=== PATIENT | female | born 1955 | race Caucasian/White ===

== ENCOUNTER 2016-11-09 15:42 | Inpatient (IN) ==
[~2016-11-09 15:42] MED LIST: *HR* Etomidate 40 MG/20 ML VIAL IVP ONE; *HR* LORazepam 2 MG/ML VIAL IVP ONE; *HR* Rocuronium Bromide 50 MG/5 ML VIAL IVC ONE
[2016-11-09] MEDS ORDERED: Ipratropium/Albuterol Neb 3 ML IH ONE (15:46)
[2016-11-09] MEDS ORDERED: methylPREDNISolone 125 MG/2 ML VIAL IVP ONE (15:46)
--- NOTE | 2016-11-09 15:49 | Emergency Department Note ---
Disposition Clinical Impression: Hypoxia, Pleural effusion Respiratory failure Qualifiers: Chronicity: acute Respiratory failure complication: unspecified whether with hypoxia or hypercapnia Qualified Code(s): J96.00 - Acute respiratory failure, unspecified whether with hypoxia or hypercapnia Disposition: Admitted As Inpatient Condition: Critical Time of Disposition: 18:26 SOB HPI - General Chief Complaint: ED Shortness of Breath/Dyspnea Stated Complaint: AL Time Seen by Provider: 11/09/16 15:46 Source: patient, EMS Mode of arrival: EMS Limitations: no limitations Nursing Notes Reviewed: Yes Vital Signs Reviewed: Yes - History of Present Illness 61-year-old with a history of ovarian cancer was receiving a treatment today and developed acute onset of shortness of breath. Spoke to Dr. Baca is concerned about bronchospasm versus congestive changes. Pt Subjective Complaint: shortness of breath Onset (ago): Just SCHEDULE MANAGER Context: recent illness Severity: moderate, severe Consistency/Duration: constant Improves with: nothing Worsens with: nothing Known history of: other (During chemotherapy) Treatment prior to arrival: oxygen - Related Data Home Medications Medication Instructions Recorded Confirmed Baclofen 10 mg PO TID 09/29/16 11/09/16 Duloxetine HCl [Cymbalta] 60 mg PO DAILY 09/29/16 11/09/16 Gabapentin [Neurontin] 600 mg PO TID 09/29/16 11/09/16 Melatonin/Pyridoxine HCl (B6) 1 each PO HS 09/29/16 11/09/16 [Melatonin 3 mg Tablet] Ropinirole HCl [Requip] 2 mg PO BID 09/29/16 11/09/16 Aspirin 81 mg PO DAILY 11/09/16 11/09/16 Previous Rx's Medication Instructions Recorded Magic Mouthwash [Magic Mouthwash 10 ml PO QID PRN #240 ml 10/15/16 BLM] Amlodipine [Norvasc] 5 mg PO DAILY #30 tablet 10/18/16 Docusate Sodium [Colace] 100 mg PO BID #60 capsule 10/18/16 Ondansetron HCl [Zofran] 4 mg PO Q6H PRN #30 tablet 11/01/16 Prochlorperazine Maleate 10 mg PO Q6HR PRN #30 tablet 11/01/16 [Compazine] Megestrol Acetate [Megace] 10 ml PO DAILY #300 mls 11/04/16 OxyCODONE Immed Rel [Roxicodone 5 10 mg PO Q4H PRN #60 tab 11/08/16 MG] Dexamethasone [Decadron] 2 tab PO BID #30 tablet 11/09/16 Allergies Allergy/AdvReac Type Severity Reaction Status Date / Time No Known Allergies Allergy Verified 11/09/16 15:44 Constitutional: Denies: fever, chills, weakness, weight change Eyes: Denies: eye pain, eye discharge, vision change ENT ED: Denies: ear pain, throat pain, dental pain, hearing loss, epistaxis, congestion, dysphagia Cardiovascular: Denies: chest pain, palpitations, dyspnea on exertion, edema, syncope Respiratory: Reports: dyspnea. Denies: cough, wheezes, hemoptysis, stridor Gastrointestinal: Denies: abdominal pain, nausea, vomiting, diarrhea, constipation, hematemesis, melena, hematochezia Genitourinary: Denies: dysuria, frequency, hematuria, discharge Musculoskeletal: Denies: back pain, neck pain, arthralgia, myalgia Integumentary: Denies: rash, abrasion, lesions Neurological: Denies: headache, weakness, numbness, paresthesias, confusion, abnormal gait, vertigo Psychiatric: Denies: anxiety, depression, suicidal thoughts, homicidal thoughts , auditory hallucinations, visual hallucinations Endocrine: Denies: fatigue Hematological/Lymphatic: Denies: easy bleeding, easy bruising Allergic/Immunologic: Denies: facial swelling, urticaria Past Medical History - Past Medical History Medical history: Reports: arthritis, cancer (ovarian cancer diagnosed 09/2016- Dr. Zelalem Lui), hypertension, other (complex regional pain syndrome, cervical spinal stenosis) Surgical history: Reports: cholecystectomy, knee replacement (right total knee) , orthopedic, other (right elbow replacement, rotator cuff repair, right total knee replacement) Psychiatric history: Reports: no psych history - Social History Smoking Status: Never smoker Smokeless Tobacco Status: No Alcohol use: Reports: none Drug use: Reports: none Physical Exam - General Limitations: no limitations General appearance: alert, in no apparent distress - Head Head exam: atraumatic, normocephalic, normal inspection - Eye Eye exam: Present: normal appearance, PERRL, EOMI - ENT ENT exam: normal exam, normal oropharynx, mucous membranes moist - Neck Neck exam: Present: normal inspection, full ROM, trachea midline - Chest Chest inspection: Present: normal inspection, symmetric chest wall rise - Respiratory Respiratory exam: Present: respiratory distress, accessory muscle use, prolonged expiratory phase - Cardiovascular Cardiovascular exam: Present: regular rate, normal rhythm, normal heart sounds - Abdominal Exam Abdominal exam: Present: soft, Non-Tender. Absent: tenderness, distention, guarding, rebound, rigidity - Extremities Exam Extremities exam: Present: normal inspection, full ROM. Absent: tenderness, pedal edema - Expanded Lower Extremity Exam Neurovascular/Tendon exam: Absent: motor deficit, sensory deficit, tendon deficit - Back Exam Back exam: Present: normal inspection, full ROM. Absent: tenderness - Neurological Exam Neurological exam: Present: alert, oriented X3 - Psychiatric Psychiatric exam: Present: normal affect, normal mood - Skin Skin exam: Present: warm, dry, intact, normal color Course - Reevaluation(s) Reevaluation #1: Patient had a progressive shortness of breath to the point that the patient pulse ox was in the mid 80s on 100% nonrebreather a BiPAP was applied without improvement so the vision was made to intubate the patient. Patient with acute onset of severe shortness of breath and tachycardia concern for PE. Patient was treated with 1mg /kg of Lovenox. We will obtain a CTA of the chest. Local care place a chest tube with return of about 2-1/2 L of fluid. Vitals remained stable. Time: 16:19 - Consultations Consultation #1: Discussed with critical care who came down and evaluated the patient is going to place chest tube to drain a pleural effusion. Will admit patient to the ICU. Time: 16:41 Consultation #2: The patient had a trending down of her pulse ox into the high 80s to 90 range. Patient had been on water seal for her chest tube and one reconnected had some improvement in the pulse ox. We did do a blood gas her pH was 7.03 she was given bicarbonate [address] of her chest results showed a multiple pulmonary emboli patient had received Lovenox she also on CT showed no evidence of right heart strain. I called the ICU doctors Dr. Mittal she is aware of the CT findings as the radiologist had called her. This point in time she does not have evidence of right heart strain, there is separation of TPA at this point in time does not appear to be indicated his vitals are stable. Also noted on CT scan carcinomatosis of the abdomen. Patient is in grave condition. Time: 19:50 Vital Signs O2 Sat by Pulse Oximetry 83 L 11/09/16 15:42 Temperature 97.7 F 11/09/16 15:46 Pulse Rate 94 11/09/16 19:20 Respiratory Rate 18 11/09/16 19:20 Blood Pressure 122/64 11/09/16 19:20 O2 Sat by Pulse Oximetry 96 11/09/16 19:20 Oxygen Delivery Oxygen Delivery Ventilator Procedures - Central Line Placement Right IJ Central Line Inserted*: Yes Central Line Catheter Replacement*: No Central Line Insertion: emergent Procedural Pause: verify patient name and date of , timeout performed per policy, luís and assess the site, assemble equipment and verify supplies, perform hand hygiene Patient Placed on Monitor/Pulse Ox: Yes During the Procedure: clinician is wearing sterile gloves, cap, mask,& gown during insertion, sterile field and sterile technique are maintained, patient's face is covered with drape or mask and wearing a cap, everyone in room is wearing a mask Central Line Prep: Chlorhexidine scrub Prep the Procedure Site: apply chloraprep to the skin using a back and forth scrubbing motion, apply chloraprep for 30 seconds (upper body), 1-2 min ( femoral sites), allow prep to dry, drape the patient with a full body drape Local Anesthetic: lidocaine 1% Amount of anesthesia used (mL): 4 Ultrasound Used for Placement: Yes Central Line Lumen Inserted: triple Post Procedure: sutured in place, good blood return, all ports aspirated, flushed, capped Post Procedure X-Ray: tip of catheter in good position Patient Tolerated Procedure: well, no complications Complications: none Name of Clinician Inserting Central Line: Asha Clinician Assisting/Completing Checklist: Kai Harris - Intubation Time out performed: Yes sedative: Etomidate Mg Given: 20 paralytic: Rocuronium Mg Given: 50 Laryngoscope: Morgan ET Tube Size: 7.5 ET Tube Uncuffed: No Tube Secured Depth (cm): 22 Tube Secured Location: lips Tube Placement Confirmation: visualized tube passing through cords, equal breath sounds bilaterally, no breath sounds over epigastrium, confirmation by capnometry Patient Tolerated Procedure: well, no complications Intubation Complications: none Shortness of Breath/Dyspnea - Lab Data Result diagrams: 11/09/16 17:10 11/09/16 17:10 Lab Results 11/09/16 11/09/16 11/09/16 Range/Units 16:00 17:10 17:10 WBC 15.2 H D (4.3-11.1) K/mcL RBC 3.90 (3.82-4.97) M/mcL Hgb 9.8 L (11.5-15.4) g/dL Hct 33.4 L (35.3-44.9) % MCV 85.6 (83.0-100.0) fL MCH 25.1 L (28.0-33.3) pg MCHC 29.3 L (31.6-35.5) g/dL RDW 28.3 H (11.5-14.5) % Plt Count 667 H (140-400) K/mcL MPV 9.1 L (9.4-12.4) fL Immature Gran % 2.9 (0-4) % Seg Neutrophils % 79.9 % Lymphocytes % 15.8 % Monocytes % 1.0 % Eosinophils % 0.0 % Basophils % 0.4 % Neutrophils # 12.1 H (1.6-8.9) K/mcL Lymphocytes # 2.4 (0.6-4.6) K/mcL Monocytes # 0.2 (0.0-1.3) K/mcL Eosinophils # 0.0 (0.0-0.6) K/mcL Basophils # 0.1 (0.0-0.2) K/mcL Platelet Estimate Increased H (Normal) Immature Plt Fraction 2.4 (1.1-6.1) % Hypochromasia Present A (Not Present) Anisocytosis 1+ A (Not Present) PT 13.4 H (9.4-12.1) Seconds INR 1.2 APTT 32.3 (26.0-36.0) Seconds ABG pH (7.32-7.45) pH Units ABG pCO2 (35-45) mmHg ABG pO2 (85-104) mmHg ABG HCO3 (21-27) mEQ/L ABG Total CO2 (20-26) mEq/L ABG O2 Saturation (95-98) % ABG Base Excess (-2.0 to 3.0) mEq/L Blood Gas Modality Inspired O2 % Sodium (136-145) mEq/L Potassium (3.5-4.5) mEq/L Chloride (98-109) mEq/L Carbon Dioxide (19-29) mEq/L BUN (7-20) mg/dL Creatinine (0.57-1.11) mg/dL Est GFR ( Amer) (> 60) Est GFR (Non-Af Amer) (> 60) BUN/Creatinine Ratio (6-26) Glucose (70-99) mg/dL POC Glucose 281 H (58-89) Calculated Osmolality (280-300) Lactic Acid (0.5-2.2) mmol/L Calcium (8.6-10.8) mg/dL Total Bilirubin (0.2-1.2) mg/dL Direct Bilirubin (0.0-0.5) mg/dL Indirect Bilirubin (0.0-1.2) mg/dL AST (5-34) Units/L ALT (0-55) Units/L Alkaline Phosphatase (38-126) Units/L Troponin I (0-0.03) ng/mL B-Natriuretic Peptide (0-100) pg/mL Serum Total Protein (6.0-8.3) g/dL Albumin (3.5-5.0) g/dL Globulin (2.4-3.5) g/dL Albumin/Globulin Ratio (1.1-2.2) 11/09/16 11/09/16 11/09/16 Range/Units 17:10 17:10 17:10 WBC (4.3-11.1) K/mcL RBC (3.82-4.97) M/mcL Hgb (11.5-15.4) g/dL Hct (35.3-44.9) % MCV (83.0-100.0) fL MCH (28.0-33.3) pg MCHC (31.6-35.5) g/dL RDW (11.5-14.5) % Plt Count (140-400) K/mcL MPV (9.4-12.4) fL Immature Gran % (0-4) % Seg Neutrophils % % Lymphocytes % % Monocytes % % Eosinophils % % Basophils % % Neutrophils # (1.6-8.9) K/mcL Lymphocytes # (0.6-4.6) K/mcL Monocytes # (0.0-1.3) K/mcL Eosinophils # (0.0-0.6) K/mcL Basophils # (0.0-0.2) K/mcL Platelet Estimate (Normal) Immature Plt Fraction (1.1-6.1) % Hypochromasia (Not Present) Anisocytosis (Not Present) PT (9.4-12.1) Seconds INR APTT (26.0-36.0) Seconds ABG pH (7.32-7.45) pH Units ABG pCO2 (35-45) mmHg ABG pO2 (85-104) mmHg ABG HCO3 (21-27) mEQ/L ABG Total CO2 (20-26) mEq/L ABG O2 Saturation (95-98) % ABG Base Excess (-2.0 to 3.0) mEq/L Blood Gas Modality Inspired O2 % Sodium 134 L (136-145) mEq/L Potassium 4.2 (3.5-4.5) mEq/L Chloride 101 (98-109) mEq/L Carbon Dioxide 18 L (19-29) mEq/L BUN 10 (7-20) mg/dL Creatinine 0.80 (0.57-1.11) mg/dL Est GFR ( Amer) > 60 (> 60) Est GFR (Non-Af Amer) > 60 (> 60) BUN/Creatinine Ratio 13 (6-26) Glucose 415 H (70-99) mg/dL POC Glucose (58-89) Calculated Osmolality 295 (280-300) Lactic Acid 6.2 H* (0.5-2.2) mmol/L Calcium 8.4 L (8.6-10.8) mg/dL Total Bilirubin 0.3 (0.2-1.2) mg/dL Direct Bilirubin 0.2 (0.0-0.5) mg/dL Indirect Bilirubin 0.1 (0.0-1.2) mg/dL AST 19 (5-34) Units/L ALT 8 (0-55) Units/L Alkaline Phosphatase 148 H (38-126) Units/L Troponin I 0.43 H* (0-0.03) ng/mL B-Natriuretic Peptide (0-100) pg/mL Serum Total Protein 6.7 (6.0-8.3) g/dL Albumin 2.1 L (3.5-5.0) g/dL Globulin 4.6 H (2.4-3.5) g/dL Albumin/Globulin Ratio 0.5 L (1.1-2.2) 11/09/16 11/09/16 Range/Units 17:10 17:10 WBC (4.3-11.1) K/mcL RBC (3.82-4.97) M/mcL Hgb (11.5-15.4) g/dL Hct (35.3-44.9) % MCV (83.0-100.0) fL MCH (28.0-33.3) pg MCHC (31.6-35.5) g/dL RDW (11.5-14.5) % Plt Count (140-400) K/mcL MPV (9.4-12.4) fL Immature Gran % (0-4) % Seg Neutrophils % % Lymphocytes % % Monocytes % % Eosinophils % % Basophils % % Neutrophils # (1.6-8.9) K/mcL Lymphocytes # (0.6-4.6) K/mcL Monocytes # (0.0-1.3) K/mcL Eosinophils # (0.0-0.6) K/mcL Basophils # (0.0-0.2) K/mcL Platelet Estimate (Normal) Immature Plt Fraction (1.1-6.1) % Hypochromasia (Not Present) Anisocytosis (Not Present) PT (9.4-12.1) Seconds INR APTT (26.0-36.0) Seconds ABG pH 7.24 L (7.32-7.45) pH Units ABG pCO2 47 H (35-45) mmHg ABG pO2 132 H (85-104) mmHg ABG HCO3 20.1 L (21-27) mEQ/L ABG Total CO2 21.5 (20-26) mEq/L ABG O2 Saturation 98 (95-98) % ABG Base Excess -7.2 L (-2.0 to 3.0) mEq/L Blood Gas Modality ASSIST CONTROL Inspired O2 50 % Sodium (136-145) mEq/L Potassium (3.5-4.5) mEq/L Chloride (98-109) mEq/L Carbon Dioxide (19-29) mEq/L BUN (7-20) mg/dL Creatinine (0.57-1.11) mg/dL Est GFR ( Amer) (> 60) Est GFR (Non-Af Amer) (> 60) BUN/Creatinine Ratio (6-26) Glucose (70-99) mg/dL POC Glucose (58-89) Calculated Osmolality (280-300) Lactic Acid (0.5-2.2) mmol/L Calcium (8.6-10.8) mg/dL Total Bilirubin (0.2-1.2) mg/dL Direct Bilirubin (0.0-0.5) mg/dL Indirect Bilirubin (0.0-1.2) mg/dL AST (5-34) Units/L ALT (0-55) Units/L Alkaline Phosphatase (38-126) Units/L Troponin I (0-0.03) ng/mL B-Natriuretic Peptide 53 (0-100) pg/mL Serum Total Protein (6.0-8.3) g/dL Albumin (3.5-5.0) g/dL Globulin (2.4-3.5) g/dL Albumin/Globulin Ratio (1.1-2.2) Critical Care Time Critical Care Time: Yes Total Critical Care Time: 60 Attestation: The high probability of a clinically significant, sudden or life threatening deterioration of the [respiratory, cardiovascular] system(s) required my full and direct attention, intervention and personal management. The aggregate critical care time was [60] minutes. This time is in addition to time spent performing reported procedures but includes the following: [x] Data Review and interpretation [x] Patient assessment and monitoring of vital signs [x] Documentation [x] Medication orders and management
[2016-11-09] MEDS ORDERED: *HR* Rocuronium Bromide 50 MG/5 ML VIAL IVP ONE (16:10)
[2016-11-09] MEDS ORDERED: *HR* Midazolam HCl 2 MG/2 ML VIAL IVP ONE (16:11)
[2016-11-09] MEDS ORDERED: *HR* Etomidate 20 MG/10 ML AMPUL IVP ONE (16:11)
[2016-11-09] MEDS ORDERED: *HR* Enoxaparin 100 MG/ML SYRINGE SQ ONE (16:13)
[2016-11-09] MEDS ORDERED: Propofol 500 MG/50 ML INFUS..BTL ONE (16:16)
[2016-11-09 17:22] LABS: Basophils # 0.1 K/mcL (0.0-0.2); Basophils % 0.4 %; Hematocrit 33.4 % (35.3-44.9); Hemoglobin 9.8 g/dL (11.5-15.4); Immature Granulocytes % 2.9 % (0-4); Immature Platelets 2.4 % (1.1-6.1); Lymphocytes # 2.4 K/mcL (0.6-4.6); Lymphocytes % 15.8 %; Mean Corpuscular HGB Conc 29.3 g/dL (31.6-35.5); Mean Corpuscular Hemoglobin 25.1 pg (28.0-33.3); Mean Corpuscular Volume 85.6 fL (83.0-100.0); Mean Platelet Volume 9.1 fL (9.4-12.4); Monocytes # 0.2 K/mcL (0.0-1.3); Platelet Count 667 K/mcL (140-400); Red Cell Distribution Width 28.3 % (11.5-14.5); Segmented Neutrophils % 79.9 %
[2016-11-09 17:23] LABS: Neutrophils # 12.1 K/mcL (1.6-8.9)
[2016-11-09 17:25] LABS: INR 1.2; Prothrombin Time 13.4 Seconds (9.4-12.1)
[2016-11-09 17:27] LABS: Activated Partial Thrombo Time 32.3 Seconds (26.0-36.0)
[2016-11-09 17:32] LABS: Alanine Aminotransferase 8 Units/L (0-55); Albumin 2.1 g/dL (3.5-5.0); Albumin/Globulin Ratio 0.5 (1.1-2.2); Alkaline Phosphatase 148 Units/L (38-126); Aspartate Amino Transferase 19 Units/L (5-34); BUN/Creatinine Ratio 13 (6-26); Bilirubin,Direct 0.2 mg/dL (0.0-0.5); Bilirubin,Indirect 0.1 mg/dL (0.0-1.2); Bilirubin,Total 0.3 mg/dL (0.2-1.2); Blood Urea Nitrogen 10 mg/dL (7-20); Calcium 8.4 mg/dL (8.6-10.8); Carbon Dioxide 18 mEq/L (19-29); Chloride 101 mEq/L (98-109); Globulin 4.6 g/dL (2.4-3.5); Glucose 415 mg/dL (70-99); Osmolality,Calculated 295 (280-300); Potassium 4.2 mEq/L (3.5-4.5); Sodium 134 mEq/L (136-145); Total Protein 6.7 g/dL (6.0-8.3); eGFR For African Americans > 60 (> 60); eGFR For Non-African Americans > 60 (> 60)
[2016-11-09] MEDS ORDERED: Piperacillin/Tazobactam 3.375 GM in D5% in Water (Mini-Bag+) 100 ML IVPB ONE (17:38)
[2016-11-09] MEDS: Dexmedetomidine HCl 400 MCG/100 ML MLS IVC SCH (17:45)
[2016-11-09] MEDS ORDERED: *HR* LORazepam 2 MG/ML VIAL IVP PRN (17:47)
[2016-11-09] MEDS ORDERED: Acetaminophen 325 MG TABLET PO PRN (17:47)
[2016-11-09] MEDS ORDERED: Acetaminophen 650 MG RECTAL SUPP RC PRN (17:47)
[2016-11-09] MEDS ORDERED: Naloxone 0.4 MG/ML INJ IVP PRN (17:47)
[2016-11-09 17:52] LABS: Anisocytosis 1+ (Not Present); Hypochromasia Present (Not Present)
[2016-11-09 17:53] LABS: Platelet Estimate Increased (Normal)
[2016-11-09 17:59] LABS: ABG Base Excess -7.2 mEq/L (-2.0 to 3.0); ABG HCO3 20.1 mEQ/L (21-27); ABG Oxygen Saturation 98 % (95-98); ABG PCO2 47 mmHg (35-45); ABG PH 7.24 pH Units (7.32-7.45); ABG PO2 132 mmHg (85-104); ABG TCO2 21.5 mEq/L (20-26); Blood Gas FiO2 50 %
--- NOTE | 2016-11-09 18:09 | Pulmonology History & Physical ---
Date of Encounter: 11/09/16 Time of Encounter: 18:01 Assessment and Plan (1) Acute respiratory failure with hypoxia Current visit: Yes Status: Acute Acute respiratory failure with hypoxia in this particular individual is likely due severe pulmonary insufficiency (shunt physiology) secondary to massive left pleural effusion. Of note, ultrasound of the heart revealed a severely displaced heart into the right chest which following left chest tube placement and evacuation of the massive pleural effusion, assumed its normal configuration. Of note, however ultrasound of the heart suggested hypokinesis dilation of the right and the left ventricles and a questionable echogenic mass within the right ventricle (? Thrombus). Given these findings, further evaluation will be performed to include a CT scan of the chest with pulmonary embolism protocol, formal echocardiography to assess RV LV function and the presence of a possible RV thrombus, venous duplex studies of the llower extremities. In the meantime, the patient will be provided with full anticoagulation. 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 The left chest tube will be will remain in place and perhaps patient will be a candidate for pleurodesis in the not too distant future. Given the presumptive A. fib flutter, at least for now, the patient will be maintained on Cardizem infusion. Patient may be a suitable candidate for additional medications for treatment of atrial fib flutter (rate control versus maintenance of sinus rhythm). I reviewed the situation with the patient's spouse. He wishes the patient to receive full aggressive medical measures. He did verbally consent to intubation , central line placement, chest tube placement and any other additional interventions as seemingly medically necessary. Code(s): J96.01 - Acute respiratory failure with hypoxia SNOMED Code(s): 09647638, 950596798 History of Present Illness Chief complaint: Acute respiratory failure with hypoxia HPI: Ms. Bains is a 61 year old female with background histories of hypertension, restless leg syndrome, breast cancer for which she has had lumpectomy and most recently ovarian malignancy with advanced stage given carcinomatosis within the peritoneal space necessitating at least 2 paracentesis as well as malignant spread to the left pleural space necessitating at least one perhaps 2 thoracenteses (per her ). Apparently the patient was just completing chemotherapy today (reportedly per spouse this was to be the last treatment session) when the patient developed severe breathlessness and documented hypoxemia. Apparently she presented to the emergency room in respiratory extremis and was also noted to have atrial fibrillation/flutter with rapid ventricular response. Magnitude of respiratory distress and hypoxemia she was subsequently intubated by the emergency room physicians. The critical care team was asked to assist with management in the emergency room. Of note, focused ultrasound of the heart revealed severe hypokinesis and enlargement of the right and the left ventricle question of density within the right ventricle and a massive left pleural effusion. Given the size of the effusion and in light of the patient's clinical circumstances, both myself and Dr. Mittal emergently placed 28-Frisian standard chest tube into the left hemithorax without difficulty. Approximately 3 L if not more serosanguineous fluid erupted from the chest under pressure and a follow-up chest film revealed complete evacuation of the left hemithorax effusion and appropriate placement of a left chest tube as well as a right central line in the endotracheal tube. The patient was subsequently admitted to the intensive care unit. She currently is on full ventilatory support, has a Cardizem infusion, Precedex infusion for sedation and he has received full anticoagulating doses of heparin (his low molecular weight heparin). Past Med Surg Social Fam HX - Past Medical History Medical history: arthritis, cancer (ovarian cancer diagnosed 09/2016-Dr. Zelalem Lui), hypertension, other (complex regional pain syndrome, cervical spinal stenosis) Psychiatric history: no psych history - Past Surgical History Surgical History: cholecystectomy, knee replacement (right total knee), orthopedic, other (right elbow replacement, rotator cuff repair, right total knee replacement) - Social History Smoking Status: Never smoker Smokeless Tobacco Status: No Alcohol use: none Drug use: none - Family History Maternal Living Status: Hx Family Respiratory Disorders: Yes (COPD) Medications and Allergies Amlodipine [Norvasc] 5 mg PO DAILY 09/29/16 [History] Baclofen 10 mg PO TID 09/29/16 [History] Duloxetine HCl [Cymbalta] 60 mg PO DAILY 09/29/16 [History] Gabapentin [Neurontin] 600 mg PO TID 09/29/16 [History] Melatonin/Pyridoxine HCl (B6) [Melatonin 3 mg Tablet] 1 each PO HS 09/29/16 [ History] Ropinirole HCl [Requip] 2 mg PO BID 09/29/16 [History] Magic Mouthwash [Magic Mouthwash BLM] 10 ml PO QID PRN #240 ml 10/15/16 [Rx] Ondansetron HCl [Zofran] 4 mg PO Q6H #15 tablet 10/15/16 [Rx] Amlodipine [Norvasc] 5 mg PO DAILY #30 tablet 10/18/16 [Rx] Docusate Sodium [Colace] 100 mg PO BID #60 capsule 10/18/16 [Rx] Ondansetron HCl [Zofran] 4 mg PO Q6H PRN #30 tablet 11/01/16 [Rx] Prochlorperazine Maleate [Compazine] 10 mg PO Q6HR PRN #30 tablet 11/01/16 [Rx] Megestrol Acetate [Megace] 10 ml PO DAILY #300 mls 11/04/16 [Rx] OxyCODONE Immed Rel [Roxicodone 5 MG] 10 mg PO Q4H PRN #60 tab 11/08/16 [Rx] Dexamethasone [Decadron] 2 tab PO BID #30 tablet 11/09/16 [Rx] Allergies No Known Allergies Allergy (Verified 11/09/16 15:44) ROS unobtainable: due to endotracheal tube All Systems: A 10-system review of systems was performed and is negative for pertinent findings except as documented above in the HPI. Physical Examination Vital Signs: Vital Signs, Last 4 Hours Temp Pulse Resp BP Pulse Ox 11/09/16 16:49 146 14 131/96 98 11/09/16 16:39 149 14 122/91 96 11/09/16 16:25 158 14 123/85 98 11/09/16 16:15 15 113/91 100 11/09/16 16:10 160 22 142/109 90 L 11/09/16 15:59 144 30 124/83 84 L 11/09/16 15:46 97.7 F 96 28 124/83 83 L 11/09/16 15:42 83 L General appearance: other (Chronically ill obese female orally intubated sedated) Eyes: nonicteric ENT: other (Oral endotracheal tube) Neck: supple, no lymphadenopathy Auscultation: left: diminished breath sounds Percussion: left: dull Cardiovascular: irregular rhythm Gastrointestinal: normoactive bowel sounds, non-distended Integumentary: normal Extremities: no cyanosis, pink and warm, edema unable to assess due to mental status Results - Laboratory Findings CBC and BMP: 11/09/16 17:10 11/09/16 17:10 ABG ABG pH 7.24 pH Units (7.32-7.45) L 11/09/16 17:10 ABG pCO2 47 mmHg (35-45) H 11/09/16 17:10 ABG pO2 132 mmHg (85-104) H 11/09/16 17:10 ABG O2 Saturation 98 % (95-98) 11/09/16 17:10 PT/INR, D-dimer PT 13.4 Seconds (9.4-12.1) H 11/09/16 17:10 Abnormal lab findings: Abnormal lab results WBC 15.2 K/mcL (4.3-11.1) H D 11/09/16 17:10 Hgb 9.8 g/dL (11.5-15.4) L 11/09/16 17:10 Hct 33.4 % (35.3-44.9) L 11/09/16 17:10 MCH 25.1 pg (28.0-33.3) L 11/09/16 17:10 MCHC 29.3 g/dL (31.6-35.5) L 11/09/16 17:10 RDW 28.3 % (11.5-14.5) H 11/09/16 17:10 Plt Count 667 K/mcL (140-400) H 11/09/16 17:10 MPV 9.1 fL (9.4-12.4) L 11/09/16 17:10 Neutrophils # 12.1 K/mcL (1.6-8.9) H 11/09/16 17:10 Platelet Estimate Increased (Normal) H 11/09/16 17:10 Hypochromasia Present (Not Present) A 11/09/16 17:10 Anisocytosis 1+ (Not Present) A 11/09/16 17:10 PT 13.4 Seconds (9.4-12.1) H 11/09/16 17:10 ABG pH 7.24 pH Units (7.32-7.45) L 11/09/16 17:10 ABG pCO2 47 mmHg (35-45) H 11/09/16 17:10 ABG pO2 132 mmHg (85-104) H 11/09/16 17:10 ABG HCO3 20.1 mEQ/L (21-27) L 11/09/16 17:10 ABG Base Excess -7.2 mEq/L (-2.0 to 3.0) L 11/09/16 17:10 Sodium 134 mEq/L (136-145) L 11/09/16 17:10 Carbon Dioxide 18 mEq/L (19-29) L 11/09/16 17:10 Glucose 415 mg/dL (70-99) H 11/09/16 17:10 POC Glucose 281 (58-89) H 11/09/16 16:00 Lactic Acid 6.2 mmol/L (0.5-2.2) H* 11/09/16 17:10 Calcium 8.4 mg/dL (8.6-10.8) L 11/09/16 17:10 Alkaline Phosphatase 148 Units/L (38-126) H 11/09/16 17:10 Troponin I 0.43 ng/mL (0-0.03) H* 11/09/16 17:10 Albumin 2.1 g/dL (3.5-5.0) L 11/09/16 17:10 Globulin 4.6 g/dL (2.4-3.5) H 11/09/16 17:10 Albumin/Globulin Ratio 0.5 (1.1-2.2) L 11/09/16 17:10
--- NOTE | 2016-11-09 18:21 | Event Note ---
Date of Encounter: 11/09/16 Time of Encounter: 18:19 An emergent 28-Uzbek left chest tube was placed in the emergency room by myself as well as Dr. Mittal using ultrasound guidance, maximal sterile barrier technique. Following placement, a large volume under pressure of serosanguineous fluid erupted from the left chest base the majority of which emptied to the floor. Approximately 3 liters of fluid in total was removed from the left hemithorax. The 28-Uzbek chest tube was sutured into position with Prolene. A follow-up chest radiograph revealed near complete evacuation of fluid from the left hemithorax no obvious pneumothorax. No untoward events were noted.
[2016-11-09] MEDS: Sodium Bicarbonate 50 MEQ/50 ML VIAL ONE ×2 (19:28→19:29)
[2016-11-09 20:01] LABS: Blood Gas FiO2 100 %
[2016-11-09 20:02] LABS: ABG HCO3 21.1 mEQ/L (21-27); ABG PO2 58 mmHg (85-104); ABG TCO2 23.6 mEq/L (20-26)
[2016-11-09 20:03] LABS: ABG Base Excess -10.8 mEq/L (-2.0 to 3.0); ABG Oxygen Saturation 73 % (95-98)
[2016-11-09 20:05] LABS: ABG PH 7.03 pH Units (7.32-7.45)
[2016-11-09 20:06] LABS: ABG PCO2 80 mmHg (35-45)
[2016-11-09 20:07] LABS: Bilirubin,Urine Negative (Negative); Blood,Urine Trace-intact (Negative); Clarity,Urine Clear (Clear); Color,Urine Yellow (Yellow); Glucose,Urine (UA) Normal (Normal); Ketones,Urine Trace mg/dL (Negative); Leukocyte Esterase,Urine Negative (Negative); Nitrite,Urine Negative (Negative); Protein,Urine Negative (Neg-Trace); Urobilinogen,Urine Normal (Normal)
[2016-11-09 20:09] LABS: Bacteria,Urine None Seen per hpf (None-Few); Hyaline Casts,Urine None Seen per lpf (None-Few); RBC,Urine 0-3 per hpf (0-3); Squamous Epithelial Cell,Urine Many per lpf (None-Few); WBC,Urine 0-3 per hpf (0-3)
[2016-11-09] MEDS ORDERED: Alteplase (Activase) 100 MG in EMPTY BAG 1 EACH IVPB ONE (21:14)
[2016-11-09] MEDS: Sennosides 8.6 MG TABLET PO SCH (21:24)
[2016-11-09] MEDS: Pantoprazole 40 MG VIAL IVPB SCH (21:58)
[2016-11-09] MEDS: 0.9 % Sodium Chloride 1,000 ML IVC SCH ×3 (21:58→22:01)
[2016-11-09] MEDS: FentaNYL (PF) 1,000 MCG in 0.9 % Sodium Chloride 80 ML IVC SCH (21:59)
[2016-11-10 03:39] LABS: Basophils % 0.2 %; Hematocrit 31.5 % (35.3-44.9); Hemoglobin 9.6 g/dL (11.5-15.4); Immature Granulocytes % 1.7 % (0-4); Lymphocytes % 7.8 %; Mean Corpuscular HGB Conc 30.5 g/dL (31.6-35.5); Mean Corpuscular Hemoglobin 25.1 pg (28.0-33.3); Mean Corpuscular Volume 82.5 fL (83.0-100.0); Mean Platelet Volume 8.9 fL (9.4-12.4); Monocytes # 0.5 K/mcL (0.0-1.3); Monocytes % 3.9 %; Platelet Count 362 K/mcL (140-400); Red Blood Count 3.82 M/mcL (3.82-4.97); Red Cell Distribution Width 27.5 % (11.5-14.5); Segmented Neutrophils % 86.4 %
[2016-11-10 03:50] LABS: INR 1.5
[2016-11-10 03:52] LABS: Neutrophils # 11.2 K/mcL (1.6-8.9)
[2016-11-10 03:54] LABS: BUN/Creatinine Ratio 19 (6-26); Blood Urea Nitrogen 12 mg/dL (7-20); Calcium 7.4 mg/dL (8.6-10.8); Carbon Dioxide 20 mEq/L (19-29); Chloride 107 mEq/L (98-109); Glucose 101 mg/dL (70-99); Magnesium 1.2 mg/dL (1.6-2.6); Osmolality,Calculated 292 (280-300); Potassium 4.2 mEq/L (3.5-4.5); Sodium 141 mEq/L (136-145); eGFR For African Americans > 60 (> 60); eGFR For Non-African Americans > 60 (> 60)
[2016-11-10] MEDS ORDERED: Potassium Phosphate 44 MEQ in 0.9 % Sodium Chloride 250 ML IVPB PRN (04:13)
[2016-11-10] MEDS ORDERED: Potassium Chloride 40 MEQ/200 ML BAG IVPB PRN (04:13)
[2016-11-10] MEDS ORDERED: Sodium Phosphate 30 MMOL in D5% in Water 100 ML IVPB PRN (04:13)
[2016-11-10 04:42] LABS: Anisocytosis 3+ (Not Present); Hypochromasia Present (Not Present); Platelet Estimate Normal (Normal)
[2016-11-10 04:43] LABS: Polychromasia 2+ (Not Present)
[2016-11-10 05:02] LABS: ABG Base Excess -0.6 mEq/L (-2.0 to 3.0); ABG HCO3 22.3 mEQ/L (21-27); ABG Oxygen Saturation 98 % (95-98); ABG PCO2 30 mmHg (35-45); ABG PH 7.48 pH Units (7.32-7.45); ABG PO2 99 mmHg (85-104); ABG TCO2 23.2 mEq/L (20-26)
[2016-11-10 05:03] LABS: Blood Gas FiO2 100 %
[2016-11-10] MEDS: Magnesium Sulfate 2 GM in D5% in Water 100 ML IVPB PRN (05:43)
[2016-11-10] MEDS: Calcium Gluconate 1,000 MG in D5% in Water 100 ML IVPB PRN (05:49)
[2016-11-10] MEDS: Pantoprazole 40 MG VIAL IVPB SCH (08:28)
[2016-11-10] MEDS: *HR* Enoxaparin 100 MG/ML SYRINGE SQ SCH ×2 (08:28→22:24)
--- NOTE | 2016-11-10 08:57 | Pulmonology Progress Note ---
Date of Encounter: 11/10/16 Time of Encounter: 08:46 Assessment and Plan (1) Acute respiratory failure with hypoxia Current Visit: Yes Status: Acute Acute respiratory failure with hypoxia in this particular individual is likely due severe pulmonary insufficiency (shunt physiology) secondary to massive left pleural effusion. Of note, ultrasound of the heart revealed a severely displaced heart into the right chest which following left chest tube placement and evacuation of the massive pleural effusion, assumed its normal configuration. Of note, however ultrasound of the heart suggested hypokinesis dilation of the right and the left ventricles and a questionable echogenic mass within the right ventricle (? Thrombus). Patient has a known history of ovarian cancer with metastatic disease and peritoneal carcinomatosis, who subsequently developed a left-sided pleural effusion likely secondary due to ovarian malignancy. Emergent intubation, chest tube placement, central line required. Initially patient had sinus tachycardia due to atrial fibrillation and Cardizem infusion was initiated. Stop Cardizem. Patient is intubated, ventilated, sedated. We will continue ventilation with FiO2 to be weaned per patient tolerance with a goal oxygen saturation of 88-90%. Persistent Hypotension likely related to cardiac stress shock from pulmonary emboli. Begin Levophed drip titrate to effect. Map >65 (2) Pleural effusion Current Visit: Yes Status: Acute On bedside echo a large pleural effusion was appreciated. More than 2 L of fluid drained at bedside. Chest tube in place. No crepitus appreciated. Continue tube management and dressing changes. Pleural effusion likely secondary to known metastatic ovarian malignancy. Patient may be a candidate for pleurodesis to obliterate pleural space to further prevent recurrent pleural effusions or pneumothorax. Consider after patient stabilizes. (3) Pulmonary embolism Current Visit: Yes Status: Acute Patient with known metastatic ovarian malignancy with sudden onset respiratory distress/ tachypnea who required emergent chest tube placement and subsequent CTA demonstrated extensive pulmonary embolic disease. Bedside echo demonstrated impaired left and right heart function. Additionally patient has been intermittently hypotensive with persistent tachycardia and new onset arrhythmia. Signs of right heart strain evident as well as compression due to large pleural effusion. IV lytic last night at 2220 successfully without bleeding events. CTA performed after chest tube placement: 11/09/16 demonstrated pulmonary emboli in both lungs predominantly the right main pulmonary artery and lobar and segmental branches of the right upper middle and lower lobes. Furthermore there was a pulmonary emboli within the left upper lobe. No evidence of pulmonary infarct or acute right-sided heart failure. Due to extensive pulmonary embolism and malignancy patient will require long- term anticoagulation with Lovenox. Start Lovenox Echo cardiogram is pending. Qualifiers: Pulmonary embolism type: other Chronicity: acute Acute cor pulmonale presence: without acute cor pulmonale Qualified Code(s): I26.99 - Other pulmonary embolism without acute cor pulmonale Subjective Principal diagnosis: Bilateral Pulmonary emboli and malignant pulmonary effusion Interval history: Patient was becoming tired at increased work of breathing and communicated by writing on paper that she needed to sleep and the vent was bothering her. Changed to Versed and fentanyl. No events overnight patient resting comfortably. Objective PUL Vital signs: Last Vital Signs Temp 99.3 F 11/10/16 07:51 Pulse 116 11/10/16 08:00 Resp 20 11/10/16 08:00 BP 97/68 11/10/16 08:00 Pulse Ox 98 11/10/16 08:00 General appearance: no acute distress Eyes: nonicteric ENT: oropharynx moist Neck: supple Effort: normal Auscultation: left: diminished breath sounds (Chest tube placed left midaxillary without crepitus.), bilateral: wheezes Cardiovascular: irregular rhythm (Rate of 112 at bedside) Gastrointestinal: normoactive bowel sounds, soft, non-tender, non-distended Integumentary: normal Extremities: no cyanosis Ventilator Settings Ventilator Settings: Ventilator Settings, Last 8 Hours Ventilator Mode VC+ Ventilator Mode VC+ Ventilator Mode VC+ Ventilator Mode VC+ Ventilator Mode VC+ Ventilator Mode VC+ Ventilator Mode VC+ Ventilator Mode VC+ Ventilator Mode VC+ Ventilator Mode VC+ Ventilator Mode VC+ Ventilator Mode VC+ Ventilator Mode VC+ Ventilator Tidal Volume 550 Setting Ventilator Tidal Volume 550 Setting Ventilator Tidal Volume 550 Setting Ventilator Tidal Volume 550 Setting Ventilator Tidal Volume 550 Setting Ventilator Tidal Volume 550 Setting Ventilator Tidal Volume 550 Setting Ventilator Tidal Volume 550 Setting Ventilator Tidal Volume 550 Setting Ventilator Tidal Volume 550 Setting Ventilator Tidal Volume 550 Setting Ventilator Tidal Volume 550 Setting Ventilator Tidal Volume 550 Setting Ventilator Respiratory Rate 16 Setting Ventilator Respiratory Rate 16 Setting Ventilator Respiratory Rate 16 Setting Ventilator Respiratory Rate 16 Setting Ventilator Respiratory Rate 16 Setting Ventilator Respiratory Rate 16 Setting Ventilator Respiratory Rate 16 Setting Ventilator Respiratory Rate 16 Setting Ventilator Respiratory Rate 16 Setting Ventilator Respiratory Rate 16 Setting Ventilator Respiratory Rate 16 Setting Ventilator Respiratory Rate 16 Setting Ventilator Respiratory Rate 16 Setting Actual Respiratory Rate 20 Actual Respiratory Rate 23 Actual Respiratory Rate 22 Actual Respiratory Rate 21 Actual Respiratory Rate 22 Actual Respiratory Rate 27 Actual Respiratory Rate 25 Actual Respiratory Rate 21 Actual Respiratory Rate 24 Actual Respiratory Rate 21 Actual Respiratory Rate 21 Actual Respiratory Rate 22 Positive End Expiratory 8 Pressure Positive End Expiratory 8 Pressure Positive End Expiratory 8 Pressure Positive End Expiratory 8 Pressure Positive End Expiratory 8 Pressure Positive End Expiratory 8 Pressure Positive End Expiratory 8 Pressure Positive End Expiratory 8 Pressure Positive End Expiratory 8 Pressure Positive End Expiratory 8 Pressure Positive End Expiratory 8 Pressure Positive End Expiratory 8 Pressure Positive End Expiratory 8 Pressure Peak Inspiratory Airway 24 Pressure Peak Inspiratory Airway 25 Pressure Peak Inspiratory Airway 25 Pressure Peak Inspiratory Airway 24 Pressure Peak Inspiratory Airway 26 Pressure Peak Inspiratory Airway 35 Pressure Peak Inspiratory Airway 28 Pressure Peak Inspiratory Airway 27 Pressure Peak Inspiratory Airway 30 Pressure Peak Inspiratory Airway 18 Pressure Peak Inspiratory Airway 26 Pressure Peak Inspiratory Airway 16 Pressure Results - Laboratory Findings CBC and BMP: 11/10/16 03:32 11/10/16 03:32 ABG ABG pH 7.48 pH Units (7.32-7.45) H 11/10/16 04:51 ABG pCO2 30 mmHg (35-45) L 11/10/16 04:51 ABG pO2 99 mmHg (85-104) 11/10/16 04:51 ABG O2 Saturation 98 % (95-98) 11/10/16 04:51 PT/INR, D-dimer PT 16.0 Seconds (9.4-12.1) H 11/10/16 03:32 Abnormal lab findings: Abnormal lab results WBC 13.0 K/mcL (4.3-11.1) H 11/10/16 03:32 Hgb 9.6 g/dL (11.5-15.4) L 11/10/16 03:32 Hct 31.5 % (35.3-44.9) L 11/10/16 03:32 MCV 82.5 fL (83.0-100.0) L 11/10/16 03:32 MCH 25.1 pg (28.0-33.3) L 11/10/16 03:32 MCHC 30.5 g/dL (31.6-35.5) L 11/10/16 03:32 RDW 27.5 % (11.5-14.5) H 11/10/16 03:32 MPV 8.9 fL (9.4-12.4) L 11/10/16 03:32 Neutrophils # 11.2 K/mcL (1.6-8.9) H 11/10/16 03:32 Polychromasia 2+ (Not Present) A 11/10/16 03:32 Hypochromasia Present (Not Present) A 11/10/16 03:32 Anisocytosis 3+ (Not Present) A 11/10/16 03:32 PT 16.0 Seconds (9.4-12.1) H 11/10/16 03:32 ABG pH 7.48 pH Units (7.32-7.45) H 11/10/16 04:51 ABG pCO2 30 mmHg (35-45) L 11/10/16 04:51 Glucose 101 mg/dL (70-99) H 11/10/16 03:32 POC Glucose 120 (58-89) H 11/10/16 00:02 Lactic Acid 6.9 mmol/L (0.5-2.2) H* 11/09/16 19:03 Calcium 7.4 mg/dL (8.6-10.8) L 11/10/16 03:32 Ionized Calcium 0.97 mmol/L (1.15-1.35) L 11/10/16 04:57 Magnesium 1.2 mg/dL (1.6-2.6) L 11/10/16 03:32 Alkaline Phosphatase 148 Units/L (38-126) H 11/09/16 17:10 Troponin I 0.43 ng/mL (0-0.03) H* 11/09/16 17:10 Albumin 2.1 g/dL (3.5-5.0) L 11/09/16 17:10 Globulin 4.6 g/dL (2.4-3.5) H 11/09/16 17:10 Albumin/Globulin Ratio 0.5 (1.1-2.2) L 11/09/16 17:10 Urine Ketones Trace mg/dL (Negative) H 11/09/16 19:48 Urine Blood Trace-intact (Negative) H 11/09/16 19:48 Ur Squamous Epith Cells Many per lpf (None-Few) H 11/09/16 19:48 - Clinical Findings Intake & Output: Intake & Output 11/09/16 11/10/16 11/10/16 23:59 07:59 15:59 Intake Total 191 / 191 115 / 115 Output Total 150 / 2950 880 / 880 Balance 41 / -2759 -765 / -765 Weight 103.827 kg Consult Discharge Plan - Plan Referrals: Hilda Chappell, PSYCHOLOGICAL OPERATIONS OFFICER [Primary Care Provider] -
--- NOTE | 2016-11-10 10:27 | Electrocardiograph Report ---
[facility] Test Date: 2016-11-09 Pat Name: Kendra Bains Department: 103 Room: 02 Gender: F Audit Officer: : 1955 Requested By: Shirley Mittal Order Number: [id number] Reading MD: Chris To MD Measurements Intervals [place] Rate: 121 P: -23 OR: 236 QRS: -52 QRSD: 101 T: 94 QT: 261 QTc: 333 Interpretive Statements SINUS TACHYCARDIA WITH FIRST DEGREE AV BLOCK MARKED LEFT AXIS DEVIATION ANTEROSEPTAL MYOCARDIAL INFARCTION, OF INDETERMINATE AGE SIGNIFICANT BASELINE ARTIFACT COMPLICATES INTERPRETATION Electronically Signed On 11-10-16 10:26:14 EST by Chris To MD
--- NOTE | 2016-11-10 11:42 | Electrocardiograph Report ---
[facility] Test Date: 2016-11-09 Pat Name: Kendra Bains Department: 103 Room: 02 Gender: F Skilled Nursing Facilities Professional: : 1955 Requested By: Renzo Quinn Order Number: [id number] Reading MD: Chris To MD Measurements Intervals [place] Rate: 159 P: CT: 0 QRS: -28 QRSD: 109 T: 99 QT: 278 QTc: 367 Interpretive Statements SVT SEPTAL MYOCARDIAL INFARCTION, OF INDETERMINATE AGE LATERAL ISCHEMIA Electronically Signed On 11-10-16 11:41:09 EST by Chris To MD
--- NOTE | 2016-11-10 11:48 | Event Note ---
Date of Encounter: 11/10/16 Time of Encounter: 11:43 Patient examined, chart and all data reviewed as well as recent chest imaging studies. The patient required intubation and initiation of ventilatory support placement of chest tube for a large left pleural effusion presumably secondary to known metastatic ovarian malignancy and furthermore received intravenous lytics last night given her tenuous respiratory status impaired right and left heart function noted from focused bedside ultrasound evaluation. Note that the patient has also experienced intermittent hypotension persistent tachycardia and (sinus per monitor). FiO2 will be weaned per tolerance goal saturation value of 88 and 90%. If hypotension persists, Levophed will be utilized and at this point given sinus tachycardia Cardizem infusion will be discontinued (provided at time of admission given atrial fibrillation noted in the emergency room). For extensive pulmonary embolism and given malignancy, the patient will be maintained on lifelong anticoagulation with Lovenox. Echocardiography is pending. The patient is critically ill, suffering from life-threatening respiratory failure due to massive left pleural effusion (malignant) at necessitating emergent chest tube placement yesterday and also suffers from life-threatening extensive pulmonary embolic disease. Evaluation and management today required 35 minutes of uninterrupted bedside evaluation and critical care time. [facility] [place] [phone]
[2016-11-10] MEDS: Chlorhexidine Rinse 15 ML MOUTHWASH MM SCH ×2 (15:12→22:24)
[2016-11-10] MEDS ORDERED: Perflutren Lipid Microsphere 1.3 ML in 0.9 % Sodium Chloride 8.7 ML IVP ONE (15:44)
[2016-11-10] MEDS ORDERED: Perflutren Lipid Microsphere 2 ML VIAL ONE (15:49)
--- NOTE | 2016-11-10 17:51 | Event Note ---
Date of Encounter: 11/10/16 Time of Encounter: 17:49 I spoke to ICU resident and Dr Moseley earlier today. Patient does not need neulasta 6mg injection that was planned. She has good WBC and nuetrophil counts after recent chemo. If we see her counts fall, we will use neupogen daily to boost WBCs. Dr Brewster plans to see patient tonight or tomorrow. Thank you for anticoagulation. We will follow along.
[2016-11-10] MEDS: FentaNYL (PF) 1,000 MCG in 0.9 % Sodium Chloride 80 ML IVC SCH (18:07)
[2016-11-10] MEDS: Dexmedetomidine HCl 400 MCG/100 ML MLS IVC SCH (19:32)
[2016-11-10] MEDS: Sennosides 8.6 MG TABLET PO SCH (22:24)
[2016-11-10] MEDS: Norepinephrine 4 MG in D5% in Water 250 ML IVC SCH (22:25)
[2016-11-11] MEDS: Norepinephrine 4 MG in D5% in Water 250 ML IVC SCH ×2 (00:14→14:03)
[2016-11-11 05:48] LABS: BUN/Creatinine Ratio 27 (6-26); Blood Urea Nitrogen 16 mg/dL (7-20); Calcium 7.6 mg/dL (8.6-10.8); Carbon Dioxide 23 mEq/L (19-29); Chloride 107 mEq/L (98-109); Glucose 134 mg/dL (70-99); Osmolality,Calculated 293 (280-300); Potassium 3.7 mEq/L (3.5-4.5); Sodium 140 mEq/L (136-145); eGFR For African Americans > 60 (> 60); eGFR For Non-African Americans > 60 (> 60)
--- NOTE | 2016-11-11 06:34 | Pulmonology Progress Note ---
<Shirley Mittal - Last Filed: 11/11/16 12:24> Date of Encounter: 11/11/16 Time of Encounter: 06:34 Assessment and Plan (1) Acute respiratory failure with hypoxia Current Visit: Yes Status: Acute Acute respiratory failure with hypoxia in this particular individual is likely due severe pulmonary insufficiency (shunt physiology) secondary to massive left pleural effusion. Of note, ultrasound of the heart revealed a severely displaced heart into the right chest which following left chest tube placement and evacuation of the massive pleural effusion, assumed its normal configuration. Of note, however ultrasound of the heart suggested hypokinesis dilation of the right and the left ventricles and a questionable echogenic mass within the right ventricle (? Thrombus). Patient has a known history of ovarian cancer with metastatic disease and peritoneal carcinomatosis, who subsequently developed a left-sided pleural effusion likely secondary due to ovarian malignancy. Emergent intubation, chest tube placement, central line required. Initially patient had sinus tachycardia due to atrial fibrillation and Cardizem infusion was initiated. Stop Cardizem. Patient was intubated, ventilated, sedated. We will continue ventilation with FiO2 to be weaned per patient tolerance with a goal oxygen saturation of 88-90% . Patient is demonstrating low FiO2 requirement at 40% and oxygen saturation by pulse ox at 100%. Breathing trial and possible extubation today. Persistent Hypotension likely related to cardiac stress shock from pulmonary emboli. Levophed drip titrate to effect. Map >65 (2) Pleural effusion Current Visit: Yes Status: Acute On bedside echo a large pleural effusion was appreciated. More than 2 L of fluid drained at bedside. Chest tube in place. No crepitus appreciated. Continue tube management and dressing changes. Pleural effusion likely secondary to known metastatic ovarian malignancy. Patient may be a candidate for pleurodesis to obliterate pleural space to further prevent recurrent pleural effusions or pneumothorax. Consider after patient stabilizes. (3) Pulmonary embolism Current Visit: Yes Status: Acute Patient with known metastatic ovarian malignancy with sudden onset respiratory distress/ tachypnea who required emergent chest tube placement and subsequent CTA demonstrated extensive pulmonary embolic disease. Bedside echo demonstrated impaired left and right heart function. Additionally patient has been intermittently hypotensive with persistent tachycardia and new onset arrhythmia. Signs of right heart strain evident as well as compression due to large pleural effusion. IV lytic last night at 2220 successfully without bleeding events. CTA performed after chest tube placement: 11/09/16 demonstrated pulmonary emboli in both lungs predominantly the right main pulmonary artery and lobar and segmental branches of the right upper middle and lower lobes. Furthermore there was a pulmonary emboli within the left upper lobe. No evidence of pulmonary infarct or acute right-sided heart failure. Due to extensive pulmonary embolism and malignancy patient will require long- term anticoagulation with Lovenox. Start Lovenox Echo cardiogram is pending. Qualifiers: Pulmonary embolism type: other Chronicity: acute Acute cor pulmonale presence: without acute cor pulmonale Qualified Code(s): I26.99 - Other pulmonary embolism without acute cor pulmonale Subjective Principal diagnosis: Bilateral Pulmonary emboli and malignant pulmonary effusion Interval history: Patient resting comfortably. Objective PUL Vital signs: Last Vital Signs Temp 97.9 F 11/11/16 04:00 Pulse 117 11/11/16 06:02 Resp 19 11/11/16 06:04 BP 102/67 11/11/16 06:04 Pulse Ox 100 11/11/16 06:04 Ventilator Settings Ventilator Settings: Ventilator Settings, Last 8 Hours Ventilator Mode CPAP Ventilator Mode CPAP Ventilator Mode VC+ Ventilator Mode VC+ Ventilator Mode VC+ Ventilator Mode VC+ Ventilator Mode VC+ Ventilator Mode VC+ Ventilator Mode VC+ Ventilator Mode VC+ Ventilator Mode VC+ Ventilator Mode VC+ Ventilator Tidal Volume 550 Setting Ventilator Tidal Volume 550 Setting Ventilator Tidal Volume 550 Setting Ventilator Tidal Volume 550 Setting Ventilator Tidal Volume 550 Setting Ventilator Tidal Volume 550 Setting Ventilator Tidal Volume 550 Setting Ventilator Tidal Volume 550 Setting Ventilator Tidal Volume 550 Setting Ventilator Tidal Volume 550 Setting Ventilator Tidal Volume 550 Setting Ventilator Respiratory Rate 16 Setting Ventilator Respiratory Rate 16 Setting Ventilator Respiratory Rate 16 Setting Ventilator Respiratory Rate 16 Setting Ventilator Respiratory Rate 16 Setting Ventilator Respiratory Rate 16 Setting Ventilator Respiratory Rate 16 Setting Ventilator Respiratory Rate 16 Setting Ventilator Respiratory Rate 16 Setting Ventilator Respiratory Rate 16 Setting Actual Respiratory Rate 18 Actual Respiratory Rate 20 Actual Respiratory Rate 18 Actual Respiratory Rate 17 Actual Respiratory Rate 20 Actual Respiratory Rate 16 Actual Respiratory Rate 17 Actual Respiratory Rate 17 Actual Respiratory Rate 18 Actual Respiratory Rate 17 Actual Respiratory Rate 17 Actual Respiratory Rate 18 Positive End Expiratory 8 Pressure Positive End Expiratory 8 Pressure Positive End Expiratory 8 Pressure Positive End Expiratory 8 Pressure Positive End Expiratory 8 Pressure Positive End Expiratory 8 Pressure Positive End Expiratory 8 Pressure Positive End Expiratory 8 Pressure Positive End Expiratory 8 Pressure Positive End Expiratory 8 Pressure Positive End Expiratory 8 Pressure Positive End Expiratory 8 Pressure Peak Inspiratory Airway 14 Pressure Peak Inspiratory Airway 14 Pressure Peak Inspiratory Airway 14 Pressure Peak Inspiratory Airway 15 Pressure Peak Inspiratory Airway 20 Pressure Peak Inspiratory Airway 18 Pressure Peak Inspiratory Airway 15 Pressure Peak Inspiratory Airway 19 Pressure Peak Inspiratory Airway 24 Pressure Peak Inspiratory Airway 22 Pressure Peak Inspiratory Airway 22 Pressure Peak Inspiratory Airway 18 Pressure Results - Laboratory Findings CBC and BMP: 11/11/16 07:45 11/11/16 05:20 ABG ABG pH 7.48 pH Units (7.32-7.45) H 11/10/16 04:51 ABG pCO2 30 mmHg (35-45) L 11/10/16 04:51 ABG pO2 99 mmHg (85-104) 11/10/16 04:51 ABG O2 Saturation 98 % (95-98) 11/10/16 04:51 PT/INR, D-dimer PT 16.0 Seconds (9.4-12.1) H 11/10/16 03:32 Abnormal lab findings: Abnormal lab results WBC 13.0 K/mcL (4.3-11.1) H 11/10/16 03:32 Hgb 9.6 g/dL (11.5-15.4) L 11/10/16 03:32 Hct 31.5 % (35.3-44.9) L 11/10/16 03:32 MCV 82.5 fL (83.0-100.0) L 11/10/16 03:32 MCH 25.1 pg (28.0-33.3) L 11/10/16 03:32 MCHC 30.5 g/dL (31.6-35.5) L 11/10/16 03:32 RDW 27.5 % (11.5-14.5) H 11/10/16 03:32 MPV 8.9 fL (9.4-12.4) L 11/10/16 03:32 Neutrophils # 11.2 K/mcL (1.6-8.9) H 11/10/16 03:32 Polychromasia 2+ (Not Present) A 11/10/16 03:32 Hypochromasia Present (Not Present) A 11/10/16 03:32 Anisocytosis 3+ (Not Present) A 11/10/16 03:32 PT 16.0 Seconds (9.4-12.1) H 11/10/16 03:32 ABG pH 7.48 pH Units (7.32-7.45) H 11/10/16 04:51 ABG pCO2 30 mmHg (35-45) L 11/10/16 04:51 BUN/Creatinine Ratio 27 (6-26) H 11/11/16 05:20 Glucose 134 mg/dL (70-99) H 11/11/16 05:20 POC Glucose 128 (58-89) H 11/10/16 23:42 Lactic Acid 6.9 mmol/L (0.5-2.2) H* 11/09/16 19:03 Calcium 7.6 mg/dL (8.6-10.8) L 11/11/16 05:20 Ionized Calcium 0.97 mmol/L (1.15-1.35) L 11/10/16 04:57 Magnesium 1.2 mg/dL (1.6-2.6) L 11/10/16 03:32 Alkaline Phosphatase 148 Units/L (38-126) H 11/09/16 17:10 Troponin I 0.43 ng/mL (0-0.03) H* 11/09/16 17:10 Albumin 2.1 g/dL (3.5-5.0) L 11/09/16 17:10 Globulin 4.6 g/dL (2.4-3.5) H 11/09/16 17:10 Albumin/Globulin Ratio 0.5 (1.1-2.2) L 11/09/16 17:10 Urine Ketones Trace mg/dL (Negative) H 11/09/16 19:48 Urine Blood Trace-intact (Negative) H 11/09/16 19:48 Ur Squamous Epith Cells Many per lpf (None-Few) H 11/09/16 19:48 - Clinical Findings Intake & Output: Intake & Output 11/10/16 11/10/16 11/11/16 15:59 23:59 07:59 Intake Total 104 / 104 225 / 225 39 / 39 Output Total 245 / 245 290 / 290 75 / 75 Balance -141 / -141 -65 / -65 -36 / -36 Weight 103.4 kg Consult Discharge Plan - Plan Referrals: Hilda Chappell, HEALTH EDUCATION COORDINATOR [Primary Care Provider] - <Reji Moseley - Last Filed: 11/11/16 13:25> Date of Encounter: 11/11/16 Assessment and Plan (1) Acute respiratory failure with hypoxia Current Visit: Yes Status: Acute Code(s): J96.01 - Acute respiratory failure with hypoxia SNOMED Code(s): 13950636, [id number] Objective PUL Vital signs: Last Vital Signs Temp 97.8 F 11/11/16 11:25 Pulse 124 11/11/16 12:55 Resp 14 11/11/16 12:55 BP 102/76 11/11/16 12:55 Pulse Ox 100 11/11/16 12:55 Ventilator Settings Ventilator Settings: Ventilator Settings, Last 8 Hours Ventilator Mode CPAP Ventilator Mode CPAP Ventilator Mode CPAP Ventilator Mode CPAP Ventilator Mode CPAP Ventilator Tidal Volume 550 Setting Actual Respiratory Rate 18 Actual Respiratory Rate 18 Actual Respiratory Rate 18 Actual Respiratory Rate 18 Actual Respiratory Rate 20 Positive End Expiratory 8 Pressure Positive End Expiratory 8 Pressure Positive End Expiratory 8 Pressure Positive End Expiratory 8 Pressure Positive End Expiratory 8 Pressure Peak Inspiratory Airway 14 Pressure Peak Inspiratory Airway 14 Pressure Peak Inspiratory Airway 14 Pressure Peak Inspiratory Airway 14 Pressure Peak Inspiratory Airway 14 Pressure Results - Laboratory Findings CBC and BMP: 11/11/16 07:45 11/11/16 05:20 ABG ABG pH 7.48 pH Units (7.32-7.45) H 11/10/16 04:51 ABG pCO2 30 mmHg (35-45) L 11/10/16 04:51 ABG pO2 99 mmHg (85-104) 11/10/16 04:51 ABG O2 Saturation 98 % (95-98) 11/10/16 04:51 PT/INR, D-dimer PT 16.0 Seconds (9.4-12.1) H 11/10/16 03:32 Abnormal lab findings: Abnormal lab results RBC 2.99 M/mcL (3.82-4.97) L 11/11/16 07:45 Hgb 7.7 g/dL (11.5-15.4) L D 11/11/16 07:45 Hct 24.3 % (35.3-44.9) L 11/11/16 07:45 MCV 81.3 fL (83.0-100.0) L 11/11/16 07:45 MCH 25.8 pg (28.0-33.3) L 11/11/16 07:45 RDW 28.6 % (11.5-14.5) H 11/11/16 07:45 Polychromasia 2+ (Not Present) A 11/10/16 03:32 Hypochromasia Present (Not Present) A 11/11/16 07:45 Poikilocytosis 2+ (Not Present) A 11/11/16 07:45 Anisocytosis 3+ (Not Present) A 11/11/16 07:45 PT 16.0 Seconds (9.4-12.1) H 11/10/16 03:32 ABG pH 7.48 pH Units (7.32-7.45) H 11/10/16 04:51 ABG pCO2 30 mmHg (35-45) L 11/10/16 04:51 BUN/Creatinine Ratio 27 (6-26) H 11/11/16 05:20 Glucose 134 mg/dL (70-99) H 11/11/16 05:20 POC Glucose 122 (58-89) H 11/11/16 11:07 Lactic Acid 6.9 mmol/L (0.5-2.2) H* 11/09/16 19:03 Calcium 7.6 mg/dL (8.6-10.8) L 11/11/16 05:20 Ionized Calcium 0.97 mmol/L (1.15-1.35) L 11/10/16 04:57 Magnesium 1.2 mg/dL (1.6-2.6) L 11/10/16 03:32 Alkaline Phosphatase 148 Units/L (38-126) H 11/09/16 17:10 Troponin I 0.43 ng/mL (0-0.03) H* 11/09/16 17:10 Albumin 2.1 g/dL (3.5-5.0) L 11/09/16 17:10 Globulin 4.6 g/dL (2.4-3.5) H 11/09/16 17:10 Albumin/Globulin Ratio 0.5 (1.1-2.2) L 11/09/16 17:10 Urine Ketones Trace mg/dL (Negative) H 11/09/16 19:48 Urine Blood Trace-intact (Negative) H 11/09/16 19:48 Ur Squamous Epith Cells Many per lpf (None-Few) H 11/09/16 19:48 - Clinical Findings Intake & Output: Intake & Output 11/10/16 11/11/16 11/11/16 23:59 07:59 15:59 Intake Total 225 / 225 39 / 39 Output Total 290 / 290 175 / 175 100 / 100 Balance -65 / -65 -136 / -136 -100 / -100 Weight 103.4 kg
[2016-11-11 08:12] LABS: Basophils % 0.1 %; Hematocrit 24.3 % (35.3-44.9); Immature Granulocytes % 0.3 % (0-4); Lymphocytes # 1.2 K/mcL (0.6-4.6); Mean Corpuscular HGB Conc 31.7 g/dL (31.6-35.5); Mean Corpuscular Hemoglobin 25.8 pg (28.0-33.3); Mean Corpuscular Volume 81.3 fL (83.0-100.0); Mean Platelet Volume 9.6 fL (9.4-12.4); Monocytes # 0.2 K/mcL (0.0-1.3); Monocytes % 1.9 %; Neutrophils # 8.4 K/mcL (1.6-8.9); Platelet Count 323 K/mcL (140-400); Red Blood Count 2.99 M/mcL (3.82-4.97); Red Cell Distribution Width 28.6 % (11.5-14.5); Segmented Neutrophils % 85.7 %
[2016-11-11 08:13] LABS: Hemoglobin 7.7 g/dL (11.5-15.4)
[2016-11-11 08:41] LABS: Anisocytosis 3+ (Not Present); Platelet Estimate Normal (Normal)
[2016-11-11 08:43] LABS: Hypochromasia Present (Not Present); Poikilocytosis 2+ (Not Present)
--- NOTE | 2016-11-11 09:06 | Event Note ---
Date of Encounter: 11/11/16 Time of Encounter: 09:02 The patient was examined, the chart and all data reviewed as well as the most recent imaging studies. Overnight, no new acute issues were reported per discussion with nursing staff. Given marginal mean blood pressures be a noninvasive cuff measurements, the patient was placed on low-dose levothyroxine and fusion. Hemodynamics urine output all are acceptable at this time. This morning, the patient is awake alert and appropriately interactive and tolerating spontaneous breathing trial. FiO2 and PEEP requirements are acceptable low levels. I anticipate the patient will be extubated later this morning. The left chest tube output has significantly fallen over the past 24 hours. Follow-up imaging will be obtained in order to discern resolution of reexpansion pulmonary edema as well as the extent of position of the pleural surfaces. It is possible the patient will be a suitable candidate to receive talc pleurodesis. The patient remains tachycardic likely a manifestation of impaired cardiac function and pressor need. Formal echocardiogram has been ordered but is still pending. His bedside ultrasound of the heart yesterday redemonstrated concern for RV and LV dilation dysfunction and question of low-density lesionwithin the right heart. The patient will require lifelong anticoagulation therapy with Lovenox in light of malignancy and near fatal thromboembolic event. I think it would be appropriate to discuss goals of care with patient and family in light of her advanced malignancy if again comorbidities and her telemetry rate within the next 6-12 months. Pradip
--- NOTE | 2016-11-11 10:07 | ECHO - Doppler Report ---
Echo with Imaging Enhancement Agent Name: Kendra Bains Date of Study: 11/10/2016 Date: 1955 Ht: 66.0 in Medical Record#: [id number] Age: 61 Wt: 228.0 lb Gender: Female BSA: 2.11 Order #: [id number] Location: [facility] Room #: IC2 Reading Physician: Emmanuel Thompson DO, VERONICA, GIANCARLO PEREZ Collector Of Aquarium Specimens: Demetria Barrera RDCS Ordering Physician: Shirley Mittal DO Primary Physician: Hilda Chappell CNP Indications: Pericarditis/Pericardial Effusion/Tamponade, Hx Cancer, Pulmonary embolus Impressions: LVEF 25-30%. Normal LV chamber size and wall thickness. Global left ventricular systolic dysfunction with some sparing of the basal segments. Indeterminate diastolic function. Mildly dilated right ventricle with mildly reduced systolic function. Unable to estimate RVSP due to lack of TR jet. No significant valvular dysfunction. No pericardial effusion. Left Ventricular Wall Motion: Rest Echo Findings The apex, apical inferior, mid inferior, basal inferior, apical anterior, mid anterior, basal anterior, apical septal, mid inferior septal, basal inferior septal, apical lateral, mid anterior lateral, basal anterior lateral, mid anterior septal, mid inferior lateral, basal anterior septal and basal inferior lateral lay were hypokinetic. Findings: Study Quality * Technically sub-optimal due to poor echocardiographic windows. ECG Findings * Sinus tachycardia. Left Ventricle * LVEF 25-30%. * Normal LV chamber size and wall thickness. * Global left ventricular systolic dysfunction with some sparing of the basal segments. * Indeterminate diastolic function. Right Ventricle * Mildly dilated right ventricle with mildly reduced systolic function. Left Atrium * Mildly dilated left atrium. Right Atrium * Normal right atrial size. Interatrial Septum * Interatrial septum not well evaluated. Aortic Valve * Aortic valve not well visualized. * Trileaflet aortic valve. * No aortic regurgitation. * No aortic stenosis. Mitral Valve * Normal mitral valve structure and function. * No mitral regurgitation. * No mitral stenosis. Tricuspid Valve * Normal tricuspid valve structure and function. * No tricuspid regurgitation. * Unable to estimate RVSP due to lack of TR jet. Pulmonic Valve * Pulmonic valve is not well visualized. * No pulmonic regurgitation. Aorta * Normally sized aortic root. Pericardium * The pericardium appears normal. IVC * Normal IVC dimensions and inspiratory collapse. Pulmonary Artery * Normal visualized portions of the main pulmonary artery. History Hypertension 01/12/2016 a Previous Echo was performed. Contrast: Definity 1.3 ml in 8.7 ml of saline 6 ml. Measurements: BP: 80/ 60 2D Normal Values RVIDd: 2.96 cm <2.7 cm IVSd: .55 cm 0.6 - 1.0 cm LVIDd: 4.89 cm 3.7 - 5.6 cm LVPWd: .75 cm 0.6 - 1.1 cm LVIDs: 4.05 cm 1.5 - 3.6 cm AO: 2.40 cm < 4.0 cm LA: 2.60 cm 2.0 - 4.0cm %FS: 17.20 cm >25 % LVOT Diam: 2.00 cm LA volume: 53 Mitral Valve Peak E:.96 m/sec Peak A:.87 m/sec E/A Ratio:1.1 Peak E' Lat Олег:6.06 cm/s Peak E' Med Олег:5.44 cm/s E/E' Lat Ratio:15.9 E/E' Med Ratio:17.7 Updated by Emmanuel Thompson DO, FACLisa, CHRIS, GIANCARLO on 11/11/2016 10:00:01 AM electronically signed on 11/11/2016 10:01:02 AM with status of Final Wall Motion Lopez: 1=Normal, 2=Hypokinesis, 3=Akinesis, 4=Dyskinesis, 5=Aneurysmal, 6=Hyperkinetic, X=Not Visualized (Blank)=Missing
[2016-11-11] MEDS: *HR* Enoxaparin 100 MG/ML SYRINGE SQ SCH ×2 (10:23→20:26)
[2016-11-11] MEDS: Chlorhexidine Rinse 15 ML MOUTHWASH MM SCH ×2 (10:23→20:26)
[2016-11-11] MEDS: Pantoprazole 40 MG VIAL IVPB SCH (10:23)
--- NOTE | 2016-11-11 13:10 | Oncology Inp Consult Note ---
Date of Encounter: 11/11/16 Time of Encounter: 13:16 Assessment and Plan (1) Pulmonary embolism Status: Acute Assessment and plan: This cost her to decompensate quickly in the office. She also has chronic left- sided effusion malignant. 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 She received cycle 3 which is her first dose of Taxotere 11/10/2016. She decompensated quickly from PE rather than drug reaction Continue neutrophils are normal to slightly increased. We will not give Neulasta. Once her neutrophil counts go down and would give her Neupogen 480 g subcutaneous daily (3) Pleural effusion Status: Acute Assessment and plan: Current left pleural effusion malignant. She did have malignant ascites but with chemotherapy that has improved .Eventually her effusion should improve if she is responding to chemotherapy She may need a Pleurx catheter on the left side. If necessary would consider pleurodesis in the future - Data of Consult Patient: known to practice within the last 3 years Requesting Physician: Reji Moseley DO Primary Care Provider: Hilda Chappell CNP - Consult Narrative Reason for consult: Gastric adenocarcinoma acute PE History of present illness: History of present illness Ms. Bains is a 61 year old female sent to emergency room from the office because of acute shortness of breath following cycle 3 chemotherapy. This happened on completion of chemotherapy. Unusual presentation for Dilaudid chemotherapy reaction. She did not improve with IV Decadron Lasix 20 mg. Workup in the emergency room CT angiogram showed extensive clot burden in the right main pulmonary artery. She received TPA followed by Lovenox 1 mg per KG twice a day. She was placed on mechanical ventilator because of alejandra acute hypoxemia with oxygen saturation 59. She subsequently recovered and extubated on 11/12/2016 She also had left chest tube placed and overall 2500 mL hemorrhagic fluid drained. Continue to have right ventricle dysfunction. Echocardiogram pending. We will also order bilateral lower axilla T venous Doppler Oncological history presented to the emergency room on September 22 complaining of progressive shortness of breath over the past several weeks. A CT abdomen and pelvis with contrast and a CTA of the chest were obtained revealing: Large left pleural effusion with extensive left lower lobe volume loss. Small to moderate size hiatal hernia. Peritoneal carcinomatosis and omental caking consistent with diffuse metastatic disease. Large amounts of ascites. Likely etiology for primary tumor is ovarian cancer with a complex cystic mass noted in the left adnexa. Infiltration of the subcutaneous fat in the anterior abdominal wall possibly related to mild cellulitis. Patient was then transferred to [facility] for further workup. She had a diagnostic/therapeutic paracentesis and thoracentesis on September 22 at [facility]. Cytology diagnosis from the peritoneal and pleural fluid revealed positive for malignancy, consistent with adenocarcinoma. metastatic adenocarcinoma with large ascites and bilateral pleural effusion. Most likely will ovarian cancer. CEA 125 elevated at 3300 on 09/30/2016 Paracentesis 09/28/2016 at [facility] with Cytootology showed CK-7, PAX-8, WT-1, P53 diffusely positive. Also P 16 positive Negative for CK 20, CD X-2 CAT scan showed extensive omental caking. Diffuse fluid around the liver with solid component which could be biopsy able. She is willing to get the biopsy done here and will arrange for that as an outpatient line discussed at the GI tumor Board 10/01/2016. She also had lumpectomy for right breast cancer around 2004 We will proceed with genetic testing for BRCA1 She received first cycle of carboplatin and Taxol day 1 every 3 weeks on 2015 at She was readmitted with increasing ascites which was drained again She is very low albumin of 1.8. 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 She tolerated treatment well just before she was ready to be discharged she complained of acute shortness of breath. Did not improve with Lasix and Decadron. Subsequently hospitalized as mentioned Past Med Surg Social Fam HX - Past Medical History Medical history: arthritis, cancer, hypertension, other Psychiatric history: no psych history - Past Surgical History Surgical History: cholecystectomy, knee replacement, orthopedic, other - Social History Smoking Status: Never smoker Smokeless Tobacco Status: No Alcohol use: none Drug use: none - Family History Maternal Living Status: Hx Family Respiratory Disorders: Yes (COPD) Medications and Allergies Baclofen 10 mg PO TID 09/29/16 [History] Duloxetine HCl [Cymbalta] 60 mg PO DAILY 09/29/16 [History] Gabapentin [Neurontin] 600 mg PO TID 09/29/16 [History] Melatonin/Pyridoxine HCl (B6) [Melatonin 3 mg Tablet] 1 each PO HS 09/29/16 [ History] Ropinirole HCl [Requip] 2 mg PO BID 09/29/16 [History] Magic Mouthwash [Magic Mouthwash BLM] 10 ml PO QID PRN #240 ml 10/15/16 [Rx] Amlodipine [Norvasc] 5 mg PO DAILY #30 tablet 10/18/16 [Rx] Docusate Sodium [Colace] 100 mg PO BID #60 capsule 10/18/16 [Rx] Ondansetron HCl [Zofran] 4 mg PO Q6H PRN #30 tablet 11/01/16 [Rx] Prochlorperazine Maleate [Compazine] 10 mg PO Q6HR PRN #30 tablet 11/01/16 [Rx] Megestrol Acetate [Megace] 10 ml PO DAILY #300 mls 11/04/16 [Rx] OxyCODONE Immed Rel [Roxicodone 5 MG] 10 mg PO Q4H PRN #60 tab 11/08/16 [Rx] Aspirin 81 mg PO DAILY 11/09/16 [History] Dexamethasone [Decadron] 2 tab PO BID #30 tablet 11/09/16 [Rx] Allergies No Known Allergies Allergy (Verified 11/09/16 15:44) ROS unobtainable: due to endotracheal tube All systems: reviewed and no additional remarkable complaints except as stated Review of systems: History obtained from the son and . Able to maintain saturation. Need pressor support. Mild tachycardia Oncology - Exam - Constitutional Vitals: Temp Pulse Resp BP Pulse Ox 97.8 F 124 14 102/76 100 11/11/16 11:25 11/11/16 12:55 11/11/16 12:55 11/11/16 12:55 11/11/16 12:55 Exam: GENERAL: Intubated and sedated. Mental Status: HEENT: Sclerae anicteric. No mucositis or thrush. No other oral or pharyngeal lesions or erythema. Skin: No rashes or petechiae. No evidence of skin malignancy Lymph nodes: No cervical, supraclavicular, axillary, or inguinal adenopathy. Lungs: Air entry decreased left base more than right Cardiovascular: Regular rate and rhythm. The cardia. Abdomen: Soft, nontender; no organomegaly or masses palpable. Extremities: No edema. No calf swelling or tenderness. No joint deformity. Neurologic: Cannot be performed Oncology - Results - Labs Labs: Short CBC 11/11/16 Range/Units 07:45 WBC 9.8 (4.3-11.1) K/mcL Hgb 7.7 L D (11.5-15.4) g/dL Hct 24.3 L (35.3-44.9) % Plt Count 323 (140-400) K/mcL Neutrophils # 8.4 (1.6-8.9) K/mcL BMP 11/11/16 05:20 Sodium 140 Potassium 3.7 Chloride 107 Carbon Dioxide 23 BUN 16 Creatinine 0.59 Glucose 134 H Calcium 7.6 L Consult Discharge Plan - Plan Referrals: Hilda Chappell, PLATE GRAINER [Primary Care Provider] -
[2016-11-11] MEDS ORDERED: Heparin 1,000 UNITS/500 mL NS 500 ML ONE (14:31)
--- NOTE | 2016-11-11 15:07 | Palliative - Consult Note ---
Date of Encounter: 11/11/16 Time of Encounter: 14:00 - Assessment and Plan (1) Cancer associated pain Current Visit: No Status: Acute Assessment and plan: Patient currently has Dilaudid IV for pain. Has requested none to date. Extubated today and tolerating NC O2 well. Patient currently NPO for no gag reflex if this returns can restart home meds for pain. (2) Dyspnea Current Visit: No Status: Acute Assessment and plan: Patient extubated this morning and has left chest tube in place as this was repositioned this AM per pulmonology. Bloody drainage noted in collection device. Dressing CDI. Supplemental oxygen, patient to have IVC filter placed per IR, and CT for pleural effusion management. Qualifiers: Dyspnea type: shortness of breath Qualified Code(s): R06.02 - Shortness of breath (3) Goals of care, counseling/discussion Current Visit: Yes Status: Acute Assessment and plan: Patient, and son present for consult. Reviewed admission events to date. Patient is alert and oriented. Patient desires to have full aggressive therapy. Desires chemo and other treatments options as needed. Desires to be FULL CODE and be reintubated as needed. Family agrees to decision and both son and have a lot of questions related to disease process. I spent time educating them on disease process and answering questions. Patient to stay full code. Patient is NPO without a gag reflex. Discussed nutritional needs as patient has lost an excessive amount (50 lbs) over a short time as per my discussion with dietary services. Patient is open to NG feedings, TPN or having a PEG placed for nutrition. I educated on those options and explained how they work to provide nutrition. Case discussed withh Dr. Shirley Mittal and dietary. Will follow progress. (4) Acute respiratory failure with hypoxia Current Visit: No Status: Acute (5) Pleural effusion Current Visit: Yes Status: Acute (6) Pulmonary embolism Current Visit: Yes Status: Acute Qualifiers: Pulmonary embolism type: other Chronicity: acute Acute cor pulmonale presence: without acute cor pulmonale Qualified Code(s): I26.99 - Other pulmonary embolism without acute cor pulmonale Palliative-CN HPI - Data of Consult Patient: new to practice Consult date: 11/11/16 Requesting Physician: Reji Moseley DO Primary Care Provider: Hilda Chappell CNP - Consult Narrative Palliative Care/Comfort Measures: Palliative care Reason for consult: Goals of Care History of present illness: Ms. 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 The patient was at the [facility] receiving cycle #3 chemotherapy when she began experiencing SOB with hypoxia. She was transferred to the ER for evaluation. Once arriving to the ER was intubated and mechanically intubated. Upon this consult, she is extubated and her Edy and Son Oumar are at bedside. She is tolerating extubation well and is on 4L NC. The patient was diagnosed with malignant pleural effusion and a Left CT tube was inserted. Further work-up with a CT scan of the chest revealed pulmonary embolism. Her echo revealed an EF 25-30% with global LV systolic dysfunction. A medical record review reveals that on both Sep 22 and Sep 29 the patient had both paracentesis and thoracentesis. She has chemotherapy cycle #1 at [facility] and # 2-[address] [facility]. The oncology consult was reviewed with recommedations noted. CC: Reji Moseley, DO Past Med Surg Social Fam HX - Past Medical History Source: patient, old records reviewed Medical history: arthritis, cancer, hypertension, other Psychiatric history: no psych history - Past Surgical History Surgical History: cholecystectomy, knee replacement, orthopedic, other - Social History Smoking Status: Never smoker Smokeless Tobacco Status: No Alcohol use: none Drug use: none - Family History Maternal Living Status: Hx Family Respiratory Disorders: Yes (COPD) Medications and Allergies Baclofen 10 mg PO TID 09/29/16 [History] Duloxetine HCl [Cymbalta] 60 mg PO DAILY 09/29/16 [History] Gabapentin [Neurontin] 600 mg PO TID 09/29/16 [History] Melatonin/Pyridoxine HCl (B6) [Melatonin 3 mg Tablet] 1 each PO HS 09/29/16 [ History] Ropinirole HCl [Requip] 2 mg PO BID 09/29/16 [History] Magic Mouthwash [Magic Mouthwash BLM] 10 ml PO QID PRN #240 ml 10/15/16 [Rx] Amlodipine [Norvasc] 5 mg PO DAILY #30 tablet 10/18/16 [Rx] Docusate Sodium [Colace] 100 mg PO BID #60 capsule 10/18/16 [Rx] Ondansetron HCl [Zofran] 4 mg PO Q6H PRN #30 tablet 11/01/16 [Rx] Prochlorperazine Maleate [Compazine] 10 mg PO Q6HR PRN #30 tablet 11/01/16 [Rx] Megestrol Acetate [Megace] 10 ml PO DAILY #300 mls 11/04/16 [Rx] OxyCODONE Immed Rel [Roxicodone 5 MG] 10 mg PO Q4H PRN #60 tab 11/08/16 [Rx] Aspirin 81 mg PO DAILY 11/09/16 [History] Dexamethasone [Decadron] 2 tab PO BID #30 tablet 11/09/16 [Rx] Allergies No Known Allergies Allergy (Verified 11/09/16 15:44) All systems: reviewed and no additional remarkable complaints except as stated ( SOB and dyspnea) - Constitutional Constitutional ROS PAL: decreased appetite, fatigue - Cardiovascular Cardiovascular ROS: irregular heart rhythm - Respiratory Respiratory: dyspnea - Genitourinary Palliative ROS female: pelvic pain (pressure) - Musculoskeletal Musculoskeletal ROS IM: muscle weakness Palliative Care-Exam - Constitutional Vitals: Temp Pulse Resp BP Pulse Ox 97.8 F 118 14 97/68 97 11/11/16 11:25 11/11/16 13:59 11/11/16 13:59 11/11/16 13:59 11/11/16 13:59 General appearance: Present: cooperative, no acute distress - Head Head Exam: Present: atraumatic - Eye Eye exam: Present: PERRL Pupils: Present: PERRL - ENT ENT exam: Present: mucous membranes moist - Expanded ENT Exam Teeth exam: Present: edentulous - Neck Neck exam: Present: full ROM - Respiratory Respiratory exam: Present: decreased breath sounds - Expanded Respiratory Exam Location: decreased breath sounds: Left, Right, Upper, Lower - Cardiovascular Cardiovascular exam: Present: RRR, +S1, +S2, tachycardia - Expanded Cardiovascular Exam Peripheral pulses: 1+: Femoral (L) PM, Femoral (R) PM, Posterior Tibialis (L), Posterior Tibialis (R), 2+: Carotid (L) PM, Carotid (R) PM, Radial (L), Radial ( R), Dorsalis Pedis (L) PM, Dorsalis Pedis (R) PM - GI/Abdominal Exam GI/Abdominal exam: Present: normal bowel sounds - Expanded GI/Abdominal Exam GI/Abdominal exam: Present: ascites - Rectal Rectal exam: Present: deferred - Extremities Exam Extremities exam: Present: full ROM - Neurological Exam Neurological exam: Present: alert, CN II-XII intact, oriented X3 - Expanded Neurological Exam Cranial nerves: gag reflex: Abnormal Left, Abnormal Right - Psychiatric Psychiatric exam: Present: normal affect, normal mood - Skin Skin exam: Present: pallor, warm Internal Medicine - CN: Reslt - Labs CBC & Chem 7: 11/11/16 07:45 11/11/16 05:20 Labs: Short CBC 11/11/16 Range/Units 07:45 WBC 9.8 (4.3-11.1) K/mcL Hgb 7.7 L D (11.5-15.4) g/dL Hct 24.3 L (35.3-44.9) % Plt Count 323 (140-400) K/mcL Neutrophils # 8.4 (1.6-8.9) K/mcL BMP 11/11/16 05:20 Sodium 140 Potassium 3.7 Chloride 107 Carbon Dioxide 23 BUN 16 Creatinine 0.59 Glucose 134 H Calcium 7.6 L - ABG Interpretation ABG results: ABG ABG pH 7.48 pH Units (7.32-7.45) H 11/10/16 04:51 ABG pCO2 30 mmHg (35-45) L 11/10/16 04:51 ABG pO2 99 mmHg (85-104) 11/10/16 04:51 ABG O2 Saturation 98 % (95-98) 11/10/16 04:51 PT/INR, D-dimer PT 16.0 Seconds (9.4-12.1) H 11/10/16 03:32 - Impressions Impressions KUB X-Ray 11/10/16 14:47 IMPRESSION: Orogastric tube is beneath the diaphragm with the tip and side hole projecting over the proximal stomach. D/ / 11/10/2016 15:31:03 Candace Ellis MD / earnold Interpreting Provider: Candace Ellis MD Chest X-Ray 11/11/16 09:49 IMPRESSION: 1. Decrease in left lung opacities compatible with improving aeration as well as decrease in pleural effusion. No appreciable pneumothorax. 2. Interval extubation. 3. Mild right basilar atelectasis. D/ / Luz Maldonado MD / Luz Maldonado MD Interpreting Provider: Luz Maldonado MD Consult Discharge Plan - Plan Referrals: Hilda Chappell FILE DRAWER FINISHER [Primary Care Provider] - Palliative Quality Palliative Quality: Screen for Code Status: Yes, Screen for Goals of Care: Yes, Screen for Pain: Yes, If Pain Regimen Started, Initiate Bowel Regimen: Yes, Screen for Nausea/Vomitting: Yes Code Status: Full Code
[2016-11-11] MEDS: *HR* HYDROmorphone (PF) 1 MG/ML SYRINGE IVP PRN (18:18)
[2016-11-11] MEDS: Dexmedetomidine HCl 400 MCG/100 ML MLS IVC SCH (20:20)
[2016-11-11] MEDS: Sennosides 8.6 MG TABLET PO SCH (20:21)
[2016-11-12] MEDS: *HR* HYDROmorphone (PF) 1 MG/ML SYRINGE IVP PRN ×2 (04:31→07:39)
[2016-11-12 04:49] LABS: BUN/Creatinine Ratio 22 (6-26); Blood Urea Nitrogen 11 mg/dL (7-20); Calcium 7.6 mg/dL (8.6-10.8); Carbon Dioxide 23 mEq/L (19-29); Chloride 106 mEq/L (98-109); Glucose 90 mg/dL (70-99); Osmolality,Calculated 287 (280-300); Potassium 3.4 mEq/L (3.5-4.5); Sodium 139 mEq/L (136-145); eGFR For African Americans > 60 (> 60); eGFR For Non-African Americans > 60 (> 60)
[2016-11-12 05:10] LABS: Magnesium 1.6 mg/dL (1.6-2.6); Phosphorous 2.3 mg/dL (2.3-4.7)
[2016-11-12] MEDS: Dexmedetomidine HCl 400 MCG/100 ML MLS IVC SCH (05:18)
[2016-11-12] MEDS: Calcium Gluconate 1,000 MG in D5% in Water 100 ML IVPB PRN (05:44)
[2016-11-12] MEDS: Magnesium Sulfate 2 GM in D5% in Water 100 ML IVPB PRN (05:44)
--- NOTE | 2016-11-12 06:14 | Pulmonology Progress Note ---
Date of Encounter: 11/12/16 Time of Encounter: 06:13 Assessment and Plan (1) Acute respiratory failure with hypoxia Current Visit: No Status: Acute Acute respiratory failure with hypoxia in this particular individual is likely due severe pulmonary insufficiency (shunt physiology) secondary to massive left pleural effusion. Of note, ultrasound of the heart revealed a severely displaced heart into the right chest which following left chest tube placement and evacuation of the massive pleural effusion, assumed its normal configuration. Of note, however ultrasound of the heart suggested hypokinesis dilation of the right and the left ventricles and a questionable echogenic mass within the right ventricle (? Thrombus). Patient has a known history of ovarian cancer with metastatic disease and peritoneal carcinomatosis, who subsequently developed a left-sided pleural effusion likely secondary due to ovarian malignancy. Emergent intubation, chest tube placement, central line required. Initially patient had sinus tachycardia due to atrial fibrillation and Cardizem infusion was initiated. Stop Cardizem. Patient was intubated, ventilated, sedated. We will continue ventilation with FiO2 to be weaned per patient tolerance with a goal oxygen saturation of 88-90% . Patient is demonstrating low FiO2 requirement at 40% and oxygen saturation by pulse ox at 100%. Breathing trial and extubation 11/11/16. Persistent Hypotension likely related to cardiac stress shock from pulmonary emboli. Resolved Levophed was discontinued at 2200 on . Vitals stable. Patient is currently on 2 L of oxygen by nasal cannula with an oxygen saturation of 100% . (2) Pleural effusion Current Visit: Yes Status: Acute On bedside echo a large pleural effusion was appreciated. More than 2 L of fluid drained at bedside. Chest tube in place. No crepitus appreciated. Continue tube management and dressing changes. Pleural effusion likely secondary to known metastatic ovarian malignancy. Chest X-Ray 11/11/16 15:20 IMPRESSION: No substantial change in left-sided pleural effusion. Consult to interventional radiology was placed for insertion of Pleurx catheter for management of recurrent pleural effusions. Patient may be a candidate for pleurodesis to obliterate pleural space to further prevent recurrent pleural effusions or pneumothorax. Consider after patient demonstrates further lung inflation and resolution of effusion and demonstrates response to chemotherapy. (3) Pulmonary embolism Current Visit: Yes Status: Acute Patient with known metastatic ovarian malignancy with sudden onset respiratory distress/ tachypnea who required emergent chest tube placement and subsequent CTA demonstrated extensive pulmonary embolic disease. Bedside echo demonstrated impaired left and right heart function. Additionally patient has been intermittently hypotensive with persistent tachycardia and new onset arrhythmia. Signs of right heart strain evident as well as compression due to large pleural effusion. Repeat bedside echo demonstrated resolution compression and displacement of the heart. However dyskinetic activity still present. IV lytic 11/09/16 at 2220 successfully without bleeding events. Chest CTA 11/09/16 16:42 IMPRESSION: Pulmonary emboli in both lungs predominantly involving the right main pulmonary artery as well as a lobar and segmental branches of the right upper, middle and lower lobes. There is also pulmonary emboli within the left upper lobe/lingula. No evidence of pulmonary infarct. No evidence of acute right-sided heart failure. Moderate size left-sided hydropneumothorax status post left chest tube placement and drainage of large left pleural effusion. Left lower lobe airspace consolidation with ground-glass in the left upper lobe. This may represent a combination re-expansion pulmonary edema and possible pneumonia. Moderate amount of abdominal ascites with signs of peritoneal carcinomatosis including omental caking and peritoneal metastatic deposits. Critical results were called by Dr. Kd Iyer MD to Dr. Mittal On 11/09/2016 at 19:27. D/ / 11/09/2016 19:26:32 Kd Iyer MD / li Interpreting Provider: Kd Iyer MD Consult was placed to oncology. Oncology is following. As per their recommendation, We will continue to monitor hematology labs and evaluate neutrophil counts daily. Hold Neulasta. Once neutrophil counts down Neupogen 480 g subcutaneous daily. IVC filter placement as below. Guidance Needle Placement Ultrasound 11/11/16 00:00 IMPRESSION: No caval thrombus Successful placement of an infrarenal inferior vena cava filter IVC Filter Placement 11/11/16 00:00 IMPRESSION: No caval thrombus Successful placement of an infrarenal inferior vena cava filter Due to extensive pulmonary embolism and malignancy patient will require long- term anticoagulation with Lovenox. Continue Lovenox Echo cardiogram demonstrated LVEF 25-30%. Normal LV chamber size and wall thickness. Global left ventricular systolic dysfunction with some sparing of the basal segments. Intermediate diastolic function. Mildly dilated right ventricle with mildly reduced systolic function. Unable to estimate RVSP due to lack of TR jet. No significant valvular dysfunction. No pericardial effusion. Qualifiers: Pulmonary embolism type: other Chronicity: acute Acute cor pulmonale presence: without acute cor pulmonale Qualified Code(s): I26.99 - Other pulmonary embolism without acute cor pulmonale Subjective Principal diagnosis: Bilateral Pulmonary emboli and malignant pulmonary effusion Interval history: Patient is alert and oriented 4. She was extubated yesterday morning. Overnight she demonstrated a gag reflex around 3:45 AM and has been sipping water since that time. Patient is coughing up some clear phlegm. IVC filter was placed yesterday without complication. Patient states she slept well overnight. Palliative care was consultative yesterday. We have fed drip was turned off around 2300 on 11/11/16 and vital signs have remained stable systolic blood pressure range 106- 98/79-68. Patient is on 2 L nasal cannula and her oxygen saturation is 100%. Patient states she has little appetite and was hoping we could give her something to stimulate it. Objective PUL Vital signs: Last Vital Signs Temp 98.9 F 11/12/16 05:00 Pulse 109 11/12/16 06:00 Resp 17 11/12/16 06:00 BP 106/68 11/12/16 06:00 Pulse Ox 100 11/12/16 06:00 General appearance: no acute distress, alert Eyes: nonicteric ENT: oropharynx moist Mallampati (class): 2 Neck: supple, no lymphadenopathy Auscultation: left: diminished breath sounds Percussion: left: dull Cardiovascular: other (Tachycardia) Gastrointestinal: normoactive bowel sounds, soft, non-tender, non-distended Integumentary: normal Extremities: no cyanosis, no edema, no clubbing, pink and warm, pulses normal Musculoskeletal: no deformities normal mental status, non-focal exam, pupils equal and round, CN II-XII normal mood appropriate, affect normal (Patient is pleasant and kind has an excellent attitude. states that she has so much to live for and is grateful for our intervention.) Results - Laboratory Findings CBC and BMP: 11/12/16 06:48 11/12/16 04:30 ABG ABG pH 7.48 pH Units (7.32-7.45) H 11/10/16 04:51 ABG pCO2 30 mmHg (35-45) L 11/10/16 04:51 ABG pO2 99 mmHg (85-104) 11/10/16 04:51 ABG O2 Saturation 98 % (95-98) 11/10/16 04:51 PT/INR, D-dimer PT 16.0 Seconds (9.4-12.1) H 11/10/16 03:32 Abnormal lab findings: Abnormal lab results RBC 2.99 M/mcL (3.82-4.97) L 11/11/16 07:45 Hgb 7.7 g/dL (11.5-15.4) L D 11/11/16 07:45 Hct 24.3 % (35.3-44.9) L 11/11/16 07:45 MCV 81.3 fL (83.0-100.0) L 11/11/16 07:45 MCH 25.8 pg (28.0-33.3) L 11/11/16 07:45 RDW 28.6 % (11.5-14.5) H 11/11/16 07:45 Polychromasia 2+ (Not Present) A 11/10/16 03:32 Hypochromasia Present (Not Present) A 11/11/16 07:45 Poikilocytosis 2+ (Not Present) A 11/11/16 07:45 Anisocytosis 3+ (Not Present) A 11/11/16 07:45 PT 16.0 Seconds (9.4-12.1) H 11/10/16 03:32 ABG pH 7.48 pH Units (7.32-7.45) H 11/10/16 04:51 ABG pCO2 30 mmHg (35-45) L 11/10/16 04:51 Potassium 3.4 mEq/L (3.5-4.5) L 11/12/16 04:30 Creatinine 0.51 mg/dL (0.57-1.11) L 11/12/16 04:30 POC Glucose 91 (58-89) H 11/11/16 23:23 Lactic Acid 6.9 mmol/L (0.5-2.2) H* 11/09/16 19:03 Calcium 7.6 mg/dL (8.6-10.8) L 11/12/16 04:30 Ionized Calcium 1.03 mmol/L (1.15-1.35) L 11/12/16 04:30 Alkaline Phosphatase 148 Units/L (38-126) H 11/09/16 17:10 Troponin I 0.43 ng/mL (0-0.03) H* 11/09/16 17:10 Albumin 2.1 g/dL (3.5-5.0) L 11/09/16 17:10 Globulin 4.6 g/dL (2.4-3.5) H 11/09/16 17:10 Albumin/Globulin Ratio 0.5 (1.1-2.2) L 11/09/16 17:10 Urine Ketones Trace mg/dL (Negative) H 11/09/16 19:48 Urine Blood Trace-intact (Negative) H 11/09/16 19:48 Ur Squamous Epith Cells Many per lpf (None-Few) H 11/09/16 19:48 - Clinical Findings Intake & Output: Intake & Output 11/11/16 11/11/16 11/12/16 15:59 23:59 07:59 Intake Total 250 / 250 320 / 320 100 / 100 Output Total 300 / 300 570 / 570 350 / 350 Balance -50 / -50 -250 / -250 -250 / -250 Consult Discharge Plan - Plan Referrals: Hilda Chappell, COMPUTER SCIENCE TEACHER [Primary Care Provider] -
[2016-11-12 07:13] LABS: Hematocrit 19.8 % (35.3-44.9); Hemoglobin 6.3 g/dL (11.5-15.4); Immature Granulocytes % 0.6 % (0-4); Lymphocytes % 18.4 %; Mean Corpuscular HGB Conc 31.8 g/dL (31.6-35.5); Mean Corpuscular Hemoglobin 26.5 pg (28.0-33.3); Mean Corpuscular Volume 83.2 fL (83.0-100.0); Mean Platelet Volume 9.4 fL (9.4-12.4); Monocytes # 0.1 K/mcL (0.0-1.3); Monocytes % 1.4 %; Neutrophils # 4.1 K/mcL (1.6-8.9); Platelet Count 187 K/mcL (140-400); Red Blood Count 2.38 M/mcL (3.82-4.97); Segmented Neutrophils % 79.6 %
[2016-11-12] MEDS: Chlorhexidine Rinse 15 ML MOUTHWASH MM SCH ×2 (07:39→21:49)
[2016-11-12] MEDS: *HR* Enoxaparin 100 MG/ML SYRINGE SQ SCH ×2 (07:39→21:49)
[2016-11-12] MEDS: Pantoprazole 40 MG VIAL IVPB SCH (07:39)
[2016-11-12 07:45] LABS: Anisocytosis 2+ (Not Present); Platelet Estimate Normal (Normal)
--- NOTE | 2016-11-12 09:06 | Event Note ---
Date of Encounter: 11/12/16 Time of Encounter: 08:54 Patient examined, chart and all data reviewed as well as most recent imaging studies of the chest. I reviewed the management in detail with Dr. Mittal and agree with the provisions of care and physical examination findings as well as long-term management as outlined in her comprehensive progress note. No new acute problems were reported overnight. The left chest tube was repositioned yesterday and I note a modest improvement output from the chest tube however the last chest imaging study suggested that there remains a small hydropneumothorax small-moderate sized left pleural effusion (verified yesterday via ultrasound) and thus the likelihood of successful pleurodesis with talc is low. Therefore, to the end of controlling respiratory symptoms in a palliative manner for this patient with metastatic ovarian cancer, IR has been requested to evaluate the patient for Pleurx catheter placement. Patient underwent successful placement of IVC filter yesterday. The decision to place an IVC filter was predicated upon the severity of pulmonary embolic clot burden as well as the patient's impaired right and left heart function. Furthermore, the patient has advanced malignancy and is at an increased risk of additional thromboembolic events in the future. The treatment for her disease will include chronic long-term therapy. Given her LV systolic function, this may be due to either occult ischemia or perhaps more likely chemotherapy. Irrespectively, the patient will wire medical therapy to assist with afterload reduction if her hemodynamics tolerate such therapy. To this same and, low-dose Coreg can be introduced at this time. The patient is an appropriate candidate for palliative care and I appreciate their evaluation and consultation. Patient may be moved out of the intensive care unit later today transitioning her management to one of the hospital physicians. Pradip
[2016-11-12] MEDS ORDERED: *HR* LORazepam 2 MG/ML VIAL IVP PRN (09:55)
[2016-11-12] MEDS ORDERED: *HR* HYDROmorphone (PF) 1 MG/ML SYRINGE IVP PRN (09:55)
[2016-11-12] MEDS ORDERED: Naloxone 0.4 MG/ML INJ IVP PRN (09:55)
[2016-11-12] MEDS ORDERED: Acetaminophen 650 MG RECTAL SUPP RC PRN (09:55)
[2016-11-12] MEDS ORDERED: Acetaminophen 325 MG TABLET PO PRN (09:55)
--- NOTE | 2016-11-12 10:57 | Palliative Progress Note ---
Date of Encounter: 11/12/16 Time of Encounter: 10:50 - Assessment and plan (1) Cancer associated pain Current Visit: No Status: Acute Assessment and plan: Will d/c IV hydromorphone and restart home dose of Oxycodone now that she can take po and monitor (2) Decreased appetite Current Visit: Yes Status: Acute Assessment and plan: Has been started on Dronabinol 2.5. Her home Megastrol will need d/c's r/t thrombus. Monitor. May need to increase Dronabinol if current dose not effective. Continued to encourage her with po oral intake and with ascites, PEG not good option (3) Dyspnea Current Visit: No Status: Acute Assessment and plan: Patient states improved. Chest tube remains intact. monitor Qualifiers: Dyspnea type: shortness of breath Qualified Code(s): R06.02 - Shortness of breath (4) Anxiety Current Visit: Yes Status: Acute Assessment and plan: Will d/c IV Lorazepam and change to low dose po PRN. (5) Goals of care, counseling/discussion Current Visit: Yes Status: Acute Assessment and plan: No family currently present - patient drowsy and having a difficult time staying awake for conversation. Will continue to follow. (6) Pleural effusion Current Visit: Yes Status: Acute (7) Pulmonary embolism Current Visit: Yes Status: Acute Qualifiers: Pulmonary embolism type: other Chronicity: acute Acute cor pulmonale presence: without acute cor pulmonale Qualified Code(s): I26.99 - Other pulmonary embolism without acute cor pulmonale (8) Metastatic adenocarcinoma Current Visit: No Status: Acute - Time Spent With Patient Total time spent is greater than 50% in coordination of care (as documented) at patient's floor/unit and/or counseling patient: 25 - 35 minutes - Subjective Interval history: Patient transferred out of ICU this am. Currently sleeping - awakens easily. C/ o some moderate back/shoulder discomfort. States breathing has improved. No family currently present. - Constitutional Vitals: Abnormal lab results RBC 2.38 M/mcL (3.82-4.97) L 11/12/16 06:48 Hgb 6.3 g/dL (11.5-15.4) L 11/12/16 06:48 Hct 19.8 % (35.3-44.9) L 11/12/16 06:48 MCH 26.5 pg (28.0-33.3) L 11/12/16 06:48 RDW 28.0 % (11.5-14.5) H 11/12/16 06:48 Polychromasia 2+ (Not Present) A 11/10/16 03:32 Hypochromasia Present (Not Present) A 11/11/16 07:45 Poikilocytosis 2+ (Not Present) A 11/11/16 07:45 Anisocytosis 2+ (Not Present) A 11/12/16 06:48 PT 16.0 Seconds (9.4-12.1) H 11/10/16 03:32 ABG pH 7.48 pH Units (7.32-7.45) H 11/10/16 04:51 ABG pCO2 30 mmHg (35-45) L 11/10/16 04:51 Potassium 3.4 mEq/L (3.5-4.5) L 11/12/16 04:30 Creatinine 0.51 mg/dL (0.57-1.11) L 11/12/16 04:30 Lactic Acid 6.9 mmol/L (0.5-2.2) H* 11/09/16 19:03 Calcium 7.6 mg/dL (8.6-10.8) L 11/12/16 04:30 Ionized Calcium 1.03 mmol/L (1.15-1.35) L 11/12/16 04:30 Alkaline Phosphatase 148 Units/L (38-126) H 11/09/16 17:10 Troponin I 0.43 ng/mL (0-0.03) H* 11/09/16 17:10 Albumin 2.1 g/dL (3.5-5.0) L 11/09/16 17:10 Globulin 4.6 g/dL (2.4-3.5) H 11/09/16 17:10 Albumin/Globulin Ratio 0.5 (1.1-2.2) L 11/09/16 17:10 Urine Ketones Trace mg/dL (Negative) H 11/09/16 19:48 Urine Blood Trace-intact (Negative) H 11/09/16 19:48 Ur Squamous Epith Cells Many per lpf (None-Few) H 11/09/16 19:48 General appearance: Present: no acute distress - Respiratory Additional comments: Left chest tube with some bloody drainage in tubing. Breath sounds diminished LLL - Cardiovascular Cardiovascular exam: Present: +S1, +S2 - GI/Abdominal GI/Abdominal exam: Present: diminished bowel sounds, distended, soft - Additional comments: Danielson with clear yellow urine - Extremities Exam Additional comments: 2+ bilateral lower extremity edema - Neurological Exam Neurological exam: Present: alert, oriented X3, strengths equal and symetr throughout - Psychiatric Psychiatric exam: Present: anxious, flat affect - Skin Skin exam: Present: dry, pallor, warm Palliative Quality Palliative Quality: Screen for Code Status: Yes, Screen for Goals of Care: Yes, Screen for Pain: Yes, If Pain Regimen Started, Initiate Bowel Regimen: Yes, Screen for Nausea/Vomitting: Yes - Labs CBC & Chem 7: 11/12/16 06:48 11/12/16 04:30 Labs: Laboratory Results - last 24 hr 11/11/16 11/11/16 11/12/16 11:07 23:23 04:30 WBC RBC Hgb Hct MCV MCH MCHC RDW Plt Count MPV Immature Gran % Seg Neutrophils % Lymphocytes % Monocytes % Eosinophils % Basophils % Neutrophils # Lymphocytes # Monocytes # Eosinophils # Basophils # Platelet Estimate Anisocytosis Sodium 139 Potassium 3.4 L Chloride 106 Carbon Dioxide 23 BUN 11 Creatinine 0.51 L Est GFR ( Amer) > 60 Est GFR (Non-Af Amer) > 60 BUN/Creatinine Ratio 22 Glucose 90 POC Glucose 122 H 91 H Calculated Osmolality 287 Calcium 7.6 L Ionized Calcium Phosphorus 2.3 Magnesium 1.6 11/12/16 11/12/16 11/12/16 04:30 06:48 10:30 WBC 5.2 RBC 2.38 L Hgb 6.3 L Hct 19.8 L MCV 83.2 MCH 26.5 L MCHC 31.8 RDW 28.0 H Plt Count 187 MPV 9.4 Immature Gran % 0.6 Seg Neutrophils % 79.6 Lymphocytes % 18.4 Monocytes % 1.4 Eosinophils % 0.0 Basophils % 0.0 Neutrophils # 4.1 Lymphocytes # 1.0 Monocytes # 0.1 Eosinophils # 0.0 Basophils # 0.0 Platelet Estimate Normal Anisocytosis 2+ A Sodium Potassium Chloride Carbon Dioxide BUN Creatinine Est GFR ( Amer) Est GFR (Non-Af Amer) BUN/Creatinine Ratio Glucose POC Glucose 86 Calculated Osmolality Calcium Ionized Calcium 1.03 L Phosphorus Magnesium - Impressions Impressions KUB X-Ray 11/10/16 14:47 IMPRESSION: Orogastric tube is beneath the diaphragm with the tip and side hole projecting over the proximal stomach. D/ / 11/10/2016 15:31:03 Candace Ellis MD / earnold Interpreting Provider: Canadce Ellis MD Guidance Needle Placement Ultrasound 11/11/16 00:00 IMPRESSION: No caval thrombus Successful placement of an infrarenal inferior vena cava filter D/ / Mat Bains MD / Mat Bains MD Interpreting Provider: Mat Bains MD Filter Placement 11/11/16 00:00 IMPRESSION: No caval thrombus Successful placement of an infrarenal inferior vena cava filter D/ / Mat Bains MD / Mat Bains MD Interpreting Provider: Mat Bains MD Chest X-Ray 11/11/16 15:20 IMPRESSION: No substantial change in left-sided pleural effusion. D/ / Laurita Gibbs MD / Laurita Gibbs MD Interpreting Provider: Laurita Gibbs MD - ABG Interpretation ABG results: ABG ABG pH 7.48 pH Units (7.32-7.45) H 11/10/16 04:51 ABG pCO2 30 mmHg (35-45) L 11/10/16 04:51 ABG pO2 99 mmHg (85-104) 11/10/16 04:51 ABG O2 Saturation 98 % (95-98) 11/10/16 04:51 PT/INR, D-dimer PT 16.0 Seconds (9.4-12.1) H 11/10/16 03:32 Consult Discharge Plan - Plan Referrals: Hilda Chappell, GROUP DIRECTOR [Primary Care Provider] -
[2016-11-12] MEDS ORDERED: *HR* LORazepam 0.5 MG TABLET PO PRN (10:58)
[2016-11-12] MEDS ORDERED: 0.9 % Sodium Chloride 250 ML ONE (12:10)
--- NOTE | 2016-11-12 14:32 | IR Consult Note ---
Date of Encounter: 11/12/16 Time of Encounter: 14:25 Assessment and Plan (1) Pleural effusion Current Visit: Yes Status: Acute Recurrent malignant left pleural effusion. She just had CT chest which shows small left pleural effusion with airspace disease. I would suggest clamping her chest tube to allow the pleural effusion to reaccumulate over the weekend, and then plan to place pleurx on Tuesday if there is recurrence. Discussed with Dr Olsen. Consult date: 11/12/16 Physicians: Phillip Kim History of present illness: Ovarain cancer with new Pe and recurrent malignant left pleural effusion S/P large bore left chest tube placement. VIR consulted for placement of pleurx catheter. Consult Comment: Thank you for the consult. Call VIR with questions or concerns. Past Med Surg Social Fam HX - Past Medical History Medical history: arthritis, cancer, hypertension, other Psychiatric history: no psych history - Past Surgical History Surgical History: cholecystectomy, knee replacement, orthopedic, other - Social History Smoking Status: Never smoker Smokeless Tobacco Status: No Alcohol use: none Drug use: none - Family History Maternal Living Status: Hx Family Respiratory Disorders: Yes (COPD) Medications and Allergies Baclofen 10 mg PO TID 09/29/16 [History] Duloxetine HCl [Cymbalta] 60 mg PO DAILY 09/29/16 [History] Gabapentin [Neurontin] 600 mg PO TID 09/29/16 [History] Melatonin/Pyridoxine HCl (B6) [Melatonin 3 mg Tablet] 1 each PO HS 09/29/16 [ History] Ropinirole HCl [Requip] 2 mg PO BID 09/29/16 [History] Magic Mouthwash [Magic Mouthwash BLM] 10 ml PO QID PRN #240 ml 10/15/16 [Rx] Amlodipine [Norvasc] 5 mg PO DAILY #30 tablet 10/18/16 [Rx] Docusate Sodium [Colace] 100 mg PO BID #60 capsule 10/18/16 [Rx] Ondansetron HCl [Zofran] 4 mg PO Q6H PRN #30 tablet 11/01/16 [Rx] Prochlorperazine Maleate [Compazine] 10 mg PO Q6HR PRN #30 tablet 11/01/16 [Rx] Megestrol Acetate [Megace] 10 ml PO DAILY #300 mls 11/04/16 [Rx] OxyCODONE Immed Rel [Roxicodone 5 MG] 10 mg PO Q4H PRN #60 tab 11/08/16 [Rx] Aspirin 81 mg PO DAILY 11/09/16 [History] Dexamethasone [Decadron] 2 tab PO BID #30 tablet 11/09/16 [Rx] Allergies No Known Allergies Allergy (Verified 11/09/16 15:44) Exam Vital Signs, Last 4 Hours Temp Pulse Resp BP Pulse Ox 11/12/16 13:25 92 L 11/12/16 12:28 98.5 F 113 22 109/75 92 L 11/12/16 12:13 98.5 F 115 18 116/72 94 L Results Reviewed 11/12/16 06:48 11/12/16 04:30 Lab Results 11/12/16 11/12/16 11/11/16 06:48 04:30 07:45 WBC 5.2 9.8 RBC 2.38 L 2.99 L Hgb 6.3 L 7.7 L D Hct 19.8 L 24.3 L MCV 83.2 81.3 L MCH 26.5 L 25.8 L MCHC 31.8 31.7 RDW 28.0 H 28.6 H Plt Count 187 323 MPV 9.4 9.6 Neutrophils # 4.1 8.4 Lymphocytes # 1.0 1.2 Monocytes # 0.1 0.2 Eosinophils # 0.0 0.0 Basophils # 0.0 0.0 PT INR Sodium 139 Potassium 3.4 L Chloride 106 Carbon Dioxide 23 BUN 11 Creatinine 0.51 L Est GFR ( Amer) > 60 Est GFR (Non-Af Amer) > 60 BUN/Creatinine Ratio 22 Glucose 90 Lactic Acid Calcium 7.6 L Phosphorus 2.3 Magnesium 1.6 11/11/16 11/10/16 11/10/16 05:20 03:32 03:32 WBC RBC Hgb Hct MCV MCH MCHC RDW Plt Count MPV Neutrophils # Lymphocytes # Monocytes # Eosinophils # Basophils # PT 16.0 H INR 1.5 Sodium 140 141 D Potassium 3.7 4.2 Chloride 107 107 Carbon Dioxide 23 20 BUN 16 12 Creatinine 0.59 0.62 Est GFR ( Amer) > 60 > 60 Est GFR (Non-Af Amer) > 60 > 60 BUN/Creatinine Ratio 27 H 19 Glucose 134 H 101 H Lactic Acid Calcium 7.6 L 7.4 L Phosphorus Magnesium 1.2 L 11/10/16 11/09/16 03:32 19:03 WBC 13.0 H RBC 3.82 Hgb 9.6 L Hct 31.5 L MCV 82.5 L MCH 25.1 L MCHC 30.5 L RDW 27.5 H Plt Count 362 MPV 8.9 L Neutrophils # 11.2 H Lymphocytes # 1.0 Monocytes # 0.5 Eosinophils # 0.0 Basophils # 0.0 PT INR Sodium Potassium Chloride Carbon Dioxide BUN Creatinine Est GFR ( Amer) Est GFR (Non-Af Amer) BUN/Creatinine Ratio Glucose Lactic Acid 6.9 H* Calcium Phosphorus Magnesium Consult Discharge Plan - Plan Referrals: Hilda Chappell CLINICAL LAB TECHNOLOGIST [Primary Care Provider] -
[2016-11-12] MEDS: Gabapentin 300 MG CAPSULE PO SCH ×2 (15:45→21:50)
[2016-11-12] MEDS: *HR* OxyCODONE Immed Rel 5 MG TABLET PO PRN (15:45)
[2016-11-12] MEDS: Baclofen 10 MG TABLET PO SCH ×2 (15:45→21:50)
--- NOTE | 2016-11-12 18:26 | Event Note ---
Date of Encounter: 11/12/16 Time of Encounter: 18:23 I have examined the patient at the bedside. She was transferred from the ICU after being treated for acute respiratory failure and left-sided pleural effusion. I have discussed the case with the interventional radiologist. They evaluated her for a Pleurx catheter placement. Patient denies shortness of breath. She reports cough productive of dark colored thick sputum. On exam she is in no acute distress heart regular rate and rhythm S1-S2. Lungs with bibasilar crackles and diminished breath sounds at the left base. Plan: Clamp chest tube as discussed with radiologist. Monitor clinically. Check chest x-ray in the morning. Reevaluate by IR on Tuesday morning after 48 hours of clamping the chest tube for Pleurx catheter placement. PT OT. Discontinue Danielson catheter in the morning. Discontinue right internal jugular CVC. DVT prophylaxis.
[2016-11-12] MEDS ORDERED: Sennosides 8.6 MG TABLET PO SCH (21:00)
[2016-11-12] MEDS: Sennosides/Docusate Sodium TABLET PO SCH (21:49)
[2016-11-13 06:13] LABS: Basophils % 0.6 %; Eosinophils % 0.6 %; Hematocrit 23.1 % (35.3-44.9); Hemoglobin 7.1 g/dL (11.5-15.4); Immature Granulocytes % 1.1 % (0-4); Mean Corpuscular HGB Conc 30.7 g/dL (31.6-35.5); Mean Corpuscular Hemoglobin 26.3 pg (28.0-33.3); Mean Corpuscular Volume 85.6 fL (83.0-100.0); Mean Platelet Volume 9.6 fL (9.4-12.4); Monocytes # 0.1 K/mcL (0.0-1.3); Monocytes % 1.4 %; Neutrophils # 2.4 K/mcL (1.6-8.9); Platelet Count 129 K/mcL (140-400); Red Cell Distribution Width 25.7 % (11.5-14.5); Segmented Neutrophils % 68.3 %
[2016-11-13 06:22] LABS: BUN/Creatinine Ratio 16 (6-26); Blood Urea Nitrogen 8 mg/dL (7-20); Calcium 7.8 mg/dL (8.6-10.8); Carbon Dioxide 23 mEq/L (19-29); Chloride 104 mEq/L (98-109); Glucose 86 mg/dL (70-99); Osmolality,Calculated 282 (280-300); Phosphorous 2.6 mg/dL (2.3-4.7); Potassium 3.3 mEq/L (3.5-4.5); Sodium 137 mEq/L (136-145); eGFR For African Americans > 60 (> 60); eGFR For Non-African Americans > 60 (> 60)
[2016-11-13 06:44] LABS: Ionized Calcium 1.06 mmol/L (1.15-1.35)
[2016-11-13 07:10] LABS: Platelet Estimate Slight Decrease (Normal); Reactive Lymphocytes Present (Not Present)
--- NOTE | 2016-11-13 08:13 | Pulmonology Progress Note ---
Date of Encounter: 11/13/16 Time of Encounter: 08:11 Assessment and Plan (1) Acute respiratory failure with hypoxia Current Visit: No Status: Acute Acute respiratory failure with hypoxia in this particular individual is likely due severe pulmonary insufficiency (shunt physiology) secondary to massive left pleural effusion. Of note, ultrasound of the heart revealed a severely displaced heart into the right chest which following left chest tube placement and evacuation of the massive pleural effusion, assumed its normal configuration. Of note, however ultrasound of the heart suggested hypokinesis dilation of the right and the left ventricles and a questionable echogenic mass within the right ventricle (? Thrombus). Formal echocardiography did not fact reveal severe impairment of both the right and left ventricle. Reportedly this patient had normal LV function at the time of prior evaluation dating back to the fall. Global hypokinesis may be due to stress cardiomyopathy or perhaps is a chemotherapy effect. Nonetheless, she was started while in the ICU on low-dose Coreg and this can be up titrated as appropriate. Additional therapies for cardiomyopathy should also be instituted as tolerated (diurectics, ACEI). She will require long-term Lovenox anticoagulation given malignancy driven extensive pulmonary embolic disease. She underwent IVC filter placement as additive treatment given the severity of clot burden and impaired heart function. The chest tube will remain clamped through the weekend. Radiology will reevaluate the situation on Tuesday and possibly place a Pleurx catheter for management of the patient's malignant effusion. Given lack of complete pleural space evacuation and lack of total apposition of the pleural surfaces, at this time, she is deemed as not suitable for pleurodesis. Code(s): J96.01 - Acute respiratory failure with hypoxia SNOMED Code(s): 16824488, 831630017 Subjective Principal diagnosis: Bilateral Pulmonary emboli and malignant pulmonary effusion Interval history: A chest pain and notes improving appetite. side from a left-sided chest pain at the chest tube insertion site, the patient notes an improvement in her sense of well-being. She admits to cough mucoid sputum production but feels that she is no longer breathless. Patient denies chest pain and admits to improvement of appetite. No acute events were noted overnight. Objective PUL Vital signs: Last Vital Signs Temp 98.8 F 11/13/16 06:21 Pulse 101 11/13/16 06:21 Resp 18 11/13/16 06:21 BP 105/73 11/13/16 06:21 Pulse Ox 100 11/13/16 06:21 General appearance: no acute distress Eyes: nonicteric ENT: oropharynx moist Auscultation: left: diminished breath sounds, other (Left chest tube in place, clamped) Cardiovascular: regular rate and rhythm Gastrointestinal: normoactive bowel sounds, non-distended Integumentary: normal Extremities: edema normal mental status, non-focal exam mood appropriate Results - Laboratory Findings CBC and BMP: 11/13/16 05:45 11/13/16 05:45 ABG ABG pH 7.48 pH Units (7.32-7.45) H 11/10/16 04:51 ABG pCO2 30 mmHg (35-45) L 11/10/16 04:51 ABG pO2 99 mmHg (85-104) 11/10/16 04:51 ABG O2 Saturation 98 % (95-98) 11/10/16 04:51 PT/INR, D-dimer PT 16.0 Seconds (9.4-12.1) H 11/10/16 03:32 Abnormal lab findings: Abnormal lab results WBC 3.5 K/mcL (4.3-11.1) L 11/13/16 05:45 RBC 2.70 M/mcL (3.82-4.97) L 11/13/16 05:45 Hgb 7.1 g/dL (11.5-15.4) L 11/13/16 05:45 Hct 23.1 % (35.3-44.9) L 11/13/16 05:45 MCH 26.3 pg (28.0-33.3) L 11/13/16 05:45 MCHC 30.7 g/dL (31.6-35.5) L 11/13/16 05:45 RDW 25.7 % (11.5-14.5) H 11/13/16 05:45 Plt Count 129 K/mcL (140-400) L 11/13/16 05:45 Reactive Lymphocytes Present (Not Present) A 11/13/16 05:45 Platelet Estimate Slight Decrease (Normal) L 11/13/16 05:45 Polychromasia 2+ (Not Present) A 11/10/16 03:32 Hypochromasia Present (Not Present) A 11/11/16 07:45 Poikilocytosis 2+ (Not Present) A 11/11/16 07:45 Anisocytosis 2+ (Not Present) A 11/12/16 06:48 PT 16.0 Seconds (9.4-12.1) H 11/10/16 03:32 ABG pH 7.48 pH Units (7.32-7.45) H 11/10/16 04:51 ABG pCO2 30 mmHg (35-45) L 11/10/16 04:51 Potassium 3.3 mEq/L (3.5-4.5) L 11/13/16 05:45 Creatinine 0.51 mg/dL (0.57-1.11) L 11/13/16 05:45 Lactic Acid 6.9 mmol/L (0.5-2.2) H* 11/09/16 19:03 Calcium 7.8 mg/dL (8.6-10.8) L 11/13/16 05:45 Ionized Calcium 1.06 mmol/L (1.15-1.35) L 11/13/16 05:45 Magnesium 1.5 mg/dL (1.6-2.6) L 11/13/16 05:45 Alkaline Phosphatase 148 Units/L (38-126) H 11/09/16 17:10 Troponin I 0.43 ng/mL (0-0.03) H* 11/09/16 17:10 Albumin 2.1 g/dL (3.5-5.0) L 11/09/16 17:10 Globulin 4.6 g/dL (2.4-3.5) H 11/09/16 17:10 Albumin/Globulin Ratio 0.5 (1.1-2.2) L 11/09/16 17:10 Urine Ketones Trace mg/dL (Negative) H 11/09/16 19:48 Urine Blood Trace-intact (Negative) H 11/09/16 19:48 Ur Squamous Epith Cells Many per lpf (None-Few) H 11/09/16 19:48 - Clinical Findings Intake & Output: Intake & Output 11/12/16 11/13/16 11/13/16 23:59 07:59 15:59 Intake Total 240 / 240 280 / 280 Output Total 450 / 450 975 / 975 Balance -210 / -210 -695 / -695 Weight 110.2 kg Consult Discharge Plan - Plan Referrals: Hilda Chappell, TAMMIE [Primary Care Provider] -
[2016-11-13] MEDS: Gabapentin 300 MG CAPSULE PO SCH ×3 (08:22→20:53)
[2016-11-13] MEDS: Baclofen 10 MG TABLET PO SCH ×3 (08:22→20:53)
[2016-11-13] MEDS: Chlorhexidine Rinse 15 ML MOUTHWASH MM SCH ×2 (08:23→21:29)
[2016-11-13] MEDS: Pantoprazole 40 MG VIAL IVPB SCH ×2 (08:23→08:28)
[2016-11-13] MEDS: Sennosides/Docusate Sodium TABLET PO SCH ×2 (08:23→20:56)
[2016-11-13] MEDS ORDERED: Potassium Chloride 40 MEQ, Lidocaine 1% 2 ML in D5% in Water 500 ML IVPB ONE (08:23)
[2016-11-13] MEDS: *HR* Enoxaparin 100 MG/ML SYRINGE SQ SCH ×2 (08:24→20:54)
[2016-11-13] MEDS: *HR* OxyCODONE Immed Rel 5 MG TABLET PO PRN ×3 (08:35→20:53)
[2016-11-13] MEDS: Magnesium Sulfate 2 GM in D5% in Water 100 ML IVPB SCH ×2 (09:53→15:00)
--- NOTE | 2016-11-13 10:04 | Palliative Progress Note ---
Date of Encounter: 11/13/16 Time of Encounter: 10:00 - Assessment and plan (1) Cancer associated pain Current Visit: No Status: Acute Assessment and plan: Continue Oxycodone. Will add low dose IV Dilaudid to help with chest tube related pain. Monitor (2) Decreased appetite Current Visit: Yes Status: Acute Assessment and plan: Coninue Marinol and monitor intake (3) Dyspnea Current Visit: No Status: Acute Qualifiers: Dyspnea type: shortness of breath Qualified Code(s): R06.02 - Shortness of breath (4) Anxiety Current Visit: Yes Status: Acute Assessment and plan: Continue low dose Lorazepam PRN. Has not utilized (5) Goals of care, counseling/discussion Current Visit: Yes Status: Acute Assessment and plan: Will have SW visit Tuesday for potential discharge needs. Already has home oxygen through [facility]. May need home health temporarily if pleurx placed. Continue to follow (6) Pleural effusion Current Visit: Yes Status: Acute (7) Pulmonary embolism Current Visit: Yes Status: Acute Qualifiers: Pulmonary embolism type: other Chronicity: acute Acute cor pulmonale presence: without acute cor pulmonale Qualified Code(s): I26.99 - Other pulmonary embolism without acute cor pulmonale (8) Metastatic adenocarcinoma Current Visit: No Status: Acute - Time Spent With Patient Total time spent is greater than 50% in coordination of care (as documented) at patient's floor/unit and/or counseling patient: 25 - 35 minutes - Subjective Interval history: Patient awake and alert, talkative. Breathing improved. C/o pain at chest tube site,, states Oxycodone not really helping much. Ate better this am. No family present - Constitutional Vitals: Abnormal lab results WBC 3.5 K/mcL (4.3-11.1) L 11/13/16 05:45 RBC 2.70 M/mcL (3.82-4.97) L 11/13/16 05:45 Hgb 7.1 g/dL (11.5-15.4) L 11/13/16 05:45 Hct 23.1 % (35.3-44.9) L 11/13/16 05:45 MCH 26.3 pg (28.0-33.3) L 11/13/16 05:45 MCHC 30.7 g/dL (31.6-35.5) L 11/13/16 05:45 RDW 25.7 % (11.5-14.5) H 11/13/16 05:45 Plt Count 129 K/mcL (140-400) L 11/13/16 05:45 Reactive Lymphocytes Present (Not Present) A 11/13/16 05:45 Platelet Estimate Slight Decrease (Normal) L 11/13/16 05:45 Polychromasia 2+ (Not Present) A 11/10/16 03:32 Hypochromasia Present (Not Present) A 11/11/16 07:45 Poikilocytosis 2+ (Not Present) A 11/11/16 07:45 Anisocytosis 2+ (Not Present) A 11/12/16 06:48 PT 16.0 Seconds (9.4-12.1) H 11/10/16 03:32 ABG pH 7.48 pH Units (7.32-7.45) H 11/10/16 04:51 ABG pCO2 30 mmHg (35-45) L 11/10/16 04:51 Potassium 3.3 mEq/L (3.5-4.5) L 11/13/16 05:45 Creatinine 0.51 mg/dL (0.57-1.11) L 11/13/16 05:45 Lactic Acid 6.9 mmol/L (0.5-2.2) H* 11/09/16 19:03 Calcium 7.8 mg/dL (8.6-10.8) L 11/13/16 05:45 Ionized Calcium 1.06 mmol/L (1.15-1.35) L 11/13/16 05:45 Magnesium 1.5 mg/dL (1.6-2.6) L 11/13/16 05:45 Alkaline Phosphatase 148 Units/L (38-126) H 11/09/16 17:10 Troponin I 0.43 ng/mL (0-0.03) H* 11/09/16 17:10 Albumin 2.1 g/dL (3.5-5.0) L 11/09/16 17:10 Globulin 4.6 g/dL (2.4-3.5) H 11/09/16 17:10 Albumin/Globulin Ratio 0.5 (1.1-2.2) L 11/09/16 17:10 Urine Ketones Trace mg/dL (Negative) H 11/09/16 19:48 Urine Blood Trace-intact (Negative) H 11/09/16 19:48 Ur Squamous Epith Cells Many per lpf (None-Few) H 11/09/16 19:48 General appearance: Present: no acute distress - Respiratory Additional comments: Left chest tube remains clamped. Breath sounds diminished LLL - Cardiovascular Cardiovascular exam: Present: +S1, +S2 - GI/Abdominal GI/Abdominal exam: Present: distended, normal bowel sounds, soft - Extremities Exam Extremities exam: Present: normal capillary refill, normal inspection Additional comments: 1+ generalized edema - Neurological Exam Neurological exam: Present: alert, oriented X3, strengths equal and symetr throughout Additional comments: Generalized weakness. LImited mobility Rt Arm - Skin Skin exam: Present: dry, pallor, warm Palliative Quality Palliative Quality: Screen for Code Status: Yes, Screen for Goals of Care: Yes, Screen for Pain: Yes, If Pain Regimen Started, Initiate Bowel Regimen: Yes, Screen for Nausea/Vomitting: Yes - Labs CBC & Chem 7: 11/13/16 05:45 11/13/16 05:45 Labs: Laboratory Results - last 24 hr 11/12/16 11/12/16 11/13/16 10:30 11:00 05:45 WBC 3.5 L RBC 2.70 L Hgb 7.1 L Hct 23.1 L MCV 85.6 MCH 26.3 L MCHC 30.7 L RDW 25.7 H Plt Count 129 L MPV 9.6 Immature Gran % 1.1 Seg Neutrophils % 68.3 Lymphocytes % 28.0 Monocytes % 1.4 Eosinophils % 0.6 Basophils % 0.6 Neutrophils # 2.4 Lymphocytes # 1.0 Monocytes # 0.1 Eosinophils # 0.0 Basophils # 0.0 Reactive Lymphocytes Present A Platelet Estimate Slight Decrease L Sodium Potassium Chloride Carbon Dioxide BUN Creatinine Est GFR ( Amer) Est GFR (Non-Af Amer) BUN/Creatinine Ratio Glucose POC Glucose 86 Calculated Osmolality Calcium Ionized Calcium Phosphorus Magnesium Blood Type A POSITIVE Antibody Screen NEGATIVE Crossmatch See Detail 11/13/16 11/13/16 05:45 05:45 WBC RBC Hgb Hct MCV MCH MCHC RDW Plt Count MPV Immature Gran % Seg Neutrophils % Lymphocytes % Monocytes % Eosinophils % Basophils % Neutrophils # Lymphocytes # Monocytes # Eosinophils # Basophils # Reactive Lymphocytes Platelet Estimate Sodium 137 Potassium 3.3 L Chloride 104 Carbon Dioxide 23 BUN 8 Creatinine 0.51 L Est GFR ( Amer) > 60 Est GFR (Non-Af Amer) > 60 BUN/Creatinine Ratio 16 Glucose 86 POC Glucose Calculated Osmolality 282 Calcium 7.8 L Ionized Calcium 1.06 L Phosphorus 2.6 Magnesium 1.5 L Blood Type Antibody Screen Crossmatch - Impressions Impressions Chest CT 11/12/16 12:30 IMPRESSION: A very tiny pneumothorax remains on the left. There is increased fluid seen within the fissure on the left. Small pleural effusion remains on the left, likely loculated given the non dependent portions. Small right-sided pleural effusion with right lower lobe atelectasis. Nodularity in left upper quadrant mesentery. Please see abdomen CT reports D/ / Mat Kendrick MD / Mat Kendrick MD Interpreting Provider: Mat Kendrick MD - ABG Interpretation ABG results: ABG ABG pH 7.48 pH Units (7.32-7.45) H 11/10/16 04:51 ABG pCO2 30 mmHg (35-45) L 11/10/16 04:51 ABG pO2 99 mmHg (85-104) 11/10/16 04:51 ABG O2 Saturation 98 % (95-98) 11/10/16 04:51 PT/INR, D-dimer PT 16.0 Seconds (9.4-12.1) H 11/10/16 03:32 Consult Discharge Plan - Plan Referrals: Hilda Chappell, GIN CLERK [Primary Care Provider] -
--- NOTE | 2016-11-13 10:54 | Procedure Note ---
Date of procedure: 11/09/16 Pre-op diagnosis: Acute respiratory failure with hypoxia Post-op diagnosis: same Procedure: An emergent left chest tube, 28-Uzbek size was placed following ultrasound evaluation of the chest given presence of really large effusion in this patient acute respiratory failure. The left hemithorax was prepped and draped in routine fashion and using sterile maximal area technique, 28-Uzbek device was placed by Dr. Mittal under my direct supervision. Following placement, large volume of fluid draining through the tube and the incision. The device was sutured in the position. A follow-up chest radiograph revealed placement within the left hemithorax.
[2016-11-13] MEDS: *HR* HYDROmorphone (PF) 1 MG/ML SYRINGE IVP PRN (11:00)
--- NOTE | 2016-11-13 16:32 | Internal Med Progress Note ---
Date of Encounter: 11/13/16 Time of Encounter: 16:30 - Assessment and plan (1) Pleural effusion Current Visit: Yes Status: Acute Assessment and plan: Malignant pleural effusion status post left sided chest tube. Chest tube clamped. We will obtain a new x-ray on Tuesday to see if fluid re-accumulates. If that's the, case will consider pleurix cath are according to plan by pulmonology/interventional radiology. (2) Pulmonary embolism Current Visit: Yes Status: Acute Assessment and plan: Continue with Lovenox. Patient will need long-term anticoagulation upon discharge. Qualifiers: Pulmonary embolism type: other Chronicity: acute Acute cor pulmonale presence: without acute cor pulmonale Qualified Code(s): I26.99 - Other pulmonary embolism without acute cor pulmonale (3) Acute respiratory failure with hypoxia Current Visit: No Status: Acute Assessment and plan: Multifactorial. Continue current management. Patient with severe systolic dysfunction, we will continue with current management, reevaluate ejection fraction was outpatient. (4) Metastatic adenocarcinoma Current Visit: No Status: Acute - Time Spent With Patient 25 - 35 minutes - Subjective Interval history: The patient was seen and examined during rounds. She is in good spirits. Denies shortness of breath, complaining of chest pain in the left hemithorax in the area where the chest tube is placed. Otherwise denies fever. - Constitutional Vitals: Temp Pulse Resp BP Pulse Ox 98.3 F 106 18 113/79 97 11/13/16 14:15 11/13/16 14:15 11/13/16 14:15 11/13/16 14:15 11/13/16 14:15 General appearance: Present: cooperative, A&O X 3, pleasant, obese Exam: Left sided chest tube placed. - Head Head exam: Present: atraumatic, normocephalic - Eye Eye exam: Present: PERRL, conjuntiva pink, sclera anicteric Pupils: Present: PERRL - Neck Neck exam general surgery: Present: supple, trachea midline. Absent: lymphadenopathy - Respiratory Respiratory exam: Present: CTAB. Absent: accessory muscle use, rales, rhonchi, wheezes - Cardiovascular Cardiovascular exam: Present: RRR, +S1, +S2. Absent: diastolic murmur, gallop, rubs, systolic murmur - GI/Abdominal GI/Abdominal exam: Present: normal bowel sounds, soft, no peritoneal signs. Absent: distended, tenderness - Extremities Exam Extremities exam: Present: warm, radial pulses palpable and symetrical. Absent : calf tenderness, cyanotic, pedal edema - Neurological Exam Neurological exam: Present: CN II-XII intact, oriented X3, no focal deficits. Absent: pronater drift, facial droop, speech deficit - Skin Skin exam: Present: dry, intact Internal Medicine: Result - Labs CBC & Chem 7: 11/13/16 05:45 11/13/16 05:45 Labs: Short CBC 11/13/16 Range/Units 05:45 WBC 3.5 L (4.3-11.1) K/mcL Hgb 7.1 L (11.5-15.4) g/dL Hct 23.1 L (35.3-44.9) % Plt Count 129 L (140-400) K/mcL Neutrophils # 2.4 (1.6-8.9) K/mcL BMP 11/13/16 05:45 Sodium 137 Potassium 3.3 L Chloride 104 Carbon Dioxide 23 BUN 8 Creatinine 0.51 L Glucose 86 Calcium 7.8 L - ABG Interpretation ABG results: ABG ABG pH 7.48 pH Units (7.32-7.45) H 11/10/16 04:51 ABG pCO2 30 mmHg (35-45) L 11/10/16 04:51 ABG pO2 99 mmHg (85-104) 11/10/16 04:51 ABG O2 Saturation 98 % (95-98) 11/10/16 04:51 PT/INR, D-dimer PT 16.0 Seconds (9.4-12.1) H 11/10/16 03:32 Consult Discharge Plan - Plan Referrals: Hilda Chappell, INTERNAL REVIEW AND AUDIT COMPLIANCE [Primary Care Provider] -
[2016-11-14 04:53] LABS: BUN/Creatinine Ratio 13 (6-26); Blood Urea Nitrogen 6 mg/dL (7-20); Calcium 7.6 mg/dL (8.6-10.8); Carbon Dioxide 23 mEq/L (19-29); Chloride 104 mEq/L (98-109); Glucose 85 mg/dL (70-99); Osmolality,Calculated 279 (280-300); Potassium 3.4 mEq/L (3.5-4.5); Sodium 136 mEq/L (136-145); eGFR For African Americans > 60 (> 60); eGFR For Non-African Americans > 60 (> 60)
[2016-11-14 05:06] LABS: Eosinophils # 0.1 K/mcL (0.0-0.6); Hematocrit 20.9 % (35.3-44.9); Hemoglobin 6.6 g/dL (11.5-15.4); Mean Corpuscular HGB Conc 31.6 g/dL (31.6-35.5); Mean Corpuscular Hemoglobin 26.9 pg (28.0-33.3); Mean Corpuscular Volume 85.3 fL (83.0-100.0); Mean Platelet Volume 10.1 fL (9.4-12.4); Platelet Count 108 K/mcL (140-400); Red Blood Count 2.45 M/mcL (3.82-4.97)
[2016-11-14 06:26] LABS: Lymphocytes # 0.6 K/mcL (0.6-4.6); Monocytes # 0.1 K/mcL (0.0-1.3); Neutrophils # 1.6 K/mcL (1.6-8.9)
[2016-11-14 06:27] LABS: Anisocytosis 1+ (Not Present); Platelet Estimate Slight Decrease (Normal)
[2016-11-14 06:28] LABS: Hypochromasia Present (Not Present); Microcytosis Present (Not Present); Reactive Lymphocytes Present (Not Present)
[2016-11-14] MEDS: *HR* Enoxaparin 100 MG/ML SYRINGE SQ SCH ×2 (08:42→21:27)
[2016-11-14] MEDS: Gabapentin 300 MG CAPSULE PO SCH ×3 (08:43→21:29)
[2016-11-14] MEDS: Chlorhexidine Rinse 15 ML MOUTHWASH MM SCH ×2 (08:43→21:27)
[2016-11-14] MEDS: Pantoprazole 40 MG VIAL IVPB SCH (08:43)
[2016-11-14] MEDS: *HR* OxyCODONE Immed Rel 5 MG TABLET PO PRN (08:43)
[2016-11-14] MEDS: Baclofen 10 MG TABLET PO SCH ×3 (08:43→21:27)
[2016-11-14] MEDS: Sennosides/Docusate Sodium TABLET PO SCH ×2 (08:43→21:28)
--- NOTE | 2016-11-14 08:57 | Pulmonology Progress Note ---
Date of Encounter: 11/14/16 Time of Encounter: 08:54 Assessment and Plan (1) Acute respiratory failure with hypoxia Current Visit: No Status: Acute Acute respiratory failure with hypoxia in this particular individual is likely due severe pulmonary insufficiency (shunt physiology) secondary to massive left pleural effusion and extensive pulmonary embolism. Formal echocardiography did in fact reveal severe impairment of both the right and left ventricle. Reportedly this patient had normal LV function at the time of prior evaluation dating back to the fall. Global hypokinesis may be due to stress cardiomyopathy or perhaps is a chemotherapy effect. Nonetheless, she was started while in the ICU on low-dose Coreg and this can be up titrated as appropriate. Additional therapies for cardiomyopathy should also be instituted as tolerated (diurectics, ACEI). She will require long-term Lovenox anticoagulation given malignancy driven extensive pulmonary embolic disease. She underwent IVC filter placement as additive treatment given the severity of clot burden and impaired heart function. The chest tube will remain clamped through the weekend. Radiology will re- evaluate the situation on Tuesday and possibly place a Pleurx catheter for management of the patient's malignant effusion. Given lack of complete pleural space evacuation and lack of total apposition of the pleural surfaces, at this time, she is deemed as not suitable for pleurodesis. [facility] [phone] Code(s): J96.01 - Acute respiratory failure with hypoxia SNOMED Code(s): 04699168, [id number] Subjective Principal diagnosis: Bilateral Pulmonary emboli and malignant pulmonary effusion Interval history: A chest pain and notes improving appetite. side from a left-sided chest pain at the chest tube insertion site, the patient notes an improvement in her sense of well-being. She admits to cough mucoid sputum production but feels that she is no longer breathless. Patient denies chest pain and admits to improvement of appetite. No acute events were noted overnight. The left chest tube remains clamped at this time. Objective PUL Vital signs: Last Vital Signs Temp 98.1 F 11/14/16 06:24 Pulse 99 11/14/16 06:24 Resp 18 11/14/16 06:24 BP 111/76 11/14/16 06:24 Pulse Ox 100 11/14/16 06:24 General appearance: no acute distress Eyes: nonicteric ENT: oropharynx moist Auscultation: left: diminished breath sounds Cardiovascular: regular rate and rhythm Gastrointestinal: normoactive bowel sounds, non-distended Integumentary: normal Extremities: no cyanosis, edema Musculoskeletal: no deformities normal mental status, non-focal exam mood appropriate Results - Laboratory Findings CBC and BMP: 11/14/16 03:46 11/14/16 03:46 ABG ABG pH 7.48 pH Units (7.32-7.45) H 11/10/16 04:51 ABG pCO2 30 mmHg (35-45) L 11/10/16 04:51 ABG pO2 99 mmHg (85-104) 11/10/16 04:51 ABG O2 Saturation 98 % (95-98) 11/10/16 04:51 PT/INR, D-dimer PT 16.0 Seconds (9.4-12.1) H 11/10/16 03:32 Abnormal lab findings: Abnormal lab results WBC 2.3 K/mcL (4.3-11.1) L 11/14/16 03:46 RBC 2.45 M/mcL (3.82-4.97) L 11/14/16 03:46 Hgb 6.6 g/dL (11.5-15.4) L 11/14/16 03:46 Hct 20.9 % (35.3-44.9) L 11/14/16 03:46 MCH 26.9 pg (28.0-33.3) L 11/14/16 03:46 RDW 25.0 % (11.5-14.5) H 11/14/16 03:46 Plt Count 108 K/mcL (140-400) L 11/14/16 03:46 Reactive Lymphocytes Present (Not Present) A 11/14/16 03:46 Platelet Estimate Slight Decrease (Normal) L 11/14/16 03:46 Polychromasia 2+ (Not Present) A 11/10/16 03:32 Hypochromasia Present (Not Present) A 11/14/16 03:46 Poikilocytosis 2+ (Not Present) A 11/11/16 07:45 Anisocytosis 1+ (Not Present) A 11/14/16 03:46 Microcytosis Present (Not Present) A 11/14/16 03:46 PT 16.0 Seconds (9.4-12.1) H 11/10/16 03:32 ABG pH 7.48 pH Units (7.32-7.45) H 11/10/16 04:51 ABG pCO2 30 mmHg (35-45) L 11/10/16 04:51 Potassium 3.4 mEq/L (3.5-4.5) L 11/14/16 03:46 BUN 6 mg/dL (7-20) L 11/14/16 03:46 Creatinine 0.48 mg/dL (0.57-1.11) L 11/14/16 03:46 Calculated Osmolality 279 (280-300) L 11/14/16 03:46 Lactic Acid 6.9 mmol/L (0.5-2.2) H* 11/09/16 19:03 Calcium 7.6 mg/dL (8.6-10.8) L 11/14/16 03:46 Ionized Calcium 1.06 mmol/L (1.15-1.35) L 11/13/16 05:45 Magnesium 1.5 mg/dL (1.6-2.6) L 11/13/16 05:45 Alkaline Phosphatase 148 Units/L (38-126) H 11/09/16 17:10 Troponin I 0.43 ng/mL (0-0.03) H* 11/09/16 17:10 Albumin 2.1 g/dL (3.5-5.0) L 11/09/16 17:10 Globulin 4.6 g/dL (2.4-3.5) H 11/09/16 17:10 Albumin/Globulin Ratio 0.5 (1.1-2.2) L 11/09/16 17:10 Urine Ketones Trace mg/dL (Negative) H 11/09/16 19:48 Urine Blood Trace-intact (Negative) H 11/09/16 19:48 Ur Squamous Epith Cells Many per lpf (None-Few) H 11/09/16 19:48 - Clinical Findings Intake & Output: Intake & Output 11/13/16 11/14/16 11/14/16 23:59 07:59 15:59 Intake Total 120 / 120 Output Total 250 / 250 200 / 200 Balance -130 / -130 -200 / -200 Weight 110.7 kg Consult Discharge Plan - Plan Referrals: Hilda Chappell, RELIGIOUS EDUCATION COORDINATOR [Primary Care Provider] -
--- NOTE | 2016-11-14 09:58 | Palliative Progress Note ---
Date of Encounter: 11/14/16 Time of Encounter: 10:00 - Assessment and plan (1) Cancer associated pain Current Visit: No Status: Acute Assessment and plan: Continues with Oxycodone 10 mg - utilized x4 last 24 hours. Did require Dilaudid for breakthrough pain (from chest tube site) x1. Monitor (2) Decreased appetite Current Visit: Yes Status: Acute Assessment and plan: Continues with Marinol. Patient did not eat well this am, but states overall she feels the Marinol is helping her appetite and she is eating more. Monitor (3) Dyspnea Current Visit: No Status: Acute Assessment and plan: Chest tube remains clamped which she has tolerated well. To be evaluated tomorrow for pleurx cath Qualifiers: Dyspnea type: shortness of breath Qualified Code(s): R06.02 - Shortness of breath (4) Anxiety Current Visit: Yes Status: Acute Assessment and plan: Continue low dose Ativan PRN. Has not utilized. (5) Goals of care, counseling/discussion Current Visit: Yes Status: Acute Assessment and plan: Will have SW see pt tomorrow - she will need some DME set up, most likely home health as well. She desires aggressive care and states "I will fight this disease with everything I've got". Will continue to follow and address symptom management needs. (6) Pleural effusion Current Visit: Yes Status: Acute (7) Pulmonary embolism Current Visit: Yes Status: Acute Qualifiers: Pulmonary embolism type: other Chronicity: acute Acute cor pulmonale presence: without acute cor pulmonale Qualified Code(s): I26.99 - Other pulmonary embolism without acute cor pulmonale (8) Metastatic adenocarcinoma Current Visit: No Status: Acute - Time Spent With Patient Total time spent is greater than 50% in coordination of care (as documented) at patient's floor/unit and/or counseling patient: - Subjective Interval history: Patient awake and alert, talkative. Breathing improved. Still c/o some discomfort at chest tube site. Staff with difficulty finding IV access at present. Son Oumar present. WBC down to 2.3, Hgb 6.6. PRBC's have been ordered. - Constitutional Vitals: Abnormal lab results WBC 2.3 K/mcL (4.3-11.1) L 11/14/16 03:46 RBC 2.45 M/mcL (3.82-4.97) L 11/14/16 03:46 Hgb 6.6 g/dL (11.5-15.4) L 11/14/16 03:46 Hct 20.9 % (35.3-44.9) L 11/14/16 03:46 MCH 26.9 pg (28.0-33.3) L 11/14/16 03:46 RDW 25.0 % (11.5-14.5) H 11/14/16 03:46 Plt Count 108 K/mcL (140-400) L 11/14/16 03:46 Reactive Lymphocytes Present (Not Present) A 11/14/16 03:46 Platelet Estimate Slight Decrease (Normal) L 11/14/16 03:46 Polychromasia 2+ (Not Present) A 11/10/16 03:32 Hypochromasia Present (Not Present) A 11/14/16 03:46 Poikilocytosis 2+ (Not Present) A 11/11/16 07:45 Anisocytosis 1+ (Not Present) A 11/14/16 03:46 Microcytosis Present (Not Present) A 11/14/16 03:46 PT 16.0 Seconds (9.4-12.1) H 11/10/16 03:32 ABG pH 7.48 pH Units (7.32-7.45) H 11/10/16 04:51 ABG pCO2 30 mmHg (35-45) L 11/10/16 04:51 Potassium 3.4 mEq/L (3.5-4.5) L 11/14/16 03:46 BUN 6 mg/dL (7-20) L 11/14/16 03:46 Creatinine 0.48 mg/dL (0.57-1.11) L 11/14/16 03:46 Calculated Osmolality 279 (280-300) L 11/14/16 03:46 Lactic Acid 6.9 mmol/L (0.5-2.2) H* 11/09/16 19:03 Calcium 7.6 mg/dL (8.6-10.8) L 11/14/16 03:46 Ionized Calcium 1.06 mmol/L (1.15-1.35) L 11/13/16 05:45 Magnesium 1.5 mg/dL (1.6-2.6) L 11/13/16 05:45 Alkaline Phosphatase 148 Units/L (38-126) H 11/09/16 17:10 Troponin I 0.43 ng/mL (0-0.03) H* 11/09/16 17:10 Albumin 2.1 g/dL (3.5-5.0) L 11/09/16 17:10 Globulin 4.6 g/dL (2.4-3.5) H 11/09/16 17:10 Albumin/Globulin Ratio 0.5 (1.1-2.2) L 11/09/16 17:10 Urine Ketones Trace mg/dL (Negative) H 11/09/16 19:48 Urine Blood Trace-intact (Negative) H 11/09/16 19:48 Ur Squamous Epith Cells Many per lpf (None-Few) H 11/09/16 19:48 General appearance: Present: no acute distress - GI/Abdominal GI/Abdominal exam: Present: soft - Extremities Exam Additional comments: 1+ generalized edema - Neurological Exam Neurological exam: Present: alert, oriented X3 - Psychiatric Psychiatric exam: Present: normal affect, normal mood - Skin Skin exam: Present: dry, pallor, warm Palliative Quality Palliative Quality: Screen for Code Status: Yes, Screen for Goals of Care: Yes, Screen for Pain: Yes, If Pain Regimen Started, Initiate Bowel Regimen: Yes, Screen for Nausea/Vomitting: Yes - Labs CBC & Chem 7: 11/14/16 03:46 11/14/16 03:46 Labs: Laboratory Results - last 24 hr 11/12/16 11/14/16 11/14/16 11:00 03:46 03:46 WBC 2.3 L RBC 2.45 L Hgb 6.6 L Hct 20.9 L MCV 85.3 MCH 26.9 L MCHC 31.6 RDW 25.0 H Plt Count 108 L MPV 10.1 Seg Neutrophils % 68.0 Lymphocytes % 26.0 Monocytes % 4.0 Eosinophils % 2.0 Neutrophils # 1.6 Lymphocytes # 0.6 Monocytes # 0.1 Eosinophils # 0.1 Reactive Lymphocytes Present A Platelet Estimate Slight Decrease L Hypochromasia Present A Anisocytosis 1+ A Microcytosis Present A Sodium 136 Potassium 3.4 L Chloride 104 Carbon Dioxide 23 BUN 6 L Creatinine 0.48 L Est GFR ( Amer) > 60 Est GFR (Non-Af Amer) > 60 BUN/Creatinine Ratio 13 Glucose 85 Calculated Osmolality 279 L Calcium 7.6 L Blood Type A POSITIVE Antibody Screen NEGATIVE Crossmatch See Detail - ABG Interpretation ABG results: ABG ABG pH 7.48 pH Units (7.32-7.45) H 11/10/16 04:51 ABG pCO2 30 mmHg (35-45) L 11/10/16 04:51 ABG pO2 99 mmHg (85-104) 11/10/16 04:51 ABG O2 Saturation 98 % (95-98) 11/10/16 04:51 PT/INR, D-dimer PT 16.0 Seconds (9.4-12.1) H 11/10/16 03:32 Consult Discharge Plan - Plan Referrals: Hilda Chappell CNP [Primary Care Provider] -
[2016-11-14] MEDS ORDERED: 0.9 % Sodium Chloride 250 ML ONE ×2 (10:49→13:53)
--- NOTE | 2016-11-14 16:29 | Internal Med Progress Note ---
Date of Encounter: 11/14/16 Time of Encounter: 10:00 - Assessment and plan (1) Pleural effusion Current Visit: Yes Status: Acute Assessment and plan: Malignant pleural effusion status post left sided chest tube. Chest tube clamped. We will obtain a new x-ray on Tuesday to see if fluid re-accumulates. If that's the, case will consider pleurix cath are according to plan by pulmonology/interventional radiology. (2) Pulmonary embolism Current Visit: Yes Status: Acute Assessment and plan: Continue with Lovenox. Patient will need long-term anticoagulation upon discharge. Qualifiers: Pulmonary embolism type: other Chronicity: acute Acute cor pulmonale presence: without acute cor pulmonale Qualified Code(s): I26.99 - Other pulmonary embolism without acute cor pulmonale (3) Acute respiratory failure with hypoxia Current Visit: No Status: Acute Assessment and plan: Multifactorial. Continue current management. Patient with severe systolic dysfunction, we will continue with current management, reevaluate ejection fraction was outpatient. (4) Metastatic adenocarcinoma Current Visit: No Status: Acute (5) Anemia Current Visit: Yes Status: Acute Assessment and plan: hb trending down, today os 6.6, likely multifactorial, S/P chemo. Patient received 1 unit 2 days ago. She has severe systolic dysucntion, will transfuse 2 units of prbc today. Hypokalemia noted, potassium supplemented. Monitor magnesium tomorrow in am. Qualifiers: Anemia type: unspecified type Qualified Code(s): D64.9 - Anemia, unspecified - Subjective Interval history: The patient was seen and examined during rounds. Feels tired, complaining of chest pain in the left hemithorax in the area where the chest tube is placed. Otherwise denies fever. - Constitutional Vitals: Temp Pulse Resp BP Pulse Ox 98.7 F 99 16 96/59 100 11/14/16 14:23 11/14/16 14:23 11/14/16 14:23 11/14/16 14:23 11/14/16 14:23 General appearance: Present: cooperative, A&O X 3, pleasant, obese Exam: left sided chest tube. - Head Head exam: Present: atraumatic, normocephalic - Eye Eye exam: Present: PERRL, conjuntiva pink, sclera anicteric Pupils: Present: PERRL - Neck Neck exam general surgery: Present: supple, trachea midline. Absent: lymphadenopathy - Respiratory Respiratory exam: Present: CTAB. Absent: accessory muscle use, rales, rhonchi, wheezes - Cardiovascular Cardiovascular exam: Present: RRR, +S1, +S2. Absent: diastolic murmur, gallop, rubs, systolic murmur - GI/Abdominal GI/Abdominal exam: Present: normal bowel sounds, soft, no peritoneal signs. Absent: distended, tenderness - Extremities Exam Extremities exam: Present: warm, radial pulses palpable and symetrical. Absent : calf tenderness, cyanotic, pedal edema - Neurological Exam Neurological exam: Present: CN II-XII intact, oriented X3, no focal deficits. Absent: pronater drift, facial droop, speech deficit - Skin Skin exam: Present: dry, intact Internal Medicine: Result - Labs CBC & Chem 7: 11/14/16 03:46 11/14/16 03:46 Labs: Short CBC 11/14/16 Range/Units 03:46 WBC 2.3 L (4.3-11.1) K/mcL Hgb 6.6 L (11.5-15.4) g/dL Hct 20.9 L (35.3-44.9) % Plt Count 108 L (140-400) K/mcL Neutrophils # 1.6 (1.6-8.9) K/mcL BMP 11/14/16 03:46 Sodium 136 Potassium 3.4 L Chloride 104 Carbon Dioxide 23 BUN 6 L Creatinine 0.48 L Glucose 85 Calcium 7.6 L - ABG Interpretation ABG results: ABG ABG pH 7.48 pH Units (7.32-7.45) H 11/10/16 04:51 ABG pCO2 30 mmHg (35-45) L 11/10/16 04:51 ABG pO2 99 mmHg (85-104) 11/10/16 04:51 ABG O2 Saturation 98 % (95-98) 11/10/16 04:51 PT/INR, D-dimer PT 16.0 Seconds (9.4-12.1) H 11/10/16 03:32 Consult Discharge Plan - Plan Referrals: Hilda Chappell, [employer]ISH[employer] [Primary Care Provider] -
[2016-11-14] MEDS: Ondansetron 4 MG/2 ML VIAL IVP PRN (21:27)
[2016-11-14] MEDS: *HR* HYDROmorphone (PF) 1 MG/ML SYRINGE IVP PRN (21:28)
[2016-11-15] MEDS: *HR* HYDROmorphone (PF) 1 MG/ML SYRINGE IVP PRN ×2 (00:57→11:32)
[2016-11-15 04:49] LABS: Basophils % 1.3 %; Eosinophils % 0.7 %; Hematocrit 30.5 % (35.3-44.9); Hemoglobin 9.9 g/dL (11.5-15.4); Immature Granulocytes % 1.3 % (0-4); Immature Platelets 4.6 % (1.1-6.1); Lymphocytes # 0.7 K/mcL (0.6-4.6); Lymphocytes % 46.1 %; Mean Corpuscular HGB Conc 32.5 g/dL (31.6-35.5); Mean Corpuscular Hemoglobin 27.2 pg (28.0-33.3); Mean Corpuscular Volume 83.8 fL (83.0-100.0); Mean Platelet Volume 9.9 fL (9.4-12.4); Monocytes # 0.1 K/mcL (0.0-1.3); Monocytes % 4.6 %; Neutrophils # 0.7 K/mcL (1.6-8.9); Red Blood Count 3.64 M/mcL (3.82-4.97); Red Cell Distribution Width 21.4 % (11.5-14.5)
[2016-11-15 05:27] LABS: Platelet Count 94 K/mcL (140-400)
[2016-11-15 05:30] LABS: Platelet Estimate Decreased (Normal)
[2016-11-15 05:31] LABS: Anisocytosis 1+ (Not Present); Hypochromasia Present (Not Present); Reactive Lymphocytes Present (Not Present)
[2016-11-15 05:35] LABS: BUN/Creatinine Ratio 17 (6-26); Blood Urea Nitrogen 7 mg/dL (7-20); Carbon Dioxide 19 mEq/L (19-29); Chloride 104 mEq/L (98-109); Glucose 96 mg/dL (70-99); Osmolality,Calculated 278 (280-300); Potassium 3.4 mEq/L (3.5-4.5); Sodium 135 mEq/L (136-145); eGFR For African Americans > 60 (> 60); eGFR For Non-African Americans > 60 (> 60)
[2016-11-15 05:42] LABS: Magnesium 1.3 mg/dL (1.6-2.6)
[2016-11-15] MEDS: Sennosides/Docusate Sodium TABLET PO SCH (08:51)
[2016-11-15] MEDS: Chlorhexidine Rinse 15 ML MOUTHWASH MM SCH ×2 (08:57→21:20)
[2016-11-15] MEDS: *HR* Enoxaparin 100 MG/ML SYRINGE SQ SCH (08:57)
[2016-11-15] MEDS: Gabapentin 300 MG CAPSULE PO SCH ×3 (08:57→21:21)
[2016-11-15] MEDS: *HR* OxyCODONE Immed Rel 5 MG TABLET PO PRN ×2 (08:57→17:37)
[2016-11-15] MEDS: Pantoprazole 40 MG VIAL IVPB SCH (08:57)
--- NOTE | 2016-11-15 09:16 | Cardiothoracic Consult Note ---
Date of Encounter: 11/15/16 Time of Encounter: 09:14 Assessment and Plan (1) Pleural effusion Current Visit: Yes Status: Acute The assessment and plan as outlined above was discussed with the patient and/or family members who expressed understanding and agreement. All questions were answered. We will leave the chest tube to suction and check a chest x-ray. If it is okay, we can insert talc into the chest tube for pleurodesis. - History of Present Illness History of present illness: Ms. Bains is a 61 year old female History of present illness. Patient is a 61-year-old female who has metastatic ovarian cancer. She has been status post 3 rounds of chemotherapy. She has had no radiation. She has had problems with abdominal fluid and has undergone paracentesis several times. She is also had 2 thoracenteses on the left. She presented with a massive left pleural effusion and a chest tube was placed. She is referred for possible talc sclerosis. Past medical history. The patient was healthy until she got the ovarian cancer. She does have chronic pain in her right arm. Medications at home include Neurontin and [place] for chronic pain. She has no known allergies. Social history. She lives in [place] with her and son. Does not smoke and does not drink. Family history is negative. Review of systems is otherwise negative. Past Med Surg Social Fam HX - Past Medical History Medical history: arthritis, cancer, hypertension, other Psychiatric history: no psych history - Past Surgical History Surgical History: cholecystectomy, knee replacement, orthopedic, other - Social History Smoking Status: Never smoker Smokeless Tobacco Status: No Alcohol use: none Drug use: none - Family History Maternal Living Status: Hx Family Respiratory Disorders: Yes (COPD) Medications and Allergies Baclofen 10 mg PO TID 09/29/16 [History] Duloxetine HCl [Cymbalta] 60 mg PO DAILY 09/29/16 [History] Gabapentin [Neurontin] 600 mg PO TID 09/29/16 [History] Melatonin/Pyridoxine HCl (B6) [Melatonin 3 mg Tablet] 1 each PO HS 09/29/16 [ History] Ropinirole HCl [Requip] 2 mg PO BID 09/29/16 [History] Magic Mouthwash [Magic Mouthwash BLM] 10 ml PO QID PRN #240 ml 10/15/16 [Rx] Amlodipine [Norvasc] 5 mg PO DAILY #30 tablet 10/18/16 [Rx] Docusate Sodium [Colace] 100 mg PO BID #60 capsule 10/18/16 [Rx] Ondansetron HCl [Zofran] 4 mg PO Q6H PRN #30 tablet 11/01/16 [Rx] Prochlorperazine Maleate [Compazine] 10 mg PO Q6HR PRN #30 tablet 11/01/16 [Rx] Megestrol Acetate [Megace] 10 ml PO DAILY #300 mls 11/04/16 [Rx] OxyCODONE Immed Rel [Roxicodone 5 MG] 10 mg PO Q4H PRN #60 tab 11/08/16 [Rx] Aspirin 81 mg PO DAILY 11/09/16 [History] Dexamethasone [Decadron] 2 tab PO BID #30 tablet 11/09/16 [Rx] Allergies No Known Allergies Allergy (Verified 11/09/16 15:44) All Systems Review: A 10-system review of systems was performed and is negative for pertinent findings except as documented above in the HPI. Physical Examination Vital Signs, Last 4 Hours Temp Pulse Resp BP Pulse Ox 11/15/16 08:35 97 11/15/16 05:15 98.0 F 109 15 141/99 97 Pupils are equal, round and reactive to light and accommodation. No oral lesions. Neck is supple. Trachea in the midline. No thyromegaly or carotid bruits. Lungs have decreased breath sounds in the left base. The chest tube is draining bloody fluid. I did take the clamp off and place it to suction. Heart is in a regular rate and rhythm. Abdomen is slightly distended. No tenderness, rebound or guarding. She does have 3+ peripheral edema with 1+ pulses. Cranial nerves, motor and sensory intact. She is awake, alert and oriented 3. Results 11/15/16 04:07 11/15/16 04:07 Lab Results, Last 24 hours 11/15/16 11/15/16 04:07 04:07 WBC 1.5 L Hgb 9.9 L D Hct 30.5 L Plt Count 94 L Sodium 135 L Potassium 3.4 L Chloride 104 Carbon Dioxide 19 BUN 7 Creatinine 0.42 L Glucose 96 Calcium 8.0 L Magnesium 1.3 L Consult Discharge Plan - Plan Referrals: Hilda Chappell, INSTRUCTIONAL SUPPORT TECHNICIAN [Primary Care Provider] -
--- NOTE | 2016-11-15 09:35 | Palliative Progress Note ---
Date of Encounter: 11/15/16 Time of Encounter: 09:32 - Assessment and plan (1) Cancer associated pain Current Visit: Yes Status: Chronic Assessment and plan: Continue with oxycodone dosing of 10mg every 6 hours as needed. She did use 2 doses in the past 24 hours. Ms. Bains is able to use IV dilaudid for chest tube pain that is unrelieved by oxycodone. She did receive one dose of this last night. Continue to monitor. Ms. Bains also has complex regional pain syndrome to the right upper extremity. She follows with pain management for this condition. (2) Anxiety Current Visit: Yes Status: Acute Assessment and plan: Ms. Bains may use lorazepam 0.5mg TID as needed for anxiety. She has not required any doses to date. (3) Decreased appetite Current Visit: Yes Status: Acute Assessment and plan: Marinol scheduled. According to documentation, she did not eat her morning meal due to nausea. Dietitian following. Supplements ordered. Will follow. (4) Goals of care, counseling/discussion Current Visit: Yes Status: Acute Assessment and plan: Ms. Gasca remains full code. Goals of care established prior. 911 emergency services dispatcher following for discharge needs. (5) Constipation Current Visit: No Status: Acute Assessment and plan: Senna ordered BID, but regularly scheduled doses have not been given. Documentation states she had a large BM this morning. Patient reports multiple liquid stools throughout the night. Will change scheduled laxatives to PRN and d/c colace. Qualifiers: Constipation type: drug induced constipation Qualified Code(s): K59.03 - Drug induced constipation (6) Nausea & vomiting Current Visit: Yes Status: Acute Assessment and plan: Ms. Tapia reports nausea associated with some vomiting this morning. She did use one dose of zofran yesterday. May need to premedicate before meals to encourage intake. Qualifiers: Vomiting type: unspecified Vomiting Intractability: non-intractable Qualified Code(s): R11.2 - Nausea with vomiting, unspecified (7) Stomatitis Current Visit: Yes Status: Acute Assessment and plan: Biotene PRN per patient request. Start magic mouthwash prior to meal time. Ice chips as needed. May need to adjust diet if food increases mouth pain. (8) Pleural effusion Current Visit: Yes Status: Acute (9) Pulmonary embolism Current Visit: Yes Status: Acute Assessment and plan: pulmonology following Qualifiers: Pulmonary embolism type: other Chronicity: acute Acute cor pulmonale presence: without acute cor pulmonale Qualified Code(s): I26.99 - Other pulmonary embolism without acute cor pulmonale (10) Dyspnea Current Visit: Yes Status: Acute Assessment and plan: Supplemental O2. Chest tube in place to drain pleural effusion. Possible talc pleurodesis later today. Qualifiers: Dyspnea type: shortness of breath Qualified Code(s): R06.02 - Shortness of breath (11) Metastatic adenocarcinoma Current Visit: Yes Status: Chronic Assessment and plan: Oncology following. - Time Spent With Patient Total time spent is greater than 50% in coordination of care (as documented) at patient's floor/unit and/or counseling patient: - Subjective Interval history: Ms. Bains was resting quietly upon initial evaluation. Did not wake her. Will return. Chest tube unclamped. Update: Ms. Bains reports having a "rough night". She reports frequent episodes of diarrhea and nausea/vomiting. She denies shortness of breath unless she is exerting herself. She is able to carry on conversation without signs of difficulty breathing. She does report some pain to the chest tube site and is requesting pain medication. - Constitutional Vitals: Abnormal lab results WBC 1.5 K/mcL (4.3-11.1) L 11/15/16 04:07 RBC 3.64 M/mcL (3.82-4.97) L 11/15/16 04:07 Hgb 9.9 g/dL (11.5-15.4) L D 11/15/16 04:07 Hct 30.5 % (35.3-44.9) L 11/15/16 04:07 MCH 27.2 pg (28.0-33.3) L 11/15/16 04:07 RDW 21.4 % (11.5-14.5) H 11/15/16 04:07 Plt Count 94 K/mcL (140-400) L 11/15/16 04:07 Neutrophils # 0.7 K/mcL (1.6-8.9) L 11/15/16 04:07 Reactive Lymphocytes Present (Not Present) A 11/15/16 04:07 Platelet Estimate Decreased (Normal) L 11/15/16 04:07 Polychromasia 2+ (Not Present) A 11/10/16 03:32 Hypochromasia Present (Not Present) A 11/15/16 04:07 Poikilocytosis 2+ (Not Present) A 11/11/16 07:45 Anisocytosis 1+ (Not Present) A 11/15/16 04:07 Microcytosis Present (Not Present) A 11/14/16 03:46 PT 16.0 Seconds (9.4-12.1) H 11/10/16 03:32 ABG pH 7.48 pH Units (7.32-7.45) H 11/10/16 04:51 ABG pCO2 30 mmHg (35-45) L 11/10/16 04:51 Sodium 135 mEq/L (136-145) L 11/15/16 04:07 Potassium 3.4 mEq/L (3.5-4.5) L 11/15/16 04:07 Creatinine 0.42 mg/dL (0.57-1.11) L 11/15/16 04:07 Calculated Osmolality 278 (280-300) L 11/15/16 04:07 Lactic Acid 6.9 mmol/L (0.5-2.2) H* 11/09/16 19:03 Calcium 8.0 mg/dL (8.6-10.8) L 11/15/16 04:07 Ionized Calcium 1.06 mmol/L (1.15-1.35) L 11/13/16 05:45 Magnesium 1.3 mg/dL (1.6-2.6) L 11/15/16 04:07 Alkaline Phosphatase 148 Units/L (38-126) H 11/09/16 17:10 Troponin I 0.43 ng/mL (0-0.03) H* 11/09/16 17:10 Albumin 2.1 g/dL (3.5-5.0) L 11/09/16 17:10 Globulin 4.6 g/dL (2.4-3.5) H 11/09/16 17:10 Albumin/Globulin Ratio 0.5 (1.1-2.2) L 11/09/16 17:10 Urine Ketones Trace mg/dL (Negative) H 11/09/16 19:48 Urine Blood Trace-intact (Negative) H 11/09/16 19:48 Ur Squamous Epith Cells Many per lpf (None-Few) H 11/09/16 19:48 General appearance: Present: cooperative, no acute distress Exam: 61 year old female, alert/oriented, cooperative and talkative. - Eye Eye exam: Present: EOMI - ENT ENT exam: Present: mucous membranes dry - Expanded ENT Exam Mouth exam: Present: dry mucosa - Respiratory Respiratory exam: Present: decreased breath sounds Additional comments: chest tube intact. Able to carry on conversation without shortness of breath. - Cardiovascular Cardiovascular exam: Present: RRR - GI/Abdominal GI/Abdominal exam: Present: normal bowel sounds, soft. Absent: tenderness - Extremities Exam Extremities exam: Present: normal inspection - Neurological Exam Neurological exam: Present: alert, oriented X3, no focal deficits, strengths equal and symetr throughout - Psychiatric Psychiatric exam: Present: normal affect, normal mood. Absent: agitated, anxious - Skin Skin exam: Present: dry, warm Additional comments: ecchymosis noted to upper extremities from IV attempts. Palliative Quality Palliative Quality: Screen for Code Status: Yes, Screen for Goals of Care: Yes, Screen for Pain: Yes, If Pain Regimen Started, Initiate Bowel Regimen: Yes, Screen for Nausea/Vomitting: Yes - Labs CBC & Chem 7: 11/15/16 04:07 11/15/16 04:07 Labs: Laboratory Results - last 24 hr 11/12/16 11/15/16 11/15/16 11:00 04:07 04:07 WBC 1.5 L RBC 3.64 L Hgb 9.9 L D Hct 30.5 L MCV 83.8 MCH 27.2 L MCHC 32.5 RDW 21.4 H Plt Count 94 L MPV 9.9 Immature Gran % 1.3 Seg Neutrophils % 46.0 Lymphocytes % 46.1 Monocytes % 4.6 Eosinophils % 0.7 Basophils % 1.3 Neutrophils # 0.7 L Lymphocytes # 0.7 Monocytes # 0.1 Eosinophils # 0.0 Basophils # 0.0 Reactive Lymphocytes Present A Platelet Estimate Decreased L Immature Plt Fraction 4.6 Hypochromasia Present A Anisocytosis 1+ A Sodium 135 L Potassium 3.4 L Chloride 104 Carbon Dioxide 19 BUN 7 Creatinine 0.42 L Est GFR ( Amer) > 60 Est GFR (Non-Af Amer) > 60 BUN/Creatinine Ratio 17 Glucose 96 Calculated Osmolality 278 L Calcium 8.0 L Magnesium 1.3 L Blood Type A POSITIVE Antibody Screen NEGATIVE Crossmatch See Detail - ABG Interpretation ABG results: ABG ABG pH 7.48 pH Units (7.32-7.45) H 11/10/16 04:51 ABG pCO2 30 mmHg (35-45) L 11/10/16 04:51 ABG pO2 99 mmHg (85-104) 11/10/16 04:51 ABG O2 Saturation 98 % (95-98) 11/10/16 04:51 PT/INR, D-dimer PT 16.0 Seconds (9.4-12.1) H 11/10/16 03:32 Consult Discharge Plan - Plan Referrals: Hilda Chappell, GLASS ENGRAVER [Primary Care Provider] -
--- NOTE | 2016-11-15 09:52 | Pulmonology Progress Note ---
Date of Encounter: 11/15/16 Time of Encounter: 08:05 Assessment and Plan (1) Pleural effusion Current Visit: Yes Status: Acute Discussed with Dr. Morgan and chest tube would be better to have it under suction and I don't feel PleurX pleural catheter would be a good option at this time because of the fluid size and there is some loculation. Called hospitalist to see if IR can place a different tube and then can place talc in it. (2) Pneumothorax on left Current Visit: Yes Status: Acute Keep chest tube under suction. Subjective Principal diagnosis: Bilateral Pulmonary emboli and malignant pulmonary effusion Interval history: Continue to drain the fluid and patient not feeling good Objective PUL Vital signs: Last Vital Signs Temp 98.0 F 11/15/16 05:15 Pulse 109 11/15/16 05:15 Resp 15 11/15/16 05:15 BP 141/99 11/15/16 05:15 Pulse Ox 97 11/15/16 08:35 General appearance: appears uncomfortable Eyes: nonicteric ENT: oropharynx moist Neck: supple Auscultation: left: diminished breath sounds (There leak around the chest tube in the left side), right: clear Cardiovascular: regular rate and rhythm Gastrointestinal: normoactive bowel sounds Extremities: no cyanosis normal mental status, non-focal exam mood appropriate Results - Laboratory Findings CBC and BMP: 11/15/16 04:07 11/15/16 04:07 ABG ABG pH 7.48 pH Units (7.32-7.45) H 11/10/16 04:51 ABG pCO2 30 mmHg (35-45) L 11/10/16 04:51 ABG pO2 99 mmHg (85-104) 11/10/16 04:51 ABG O2 Saturation 98 % (95-98) 11/10/16 04:51 PT/INR, D-dimer PT 16.0 Seconds (9.4-12.1) H 11/10/16 03:32 Abnormal lab findings: Abnormal lab results WBC 1.5 K/mcL (4.3-11.1) L 11/15/16 04:07 RBC 3.64 M/mcL (3.82-4.97) L 11/15/16 04:07 Hgb 9.9 g/dL (11.5-15.4) L D 11/15/16 04:07 Hct 30.5 % (35.3-44.9) L 11/15/16 04:07 MCH 27.2 pg (28.0-33.3) L 11/15/16 04:07 RDW 21.4 % (11.5-14.5) H 11/15/16 04:07 Plt Count 94 K/mcL (140-400) L 11/15/16 04:07 Neutrophils # 0.7 K/mcL (1.6-8.9) L 11/15/16 04:07 Reactive Lymphocytes Present (Not Present) A 11/15/16 04:07 Platelet Estimate Decreased (Normal) L 11/15/16 04:07 Polychromasia 2+ (Not Present) A 11/10/16 03:32 Hypochromasia Present (Not Present) A 11/15/16 04:07 Poikilocytosis 2+ (Not Present) A 11/11/16 07:45 Anisocytosis 1+ (Not Present) A 11/15/16 04:07 Microcytosis Present (Not Present) A 11/14/16 03:46 PT 16.0 Seconds (9.4-12.1) H 11/10/16 03:32 ABG pH 7.48 pH Units (7.32-7.45) H 11/10/16 04:51 ABG pCO2 30 mmHg (35-45) L 11/10/16 04:51 Sodium 135 mEq/L (136-145) L 11/15/16 04:07 Potassium 3.4 mEq/L (3.5-4.5) L 11/15/16 04:07 Creatinine 0.42 mg/dL (0.57-1.11) L 11/15/16 04:07 Calculated Osmolality 278 (280-300) L 11/15/16 04:07 Lactic Acid 6.9 mmol/L (0.5-2.2) H* 11/09/16 19:03 Calcium 8.0 mg/dL (8.6-10.8) L 11/15/16 04:07 Ionized Calcium 1.06 mmol/L (1.15-1.35) L 11/13/16 05:45 Magnesium 1.3 mg/dL (1.6-2.6) L 11/15/16 04:07 Alkaline Phosphatase 148 Units/L (38-126) H 11/09/16 17:10 Troponin I 0.43 ng/mL (0-0.03) H* 11/09/16 17:10 Albumin 2.1 g/dL (3.5-5.0) L 11/09/16 17:10 Globulin 4.6 g/dL (2.4-3.5) H 11/09/16 17:10 Albumin/Globulin Ratio 0.5 (1.1-2.2) L 11/09/16 17:10 Urine Ketones Trace mg/dL (Negative) H 11/09/16 19:48 Urine Blood Trace-intact (Negative) H 11/09/16 19:48 Ur Squamous Epith Cells Many per lpf (None-Few) H 11/09/16 19:48 - Diagnostic Findings Chest x-ray: report reviewed, image reviewed - Clinical Findings Intake & Output: Intake & Output 11/14/16 11/15/16 11/15/16 23:59 07:59 15:59 Intake Total 365 / 365 60 60 0 / 0 Output Total 200 / 200 Balance 165 / 165 -25 / -25 Consult Discharge Plan - Plan Referrals: Hilda Chappell, [employer]UCER [Primary Care Provider] -
[2016-11-15] MEDS ORDERED: Saliva Stimulant 100ml BOTTLE PO PRN (11:22)
[2016-11-15] MEDS ORDERED: Sennosides/Docusate Sodium TABLET PO PRN (11:24)
[2016-11-15] MEDS: Baclofen 10 MG TABLET PO SCH ×3 (11:32→21:20)
[2016-11-15] MEDS: Magic Mouthwash 10 ML UD Cup PO SCH ×2 (11:46→17:38)
--- NOTE | 2016-11-15 14:42 | Internal Med Progress Note ---
<VinodyisselPrice lorenzana - Last Filed: 11/15/16 14:39> Date of Encounter: 11/15/16 Time of Encounter: 14:40 - Assessment and plan (1) Acute respiratory failure with hypoxia Current Visit: No Status: Acute Assessment and plan: Patient's acute respiratory failure is likely multifactorial with admitting pneumothorax, pleural effusions secondary to malignancy to the lungs. Baseline home oxygen is 3 L. Patient also has systolic heart failure with an LVEF of 25- 30%, global left ventricular systolic dysfunction with some sparing of the basal segments, mild dilated right ventricle with mild reduced systolic function. Plan: - Patient currently stable. Treating underlying causes including chest tube to reduce pneumothorax and drain pleural effusion. Patient maintaining oxygen saturations greater than 90% on 3 L. (2) Pleural effusion Current Visit: Yes Status: Acute Assessment and plan: Malignant pleural effusion secondary to metastatic ovarian cancer. Patient currently has a left-sided chest tube in place which is falling out. CT of the chest performed on 11/12/2016 demonstrates loculated pleural effusion on the left. Pulmonology was consult and evaluated the patient. Chest x-ray was reviewed from today and determined that the chest tube needs to be replaced. IR was consult and the patient was discussed and was recommended to change out the chest tube for more compatible size to placed talc in it. Plan: - Miss Bains to remain nothing by mouth overnight for possible chest tube replacement tomorrow. - Hold Lovenox for procedure tomorrow. Obtain INR, LDH, CBC and CMP - Clamp chest tube and repeat chest x-ray. (3) Pulmonary embolism Current Visit: Yes Status: Acute Assessment and plan: Miss Bains 61-year-old female with known ovarian cancer metastatic disease to lungs was admitted with shortness of breath, acute respiratory failure. CTA of the chest demonstrated pulmonary emboli in both lungs predominantly involving the right main pulmonary artery as well as lobar and segmental branches of the right upper middle and lower lobes. There is also pulmonary embolus within the left upper lobe lingula. No evidence of pulmonary infarct. No evidence of acute right-sided heart failure. CTA of the lung also demonstrated moderate size left sided hydropneumothorax status post left chest tube placement and drainage of a large left pleural effusion. 11/11/2016 Mrs. Bains had a IVC filter placed. She was started on Lovenox therapeutic dosing for pulmonary embolism on 2016. She currently has sanguinous drainage with clots coming out of her left- sided chest tube. It was recommended to hold Lovenox this evening and overnight as she needs replacement of her chest tube per interventional radiology. Plan: - Hold Lovenox subcutaneous overnight. - Continue to monitor respiratory status Qualifiers: Pulmonary embolism type: other Chronicity: acute Acute cor pulmonale presence: without acute cor pulmonale Qualified Code(s): I26.99 - Other pulmonary embolism without acute cor pulmonale (4) Thrombocytopenia Current Visit: Yes Status: Acute Assessment and plan: Patient has a platelet count of 94 which is fallen from 323 from 11/11/2016. The patient did receive chemotherapy recently, last Tuesday. She was also started on Lovenox subcutaneously for pulmonary embolism on 11/12/2016. Patient has had nausea and vomiting and diarrhea overnight. Denies any bleeding or blood in her secretions. No signs of bleeding in her oral cavity on her gums or petechiae on her extremities. On-call oncologist has been notified of this. Plan: - Continue monitoring with daily CBC. - Lovenox as been held at this time. - If platelet count decreases any further, we will consider HIT syndrome. (5) Leukopenia Current Visit: Yes Status: Acute Assessment and plan: Lakeisha Bains currently has a WBC count of 1.5 just fallen from 9.8 on 2016, she recently received chemotherapy on Tuesday of last week. This drop is likely secondary to chemotherapy but also may represents infection in an immunocompromised patient. Heme/oncology has been consult that is following the patient during her inpatient stay. On-call oncologist was notified of this drop this morning. Plan: - Patient is currently started on IV metronidazole as she has had diarrhea and vomiting with concerns for C. difficile. C. difficile culture has been ordered. Qualifiers: Qualified Code(s): D72.819 - Decreased white blood cell count, unspecified (6) Anemia Current Visit: Yes Status: Acute Assessment and plan: . Patient's hemoglobin trended down with a low of 6.3 during his current admission, patient is receiving chemotherapy and likely secondary to suppressed production. MCV is 83.8. Mrs. Bains received 2 units PRBCs last evening the current hemoglobin of 9.9. Maintaining hemoglobin greater than 8 support as the patient has systolic heart failure with an EF 25-30%. Plan to continue monitoring hemoglobin and hematocrit daily. Qualifiers: Anemia type: unspecified type Qualified Code(s): D64.9 - Anemia, unspecified (7) Metastatic adenocarcinoma Current Visit: Yes Status: Chronic Assessment and plan: Patient has known metastatic adenocarcinoma, oncology is following the patient. (8) Neutropenia, drug-induced Current Visit: Yes Status: Acute Assessment and plan: Mrs. Bains has a neutrophil count of 0.7 down from 8.4 on 11/11/2016. Likely secondary to chemotherapy. She currently has nausea and vomiting and diarrhea. She is afebrile but tachycardic. Plan: - Initiate neutropenic precautions. - Subjective Interval history: Mrs. Bains 7-year-old female has been seen and evaluated patient bedside this morning. She said that she is not feeling the best today she had been having nausea and vomiting and diarrhea all evening and did not sleep very well. She last had chemotherapy on Tuesday said that she usually feels tired but never really had these symptoms. These are new and she describes her vomitus is bilious yellow, and frequent brown stools. Her stools are loose which is new for her. She does have some abdominal tenderness but more related to having to use the bathroom she says. Describes her abdominal tenderness is crampy. She denies any shortness of breath tachycardia palpitations, chest pain or chest pressure. She denies any other concerning symptoms at this time. - Constitutional Vitals: Temp Pulse Resp BP Pulse Ox 97.3 F L 109 18 107/72 100 11/15/16 10:28 11/15/16 10:28 11/15/16 10:28 11/15/16 10:28 11/15/16 10:28 General appearance: Present: cooperative, A&O X 3, pleasant, obese - Head Head exam: Present: atraumatic, normocephalic - Eye Eye exam: Present: PERRL, conjuntiva pink, sclera anicteric Pupils: Present: PERRL - Neck Neck exam general surgery: Present: supple, trachea midline. Absent: lymphadenopathy - Respiratory Additional comments: Patient has diminished breath sounds in bilateral lung bases with rhonchi in the lower left lung base. She has a chest tube in her left sided chest with sanguinous discharge with clots. Her chest is symmetrical with respiratory effort. Her breasts are nonlabored. She is currently using nasal cannula oxygen at 3 L. - Cardiovascular Cardiovascular exam: Present: RRR, +S1, +S2. Absent: diastolic murmur, gallop, rubs, systolic murmur - GI/Abdominal GI/Abdominal exam: Present: normal bowel sounds, soft, tenderness, no peritoneal signs. Absent: distended - Extremities Exam Extremities exam: Present: pedal edema, warm, radial pulses palpable and symetrical. Absent: calf tenderness, cyanotic Additional comments: Bilateral trace edema. - Neurological Exam Neurological exam: Present: alert, oriented X3, no focal deficits. Absent: pronater drift, facial droop, speech deficit - Psychiatric Psychiatric exam: Present: normal affect, normal mood Internal Medicine: Result - Labs CBC & Chem 7: 11/15/16 04:07 11/15/16 04:07 Labs: Short CBC 11/15/16 Range/Units 04:07 WBC 1.5 L (4.3-11.1) K/mcL Hgb 9.9 L D (11.5-15.4) g/dL Hct 30.5 L (35.3-44.9) % Plt Count 94 L (140-400) K/mcL Neutrophils # 0.7 L (1.6-8.9) K/mcL BMP 11/15/16 04:07 Sodium 135 L Potassium 3.4 L Chloride 104 Carbon Dioxide 19 BUN 7 Creatinine 0.42 L Glucose 96 Calcium 8.0 L - ABG Interpretation ABG results: ABG ABG pH 7.48 pH Units (7.32-7.45) H 11/10/16 04:51 ABG pCO2 30 mmHg (35-45) L 11/10/16 04:51 ABG pO2 99 mmHg (85-104) 11/10/16 04:51 ABG O2 Saturation 98 % (95-98) 11/10/16 04:51 PT/INR, D-dimer PT 16.0 Seconds (9.4-12.1) H 11/10/16 03:32 - Impressions Impressions Chest X-Ray 11/15/16 09:21 IMPRESSION: There is a small left-sided pneumothorax at the lung apex, with a similar appearance to the previous examination. The large bore chest tube has been retracted somewhat, with only a small amount in the pleural space, though the side hole is in the axillary soft tissues. The findings were sent to the Radiology Results Communication [facility] at 10:16 am on 11/15/2016to be communicated to a licensed caregiver. D/ / Edy Coley MD / Edy Coley MD Interpreting Provider: Edy Coley MD Consult Discharge Plan - Plan Referrals: Hilda Chappell [employer] [Primary Care Provider] - <Phillip Kim Yani - Last Filed: 11/15/16 17:33> - Assessment and plan (1) Pleural effusion Current Visit: Yes Status: Acute (2) Pulmonary embolism Current Visit: Yes Status: Acute Qualifiers: Qualified Code(s): I26.99 - Other pulmonary embolism without acute cor pulmonale (3) Acute respiratory failure with hypoxia Current Visit: No Status: Acute (4) Metastatic adenocarcinoma Current Visit: Yes Status: Chronic (5) Anemia Current Visit: Yes Status: Acute Qualifiers: Qualified Code(s): D64.9 - Anemia, unspecified - Constitutional Vitals: Temp Pulse Resp BP Pulse Ox 97.9 F 108 18 115/80 97 11/15/16 14:50 11/15/16 14:50 11/15/16 14:50 11/15/16 14:50 11/15/16 14:50 Internal Medicine: Result - Labs CBC & Chem 7: 11/15/16 04:07 11/15/16 04:07 Labs: Short CBC 11/15/16 Range/Units 04:07 WBC 1.5 L (4.3-11.1) K/mcL Hgb 9.9 L D (11.5-15.4) g/dL Hct 30.5 L (35.3-44.9) % Plt Count 94 L (140-400) K/mcL Neutrophils # 0.7 L (1.6-8.9) K/mcL BMP 11/15/16 04:07 Sodium 135 L Potassium 3.4 L Chloride 104 Carbon Dioxide 19 BUN 7 Creatinine 0.42 L Glucose 96 Calcium 8.0 L - ABG Interpretation ABG results: ABG ABG pH 7.48 pH Units (7.32-7.45) H 11/10/16 04:51 ABG pCO2 30 mmHg (35-45) L 11/10/16 04:51 ABG pO2 99 mmHg (85-104) 11/10/16 04:51 ABG O2 Saturation 98 % (95-98) 11/10/16 04:51 PT/INR, D-dimer PT 16.0 Seconds (9.4-12.1) H 11/10/16 03:32 - Impressions Impressions Chest X-Ray 11/15/16 09:21 IMPRESSION: There is a small left-sided pneumothorax at the lung apex, with a similar appearance to the previous examination. The large bore chest tube has been retracted somewhat, with only a small amount in the pleural space, though the side hole is in the axillary soft tissues. The findings were sent to the Radiology Results Communication Center at 10:16 am on 11/15/2016to be communicated to a licensed caregiver. D/ / Edy Coley MD / Edy Coley MD Interpreting Provider: Edy Coley MD Chest X-Ray 11/15/16 14:30 IMPRESSION: 1. Left-sided chest tube is partially retracted with the side hole projecting over the lateral soft tissues. 2. Increasing left pleural effusion. D/ / Wayne March MD / Wayne March MD Interpreting Provider: Wayne March MD - Attending Attestation I agree with the physical examination findings, assessment and plan documented by the resident Dr. Reilly. . I examined the patient independently. She did receive 2 units of PRBC yesterday, hemoglobin has improved. We will continue monitoring. Patient with both hypokalemia and hypomagnesemia. We will supplement both accordingly. IR consult called. NPO after midnight for chest tube evalaution and placment of new one. . Follow recommendations by hematology. Hold lovenox for now.
[2016-11-15] MEDS ORDERED: Magnesium Sulfate 2 GM in D5% in Water 100 ML IVPB ONE (15:49)
[2016-11-15] MEDS: MetroNIDAZOLE 500 MG/100 ML 500 MG/100 ML BAG IVPB SCH (16:33)
--- NOTE | 2016-11-15 16:46 | Oncology Inp Progress Note ---
Date of Encounter: 11/15/16 Time of Encounter: 16:00 (1) Pulmonary embolism Current Visit: Yes Status: Acute Assessment and plan: Massive clot burden, resulting in hypoxic respiratory failure. IVC filter placed. On lovenox 1 mg/kg, continue for an extended period of time due to the risk factor of malignancy. Qualifiers: Qualified Code(s): I26.99 - Other pulmonary embolism without acute cor pulmonale Oncology: Subj Interval history: The patient reports that her breathing is the same. Reports diarrhea since last night after she was given medications for constipation, denies any fevers or chills. - Constitutional Vitals: Vital Signs Temp Pulse Resp BP Pulse Ox 11/15/16 14:50 97.9 F 108 18 115/80 97 11/15/16 10:28 97.3 F L 109 18 107/72 100 11/15/16 08:35 97 11/15/16 05:15 98.0 F 109 15 141/99 97 11/14/16 21:58 98.1 F 100 14 117/84 99 11/14/16 16:57 98.5 F 102 18 114/74 11/14/16 16:55 96 Intake and Output 11/15/16 11/15/16 11/15/16 00:59 08:59 16:59 Intake Total 60 / 60 60 / 60 0 / 0 Output Total 200 / 200 25 / 25 0 / 0 Balance -140 / -140 35 / 35 0 / 0 Intake: Oral 60 / 60 60 / 60 0 / 0 Output: Urine 200 / 200 0 / 0 Emesis 25 / 25 Chest Tube Drainage 0 / 0 Left Lateral Chest 0 / 0 Other: Meal Dinner Breakfast Lunch Percent of Meal Consumed 25% 0% 0% Stool Size Copious Small Stool Consistency liquid liquid Stool Color Brown Brown Yellow # Voids 1 1 # Urine Diapers 0 # Bowel Movements 1 1 General appearance: average body habitus, cooperative, mild distress, no acute distress - Head Head exam: Present: atraumatic, normocephalic - Eye Eye exam: Present: EOMI, PERRL - ENT ENT exam: Present: mucous membranes dry, normal oropharynx - Neck Neck exam: Present: full ROM, normal inspection - Respiratory Respiratory exam: Present: decreased breath sounds, wheezes - Cardiovascular Cardiovascular exam: Present: RRR, +S1, +S2 - GI/Abdominal GI/Abdominal exam: Present: normal bowel sounds, soft - Extremities Exam Extremities exam: Present: calf tenderness, pedal edema Oncology: Obj Data - Labs CBC & Chem 7: 11/16/16 04:45 11/16/16 04:45 Labs: Laboratory Results - last 24 hr 11/12/16 11/15/16 11/15/16 11:00 04:07 04:07 WBC 1.5 L RBC 3.64 L Hgb 9.9 L D Hct 30.5 L MCV 83.8 MCH 27.2 L MCHC 32.5 RDW 21.4 H Plt Count 94 L MPV 9.9 Immature Gran % 1.3 Seg Neutrophils % 46.0 Lymphocytes % 46.1 Monocytes % 4.6 Eosinophils % 0.7 Basophils % 1.3 Neutrophils # 0.7 L Lymphocytes # 0.7 Monocytes # 0.1 Eosinophils # 0.0 Basophils # 0.0 Reactive Lymphocytes Present A Platelet Estimate Decreased L Immature Plt Fraction 4.6 Hypochromasia Present A Anisocytosis 1+ A Sodium 135 L Potassium 3.4 L Chloride 104 Carbon Dioxide 19 BUN 7 Creatinine 0.42 L Est GFR ( Amer) > 60 Est GFR (Non-Af Amer) > 60 BUN/Creatinine Ratio 17 Glucose 96 Calculated Osmolality 278 L Calcium 8.0 L Magnesium 1.3 L Blood Type A POSITIVE Antibody Screen NEGATIVE Crossmatch See Detail - Impressions Impressions Chest X-Ray 11/15/16 09:21 IMPRESSION: There is a small left-sided pneumothorax at the lung apex, with a similar appearance to the previous examination. The large bore chest tube has been retracted somewhat, with only a small amount in the pleural space, though the side hole is in the axillary soft tissues. The findings were sent to the Radiology Results Communication Center at 10:16 am on 11/15/2016to be communicated to a licensed caregiver. D/ / Edy Coley MD / Edy Coley MD Interpreting Provider: Edy Coley MD Chest X-Ray 11/15/16 14:30 IMPRESSION: 1. Left-sided chest tube is partially retracted with the side hole projecting over the lateral soft tissues. 2. Increasing left pleural effusion. D/ / Wayne March MD / Wayne March MD Interpreting Provider: Wayne March MD - ABG Interpretation ABG results: ABG ABG pH 7.48 pH Units (7.32-7.45) H 11/10/16 04:51 ABG pCO2 30 mmHg (35-45) L 11/10/16 04:51 ABG pO2 99 mmHg (85-104) 11/10/16 04:51 ABG O2 Saturation 98 % (95-98) 11/10/16 04:51 PT/INR, D-dimer PT 16.0 Seconds (9.4-12.1) H 11/10/16 03:32 Consult Discharge Plan - Plan Referrals: Hilda Chappell, [employer]ICIAN [Primary Care Provider] -
--- NOTE | 2016-11-15 17:45 | Oncology Inp Progress Note ---
Date of Encounter: 11/15/16 Time of Encounter: 17:43 (1) Pulmonary embolism Current Visit: Yes Status: Acute Assessment and plan: Acute right-sided PE and she has significant clot burden. Post TPA. She decompensated quickly in the office. Also a large left malignant effusion. Post IVC filter. She needs lifelong anticoagulation. 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 She received cycle 3 which is her first dose of Taxotere 11/10/2016. Neutropenia neutrophil count 700 from chemotherapy Neupogen 480 g subcutaneous daily to start 11/16/2016 Progressive thrombocytopenia platelet count 94,000. This is also related to chemotherapy. HIT unlikely (3) Pleural effusion Current Visit: No Status: Acute Assessment and plan: Chest x-ray today showed increase in left pleural effusion. She would benefit from Pleurx catheter before discharge Her echocardiogram 11/10/2016 showed ejection fraction 25%. Not clear if the low ejection fraction secondary to acute PE or other reasons. Chemotherapy may be causing part of this Oncology: Subj Interval history: Alert and oriented. Extubated. Still has shortness of breath - Constitutional Vitals: Vital Signs Temp Pulse Resp BP Pulse Ox 11/15/16 14:50 97.9 F 108 18 115/80 97 11/15/16 10:28 97.3 F L 109 18 107/72 100 11/15/16 08:35 97 11/15/16 05:15 98.0 F 109 15 141/99 97 11/14/16 21:58 98.1 F 100 14 117/84 99 Intake and Output 11/15/16 11/15/16 11/15/16 07:59 15:59 23:59 Intake Total 60 / 60 0 / 0 Output Total 25 / 25 Balance 60 / 60 -25 / -25 Intake: Oral 60 / 60 0 / 0 Output: Urine 0 / 0 Emesis 25 / 25 Chest Tube Drainage 0 / 0 Left Lateral Chest 0 / 0 Other: Meal Lunch Percent of Meal Consumed 0% Stool Size Smear Small Stool Consistency liquid liquid Stool Color Brown Brown Yellow # Voids 1 1 # Urine Diapers 0 # Bowel Movements 0 0 1 - Head Additional comments: GENERAL: Alert and oriented, well appearing. Mental Status: Affect appropriate for circumstances HEENT: Sclerae anicteric. No mucositis or thrush. No other oral or pharyngeal lesions or erythema. Skin: No rashes or petechiae. No evidence of skin malignancy Lymph nodes: No cervical, supraclavicular, axillary, or inguinal adenopathy. Lungs: Air entry decreased more on the left base athan right base Cardiovascular: Regular rate and rhythm. No gallops, murmurs, or rubs. Abdomen: Soft, nontender; no organomegaly or masses palpable. Extremities: No edema. No calf swelling or tenderness. No joint deformity. Neurologic: Alert, cranial nerves II-XII intact; normal gait; no focal weakness or sensory abnormalities. Oncology: Obj Data - Labs CBC & Chem 7: 11/15/16 04:07 11/15/16 04:07 Labs: Laboratory Results - last 24 hr 11/15/16 11/15/16 11/15/16 04:07 04:07 16:31 WBC 1.5 L RBC 3.64 L Hgb 9.9 L D Hct 30.5 L MCV 83.8 MCH 27.2 L MCHC 32.5 RDW 21.4 H Plt Count 94 L MPV 9.9 Immature Gran % 1.3 Seg Neutrophils % 46.0 Lymphocytes % 46.1 Monocytes % 4.6 Eosinophils % 0.7 Basophils % 1.3 Neutrophils # 0.7 L Lymphocytes # 0.7 Monocytes # 0.1 Eosinophils # 0.0 Basophils # 0.0 Reactive Lymphocytes Present A Platelet Estimate Decreased L Immature Plt Fraction 4.6 Hypochromasia Present A Anisocytosis 1+ A Sodium 135 L Potassium 3.4 L Chloride 104 Carbon Dioxide 19 BUN 7 Creatinine 0.42 L Est GFR ( Amer) > 60 Est GFR (Non-Af Amer) > 60 BUN/Creatinine Ratio 17 Glucose 96 Calculated Osmolality 278 L Calcium 8.0 L Magnesium 1.3 L Lactate Dehydrogenase 381 H - Impressions Impressions Chest X-Ray 11/15/16 09:21 IMPRESSION: There is a small left-sided pneumothorax at the lung apex, with a similar appearance to the previous examination. The large bore chest tube has been retracted somewhat, with only a small amount in the pleural space, though the side hole is in the axillary soft tissues. The findings were sent to the Radiology Results Communication Center at 10:16 am on 11/15/2016to be communicated to a licensed caregiver. D/ / Edy Coley MD / Edy Coley MD Interpreting Provider: Edy Coley MD Chest X-Ray 11/15/16 14:30 IMPRESSION: 1. Left-sided chest tube is partially retracted with the side hole projecting over the lateral soft tissues. 2. Increasing left pleural effusion. D/ / Wayne March MD / Wayne March MD Interpreting Provider: Wayne March MD - ABG Interpretation ABG results: ABG ABG pH 7.48 pH Units (7.32-7.45) H 11/10/16 04:51 ABG pCO2 30 mmHg (35-45) L 11/10/16 04:51 ABG pO2 99 mmHg (85-104) 11/10/16 04:51 ABG O2 Saturation 98 % (95-98) 11/10/16 04:51 PT/INR, D-dimer PT 16.0 Seconds (9.4-12.1) H 11/10/16 03:32 Consult Discharge Plan - Plan Referrals: Hilda Chappell, SERVICE [employer] COORDINATOR [Primary Care Provider] -
[2016-11-15 17:54] LABS: INR 1.2; Prothrombin Time 12.7 Seconds (9.4-12.1)
[2016-11-16] MEDS: *HR* OxyCODONE Immed Rel 5 MG TABLET PO PRN ×3 (00:05→15:21)
[2016-11-16] MEDS: MetroNIDAZOLE 500 MG/100 ML 500 MG/100 ML BAG IVPB SCH ×2 (00:06→08:34)
[2016-11-16 05:19] LABS: Mean Corpuscular Hemoglobin 27.6 pg (28.0-33.3)
[2016-11-16 05:20] LABS: Eosinophils % 0.7 %; Hemoglobin 8.8 g/dL (11.5-15.4); INR 1.1; Immature Granulocytes % 0.7 % (0-4); Lymphocytes # 0.8 K/mcL (0.6-4.6); Lymphocytes % 59.7 %; Mean Corpuscular HGB Conc 32.6 g/dL (31.6-35.5); Mean Corpuscular Volume 84.6 fL (83.0-100.0); Mean Platelet Volume 10.4 fL (9.4-12.4); Monocytes # 0.2 K/mcL (0.0-1.3); Monocytes % 11.2 %; Neutrophils # 0.4 K/mcL (1.6-8.9); Prothrombin Time 12.3 Seconds (9.4-12.1); Red Blood Count 3.19 M/mcL (3.82-4.97); Red Cell Distribution Width 20.9 % (11.5-14.5); Segmented Neutrophils % 27.7 %
[2016-11-16 05:28] LABS: Platelet Count 79 K/mcL (140-400)
[2016-11-16 05:42] LABS: Alanine Aminotransferase 7 Units/L (0-55); Albumin/Globulin Ratio 0.5 (1.1-2.2); Alkaline Phosphatase 95 Units/L (38-126); Aspartate Amino Transferase 13 Units/L (5-34); BUN/Creatinine Ratio 13 (6-26); Bilirubin,Total 0.4 mg/dL (0.2-1.2); Blood Urea Nitrogen 6 mg/dL (7-20); Calcium 8.2 mg/dL (8.6-10.8); Carbon Dioxide 21 mEq/L (19-29); Chloride 101 mEq/L (98-109); Globulin 3.6 g/dL (2.4-3.5); Glucose 90 mg/dL (70-99); Magnesium 1.6 mg/dL (1.6-2.6); Osmolality,Calculated 273 (280-300); Sodium 133 mEq/L (136-145); Total Protein 5.3 g/dL (6.0-8.3); eGFR For African Americans > 60 (> 60); eGFR For Non-African Americans > 60 (> 60)
[2016-11-16 05:47] LABS: Albumin 1.7 g/dL (3.5-5.0)
[2016-11-16 06:23] LABS: Platelet Estimate Marked Decrease (Normal); Reactive Lymphocytes Present (Not Present); Toxic Vacuolation Present (Not Present)
[2016-11-16] MEDS: Pantoprazole 40 MG VIAL IVPB SCH (08:34)
[2016-11-16] MEDS: Chlorhexidine Rinse 15 ML MOUTHWASH MM SCH ×2 (08:35→21:28)
[2016-11-16] MEDS: Gabapentin 300 MG CAPSULE PO SCH ×4 (08:35→21:28)
[2016-11-16] MEDS: Baclofen 10 MG TABLET PO SCH ×4 (08:35→21:28)
[2016-11-16] MEDS: Magic Mouthwash 10 ML UD Cup PO SCH ×3 (08:35→15:21)
--- NOTE | 2016-11-16 09:49 | Cardiothoracic Progress Note ---
Date of Encounter: 11/16/16 Time of Encounter: 09:47 - Assessment and plan (1) Pleural effusion Current Visit: Yes Status: Acute The chest tube has been withdrawn so that the distal port is within the subcutaneous tissue. This chest tube cannot be for top pleurodesis and I will have interventional radiology place another chest tube. The first chest tube will be removed after the new chest tube is placed. When the chest tube drainage has decreased sufficiently, a talc pleurodesis will be performed. The assessment and plan as outlined above was discussed with the patient and/or family members who expressed understanding and agreement. All questions were answered. - Subjective Interval history: The patient is resting comfortably in her hospital bed. She has no complaints of shortness of breath. Vital Signs, Last 4 Hours Temp Pulse Resp BP Pulse Ox 11/16/16 07:29 98.0 F 90 16 115/77 98 Oxgyen Flow Rate Oxygen Flow Rate (LPM) 3 Clinical Data, last 8 Hours Output, Urine Amount 100 Output, Urine Amount 0 Weight 11/14/16 11/15/16 11/16/16 23:59 23:59 23:59 Weight 110.7 kg 111.8 kg - Physical Examination General: Conversant, No Apparent Distress Neck: No JVD, Normal carotid pulses Cardiac: Reg Rate and Rhythm, Normal S1 and S2, No Murmur Chest tubes: Minimal drainage Lungs: Normal Breath Sounds, No Wheeze, Rales, Rhonchi Neuro: Alert and responsive, No focal deficits noted Vascular: Normal capillary refill Extremities: No Clubbing, No Cyanosis, No Edema - Labs 11/17/16 04:56 11/17/16 04:56 Lab Results, Last 24 hours 11/15/16 11/16/16 11/16/16 17:34 04:45 04:45 WBC 1.3 L Hgb 8.8 L Hct 27.0 L Plt Count 79 L INR 1.2 1.1 Sodium Potassium Chloride Carbon Dioxide BUN Creatinine Glucose Calcium Magnesium Total Bilirubin AST ALT Alkaline Phosphatase 11/16/16 04:45 WBC Hgb Hct Plt Count INR Sodium 133 L Potassium 3.0 L Chloride 101 Carbon Dioxide 21 BUN 6 L Creatinine 0.47 L Glucose 90 Calcium 8.2 L Magnesium 1.6 Total Bilirubin 0.4 AST 13 ALT 7 Alkaline Phosphatase 95 - Imaging Chest Xray: image reviewed (No pneumothorax. Small left pleural effusion. The left chest tube distal port remains in the subcutaneous tissue.) Consult Discharge Plan - Plan Referrals: Hilda Chappell, TAMMIE [Primary Care Provider] -
[2016-11-16] MEDS ORDERED: Magnesium Sulfate 2 GM in D5% in Water 100 ML IVPB ONE (11:09)
[2016-11-16] MEDS ORDERED: Potassium Chloride 40 MEQ/200 ML BAG IVPB ONE ×2 (11:12→13:15)
[2016-11-16] MEDS ORDERED: D5% in 0.45% NACL w KCl 20 MEQ/1,000 ML MLS IVC SCH (11:15)
--- NOTE | 2016-11-16 11:54 | Internal Med Progress Note ---
<VinodyisselPrice lorenzana - Last Filed: 11/17/16 16:22> Date of Encounter: 11/17/16 Time of Encounter: 09:00 - Assessment and plan (1) Acute respiratory failure with hypoxia Current Visit: No Status: Acute Assessment and plan: Patient's acute respiratory failure is likely multifactorial with admitting pneumothorax, pleural effusions secondary to malignancy to the lungs. Baseline home oxygen is 3 L. Patient also has systolic heart failure with an LVEF of 25- 30%, global left ventricular systolic dysfunction with some sparing of the basal segments, mild dilated right ventricle with mild reduced systolic function. Plan: - Patient currently stable. Treating underlying causes including chest tube to reduce pneumothorax and drain pleural effusion. Patient maintaining oxygen saturations greater than 90% on 3 L. (2) Pleural effusion Current Visit: Yes Status: Acute Assessment and plan: Malignant pleural effusion secondary to metastatic ovarian cancer. Patient currently has a left-sided chest tube in place which is falling out. CT of the chest performed on 11/12/2016 demonstrates loculated pleural effusion on the left. Pulmonology was consult and evaluated the patient. Chest x-ray was reviewed from today and determined that the chest tube needs to be replaced. IR was consult and the patient was discussed and was recommended to change out the chest tube for more compatible size to placed talc in it. IR to perform procedure this afternoon. Plan: - Continue holding Lovenox until post procedure. - IR and pulmonology following patient. (3) Pulmonary embolism Current Visit: No Status: Acute Assessment and plan: Miss Bains 61-year-old female with known ovarian cancer metastatic disease to lungs was admitted with shortness of breath, acute respiratory failure. CTA of the chest demonstrated pulmonary emboli in both lungs predominantly involving the right main pulmonary artery as well as lobar and segmental branches of the right upper middle and lower lobes. There is also pulmonary embolus within the left upper lobe lingula. No evidence of pulmonary infarct. No evidence of acute right-sided heart failure. CTA of the lung also demonstrated moderate size left sided hydropneumothorax status post left chest tube placement and drainage of a large left pleural effusion. 11/11/2016 Mrs. Bains had a IVC filter placed. She was started on Lovenox therapeutic dosing for pulmonary embolism on 2016. She currently has sanguinous drainage with clots coming out of her left- sided chest tube. Lovenox held for chest tube procedure. Restart after procedure. Plan: - Continue to monitor respiratory status Qualifiers: Pulmonary embolism type: other Chronicity: acute Acute cor pulmonale presence: without acute cor pulmonale Qualified Code(s): I26.99 - Other pulmonary embolism without acute cor pulmonale (4) Thrombocytopenia Current Visit: Yes Status: Acute Assessment and plan: Patient has a platelet count of 79 which is fallen from 323 from 11/11/2016. The patient did receive chemotherapy recently, last Tuesday. She was also started on Lovenox subcutaneously for pulmonary embolism on 11/12/2016. Patient has had nausea and vomiting and diarrhea overnight. Denies any bleeding or blood in her secretions. No signs of bleeding in her oral cavity on her gums or petechiae on her extremities. Oncology following Plan: - Continue monitoring with daily CBC. - Hematology oncology following. (5) Leukopenia Current Visit: Yes Status: Acute Assessment and plan: Lakeisha Bains currently has a WBC count of 1.5 just fallen from 9.8 on 2016, she recently received chemotherapy on Tuesday of last week. This drop is likely secondary to chemotherapy but also may represents infection in an immunocompromised patient. Heme/oncology has been consult and are involved with the patient's care Plan: -Likely secondary to chemotherapy. Continue neutropenic precautions Qualifiers: Qualified Code(s): D72.819 - Decreased white blood cell count, unspecified (6) Anemia Current Visit: Yes Status: Acute Assessment and plan: . Patient's hemoglobin trended down with a low of 6.3 during his current admission, patient is receiving chemotherapy and likely secondary to suppressed production. MCV is 83.8. Mrs. Bains received 2 units PRBCs thus far during her inpatient stay. Maintaining hemoglobin greater than 8 support as the patient has systolic heart failure with an EF 25-30%. Plan to continue monitoring hemoglobin and hematocrit daily. Qualifiers: Anemia type: unspecified type Qualified Code(s): D64.9 - Anemia, unspecified (7) Metastatic adenocarcinoma Current Visit: Yes Status: Chronic Assessment and plan: Patient has known metastatic adenocarcinoma, oncology is following the patient. (8) Neutropenia, drug-induced Current Visit: Yes Status: Acute Assessment and plan: Mrs. Bains has a neutrophil count of 0.4 down from 8.4 on 11/11/2016. Likely secondary to chemotherapy. She currently has nausea and vomiting and diarrhea. She is afebrile and tachycardia is resolved. Plan: - Initiate neutropenic precautions. - Patient has received Neupogen - Subjective Interval history: Mrs. Bains 61-year-old female has been seen and evaluated patient bedside this morning. She said she is feeling better today and has not had any nausea/ vomiting/diarrhea. She is NPO for chest tube replacement by IR today. She is in no pain or discomfort. She would like the procedure completed so she can drink fluids and eat. - Constitutional Vitals: Temp Pulse Resp BP Pulse Ox 97.4 F L 86 16 120/78 100 11/16/16 11:12 11/16/16 11:12 11/16/16 11:12 11/16/16 11:12 11/16/16 11:12 General appearance: Present: cooperative, A&O X 3, pleasant, obese - Head Head exam: Present: atraumatic, normocephalic - Eye Eye exam: Present: PERRL, conjuntiva pink, sclera anicteric Pupils: Present: PERRL - Neck Neck exam general surgery: Present: supple, trachea midline. Absent: lymphadenopathy - Respiratory Additional comments: Diminished breath sounds in bilateral lung bases - Cardiovascular Cardiovascular exam: Present: RRR, +S1, +S2. Absent: diastolic murmur, gallop, rubs, systolic murmur - GI/Abdominal GI/Abdominal exam: Present: normal bowel sounds, soft, no peritoneal signs. Absent: distended, tenderness - Extremities Exam Additional comments: Swelling/edema in bilateral lower extremities - Neurological Exam Neurological exam: Present: alert, oriented X3, no focal deficits. Absent: pronater drift, facial droop, speech deficit - Psychiatric Psychiatric exam: Present: normal affect, normal mood Internal Medicine: Result - Labs CBC & Chem 7: 11/17/16 04:56 11/17/16 04:56 Labs: Short CBC 11/16/16 Range/Units 04:45 WBC 1.3 L (4.3-11.1) K/mcL Hgb 8.8 L (11.5-15.4) g/dL Hct 27.0 L (35.3-44.9) % Plt Count 79 L (140-400) K/mcL Neutrophils # 0.4 L (1.6-8.9) K/mcL BMP 01/31/17 04:45 Sodium 133 L Potassium 3.0 L Chloride 101 Carbon Dioxide 21 BUN 6 L Creatinine 0.47 L Glucose 90 Calcium 8.2 L Liver Function 11/16/16 Range/Units 04:45 Total Bilirubin 0.4 (0.2-1.2) mg/dL AST 13 (5-34) Units/L ALT 7 (0-55) Units/L Alkaline Phosphatase 95 (38-126) Units/L Albumin 1.7 L (3.5-5.0) g/dL - ABG Interpretation ABG results: ABG ABG pH 7.48 pH Units (7.32-7.45) H 11/10/16 04:51 ABG pCO2 30 mmHg (35-45) L 11/10/16 04:51 ABG pO2 99 mmHg (85-104) 11/10/16 04:51 ABG O2 Saturation 98 % (95-98) 11/10/16 04:51 PT/INR, D-dimer PT 12.3 Seconds (9.4-12.1) H 11/16/16 04:45 - Impressions Impressions Chest X-Ray 11/15/16 14:30 IMPRESSION: 1. Left-sided chest tube is partially retracted with the side hole projecting over the lateral soft tissues. 2. Increasing left pleural effusion. D/ / Wayne March MD / Wayne March MD Interpreting Provider: Wayne March MD Chest X-Ray 11/16/16 07:55 IMPRESSION: No evidence of residual left pneumothorax. Small left pleural effusion is unchanged. Left-sided chest tube in unchanged position with tip projecting over the lateral mid left lung and side port in the lateral chest wall soft tissues. The findings were sent to the Radiology Results Communication Center at 8:19 am on 11/16/2016to be communicated to a licensed caregiver. D/ / 11/16/2016 08:22:39 Maria Del Rosario Manley MD / ivonne Interpreting Provider: Maria Del Rosario Manley MD Consult Discharge Plan - Plan Referrals: Hilda Chappell, DRAY DRIVER [Primary Care Provider] - <KimPhillip ruiz Yani - Last Filed: 11/17/16 17:41> - Assessment and plan (1) Pleural effusion Current Visit: Yes Status: Acute (2) Pulmonary embolism Current Visit: No Status: Acute Qualifiers: Pulmonary embolism type: other Chronicity: acute Acute cor pulmonale presence: without acute cor pulmonale Qualified Code(s): I26.99 - Other pulmonary embolism without acute cor pulmonale (3) Acute respiratory failure with hypoxia Current Visit: No Status: Acute (4) Metastatic adenocarcinoma Current Visit: Yes Status: Chronic (5) Anemia Current Visit: Yes Status: Acute Qualifiers: Anemia type: unspecified type Qualified Code(s): D64.9 - Anemia, unspecified - Constitutional Vitals: Temp Pulse Resp BP Pulse Ox 98.2 F 90 16 111/72 98 11/17/16 16:20 11/17/16 16:20 11/17/16 16:20 11/17/16 16:20 11/17/16 16:20 Internal Medicine: Result - Labs CBC & Chem 7: 11/17/16 04:56 11/17/16 04:56 Labs: Short CBC 11/17/16 Range/Units 04:56 WBC 1.6 L (4.3-11.1) K/mcL Hgb 9.9 L (11.5-15.4) g/dL Hct 31.0 L (35.3-44.9) % Plt Count 75 L (140-400) K/mcL Neutrophils # 0.4 L (1.6-8.9) K/mcL BMP 11/17/16 04:56 Sodium 135 L Potassium 3.3 L Chloride 103 Carbon Dioxide 23 BUN 4 L Creatinine 0.49 L Glucose 89 Calcium 8.3 L Liver Function 11/17/16 Range/Units 04:56 Total Bilirubin 0.3 (0.2-1.2) mg/dL AST 11 (5-34) Units/L ALT 6 (0-55) Units/L Alkaline Phosphatase 95 (38-126) Units/L Albumin 1.8 L (3.5-5.0) g/dL - ABG Interpretation ABG results: ABG ABG pH 7.48 pH Units (7.32-7.45) H 11/10/16 04:51 ABG pCO2 30 mmHg (35-45) L 11/10/16 04:51 ABG pO2 99 mmHg (85-104) 11/10/16 04:51 ABG O2 Saturation 98 % (95-98) 11/10/16 04:51 PT/INR, D-dimer PT 12.3 Seconds (9.4-12.1) H 11/16/16 04:45 - Attending Attestation I agree with the physical examination findings, assessment and plan documented by the resident Dr. Reilly. . I examined the patient independently. Monitor labs, lovenox full dose. Follow input from CTS. Monitor elctrolytes.
--- NOTE | 2016-11-16 12:37 | Palliative Progress Note ---
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 She did use 4 doses in the past 24 hours. Ms. Bains is able to use IV dilaudid for chest tube pain that is unrelieved by oxycodone. She did receive 2 doses of this in the past 24 hours. Continue to monitor. Ms. Bains also has complex regional pain syndrome to the right upper extremity. She follows with pain management for this condition. Home meds of cymbalta and neurontin continued. (2) Anxiety Current Visit: Yes Status: Acute Assessment and plan: Ms. Bains may use lorazepam 0.5mg TID as needed for anxiety. She has not required any doses to date. (3) Decreased appetite Current Visit: Yes Status: Acute Assessment and plan: Marinol scheduled. She has been NPO today for a procedure. Dietitian following. Supplements ordered. Will follow. Will continue to address stomatitis as this may contribute to poor oral intake. (4) Goals of care, counseling/discussion Current Visit: Yes Status: Acute Assessment and plan: Ms. Gasca remains full code. Goals of care established. visitor services representative following for discharge needs. (5) Constipation Current Visit: No Status: Acute Assessment and plan: Senna ordered BID, but regularly scheduled doses have not been given. Documentation states she had a large BM this morning. Patient reports multiple liquid stools throughout the night. Will change scheduled laxatives to PRN and d/c colace. Qualifiers: Qualified Code(s): K59.03 - Drug induced constipation (6) Nausea & vomiting Current Visit: Yes Status: Acute Assessment and plan: Ms. Tapia reports nausea has resolved with medications. She did use one dose of zofran yesterday. May need to premedicate before meals to encourage intake. Qualifiers: Qualified Code(s): R11.2 - Nausea with vomiting, unspecified (7) Stomatitis Current Visit: Yes Status: Acute Assessment and plan: Biotene PRN per patient request. Start magic mouthwash prior to meal time and continue with chlorhexadine rinses. Ice chips as needed. May need to adjust diet if food increases mouth pain. (8) Pleural effusion Current Visit: Yes Status: Acute (9) Pulmonary embolism Current Visit: Yes Status: Acute Assessment and plan: pulmonology following Qualifiers: Qualified Code(s): I26.99 - Other pulmonary embolism without acute cor pulmonale (10) Dyspnea Current Visit: Yes Status: Acute Assessment and plan: Supplemental O2. Chest tube in place to drain pleural effusion. Cardiothoracic following. Qualifiers: Qualified Code(s): R06.02 - Shortness of breath (11) Metastatic adenocarcinoma Current Visit: Yes Status: Chronic Assessment and plan: Oncology following. - Time Spent With Patient Total time spent is greater than 50% in coordination of care (as documented) at patient's floor/unit and/or counseling patient: - Subjective Interval history: Ms. Bains is resting in bed. She has been declining physical therapy. She reports continued pain to the chest tube site. Ms. Bains has used 4 doses of oxycodone in the past 24 hours and 2 doses of hydromorphone. Her biggest complaint is the mouth ulcers. She has not used the biotene spray, but is using the magic mouthwash and chlorhexadine rinse. She has been NPO for a procedure, and has not had any intake today. - Constitutional Vitals: Abnormal lab results WBC 1.3 K/mcL (4.3-11.1) L 11/16/16 04:45 RBC 3.19 M/mcL (3.82-4.97) L 11/16/16 04:45 Hgb 8.8 g/dL (11.5-15.4) L 11/16/16 04:45 Hct 27.0 % (35.3-44.9) L 11/16/16 04:45 MCH 27.6 pg (28.0-33.3) L 11/16/16 04:45 RDW 20.9 % (11.5-14.5) H 11/16/16 04:45 Plt Count 79 K/mcL (140-400) L 11/16/16 04:45 Neutrophils # 0.4 K/mcL (1.6-8.9) L 11/16/16 04:45 Reactive Lymphocytes Present (Not Present) A 11/16/16 04:45 Toxic Vacuolation Present (Not Present) A 11/16/16 04:45 Platelet Estimate Marked Decrease (Normal) L 11/16/16 04:45 Polychromasia 2+ (Not Present) A 11/10/16 03:32 Hypochromasia Present (Not Present) A 11/15/16 04:07 Poikilocytosis 2+ (Not Present) A 11/11/16 07:45 Anisocytosis 1+ (Not Present) A 11/15/16 04:07 Microcytosis Present (Not Present) A 11/14/16 03:46 PT 12.3 Seconds (9.4-12.1) H 11/16/16 04:45 ABG pH 7.48 pH Units (7.32-7.45) H 11/10/16 04:51 ABG pCO2 30 mmHg (35-45) L 11/10/16 04:51 Sodium 133 mEq/L (136-145) L 11/16/16 04:45 Potassium 3.0 mEq/L (3.5-4.5) L 11/16/16 04:45 BUN 6 mg/dL (7-20) L 11/16/16 04:45 Creatinine 0.47 mg/dL (0.57-1.11) L 11/16/16 04:45 Calculated Osmolality 273 (280-300) L 11/16/16 04:45 Lactic Acid 6.9 mmol/L (0.5-2.2) H* 11/09/16 19:03 Calcium 8.2 mg/dL (8.6-10.8) L 11/16/16 04:45 Ionized Calcium 1.06 mmol/L (1.15-1.35) L 11/13/16 05:45 Lactate Dehydrogenase 381 Units/L (159-327) H 11/15/16 16:31 Troponin I 0.43 ng/mL (0-0.03) H* 11/09/16 17:10 Serum Total Protein 5.3 g/dL (6.0-8.3) L 11/16/16 04:45 Albumin 1.7 g/dL (3.5-5.0) L 11/16/16 04:45 Globulin 3.6 g/dL (2.4-3.5) H 11/16/16 04:45 Albumin/Globulin Ratio 0.5 (1.1-2.2) L 11/16/16 04:45 Urine Ketones Trace mg/dL (Negative) H 11/09/16 19:48 Urine Blood Trace-intact (Negative) H 11/09/16 19:48 Ur Squamous Epith Cells Many per lpf (None-Few) H 11/09/16 19:48 General appearance: Present: cooperative, no acute distress - ENT ENT exam: Present: mucous membranes dry - Respiratory Respiratory exam: Present: decreased breath sounds Additional comments: chest tube clamped to right chest. - Cardiovascular Cardiovascular exam: Present: RRR - GI/Abdominal GI/Abdominal exam: Present: normal bowel sounds, soft. Absent: tenderness - Extremities Exam Extremities exam: Present: normal inspection - Neurological Exam Neurological exam: Present: alert, oriented X3, no focal deficits - Skin Skin exam: Present: dry, warm Palliative Quality Palliative Quality: Screen for Code Status: Yes, Screen for Goals of Care: Yes, Screen for Pain: Yes, If Pain Regimen Started, Initiate Bowel Regimen: Yes, Screen for Nausea/Vomitting: Yes - Labs CBC & Chem 7: 11/16/16 04:45 11/16/16 04:45 Labs: Laboratory Results - last 24 hr 11/15/16 11/15/16 11/15/16 16:31 16:48 17:34 WBC RBC Hgb Hct MCV MCH MCHC RDW Plt Count MPV Immature Gran % Seg Neutrophils % Lymphocytes % Monocytes % Eosinophils % Basophils % Neutrophils # Lymphocytes # Monocytes # Eosinophils # Basophils # Reactive Lymphocytes Toxic Vacuolation Platelet Estimate PT 12.7 H INR 1.2 Sodium Potassium Chloride Carbon Dioxide BUN Creatinine Est GFR ( Amer) Est GFR (Non-Af Amer) BUN/Creatinine Ratio Glucose POC Glucose Calculated Osmolality Calcium Magnesium Total Bilirubin AST ALT Alkaline Phosphatase Lactate Dehydrogenase 381 H Serum Total Protein Albumin Globulin Albumin/Globulin Ratio C. difficile Tox (PCR) Negative 11/16/16 11/16/16 11/16/16 04:45 04:45 04:45 WBC 1.3 L RBC 3.19 L Hgb 8.8 L Hct 27.0 L MCV 84.6 MCH 27.6 L MCHC 32.6 RDW 20.9 H Plt Count 79 L MPV 10.4 Immature Gran % 0.7 Seg Neutrophils % 27.7 Lymphocytes % 59.7 Monocytes % 11.2 Eosinophils % 0.7 Basophils % 0.0 Neutrophils # 0.4 L Lymphocytes # 0.8 Monocytes # 0.2 Eosinophils # 0.0 Basophils # 0.0 Reactive Lymphocytes Present A Toxic Vacuolation Present A Platelet Estimate Marked Decrease L PT 12.3 H INR 1.1 Sodium 133 L Potassium 3.0 L Chloride 101 Carbon Dioxide 21 BUN 6 L Creatinine 0.47 L Est GFR ( Amer) > 60 Est GFR (Non-Af Amer) > 60 BUN/Creatinine Ratio 13 Glucose 90 POC Glucose Calculated Osmolality 273 L Calcium 8.2 L Magnesium 1.6 Total Bilirubin 0.4 AST 13 ALT 7 Alkaline Phosphatase 95 Lactate Dehydrogenase Serum Total Protein 5.3 L Albumin 1.7 L Globulin 3.6 H Albumin/Globulin Ratio 0.5 L C. difficile Tox (PCR) 11/16/16 11:11 WBC RBC Hgb Hct MCV MCH MCHC RDW Plt Count MPV Immature Gran % Seg Neutrophils % Lymphocytes % Monocytes % Eosinophils % Basophils % Neutrophils # Lymphocytes # Monocytes # Eosinophils # Basophils # Reactive Lymphocytes Toxic Vacuolation Platelet Estimate PT INR Sodium Potassium Chloride Carbon Dioxide BUN Creatinine Est GFR ( Amer) Est GFR (Non-Af Amer) BUN/Creatinine Ratio Glucose POC Glucose 69 Calculated Osmolality Calcium Magnesium Total Bilirubin AST ALT Alkaline Phosphatase Lactate Dehydrogenase Serum Total Protein Albumin Globulin Albumin/Globulin Ratio C. difficile Tox (PCR) - Impressions Impressions Chest X-Ray 11/15/16 14:30 IMPRESSION: 1. Left-sided chest tube is partially retracted with the side hole projecting over the lateral soft tissues. 2. Increasing left pleural effusion. D/ / Wayne March MD / Wayne March MD Interpreting Provider: Wayne March MD Chest X-Ray 11/16/16 07:55 IMPRESSION: No evidence of residual left pneumothorax. Small left pleural effusion is unchanged. Left-sided chest tube in unchanged position with tip projecting over the lateral mid left lung and side port in the lateral chest wall soft tissues. The findings were sent to the Radiology Results [facility] at 8:19 am on 11/16/2016to be communicated to a licensed caregiver. D/ / 11/16/2016 08:22:39 Maria Del Rosario Manley MD / ivonne Interpreting Provider: Maria Del Rosario Manley MD - ABG Interpretation ABG results: ABG ABG pH 7.48 pH Units (7.32-7.45) H 11/10/16 04:51 ABG pCO2 30 mmHg (35-45) L 11/10/16 04:51 ABG pO2 99 mmHg (85-104) 11/10/16 04:51 ABG O2 Saturation 98 % (95-98) 11/10/16 04:51 PT/INR, D-dimer PT 12.3 Seconds (9.4-12.1) H 11/16/16 04:45 Consult Discharge Plan - Plan Referrals: Hilda Chappell, [employer] SUPER[employer]OR [Primary Care Provider] -
--- NOTE | 2016-11-16 14:14 | IR Procedure Note ---
Date of procedure: 11/16/16 Consent Obtained: Verbal consent Timeout: Correct patient and procedure verified, Correct site verified, Time out performed, Skin prep completed Local anesthetic: Lidocaine 1% Indications: Large left effusion, indwelling large bore chest tube Procedure Performed: Small bore 14fr chest tube placement Site/Technique: Left lower lateral chest, below large bore catheter. Results/Findings: 14 fr drain placed without difficulty. Estimated blood loss (cc): 1 Complications: None; Tolerated procedure well Post Procedure Treatment Plan: Monitoring in pts room.
--- NOTE | 2016-11-16 14:21 | Pulmonology Progress Note ---
<Roberto Carlos Nxi - Last Filed: 11/16/16 17:36> Date of Encounter: 11/16/16 Time of Encounter: 14:16 Assessment and Plan (1) Pleural effusion Current Visit: No Status: Acute IR placed small bore 14fr chest tube this afternoon. Patient tolerated procedure without complication. Large bore chest tube on left in place draining serosanguinous fluid to suction. Small bore chest tube on left in place draining serosanguinous fluid to suction. CXR revealed left pleural effusion reduced from prior following introduction of basilar pigtail catheter and also probably left basilar atelectasis. Large calibert left chest tube in apical position. Large bore chest tube clamped, continue to monitor vitals, labs, and output from small bore chest tube with continuous suction. To continue to monitor until talc placement in chest cavity for chemical pleuridesis. (2) Pneumothorax on left Current Visit: Yes Status: Acute Continue per plan in assessment above. 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 Patient denies shortness of breath or chest pain following procedure. Overnight the patient had nausea, yellow vomitus without blood, crampy abdominal pain, and frequent loose brown stools resulting in disrupted sleep. Patient denies fevers, chills, sweats, headaches, changes in vision or hearing, chest pain, shortness of breath, changes in bladder, dysuria, weakness, or loss of sensation. Objective PUL Vital signs: Last Vital Signs Temp 97.4 F L 11/16/16 11:12 Pulse 86 11/16/16 11:12 Resp 16 11/16/16 11:12 BP 120/78 11/16/16 11:12 Pulse Ox 100 11/16/16 11:12 General appearance: alert, appears uncomfortable Eyes: nonicteric ENT: oropharynx moist Neck: supple, no lymphadenopathy, no JVD Effort: normal Auscultation: right: clear, bilateral: diminished breath sounds Cardiovascular: regular rate and rhythm Gastrointestinal: normoactive bowel sounds, soft, non-tender, non-distended Integumentary: normal, other (large bore chest tube on L draining serosanguinous fluid, small bore chest tube on L draininag serosnaguinous fluid. ) Extremities: no cyanosis, no edema, pink and warm, pulses normal Musculoskeletal: no deformities normal mental status, non-focal exam, pupils equal and round, CN II-XII normal, motor strength normal and symmetric mood appropriate, affect normal Results - Laboratory Findings CBC and BMP: 11/16/16 04:45 11/16/16 04:45 ABG ABG pH 7.48 pH Units (7.32-7.45) H 11/10/16 04:51 ABG pCO2 30 mmHg (35-45) L 11/10/16 04:51 ABG pO2 99 mmHg (85-104) 11/10/16 04:51 ABG O2 Saturation 98 % (95-98) 11/10/16 04:51 PT/INR, D-dimer PT 12.3 Seconds (9.4-12.1) H 11/16/16 04:45 Abnormal lab findings: Abnormal lab results WBC 1.3 K/mcL (4.3-11.1) L 11/16/16 04:45 RBC 3.19 M/mcL (3.82-4.97) L 11/16/16 04:45 Hgb 8.8 g/dL (11.5-15.4) L 11/16/16 04:45 Hct 27.0 % (35.3-44.9) L 11/16/16 04:45 MCH 27.6 pg (28.0-33.3) L 11/16/16 04:45 RDW 20.9 % (11.5-14.5) H 11/16/16 04:45 Plt Count 79 K/mcL (140-400) L 11/16/16 04:45 Neutrophils # 0.4 K/mcL (1.6-8.9) L 11/16/16 04:45 Reactive Lymphocytes Present (Not Present) A 11/16/16 04:45 Toxic Vacuolation Present (Not Present) A 11/16/16 04:45 Platelet Estimate Marked Decrease (Normal) L 11/16/16 04:45 Polychromasia 2+ (Not Present) A 11/10/16 03:32 Hypochromasia Present (Not Present) A 11/15/16 04:07 Poikilocytosis 2+ (Not Present) A 11/11/16 07:45 Anisocytosis 1+ (Not Present) A 11/15/16 04:07 Microcytosis Present (Not Present) A 11/14/16 03:46 PT 12.3 Seconds (9.4-12.1) H 11/16/16 04:45 ABG pH 7.48 pH Units (7.32-7.45) H 11/10/16 04:51 ABG pCO2 30 mmHg (35-45) L 11/10/16 04:51 Sodium 133 mEq/L (136-145) L 11/16/16 04:45 Potassium 3.0 mEq/L (3.5-4.5) L 11/16/16 04:45 BUN 6 mg/dL (7-20) L 11/16/16 04:45 Creatinine 0.47 mg/dL (0.57-1.11) L 11/16/16 04:45 Calculated Osmolality 273 (280-300) L 11/16/16 04:45 Lactic Acid 6.9 mmol/L (0.5-2.2) H* 11/09/16 19:03 Calcium 8.2 mg/dL (8.6-10.8) L 11/16/16 04:45 Ionized Calcium 1.06 mmol/L (1.15-1.35) L 11/13/16 05:45 Lactate Dehydrogenase 381 Units/L (159-327) H 11/15/16 16:31 Troponin I 0.43 ng/mL (0-0.03) H* 11/09/16 17:10 Serum Total Protein 5.3 g/dL (6.0-8.3) L 11/16/16 04:45 Albumin 1.7 g/dL (3.5-5.0) L 11/16/16 04:45 Globulin 3.6 g/dL (2.4-3.5) H 11/16/16 04:45 Albumin/Globulin Ratio 0.5 (1.1-2.2) L 11/16/16 04:45 Urine Ketones Trace mg/dL (Negative) H 11/09/16 19:48 Urine Blood Trace-intact (Negative) H 11/09/16 19:48 Ur Squamous Epith Cells Many per lpf (None-Few) H 11/09/16 19:48 - Clinical Findings Intake & Output: Intake & Output 11/15/16 11/16/16 11/16/16 23:59 07:59 15:59 Intake Total 300 / 300 500 / 500 100 / 100 Output Total 0 / 0 200 / 200 0 / 0 Balance 300 / 300 300 / 300 100 / 100 Weight 111.8 kg Consult Discharge Plan - Plan Referrals: Hilda Chappell, [employer] MANAGER [Primary Care Provider] - <Pam Pelletier - Last Filed: 11/16/16 21:03> Assessment and Plan (1) Pleural effusion Current Visit: Yes Status: Acute (2) Pneumothorax on left Current Visit: Yes Status: Acute Objective PUL Vital signs: Last Vital Signs Temp 98.3 F 11/16/16 16:04 Pulse 86 11/16/16 16:04 Resp 18 11/16/16 16:04 BP 106/71 11/16/16 16:04 Pulse Ox 95 11/16/16 16:04 Results - Laboratory Findings CBC and BMP: 11/16/16 04:45 11/16/16 04:45 ABG ABG pH 7.48 pH Units (7.32-7.45) H 11/10/16 04:51 ABG pCO2 30 mmHg (35-45) L 11/10/16 04:51 ABG pO2 99 mmHg (85-104) 11/10/16 04:51 ABG O2 Saturation 98 % (95-98) 11/10/16 04:51 PT/INR, D-dimer PT 12.3 Seconds (9.4-12.1) H 11/16/16 04:45 Abnormal lab findings: Abnormal lab results WBC 1.3 K/mcL (4.3-11.1) L 11/16/16 04:45 RBC 3.19 M/mcL (3.82-4.97) L 11/16/16 04:45 Hgb 8.8 g/dL (11.5-15.4) L 11/16/16 04:45 Hct 27.0 % (35.3-44.9) L 11/16/16 04:45 MCH 27.6 pg (28.0-33.3) L 11/16/16 04:45 RDW 20.9 % (11.5-14.5) H 11/16/16 04:45 Plt Count 79 K/mcL (140-400) L 11/16/16 04:45 Neutrophils # 0.4 K/mcL (1.6-8.9) L 11/16/16 04:45 Reactive Lymphocytes Present (Not Present) A 11/16/16 04:45 Toxic Vacuolation Present (Not Present) A 11/16/16 04:45 Platelet Estimate Marked Decrease (Normal) L 11/16/16 04:45 Polychromasia 2+ (Not Present) A 11/10/16 03:32 Hypochromasia Present (Not Present) A 11/15/16 04:07 Poikilocytosis 2+ (Not Present) A 11/11/16 07:45 Anisocytosis 1+ (Not Present) A 11/15/16 04:07 Microcytosis Present (Not Present) A 11/14/16 03:46 PT 12.3 Seconds (9.4-12.1) H 11/16/16 04:45 ABG pH 7.48 pH Units (7.32-7.45) H 11/10/16 04:51 ABG pCO2 30 mmHg (35-45) L 11/10/16 04:51 Sodium 133 mEq/L (136-145) L 11/16/16 04:45 Potassium 3.0 mEq/L (3.5-4.5) L 11/16/16 04:45 BUN 6 mg/dL (7-20) L 11/16/16 04:45 Creatinine 0.47 mg/dL (0.57-1.11) L 11/16/16 04:45 Calculated Osmolality 273 (280-300) L 11/16/16 04:45 Lactic Acid 6.9 mmol/L (0.5-2.2) H* 11/09/16 19:03 Calcium 8.2 mg/dL (8.6-10.8) L 11/16/16 04:45 Ionized Calcium 1.06 mmol/L (1.15-1.35) L 11/13/16 05:45 Lactate Dehydrogenase 381 Units/L (159-327) H 11/15/16 16:31 Troponin I 0.43 ng/mL (0-0.03) H* 11/09/16 17:10 Serum Total Protein 5.3 g/dL (6.0-8.3) L 11/16/16 04:45 Albumin 1.7 g/dL (3.5-5.0) L 11/16/16 04:45 Globulin 3.6 g/dL (2.4-3.5) H 11/16/16 04:45 Albumin/Globulin Ratio 0.5 (1.1-2.2) L 11/16/16 04:45 Urine Ketones Trace mg/dL (Negative) H 11/09/16 19:48 Urine Blood Trace-intact (Negative) H 11/09/16 19:48 Ur Squamous Epith Cells Many per lpf (None-Few) H 11/09/16 19:48 - Clinical Findings Intake & Output: Intake & Output 11/16/16 11/16/16 11/16/16 07:59 15:59 23:59 Intake Total 500 / 500 378 / 378 0 / 0 Output Total 200 / 200 0 / 0 Balance 300 / 300 378 / 378 0 / 0 Weight 111.8 kg - Attending Attestation I examined this patient and my medical decision-making was reviewed with the [employer]ADDLE [employer]GG[employer] OPERATOR/PA/Advanced Practice Nurse/Resident Physician. I agree with the documented findings, disposition and treatment plan as described except to the extent set forth below. Patient seen and examined. Labs, radiology, chart personally reviewed. Agree with resident's history and physical, assessment, plan with following comments: [employer] MECH[employer]IC: Patient follows commands, Pulmonary: Acceptable oxygenation and ventilation. Patient had small bore chest tube was placed by interventional radiologist and discussed with cardiothoracic Dr. Rodriguez for possible placement of possible pleurodesis. We will resume anticoagulation patient had 2 chest tube and hopefully larger one can be removed tomorrow but will defer to Dr. Rodriguez Will follow up PRN. Please call for any questions
[2016-11-16] MEDS ORDERED: *HR* Enoxaparin 30 MG/0.3 ML SYRINGE SQ SCH (18:15)
[2016-11-16] MEDS: *HR* HYDROmorphone (PF) 1 MG/ML SYRINGE IVP PRN (21:28)
[2016-11-17] MEDS: *HR* HYDROmorphone (PF) 1 MG/ML SYRINGE IVP PRN ×5 (01:05→21:08)
[2016-11-17 05:30] LABS: Basophils % 0.6 %; Eosinophils % 0.6 %; Mean Platelet Volume 10.3 fL (9.4-12.4); Monocytes % 22.8 %
[2016-11-17 05:32] LABS: Hemoglobin 9.9 g/dL (11.5-15.4); Lymphocytes # 0.8 K/mcL (0.6-4.6); Lymphocytes % 51.9 %; Mean Corpuscular HGB Conc 31.9 g/dL (31.6-35.5); Mean Corpuscular Volume 87.6 fL (83.0-100.0); Monocytes # 0.4 K/mcL (0.0-1.3); Neutrophils # 0.4 K/mcL (1.6-8.9); Red Blood Count 3.54 M/mcL (3.82-4.97); Segmented Neutrophils % 24.1 %
[2016-11-17 05:45] LABS: Alanine Aminotransferase 6 Units/L (0-55); Albumin/Globulin Ratio 0.5 (1.1-2.2); Alkaline Phosphatase 95 Units/L (38-126); Aspartate Amino Transferase 11 Units/L (5-34); BUN/Creatinine Ratio 8 (6-26); Bilirubin,Total 0.3 mg/dL (0.2-1.2); Calcium 8.3 mg/dL (8.6-10.8); Carbon Dioxide 23 mEq/L (19-29); Chloride 103 mEq/L (98-109); Globulin 3.7 g/dL (2.4-3.5); Glucose 89 mg/dL (70-99); Magnesium 1.6 mg/dL (1.6-2.6); Osmolality,Calculated 276 (280-300); Potassium 3.3 mEq/L (3.5-4.5); Sodium 135 mEq/L (136-145); Total Protein 5.5 g/dL (6.0-8.3); eGFR For African Americans > 60 (> 60); eGFR For Non-African Americans > 60 (> 60)
[2016-11-17 05:47] LABS: Albumin 1.8 g/dL (3.5-5.0); Blood Urea Nitrogen 4 mg/dL (7-20)
[2016-11-17 05:51] LABS: Platelet Count 75 K/mcL (140-400)
[2016-11-17 05:53] LABS: Anisocytosis 2+ (Not Present); Large Platelets Present (Not Present); Macrocytosis Present (Not Present); Microcytosis Present (Not Present); Platelet Estimate Decreased (Normal); Reactive Lymphocytes Present (Not Present)
[2016-11-17] MEDS: *HR* Enoxaparin 100 MG/ML SYRINGE SQ SCH ×2 (06:04→16:43)
[2016-11-17] MEDS: *HR* OxyCODONE Immed Rel 5 MG TABLET PO PRN (06:04)
--- NOTE | 2016-11-17 07:52 | Pulmonology Progress Note ---
<Roberto Carlos Nix - Last Filed: 11/17/16 08:10> Date of Encounter: 11/17/16 Time of Encounter: 07:50 Assessment and Plan (1) Pleural effusion Current Visit: Yes Status: Acute Small bore 14 fr chest tube placed yesterday with large bore chest tube on left in place. Both to suction draining serosanguinous fluid. CXR reveiewed. Basilar pigtail catheter in place and left chest tube advanced compared to prior imaging. No pneumothorax appreciated. Continue to monitor vitals, labs, and output from small bore chest tube with continuous suction. Awaiting Talc placement in chest cavity for chemical pleuridesis and removal of large bore left chest tube. (2) Pneumothorax on left Current Visit: Yes Status: Acute Continue per plan in assessment above. 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 Patient also reports continued diarrhea overnight. Denies fevers, chills, sweats, headaches, changes in vision or hearing, nausea, vomiting, shortness of breath, changes in bladder, dysuria, weakness, or loss of sensation. Objective PUL Vital signs: Last Vital Signs Temp 98.3 F 11/17/16 07:46 Pulse 90 11/17/16 07:46 Resp 18 11/17/16 07:46 BP 110/69 11/17/16 07:46 Pulse Ox 100 11/17/16 07:46 General appearance: alert, appears uncomfortable Eyes: nonicteric ENT: oropharynx moist Neck: supple, no lymphadenopathy, no JVD Effort: normal Auscultation: bilateral: clear, diminished breath sounds Cardiovascular: regular rate and rhythm Gastrointestinal: normoactive bowel sounds, soft, non-tender, non-distended Integumentary: normal, other (large bore chest tube on L and small bore chest tube on L, draining serosanguinous fluid, no leaks appreciated, no drainage noted on dressings) Extremities: no cyanosis, no edema, pink and warm, pulses normal Musculoskeletal: no deformities, ROM normal Gait: normal posture normal mental status, non-focal exam, pupils equal and round, CN II-XII normal, motor strength normal and symmetric mood appropriate, affect normal Results - Laboratory Findings CBC and BMP: 11/17/16 04:56 11/17/16 04:56 ABG ABG pH 7.48 pH Units (7.32-7.45) H 11/10/16 04:51 ABG pCO2 30 mmHg (35-45) L 11/10/16 04:51 ABG pO2 99 mmHg (85-104) 11/10/16 04:51 ABG O2 Saturation 98 % (95-98) 11/10/16 04:51 PT/INR, D-dimer PT 12.3 Seconds (9.4-12.1) H 11/16/16 04:45 Abnormal lab findings: Abnormal lab results WBC 1.6 K/mcL (4.3-11.1) L 11/17/16 04:56 RBC 3.54 M/mcL (3.82-4.97) L 11/17/16 04:56 Hgb 9.9 g/dL (11.5-15.4) L 11/17/16 04:56 Hct 31.0 % (35.3-44.9) L 11/17/16 04:56 RDW 21.0 % (11.5-14.5) H 11/17/16 04:56 Plt Count 75 K/mcL (140-400) L 11/17/16 04:56 Neutrophils # 0.4 K/mcL (1.6-8.9) L 11/17/16 04:56 Reactive Lymphocytes Present (Not Present) A 11/17/16 04:56 Toxic Vacuolation Present (Not Present) A 11/16/16 04:45 Platelet Estimate Decreased (Normal) L 11/17/16 04:56 Large Platelets Present (Not Present) A 11/17/16 04:56 Polychromasia 2+ (Not Present) A 11/10/16 03:32 Hypochromasia Present (Not Present) A 11/15/16 04:07 Poikilocytosis 2+ (Not Present) A 11/11/16 07:45 Anisocytosis 2+ (Not Present) A 11/17/16 04:56 Microcytosis Present (Not Present) A 11/17/16 04:56 Macrocytosis Present (Not Present) A 11/17/16 04:56 PT 12.3 Seconds (9.4-12.1) H 11/16/16 04:45 ABG pH 7.48 pH Units (7.32-7.45) H 11/10/16 04:51 ABG pCO2 30 mmHg (35-45) L 11/10/16 04:51 Sodium 135 mEq/L (136-145) L 11/17/16 04:56 Potassium 3.3 mEq/L (3.5-4.5) L 11/17/16 04:56 BUN 4 mg/dL (7-20) L 11/17/16 04:56 Creatinine 0.49 mg/dL (0.57-1.11) L 11/17/16 04:56 Calculated Osmolality 276 (280-300) L 11/17/16 04:56 Lactic Acid 6.9 mmol/L (0.5-2.2) H* 11/09/16 19:03 Calcium 8.3 mg/dL (8.6-10.8) L 11/17/16 04:56 Ionized Calcium 1.06 mmol/L (1.15-1.35) L 11/13/16 05:45 Lactate Dehydrogenase 381 Units/L (159-327) H 11/15/16 16:31 Troponin I 0.43 ng/mL (0-0.03) H* 11/09/16 17:10 Serum Total Protein 5.5 g/dL (6.0-8.3) L 11/17/16 04:56 Albumin 1.8 g/dL (3.5-5.0) L 11/17/16 04:56 Globulin 3.7 g/dL (2.4-3.5) H 11/17/16 04:56 Albumin/Globulin Ratio 0.5 (1.1-2.2) L 11/17/16 04:56 Urine Ketones Trace mg/dL (Negative) H 11/09/16 19:48 Urine Blood Trace-intact (Negative) H 11/09/16 19:48 Ur Squamous Epith Cells Many per lpf (None-Few) H 11/09/16 19:48 - Clinical Findings Intake & Output: Intake & Output 11/16/16 11/16/16 11/17/16 15:59 23:59 07:59 Intake Total 378 / 378 0 / 0 Output Total 0 / 0 850 / 850 90 / Balance 378 / 378 -850 / -850 - Weight 110.9 kg Consult Discharge Plan - Plan Referrals: Hilda Chappell, OPERATIONS SUPPORT ANALYST [Primary Care Provider] - <Pam Pelletier - Last Filed: 11/17/16 09:56> Assessment and Plan (1) Pleural effusion Current Visit: Yes Status: Acute (2) Pneumothorax on left Current Visit: Yes Status: Acute Objective PUL Vital signs: Last Vital Signs Temp 98.3 F 11/17/16 07:46 Pulse 90 11/17/16 07:46 Resp 18 11/17/16 07:46 BP 110/69 11/17/16 07:46 Pulse Ox 100 11/17/16 07:46 Results - Laboratory Findings CBC and BMP: 11/17/16 04:56 11/17/16 04:56 ABG ABG pH 7.48 pH Units (7.32-7.45) H 11/10/16 04:51 ABG pCO2 30 mmHg (35-45) L 11/10/16 04:51 ABG pO2 99 mmHg (85-104) 11/10/16 04:51 ABG O2 Saturation 98 % (95-98) 11/10/16 04:51 PT/INR, D-dimer PT 12.3 Seconds (9.4-12.1) H 11/16/16 04:45 Abnormal lab findings: Abnormal lab results WBC 1.6 K/mcL (4.3-11.1) L 11/17/16 04:56 RBC 3.54 M/mcL (3.82-4.97) L 11/17/16 04:56 Hgb 9.9 g/dL (11.5-15.4) L 11/17/16 04:56 Hct 31.0 % (35.3-44.9) L 11/17/16 04:56 RDW 21.0 % (11.5-14.5) H 11/17/16 04:56 Plt Count 75 K/mcL (140-400) L 11/17/16 04:56 Neutrophils # 0.4 K/mcL (1.6-8.9) L 11/17/16 04:56 Reactive Lymphocytes Present (Not Present) A 11/17/16 04:56 Toxic Vacuolation Present (Not Present) A 11/16/16 04:45 Platelet Estimate Decreased (Normal) L 11/17/16 04:56 Large Platelets Present (Not Present) A 11/17/16 04:56 Polychromasia 2+ (Not Present) A 11/10/16 03:32 Hypochromasia Present (Not Present) A 11/15/16 04:07 Poikilocytosis 2+ (Not Present) A 11/11/16 07:45 Anisocytosis 2+ (Not Present) A 11/17/16 04:56 Microcytosis Present (Not Present) A 11/17/16 04:56 Macrocytosis Present (Not Present) A 11/17/16 04:56 PT 12.3 Seconds (9.4-12.1) H 11/16/16 04:45 ABG pH 7.48 pH Units (7.32-7.45) H 11/10/16 04:51 ABG pCO2 30 mmHg (35-45) L 11/10/16 04:51 Sodium 135 mEq/L (136-145) L 11/17/16 04:56 Potassium 3.3 mEq/L (3.5-4.5) L 11/17/16 04:56 BUN 4 mg/dL (7-20) L 11/17/16 04:56 Creatinine 0.49 mg/dL (0.57-1.11) L 11/17/16 04:56 Calculated Osmolality 276 (280-300) L 11/17/16 04:56 Lactic Acid 6.9 mmol/L (0.5-2.2) H* 11/09/16 19:03 Calcium 8.3 mg/dL (8.6-10.8) L 11/17/16 04:56 Ionized Calcium 1.06 mmol/L (1.15-1.35) L 11/13/16 05:45 Lactate Dehydrogenase 381 Units/L (159-327) H 11/15/16 16:31 Troponin I 0.43 ng/mL (0-0.03) H* 11/09/16 17:10 Serum Total Protein 5.5 g/dL (6.0-8.3) L 11/17/16 04:56 Albumin 1.8 g/dL (3.5-5.0) L 11/17/16 04:56 Globulin 3.7 g/dL (2.4-3.5) H 11/17/16 04:56 Albumin/Globulin Ratio 0.5 (1.1-2.2) L 11/17/16 04:56 Urine Ketones Trace mg/dL (Negative) H 11/09/16 19:48 Urine Blood Trace-intact (Negative) H 11/09/16 19:48 Ur Squamous Epith Cells Many per lpf (None-Few) H 11/09/16 19:48 - Clinical Findings Intake & Output: Intake & Output 11/16/16 11/17/16 11/17/16 23:59 07:59 15:59 Intake Total 0 / 0 Output Total 850 / 850 90 / 90 Balance -850 / -850 -90 / -90 Weight 110.9 kg - Attending Attestation I examined this patient and my medical decision-making was reviewed with the RIDING TEACHER/PA/Advanced Practice Nurse/Resident Physician. I agree with the documented findings, disposition and treatment plan as described except to the extent set forth below. Patient seen and examined. Labs, radiology, chart personally reviewed. Agree with resident's history and physical, assessment, plan with following comments: TRANSITION ASSISTANT: Patient follows commands, Pulmonary: Acceptable oxygenation and ventilation. Patient have pain today in the left side and chest tube in place. Cardiothoracic follow up and will defer talc placement to cardiothoracic.
--- NOTE | 2016-11-17 10:04 | Cardiothoracic Progress Note ---
Date of Encounter: 11/17/16 Time of Encounter: 10:02 - Assessment and plan (1) Pleural effusion Current Visit: Yes Status: Acute The large bore chest tube will be removed. The smaller pigtail catheter continues to drain and will remain in place until the output decreases sufficiently to allow talc pleurodesis. A chest tube should remain to suction. The assessment and plan as outlined above was discussed with the patient and/or family members who expressed understanding and agreement. All questions were answered. - Subjective Interval history: The patient is resting comfortably in her hospital bed. She has no complaints of shortness of breath. Vital Signs, Last 4 Hours Temp Pulse Resp BP Pulse Ox 11/17/16 07:46 98.3 F 90 18 110/69 100 Oxgyen Flow Rate Oxygen Flow Rate (LPM) 3 Clinical Data, last 8 Hours Output, Chest Tube Drainage 30 Amount [Left #2] Output, Chest Tube Drainage 30 Amount [Left #2] Output, Urine Amount 0 Weight 11/15/16 11/16/16 11/17/16 23:59 23:59 23:59 Weight 111.8 kg 110.9 kg - Physical Examination General: Conversant, No Apparent Distress Neck: No JVD, Normal carotid pulses Cardiac: Reg Rate and Rhythm, Normal S1 and S2, No Murmur Incision: No signs of infection, Dry/intact dressing Chest tubes: Other (No air leak.) Lungs: Normal Breath Sounds, No Wheeze, Rales, Rhonchi Neuro: Alert and responsive, No focal deficits noted Vascular: Normal capillary refill Extremities: No Clubbing, No Cyanosis, No Edema - Labs 11/17/16 04:56 11/17/16 04:56 Lab Results, Last 24 hours 11/17/16 11/17/16 04:56 04:56 WBC 1.6 L Hgb 9.9 L Hct 31.0 L Plt Count 75 L Sodium 135 L Potassium 3.3 L Chloride 103 Carbon Dioxide 23 BUN 4 L Creatinine 0.49 L Glucose 89 Calcium 8.3 L Magnesium 1.6 Total Bilirubin 0.3 AST 11 ALT 6 Alkaline Phosphatase 95 - Imaging Chest Xray: image reviewed (No pneumothorax. The larger bore chest tube distal port is within subcutaneous tissue. The smaller pigtail catheter chest tube is positioned in the left base. There is left basilar atelectasis.) Consult Discharge Plan - Plan Referrals: Hilda Chappell, SALES PLANNING MANAGER [Primary Care Provider] -
[2016-11-17] MEDS ORDERED: Magic Mouthwash 10 ML UD Cup PO PRN (10:15)
--- NOTE | 2016-11-17 10:26 | Palliative Progress Note ---
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 Patient rates pain 7/10. Reports having this discomfort all night. Current regimen reviewed and patient utilized 3 doses IVP Dilaudid without relief. Will increase to 1mg. and she requested 4 doses of BTP Oxycodone with little relief. Will increase Oxycodone to 15 mg every [address] tube removal per CardioThoracic. Will continue to follow. (2) Stomatitis Current Visit: Yes Status: Acute Assessment and plan: C/O summons server mouth pain and the inability to swallow. Multiple blisters to tongue and throat. Will add additional PRN doses of magic mouth wash. Will cont. to follow. (3) Dyspnea Current Visit: No Status: Acute Assessment and plan: Patient with small CT tube in place draining bloody drainage to CT unit. Large CT tube is clamped and will DC'd. NC at 2L on and tolerating well. Awaiting talc pleurodesis. Qualifiers: Dyspnea type: shortness of breath Qualified Code(s): R06.02 - Shortness of breath (4) Goals of care, counseling/discussion Current Visit: Yes Status: Acute Assessment and plan: Patient with order for PT but with significant discomfort fro CT tubes to participate today. Is planning for rehab and resume course of chemo and treatment. Patient is full code. (5) Acute respiratory failure with hypoxia Current Visit: No Status: Acute (6) Pleural effusion Current Visit: Yes Status: Acute (7) Pulmonary embolism Current Visit: No Status: Acute Qualifiers: Pulmonary embolism type: other Chronicity: acute Acute cor pulmonale presence: without acute cor pulmonale Qualified Code(s): I26.99 - Other pulmonary embolism without acute cor pulmonale - Time Spent With Patient Total time spent is greater than 50% in coordination of care (as documented) at patient's floor/unit and/or counseling patient: 25 - 35 minutes - Subjective Interval history: Patient up in bed. Reports 7/[address] insertion sites. Patient had small CT placed yesterday and awaiting CardioThoracic provider to pull large tube. Patient reports having an excessive amount of pain throughout the entire night. Refused to work with physical therapy d/t the discomfort at present. Denies SOB and reports aching, sharp pain localized to CT insertion sites. Dressings CDI and small CT unit to suction draining bloody drainage and large CT tube is clamped at present. - Constitutional Vitals: Abnormal lab results WBC 1.6 K/mcL (4.3-11.1) L 11/17/16 04:56 RBC 3.54 M/mcL (3.82-4.97) L 11/17/16 04:56 Hgb 9.9 g/dL (11.5-15.4) L 11/17/16 04:56 Hct 31.0 % (35.3-44.9) L 11/17/16 04:56 RDW 21.0 % (11.5-14.5) H 11/17/16 04:56 Plt Count 75 K/mcL (140-400) L 11/17/16 04:56 Neutrophils # 0.4 K/mcL (1.6-8.9) L 11/17/16 04:56 Reactive Lymphocytes Present (Not Present) A 11/17/16 04:56 Toxic Vacuolation Present (Not Present) A 11/16/16 04:45 Platelet Estimate Decreased (Normal) L 11/17/16 04:56 Large Platelets Present (Not Present) A 11/17/16 04:56 Polychromasia 2+ (Not Present) A 11/10/16 03:32 Hypochromasia Present (Not Present) A 11/15/16 04:07 Poikilocytosis 2+ (Not Present) A 11/11/16 07:45 Anisocytosis 2+ (Not Present) A 11/17/16 04:56 Microcytosis Present (Not Present) A 11/17/16 04:56 Macrocytosis Present (Not Present) A 11/17/16 04:56 PT 12.3 Seconds (9.4-12.1) H 11/16/16 04:45 ABG pH 7.48 pH Units (7.32-7.45) H 11/10/16 04:51 ABG pCO2 30 mmHg (35-45) L 11/10/16 04:51 Sodium 135 mEq/L (136-145) L 11/17/16 04:56 Potassium 3.3 mEq/L (3.5-4.5) L 11/17/16 04:56 BUN 4 mg/dL (7-20) L 11/17/16 04:56 Creatinine 0.49 mg/dL (0.57-1.11) L 11/17/16 04:56 Calculated Osmolality 276 (280-300) L 11/17/16 04:56 Lactic Acid 6.9 mmol/L (0.5-2.2) H* 11/09/16 19:03 Calcium 8.3 mg/dL (8.6-10.8) L 11/17/16 04:56 Ionized Calcium 1.06 mmol/L (1.15-1.35) L 11/13/16 05:45 Lactate Dehydrogenase 381 Units/L (159-327) H 11/15/16 16:31 Troponin I 0.43 ng/mL (0-0.03) H* 11/09/16 17:10 Serum Total Protein 5.5 g/dL (6.0-8.3) L 11/17/16 04:56 Albumin 1.8 g/dL (3.5-5.0) L 11/17/16 04:56 Globulin 3.7 g/dL (2.4-3.5) H 11/17/16 04:56 Albumin/Globulin Ratio 0.5 (1.1-2.2) L 11/17/16 04:56 Urine Ketones Trace mg/dL (Negative) H 11/09/16 19:48 Urine Blood Trace-intact (Negative) H 11/09/16 19:48 Ur Squamous Epith Cells Many per lpf (None-Few) H 11/09/16 19:48 - Head Head exam: Present: atraumatic, normal inspection, normocephalic - Eye Eye exam: Present: PERRL Pupils: Present: PERRL - ENT ENT exam: Present: mucous membranes dry (multiple oral blisters to tongue, and buccal bed) - Neck Neck exam: Present: full ROM - Respiratory Respiratory exam: Present: decreased breath sounds - Expanded Respiratory Exam Location: decreased breath sounds: Left, Right, Lower - Cardiovascular Cardiovascular exam: Present: +S1, +S2 - GI/Abdominal GI/Abdominal exam: Present: normal bowel sounds, soft (reports liquid stool) - Rectal Rectal exam: Present: tenderness - Back Exam Back exam: Present: full ROM - Neurological Exam Neurological exam: Present: alert, CN II-XII intact, oriented X3 - Skin Skin exam: Present: pallor, warm Palliative Quality Palliative Quality: Screen for Code Status: Yes, Screen for Goals of Care: Yes, Screen for Pain: Yes, If Pain Regimen Started, Initiate Bowel Regimen: Yes, Screen for Nausea/Vomitting: Yes - Labs CBC & Chem 7: 11/17/16 04:56 11/17/16 04:56 Labs: Laboratory Results - last 24 hr 11/16/16 11/17/16 11/17/16 11:11 04:56 04:56 WBC 1.6 L RBC 3.54 L Hgb 9.9 L Hct 31.0 L MCV 87.6 MCH 28.0 MCHC 31.9 RDW 21.0 H Plt Count 75 L MPV 10.3 Immature Gran % 0.0 Seg Neutrophils % 24.1 Lymphocytes % 51.9 Monocytes % 22.8 Eosinophils % 0.6 Basophils % 0.6 Neutrophils # 0.4 L Lymphocytes # 0.8 Monocytes # 0.4 Eosinophils # 0.0 Basophils # 0.0 Reactive Lymphocytes Present A Platelet Estimate Decreased L Large Platelets Present A Anisocytosis 2+ A Microcytosis Present A Macrocytosis Present A Sodium 135 L Potassium 3.3 L Chloride 103 Carbon Dioxide 23 BUN 4 L Creatinine 0.49 L Est GFR ( Amer) > 60 Est GFR (Non-Af Amer) > 60 BUN/Creatinine Ratio 8 Glucose 89 POC Glucose 69 Calculated Osmolality 276 L Calcium 8.3 L Magnesium 1.6 Total Bilirubin 0.3 AST 11 ALT 6 Alkaline Phosphatase 95 Serum Total Protein 5.5 L Albumin 1.8 L Globulin 3.7 H Albumin/Globulin Ratio 0.5 L - Impressions Impressions Needle Aspiration CT 11/16/16 00:00 IMPRESSION: Successful CT guided placement of a left 14 Faroese chest tube. D/ / Edy Coley MD / Edy Coley MD Interpreting Provider: Edy Coley MD Chest X-Ray 11/16/16 15:48 IMPRESSION: Left pleural effusion appears reduced, following introduction of basilar pigtail catheter. There is also probable left basilar atelectasis. A larger caliber left chest tube, apical in position, is again noted. The distal side port is extra thoracic. D/ / Jarvis Angel MD / Jarvis Angel MD Interpreting Provider: Jarvis Angel MD - ABG Interpretation ABG results: ABG ABG pH 7.48 pH Units (7.32-7.45) H 11/10/16 04:51 ABG pCO2 30 mmHg (35-45) L 11/10/16 04:51 ABG pO2 99 mmHg (85-104) 11/10/16 04:51 ABG O2 Saturation 98 % (95-98) 11/10/16 04:51 PT/INR, D-dimer PT 12.3 Seconds (9.4-12.1) H 11/16/16 04:45 Consult Discharge Plan - Plan Referrals: Hilda Chappell, COMPENSATION/BENEFITS SPECIALIST [Primary Care Provider] -
[2016-11-17] MEDS: Baclofen 10 MG TABLET PO SCH ×3 (11:02→20:46)
[2016-11-17] MEDS: Gabapentin 300 MG CAPSULE PO SCH ×3 (11:02→20:46)
[2016-11-17] MEDS: Chlorhexidine Rinse 15 ML MOUTHWASH MM SCH ×2 (11:02→20:46)
[2016-11-17] MEDS: *HR* OxyCODONE Immed Rel 15 MG TABLET PO PRN (11:02)
[2016-11-17] MEDS: Pantoprazole 40 MG VIAL IVPB SCH (11:03)
[2016-11-17] MEDS ORDERED: Magnesium Sulfate 2 GM in D5% in Water 100 ML IVPB ONE (11:43)
--- NOTE | 2016-11-17 16:30 | Internal Med Progress Note ---
<Price Aguilar - Last Filed: 11/17/16 16:27> Date of Encounter: 11/17/16 Time of Encounter: 10:00 - Assessment and plan (1) Acute respiratory failure with hypoxia Current Visit: No Status: Acute Assessment and plan: Patient's acute respiratory failure is likely multifactorial with admitting pneumothorax, pleural effusions secondary to malignancy to the lungs. Baseline home oxygen is 3 L. Patient also has systolic heart failure with an LVEF of 25- 30%, global left ventricular systolic dysfunction with some sparing of the basal segments, mild dilated right ventricle with mild reduced systolic function. Plan: - Patient currently stable. Treating underlying causes including chest tube to reduce pneumothorax and drain pleural effusion. Patient maintaining oxygen saturations greater than 90% on 3 L which is the patient's home O2 level. (2) Pleural effusion Current Visit: Yes Status: Acute Assessment and plan: Stable status post procedure. 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 Patient currently has a left-sided chest tube in place which is falling out. CT of the chest performed on 11/12/2016 demonstrates loculated pleural effusion on the left. Pulmonology was consult and evaluated the patient. Chest x-ray was reviewed from today and determined that the chest tube needs to be replaced. Chest tube replaced on 11/16/2016. Plan: -Continue to monitor chest tube output. - Further intervention per pulmonology. (3) Pulmonary embolism Current Visit: No Status: Acute Assessment and plan: Miss Bains 61-year-old female with known ovarian cancer metastatic disease to lungs was admitted with shortness of breath, acute respiratory failure. CTA of the chest demonstrated pulmonary emboli in both lungs predominantly involving the right main pulmonary artery as well as lobar and segmental branches of the right upper middle and lower lobes. There is also pulmonary embolus within the left upper lobe lingula. No evidence of pulmonary infarct. No evidence of acute right-sided heart failure. CTA of the lung also demonstrated moderate size left sided hydropneumothorax status post left chest tube placement and drainage of a large left pleural effusion. 11/11/2016 Mrs. Bains had a IVC filter placed. She was started on Lovenox therapeutic dosing for pulmonary embolism on 2016. She currently has sanguinous drainage with clots coming out of her left- sided chest tube. Plan: - Continue to monitor respiratory status - Status post 17-Martiniquais chest tube placement 11/16/2016 - Continue Lovenox, therapeutic level Qualifiers: Pulmonary embolism type: other Chronicity: acute Acute cor pulmonale presence: without acute cor pulmonale Qualified Code(s): I26.99 - Other pulmonary embolism without acute cor pulmonale (4) Thrombocytopenia Current Visit: Yes Status: Acute Assessment and plan: Patient has a platelet count of 75 which is fallen from 323 from 11/11/2016. The patient did receive chemotherapy recently, last Tuesday. Patient has had nausea and vomiting and diarrhea overnight. Denies any bleeding or blood in her secretions. No signs of bleeding in her oral cavity on her gums or petechiae on her extremities. Oncology following Plan: - Continue monitoring with daily CBC. - Hematology oncology following. (5) Leukopenia Current Visit: Yes Status: Acute Assessment and plan: Lakeisha Bains currently has a WBC count of 1.6 just fallen from 9.8 on 2016, she recently received chemotherapy on Tuesday of last . This drop is likely secondary to chemotherapy but also may represents infection in an immunocompromised patient. Heme/oncology has been consult and are involved with the patient's care Plan: -Likely secondary to chemotherapy. Continue neutropenic precautions - Continue to monitor with daily labs Qualifiers: Qualified Code(s): D72.819 - Decreased white blood cell count, unspecified (6) Anemia Current Visit: Yes Status: Acute Assessment and plan: . Patient's hemoglobin trended down with a low of 6.3 during his current admission, patient is receiving chemotherapy and likely secondary to suppressed production. Hemoglobin has held stable since her transfusion. No sites of bleeding. Mrs. Bains received 2 units PRBCs thus far during her inpatient stay. Maintaining hemoglobin greater than 8 support as the patient has systolic heart failure with an EF 25-30%. Plan to continue monitoring hemoglobin and hematocrit daily. Qualifiers: Anemia type: unspecified type Qualified Code(s): D64.9 - Anemia, unspecified (7) Metastatic adenocarcinoma Current Visit: Yes Status: Chronic Assessment and plan: Patient has known metastatic adenocarcinoma, oncology is following the patient. (8) Neutropenia, drug-induced Current Visit: Yes Status: Acute Assessment and plan: Mrs. Bains has a neutrophil count of 0.4 down from 8.4 on 11/11/2016. Likely secondary to chemotherapy. She currently has nausea and vomiting and diarrhea. She is afebrile and tachycardia is resolved. Plan: - Initiate neutropenic precautions. - Patient has received Neupogen, continue to monitor neutrophil and white blood cell count - Subjective Interval history: Mrs. Bains 61-year-old female has been seen and evaluated patient bedside this morning. She denies any nausea, vomiting, diarrhea constipation, chest pressure, shortness of breath or palpitations. She does have some chest pain at the site of her recent chest tube placement. She said she tolerated her chest tube replacement. She is hoping that this will help her with her recovery. - Constitutional Vitals: Temp Pulse Resp BP Pulse Ox 98.2 F 90 16 111/72 98 11/17/16 16:20 11/17/16 16:20 11/17/16 16:20 11/17/16 16:20 11/17/16 16:20 General appearance: Present: cooperative, A&O X 3, pleasant, obese - Eye Eye exam: Present: PERRL, conjuntiva pink, sclera anicteric Pupils: Present: PERRL - ENT ENT exam: Present: mucous membranes moist Additional comments: Tongue is red and smooth - Neck Neck exam general surgery: Present: supple, trachea midline. Absent: lymphadenopathy - Respiratory Respiratory exam: Present: CTAB. Absent: accessory muscle use, rales, rhonchi, wheezes - Cardiovascular Cardiovascular exam: Present: RRR, +S1, +S2. Absent: diastolic murmur, gallop, rubs, systolic murmur - GI/Abdominal GI/Abdominal exam: Present: normal bowel sounds, soft, no peritoneal signs. Absent: distended, tenderness - Extremities Exam Additional comments: Bilateral lower extremity edema. Extremities are symmetric bilaterally - Neurological Exam Neurological exam: Present: alert, oriented X3, no focal deficits - Psychiatric Psychiatric exam: Present: normal affect, normal mood Internal Medicine: Result - Labs CBC & Chem 7: 11/17/16 04:56 11/17/16 04:56 Labs: Short CBC 11/17/16 Range/Units 04:56 WBC 1.6 L (4.3-11.1) K/mcL Hgb 9.9 L (11.5-15.4) g/dL Hct 31.0 L (35.3-44.9) % Plt Count 75 L (140-400) K/mcL Neutrophils # 0.4 L (1.6-8.9) K/mcL BMP 11/17/16 04:56 Sodium 135 L Potassium 3.3 L Chloride 103 Carbon Dioxide 23 BUN 4 L Creatinine 0.49 L Glucose 89 Calcium 8.3 L Liver Function 11/17/16 Range/Units 04:56 Total Bilirubin 0.3 (0.2-1.2) mg/dL AST 11 (5-34) Units/L ALT 6 (0-55) Units/L Alkaline Phosphatase 95 (38-126) Units/L Albumin 1.8 L (3.5-5.0) g/dL - ABG Interpretation ABG results: ABG ABG pH 7.48 pH Units (7.32-7.45) H 11/10/16 04:51 ABG pCO2 30 mmHg (35-45) L 11/10/16 04:51 ABG pO2 99 mmHg (85-104) 11/10/16 04:51 ABG O2 Saturation 98 % (95-98) 11/10/16 04:51 PT/INR, D-dimer PT 12.3 Seconds (9.4-12.1) H 11/16/16 04:45 - Impressions Impressions Chest X-Ray 11/16/16 15:48 IMPRESSION: Left pleural effusion appears reduced, following introduction of basilar pigtail catheter. There is also probable left basilar atelectasis. A larger caliber left chest tube, apical in position, is again noted. The distal side port is extra thoracic. D/ / Jarvis Angel MD / Jarvis Angel MD Interpreting Provider: Jarvis Angel MD Consult Discharge Plan - Plan Referrals: Hilda Chappell CNP [Primary Care Provider] - <Phillip Kim - Last Filed: 11/17/16 17:42> - Assessment and plan (1) Pleural effusion Current Visit: Yes Status: Acute (2) Pulmonary embolism Current Visit: No Status: Acute Qualifiers: Pulmonary embolism type: other Chronicity: acute Acute cor pulmonale presence: without acute cor pulmonale Qualified Code(s): I26.99 - Other pulmonary embolism without acute cor pulmonale (3) Acute respiratory failure with hypoxia Current Visit: No Status: Acute (4) Metastatic adenocarcinoma Current Visit: Yes Status: Chronic (5) Anemia Current Visit: Yes Status: Acute Qualifiers: Anemia type: unspecified type Qualified Code(s): D64.9 - Anemia, unspecified - Constitutional Vitals: Temp Pulse Resp BP Pulse Ox 98.2 F 90 16 111/72 98 11/17/16 16:20 11/17/16 16:20 11/17/16 16:20 11/17/16 16:20 11/17/16 16:20 Internal Medicine: Result - Labs CBC & Chem 7: 11/17/16 04:56 11/17/16 04:56 Labs: Short CBC 11/17/16 Range/Units 04:56 WBC 1.6 L (4.3-11.1) K/mcL Hgb 9.9 L (11.5-15.4) g/dL Hct 31.0 L (35.3-44.9) % Plt Count 75 L (140-400) K/mcL Neutrophils # 0.4 L (1.6-8.9) K/mcL BMP 11/17/16 04:56 Sodium 135 L Potassium 3.3 L Chloride 103 Carbon Dioxide 23 BUN 4 L Creatinine 0.49 L Glucose 89 Calcium 8.3 L Liver Function 11/17/16 Range/Units 04:56 Total Bilirubin 0.3 (0.2-1.2) mg/dL AST 11 (5-34) Units/L ALT 6 (0-55) Units/L Alkaline Phosphatase 95 (38-126) Units/L Albumin 1.8 L (3.5-5.0) g/dL - ABG Interpretation ABG results: ABG ABG pH 7.48 pH Units (7.32-7.45) H 11/10/16 04:51 ABG pCO2 30 mmHg (35-45) L 11/10/16 04:51 ABG pO2 99 mmHg (85-104) 11/10/16 04:51 ABG O2 Saturation 98 % (95-98) 11/10/16 04:51 PT/INR, D-dimer PT 12.3 Seconds (9.4-12.1) H 11/16/16 04:45 - Attending Attestation I agree with the physical examination findings, assessment and plan documented by the resident Dr. Reilly. . I examined the patient independently. POtassium supplemented today. Continue monitoring. CTS input appreciated.
[2016-11-18] MEDS: *HR* HYDROmorphone (PF) 1 MG/ML SYRINGE IVP PRN ×3 (00:35→10:12)
[2016-11-18 05:03] LABS: Hemoglobin 8.6 g/dL (11.5-15.4)
[2016-11-18 05:05] LABS: Hematocrit 26.8 % (35.3-44.9); Immature Platelets 5.1 % (1.1-6.1); Lymphocytes # 1.2 K/mcL (0.6-4.6); Mean Corpuscular HGB Conc 32.1 g/dL (31.6-35.5); Mean Corpuscular Hemoglobin 27.8 pg (28.0-33.3); Mean Corpuscular Volume 86.7 fL (83.0-100.0); Mean Platelet Volume 9.4 fL (9.4-12.4); Monocytes # 0.7 K/mcL (0.0-1.3); Red Blood Count 3.09 M/mcL (3.82-4.97); Red Cell Distribution Width 20.9 % (11.5-14.5)
[2016-11-18 05:15] LABS: Platelet Count 66 K/mcL (140-400)
[2016-11-18 05:17] LABS: BUN/Creatinine Ratio 10 (6-26); Blood Urea Nitrogen 4 mg/dL (7-20); Calcium 8.2 mg/dL (8.6-10.8); Carbon Dioxide 23 mEq/L (19-29); Chloride 103 mEq/L (98-109); Glucose 81 mg/dL (70-99); Magnesium 1.4 mg/dL (1.6-2.6); Osmolality,Calculated 274 (280-300); Potassium 3.5 mEq/L (3.5-4.5); Sodium 134 mEq/L (136-145); eGFR For African Americans > 60 (> 60); eGFR For Non-African Americans > 60 (> 60)
[2016-11-18 05:58] LABS: Large Platelets Present (Not Present); Platelet Estimate Decreased (Normal)
[2016-11-18 05:59] LABS: Hypochromasia Present (Not Present); Macrocytosis Present (Not Present); Polychromasia 1+ (Not Present); Reactive Lymphocytes Present (Not Present)
[2016-11-18] MEDS: *HR* Enoxaparin 100 MG/ML SYRINGE SQ SCH (06:33)
--- NOTE | 2016-11-18 08:21 | Pulmonology Progress Note ---
<DonbrodyRoberto Carlos padilla - Last Filed: 11/18/16 11:23> Date of Encounter: 11/18/16 Time of Encounter: 08:19 Assessment and Plan (1) Pleural effusion Current Visit: Yes Status: Acute Large bore chest tube removed yesterday. Small bore chest tube in placed to suction draining 90ml/24hr serosanguinous fluid. CXR reviewed. Removal of Left sided chest tube with interval increase or shifting of fluid which may be partially loculated in the lateral aspect of the left hemithorax. Continue to monitor vitals, labs, and output from small bore chest tube with continuous suction. Defer talc placement for chemical peleuridesis to Cardiothoracic. (2) Pneumothorax on left Current Visit: Yes Status: Resolved Resolved, no pneumothorax appreciated on repeat Chest xrays. Continue per plan in assessment above. Subjective Principal diagnosis: Bilateral Pulmonary emboli and malignant pulmonary effusion Interval history: Patient reports moderate pain over her left chest improved from yesterday after chest tube removal. Continues to have diarrhea with improvement from yesterday. Denies fevers, chills, sweats, headaches, changes in vision or hearing, nausea, vomiting, shortness of breath, changes in bladder, dysuria, weakness, or loss of sensation. Objective PUL Vital signs: Last Vital Signs Temp 98.1 F 11/18/16 07:55 Pulse 84 11/18/16 07:55 Resp 12 11/18/16 07:55 BP 109/73 11/18/16 07:55 Pulse Ox 99 11/18/16 07:55 General appearance: no acute distress, alert Eyes: nonicteric ENT: oropharynx moist, other (sores noted under lateral tongue bilaterally, poor molar dentition, abrasion right nostril with crusting of blood, no active bleed) Neck: supple, no lymphadenopathy, no JVD Effort: normal Auscultation: bilateral: clear, diminished breath sounds Cardiovascular: regular rate and rhythm Gastrointestinal: normoactive bowel sounds, soft, non-tender, non-distended Integumentary: normal, other (small bore left chest tube in place to suction draining serosanguinous fluid (90mL/24hrs)) Extremities: no cyanosis, pink and warm, no ischemia or petechiae, edema (2+ pitting edema) Musculoskeletal: no deformities, ROM normal Gait: normal gait, normal posture normal mental status, non-focal exam, pupils equal and round, CN II-XII normal, motor strength normal and symmetric mood appropriate, affect normal Results - Laboratory Findings CBC and BMP: 11/18/16 04:41 11/18/16 04:41 ABG ABG pH 7.48 pH Units (7.32-7.45) H 11/10/16 04:51 ABG pCO2 30 mmHg (35-45) L 11/10/16 04:51 ABG pO2 99 mmHg (85-104) 11/10/16 04:51 ABG O2 Saturation 98 % (95-98) 11/10/16 04:51 PT/INR, D-dimer PT 12.3 Seconds (9.4-12.1) H 11/16/16 04:45 Abnormal lab findings: Abnormal lab results WBC 2.9 K/mcL (4.3-11.1) L D 11/18/16 04:41 RBC 3.09 M/mcL (3.82-4.97) L 11/18/16 04:41 Hgb 8.6 g/dL (11.5-15.4) L 11/18/16 04:41 Hct 26.8 % (35.3-44.9) L 11/18/16 04:41 MCH 27.8 pg (28.0-33.3) L 11/18/16 04:41 RDW 20.9 % (11.5-14.5) H 11/18/16 04:41 Plt Count 66 K/mcL (140-400) L 11/18/16 04:41 Band Neutrophils % 10.0 % (0-4) H 11/18/16 04:41 Neutrophils # 1.0 K/mcL (1.6-8.9) L 11/18/16 04:41 Reactive Lymphocytes Present (Not Present) A 11/18/16 04:41 Toxic Vacuolation Present (Not Present) A 11/16/16 04:45 Platelet Estimate Decreased (Normal) L 11/18/16 04:41 Large Platelets Present (Not Present) A 11/18/16 04:41 Polychromasia 1+ (Not Present) A 11/18/16 04:41 Hypochromasia Present (Not Present) A 11/18/16 04:41 Poikilocytosis 2+ (Not Present) A 11/11/16 07:45 Anisocytosis 2+ (Not Present) A 11/17/16 04:56 Microcytosis Present (Not Present) A 11/17/16 04:56 Macrocytosis Present (Not Present) A 11/18/16 04:41 PT 12.3 Seconds (9.4-12.1) H 11/16/16 04:45 ABG pH 7.48 pH Units (7.32-7.45) H 11/10/16 04:51 ABG pCO2 30 mmHg (35-45) L 11/10/16 04:51 Sodium 134 mEq/L (136-145) L 11/18/16 04:41 BUN 4 mg/dL (7-20) L 11/18/16 04:41 Creatinine 0.42 mg/dL (0.57-1.11) L 11/18/16 04:41 Calculated Osmolality 274 (280-300) L 11/18/16 04:41 Lactic Acid 6.9 mmol/L (0.5-2.2) H* 11/09/16 19:03 Calcium 8.2 mg/dL (8.6-10.8) L 11/18/16 04:41 Ionized Calcium 1.06 mmol/L (1.15-1.35) L 11/13/16 05:45 Magnesium 1.4 mg/dL (1.6-2.6) L 11/18/16 04:41 Lactate Dehydrogenase 381 Units/L (159-327) H 11/15/16 16:31 Troponin I 0.43 ng/mL (0-0.03) H* 11/09/16 17:10 Serum Total Protein 5.5 g/dL (6.0-8.3) L 11/17/16 04:56 Albumin 1.8 g/dL (3.5-5.0) L 11/17/16 04:56 Globulin 3.7 g/dL (2.4-3.5) H 11/17/16 04:56 Albumin/Globulin Ratio 0.5 (1.1-2.2) L 11/17/16 04:56 Urine Ketones Trace mg/dL (Negative) H 11/09/16 19:48 Urine Blood Trace-intact (Negative) H 11/09/16 19:48 Ur Squamous Epith Cells Many per lpf (None-Few) H 11/09/16 19:48 - Clinical Findings Intake & Output: Intake & Output 11/17/16 11/18/16 11/18/16 23:59 07:59 15:59 Intake Total 224 / 224 220 / 220 Output Total 500 / 500 Balance 214 / 214 -280 / -280 Consult Discharge Plan - Plan Referrals: Hilda Chappell, [employer] DEVELOPER [Primary Care Provider] - <Pam Pelletier - Last Filed: 11/18/16 13:09> Assessment and Plan (1) Pleural effusion Current Visit: Yes Status: Acute (2) Pneumothorax on left Current Visit: Yes Status: Resolved Objective PUL Vital signs: Last Vital Signs Temp 98.4 F 11/18/16 12:37 Pulse 93 11/18/16 12:37 Resp 12 11/18/16 12:37 BP 101/66 11/18/16 12:37 Pulse Ox 99 11/18/16 12:37 Results - Laboratory Findings CBC and BMP: 11/18/16 04:41 11/18/16 04:41 ABG ABG pH 7.48 pH Units (7.32-7.45) H 11/10/16 04:51 ABG pCO2 30 mmHg (35-45) L 11/10/16 04:51 ABG pO2 99 mmHg (85-104) 11/10/16 04:51 ABG O2 Saturation 98 % (95-98) 11/10/16 04:51 PT/INR, D-dimer PT 12.3 Seconds (9.4-12.1) H 11/16/16 04:45 Abnormal lab findings: Abnormal lab results WBC 2.9 K/mcL (4.3-11.1) L D 11/18/16 04:41 RBC 3.09 M/mcL (3.82-4.97) L 11/18/16 04:41 Hgb 8.6 g/dL (11.5-15.4) L 11/18/16 04:41 Hct 26.8 % (35.3-44.9) L 11/18/16 04:41 MCH 27.8 pg (28.0-33.3) L 11/18/16 04:41 RDW 20.9 % (11.5-14.5) H 11/18/16 04:41 Plt Count 66 K/mcL (140-400) L 11/18/16 04:41 Band Neutrophils % 10.0 % (0-4) H 11/18/16 04:41 Neutrophils # 1.0 K/mcL (1.6-8.9) L 11/18/16 04:41 Reactive Lymphocytes Present (Not Present) A 11/18/16 04:41 Toxic Vacuolation Present (Not Present) A 11/16/16 04:45 Platelet Estimate Decreased (Normal) L 11/18/16 04:41 Large Platelets Present (Not Present) A 11/18/16 04:41 Polychromasia 1+ (Not Present) A 11/18/16 04:41 Hypochromasia Present (Not Present) A 11/18/16 04:41 Poikilocytosis 2+ (Not Present) A 11/11/16 07:45 Anisocytosis 2+ (Not Present) A 11/17/16 04:56 Microcytosis Present (Not Present) A 11/17/16 04:56 Macrocytosis Present (Not Present) A 11/18/16 04:41 PT 12.3 Seconds (9.4-12.1) H 11/16/16 04:45 ABG pH 7.48 pH Units (7.32-7.45) H 11/10/16 04:51 ABG pCO2 30 mmHg (35-45) L 11/10/16 04:51 Sodium 134 mEq/L (136-145) L 11/18/16 04:41 BUN 4 mg/dL (7-20) L 11/18/16 04:41 Creatinine 0.42 mg/dL (0.57-1.11) L 11/18/16 04:41 Calculated Osmolality 274 (280-300) L 11/18/16 04:41 Lactic Acid 6.9 mmol/L (0.5-2.2) H* 11/09/16 19:03 Calcium 8.2 mg/dL (8.6-10.8) L 11/18/16 04:41 Ionized Calcium 1.06 mmol/L (1.15-1.35) L 11/13/16 05:45 Magnesium 1.4 mg/dL (1.6-2.6) L 11/18/16 04:41 Lactate Dehydrogenase 381 Units/L (159-327) H 11/15/16 16:31 Troponin I 0.43 ng/mL (0-0.03) H* 11/09/16 17:10 Serum Total Protein 5.5 g/dL (6.0-8.3) L 11/17/16 04:56 Albumin 1.8 g/dL (3.5-5.0) L 11/17/16 04:56 Globulin 3.7 g/dL (2.4-3.5) H 11/17/16 04:56 Albumin/Globulin Ratio 0.5 (1.1-2.2) L 11/17/16 04:56 Urine Ketones Trace mg/dL (Negative) H 11/09/16 19:48 Urine Blood Trace-intact (Negative) H 11/09/16 19:48 Ur Squamous Epith Cells Many per lpf (None-Few) H 11/09/16 19:48 - Clinical Findings Intake & Output: Intake & Output 11/17/16 11/18/16 11/18/16 23:59 07:59 15:59 Intake Total 224 / 224 220 / 220 120 / 120 Output Total 10 500 / 500 20 / 20 Balance 214 / 214 -280 / -280 100 / 100 - Attending Attestation I examined this patient and my medical decision-making was reviewed with the PAINT GRINDER/PA/Advanced Practice Nurse/Resident Physician. I agree with the documented findings, disposition and treatment plan as described except to the extent set forth below. Patient seen and examined. Labs, radiology, chart personally reviewed. Agree with resident's history and physical, assessment, plan with following comments: CHIEF PILOT: Patient follows commands, Pulmonary: Acceptable oxygenation and ventilation and large chest tube remove and chest X-ray is reviewed. Discussed with Dr. Rodriguez regarding pleurodesis. Patient is feeling better today. Cardiovascular: stable
[2016-11-18] MEDS ORDERED: Magnesium Sulfate 2 GM in D5% in Water 100 ML IVPB ONE (08:33)
[2016-11-18] MEDS: Chlorhexidine Rinse 15 ML MOUTHWASH MM SCH ×2 (10:10→20:48)
[2016-11-18] MEDS: Pantoprazole 40 MG VIAL IVPB SCH (10:11)
[2016-11-18] MEDS: Baclofen 10 MG TABLET PO SCH ×3 (10:11→20:48)
[2016-11-18] MEDS: Gabapentin 300 MG CAPSULE PO SCH ×3 (10:12→20:48)
[2016-11-18] MEDS: *HR* OxyCODONE Immed Rel 15 MG TABLET PO PRN ×2 (10:12→19:03)
--- NOTE | 2016-11-18 10:48 | Cardiothoracic Progress Note ---
Date of Encounter: 11/18/16 Time of Encounter: 10:45 - Assessment and plan (1) Pleural effusion Current Visit: Yes Status: Acute The chest x-ray reveals increased left pleural effusion, partially loculated laterally. The chest tube will remain on suction in hopes of draining a significant portion of this effusion prior to talc pleurodesis. The assessment and plan as outlined above was discussed with the patient and/or family members who expressed understanding and agreement. All questions were answered. - Subjective Interval history: The patient is resting comfortably in her hospital bed. She has no complaints of shortness of breath. Vital Signs, Last 4 Hours Temp Pulse Resp BP Pulse Ox 11/18/16 07:55 98.1 F 84 12 109/73 99 Oxgyen Flow Rate Oxygen Flow Rate (LPM) 3 Clinical Data, last 8 Hours Output, Chest Tube Drainage 0 Amount [Left #2] Output, Chest Tube Drainage 10 Amount [Left #2] Output, Urine Amount 0 Weight 11/16/16 11/17/16 11/18/16 23:59 23:59 23:59 Weight 111.8 kg 110.9 kg - Physical Examination General: Conversant, No Apparent Distress Neck: No JVD, Normal carotid pulses Cardiac: Reg Rate and Rhythm, Normal S1 and S2, No Murmur Chest tubes: Minimal drainage, Other (No air leak.) Lungs: Normal Breath Sounds, No Wheeze, Rales, Rhonchi Neuro: Alert and responsive, No focal deficits noted Vascular: Normal capillary refill Extremities: No Clubbing, No Cyanosis, No Edema - Labs 11/18/16 04:41 11/18/16 04:41 Lab Results, Last 24 hours 11/18/16 11/18/16 04:41 04:41 WBC 2.9 L D Hgb 8.6 L Hct 26.8 L Plt Count 66 L Sodium 134 L Potassium 3.5 Chloride 103 Carbon Dioxide 23 BUN 4 L Creatinine 0.42 L Glucose 81 Calcium 8.2 L Magnesium 1.4 L - Imaging Chest Xray: image reviewed (Interval increase in the left pleural effusion, partially loculated in the lateral aspect.) Consult Discharge Plan - Plan Referrals: Hilda Chappell, [employer] DIRECTOR [Primary Care Provider] -
--- NOTE | 2016-11-18 13:12 | Palliative Progress Note ---
Date of Encounter: 11/18/16 Time of Encounter: 12:00 - Assessment and plan (1) Cancer associated pain Current Visit: Yes Status: Chronic Assessment and plan: Patient c/o sore ache and localized discomfort to CT insertion sights. Patient rates pain 4/10. Reports having decreased discomfort with IV Dilaudid. Current regimen reviewed and patient utilized 6 doses IVP Dilaudid with relief. She requested 1 dose of Oxycodone with slight relief. Will continue to follow. (2) Stomatitis Current Visit: Yes Status: Acute Assessment and plan: C/O bistro server mouth pain and the inability to swallow. Multiple blisters to tongue and throat. Will add additional PRN doses of magic mouth wash. Will cont. to follow. (3) Dyspnea Current Visit: No Status: Acute Assessment and plan: Patient with small CT tube in place draining bloody drainage to CT unit. NC at 2L on and tolerating well. Awaiting talc pleurodesis. Qualifiers: Dyspnea type: shortness of breath Qualified Code(s): R06.02 - Shortness of breath (4) Goals of care, counseling/discussion Current Visit: Yes Status: Acute Assessment and plan: Patient with order for PT but with slight discomfort from small CT tube to participate today. Is planning for rehab and resume course of chemo and treatment. Patient is full code. (5) Acute respiratory failure with hypoxia Current Visit: No Status: Acute (6) Pleural effusion Current Visit: Yes Status: Acute (7) Pulmonary embolism Current Visit: No Status: Acute Qualifiers: Pulmonary embolism type: other Chronicity: acute Acute cor pulmonale presence: without acute cor pulmonale Qualified Code(s): I26.99 - Other pulmonary embolism without acute cor pulmonale - Time Spent With Patient Total time spent is greater than 50% in coordination of care (as documented) at patient's floor/unit and/or counseling patient: less than 15 minutes - Subjective Interval history: Patient up in bed. Reports 4/10 pain at present.. Patient had large CT tube. Patient reports having less pain throughout night d/t large CT being pulled. Refused to work with physical therapy d/t the discomfort. Dressings CDI and small CT unit to suction draining bloody drainage. Medications for pain adjusted yesterday and reports enhanced comfort with IVP Dilaudid. - Constitutional Vitals: Abnormal lab results WBC 2.9 K/mcL (4.3-11.1) L D 11/18/16 04:41 RBC 3.09 M/mcL (3.82-4.97) L 11/18/16 04:41 Hgb 8.6 g/dL (11.5-15.4) L 11/18/16 04:41 Hct 26.8 % (35.3-44.9) L 11/18/16 04:41 MCH 27.8 pg (28.0-33.3) L 11/18/16 04:41 RDW 20.9 % (11.5-14.5) H 11/18/16 04:41 Plt Count 66 K/mcL (140-400) L 11/18/16 04:41 Band Neutrophils % 10.0 % (0-4) H 11/18/16 04:41 Neutrophils # 1.0 K/mcL (1.6-8.9) L 11/18/16 04:41 Reactive Lymphocytes Present (Not Present) A 11/18/16 04:41 Toxic Vacuolation Present (Not Present) A 11/16/16 04:45 Platelet Estimate Decreased (Normal) L 11/18/16 04:41 Large Platelets Present (Not Present) A 11/18/16 04:41 Polychromasia 1+ (Not Present) A 11/18/16 04:41 Hypochromasia Present (Not Present) A 11/18/16 04:41 Poikilocytosis 2+ (Not Present) A 11/11/16 07:45 Anisocytosis 2+ (Not Present) A 11/17/16 04:56 Microcytosis Present (Not Present) A 11/17/16 04:56 Macrocytosis Present (Not Present) A 11/18/16 04:41 PT 12.3 Seconds (9.4-12.1) H 11/16/16 04:45 ABG pH 7.48 pH Units (7.32-7.45) H 11/10/16 04:51 ABG pCO2 30 mmHg (35-45) L 11/10/16 04:51 Sodium 134 mEq/L (136-145) L 11/18/16 04:41 BUN 4 mg/dL (7-20) L 11/18/16 04:41 Creatinine 0.42 mg/dL (0.57-1.11) L 11/18/16 04:41 Calculated Osmolality 274 (280-300) L 11/18/16 04:41 Lactic Acid 6.9 mmol/L (0.5-2.2) H* 11/09/16 19:03 Calcium 8.2 mg/dL (8.6-10.8) L 11/18/16 04:41 Ionized Calcium 1.06 mmol/L (1.15-1.35) L 11/13/16 05:45 Magnesium 1.4 mg/dL (1.6-2.6) L 11/18/16 04:41 Lactate Dehydrogenase 381 Units/L (159-327) H 11/15/16 16:31 Troponin I 0.43 ng/mL (0-0.03) H* 11/09/16 17:10 Serum Total Protein 5.5 g/dL (6.0-8.3) L 11/17/16 04:56 Albumin 1.8 g/dL (3.5-5.0) L 11/17/16 04:56 Globulin 3.7 g/dL (2.4-3.5) H 11/17/16 04:56 Albumin/Globulin Ratio 0.5 (1.1-2.2) L 11/17/16 04:56 Urine Ketones Trace mg/dL (Negative) H 11/09/16 19:48 Urine Blood Trace-intact (Negative) H 11/09/16 19:48 Ur Squamous Epith Cells Many per lpf (None-Few) H 11/09/16 19:48 - Head Head exam: Present: atraumatic, normal inspection, normocephalic - Eye Eye exam: Present: PERRL - ENT ENT exam: Present: mucous membranes moist - Respiratory Respiratory exam: Present: decreased breath sounds (CT small to suction ) - Expanded Respiratory Exam Location: decreased breath sounds: Left, Right, Lower - Cardiovascular Cardiovascular exam: Present: RRR, +S1, +S2 - Expanded Cardiovascular Exam Peripheral pulses: 1+: Femoral (L) PM, Femoral (R) PM, Posterior Tibialis (L), Posterior Tibialis (R), 2+: Carotid (L) PM, Carotid (R) PM, Radial (L), Radial ( R), Dorsalis Pedis (L) PM, Dorsalis Pedis (R) PM - GI/Abdominal GI/Abdominal exam: Present: normal bowel sounds, soft (reports BM with additional passing of liquid stool) - Extremities Exam Extremities exam: Present: full ROM - Back Exam Back exam: Present: full ROM - Neurological Exam Neurological exam: Present: alert, CN II-XII intact, oriented X3 - Psychiatric Psychiatric exam: Present: normal affect - Skin Skin exam: Present: pallor, warm Palliative Quality Palliative Quality: Screen for Code Status: Yes, Screen for Goals of Care: Yes, Screen for Pain: Yes, If Pain Regimen Started, Initiate Bowel Regimen: Yes, Screen for Nausea/Vomitting: Yes - Labs CBC & Chem 7: 11/18/16 04:41 11/18/16 04:41 Labs: Laboratory Results - last 24 hr 11/18/16 11/18/16 04:41 04:41 WBC 2.9 L D RBC 3.09 L Hgb 8.6 L Hct 26.8 L MCV 86.7 MCH 27.8 L MCHC 32.1 RDW 20.9 H Plt Count 66 L MPV 9.4 Seg Neutrophils % 24.0 Band Neutrophils % 10.0 H Lymphocytes % 42.0 Monocytes % 24.0 Neutrophils # 1.0 L Lymphocytes # 1.2 Monocytes # 0.7 Reactive Lymphocytes Present A Platelet Estimate Decreased L Large Platelets Present A Immature Plt Fraction 5.1 Polychromasia 1+ A Hypochromasia Present A Macrocytosis Present A Sodium 134 L Potassium 3.5 Chloride 103 Carbon Dioxide 23 BUN 4 L Creatinine 0.42 L Est GFR ( Amer) > 60 Est GFR (Non-Af Amer) > 60 BUN/Creatinine Ratio 10 Glucose 81 Calculated Osmolality 274 L Calcium 8.2 L Magnesium 1.4 L - Impressions Impressions Chest X-Ray 11/18/16 06:00 IMPRESSION: Interval removal of one of the left-sided chest tubes with interval increase or shifting of fluid which may be partially loculated in the lateral aspect of the left hemithorax. D/ / 11/18/2016 07:25:02 Mohinder Arteaga MD / bcarter Interpreting Provider: Mohinder Arteaga MD - ABG Interpretation ABG results: ABG ABG pH 7.48 pH Units (7.32-7.45) H 11/10/16 04:51 ABG pCO2 30 mmHg (35-45) L 11/10/16 04:51 ABG pO2 99 mmHg (85-104) 11/10/16 04:51 ABG O2 Saturation 98 % (95-98) 11/10/16 04:51 PT/INR, D-dimer PT 12.3 Seconds (9.4-12.1) H 11/16/16 04:45 Consult Discharge Plan - Plan Referrals: Hilda Chappell, [facility] [employer] [Primary Care Provider] -
[2016-11-18] MEDS: Magic Mouthwash 10 ML UD Cup PO SCH ×2 (13:19→15:49)
--- NOTE | 2016-11-18 16:46 | Event Note ---
Date of Encounter: 11/18/16 Time of Encounter: 13:40 I was paged by Hospitalist Resident at 2055. Patient was scheduled for IR biopsy of peritoneum as inpatient. There were concerns of 66 platelet count. I spoke to Dr Brewster, her medical oncologist. With all her current problems with cardiothoracic issues, chest tube and impending talc pleurodesis, we will cancel and do biopsy as outpatient. Dr Brewster said OK to continue and resume therapeutic lovenox. We will continue to follow.
--- NOTE | 2016-11-18 17:08 | Internal Med Progress Note ---
<BiankaharriettPrice Claudio - Last Filed: 11/18/16 20:11> Date of Encounter: 11/18/16 Time of Encounter: 10:00 - Assessment and plan (1) Acute respiratory failure with hypoxia Current Visit: No Status: Acute Assessment and plan: Patient's acute respiratory failure is likely multifactorial with admitting pneumothorax, pleural effusions secondary to malignancy to the lungs. Baseline home oxygen is 3 L. Patient also has systolic heart failure with an LVEF of 25- 30%, global left ventricular systolic dysfunction with some sparing of the basal segments, mild dilated right ventricle with mild reduced systolic function. 11/18/2016: Respiratory status is stable. Patient does not complain of SOB or chest pain. Maintaining oxygen saturations >90% on 3L oxygen. Plan: - Patient currently stable. Treating underlying causes including chest tube to reduce pneumothorax and drain pleural effusion. Patient maintaining oxygen saturations greater than 90% on 3 L which is the patient's home O2 level. (2) Pleural effusion Current Visit: Yes Status: Acute Assessment and plan: Stable status post procedure. 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 Patient currently has a left-sided chest tube in place which is falling out. CT of the chest performed on 11/12/2016 demonstrates loculated pleural effusion on the left. Pulmonology was consult and evaluated the patient. Chest tube replaced, On suction with appropriate drainage. Plan: -Continue to monitor chest tube output. - Further intervention per pulmonology and Cardiothoracic surgery (3) Pulmonary embolism Current Visit: No Status: Acute Assessment and plan: Ms. Bains 61-year-old female with known ovarian cancer metastatic disease to lungs was admitted with shortness of breath, acute respiratory failure. CTA of the chest demonstrated pulmonary emboli in both lungs predominantly involving the right main pulmonary artery as well as lobar and segmental branches of the right upper middle and lower lobes. There is also pulmonary embolus within the left upper lobe lingula. No evidence of pulmonary infarct. No evidence of acute right-sided heart failure. CTA of the lung also demonstrated moderate size left sided hydropneumothorax status post left chest tube placement and drainage of a large left pleural effusion. 11/11/2016 Mrs. Bains had a IVC filter placed. Lovenox was discontinued evening of 11/17/2016 for possible retroperitoneal biopsy. Platelets 66 and I spoke with Oncology who were okay holding off on the biopsy today and restarting Lovenox subcutaneously at theraputic dosing. Plan: - Continue to monitor respiratory status - Status post 17-J[place]ican chest tube placement 11/16/2016 - Continue Lovenox, therapeutic level Qualifiers: Pulmonary embolism type: other Chronicity: acute Acute cor pulmonale presence: without acute cor pulmonale Qualified Code(s): I26.99 - Other pulmonary embolism without acute cor pulmonale (4) Thrombocytopenia Current Visit: Yes Status: Acute Assessment and plan: Patient has a platelet count of 66 which is fallen from 323 from 11/11/2016. The patient did receive chemotherapy recently, last Tuesday. Patient has had nausea and vomiting and diarrhea overnight. Denies any bleeding or blood in her secretions. No signs of bleeding in her oral cavity on her gums or petechiae on her extremities. Oncology following Plan: - Continue monitoring with daily CBC. - Hematology oncology following. (5) Leukopenia Current Visit: Yes Status: Acute Assessment and plan: WBC improving after receiving Nuprogen. she recently received chemotherapy on Tuesday of last week. This drop is likely secondary to chemotherapy but also may represents infection in an immunocompromised patient. Heme/oncology has been consult and are involved with the patient's care Plan: -Likely secondary to chemotherapy. Continue neutropenic precautions - Continue to monitor with daily labs Qualifiers: Qualified Code(s): D72.819 - Decreased white blood cell count, unspecified (6) Anemia Current Visit: Yes Status: Acute Assessment and plan: . Patient's hemoglobin trended down with a low of 6.3 during his current admission, patient is receiving chemotherapy and likely secondary to suppressed production. Hemoglobin has held stable since her transfusion. No sites of bleeding. Mrs. Bains received 2 units PRBCs thus far during her inpatient stay. Maintaining hemoglobin greater than 8 support as the patient has systolic heart failure with an EF 25-30%. Plan to continue monitoring hemoglobin and hematocrit daily. Qualifiers: Anemia type: unspecified type Qualified Code(s): D64.9 - Anemia, unspecified (7) Metastatic adenocarcinoma Current Visit: Yes Status: Chronic Assessment and plan: Patient has known metastatic adenocarcinoma, oncology is following the patient. (8) Neutropenia, drug-induced Current Visit: Yes Status: Acute Assessment and plan: Mrs. Bains has a neutrophil that is 1.0 improving after Neupogen, down from 8.4 on 11/11/2016. Likely secondary to chemotherapy. She is afebrile and tachycardia is resolved. Plan: - Initiate neutropenic precautions. - Patient has received Neupogen, continue to monitor neutrophil and white blood cell count - Subjective Interval history: Mrs. Bains 61-year-old female has been seen and evaluated patient bedside this morning. She denies any nausea, vomiting, diarrhea constipation, chest pressure, shortness of breath or palpitations. She denies any current pain from her chest tube site. She is tolerating PO intake and denies any further diarrhea episodes. She denies any further questions or concerns at this time. - Constitutional Vitals: Temp Pulse Resp BP Pulse Ox 97.8 F 96 16 110/75 99 11/18/16 15:58 11/18/16 15:58 11/18/16 15:58 11/18/16 15:58 11/18/16 15:58 General appearance: Present: cooperative, A&O X 3, pleasant, obese - Head Head exam: Present: atraumatic, normocephalic - Eye Eye exam: Present: PERRL, conjuntiva pink, sclera anicteric Pupils: Present: PERRL - Neck Neck exam general surgery: Present: supple, trachea midline. Absent: lymphadenopathy - Respiratory Respiratory exam: Present: CTAB. Absent: accessory muscle use, rales, rhonchi, wheezes Additional comments: Chest tube in left chest is draining bloody fluid, chest dressing intact. thoracic movement is symmetric bilaterally. - Cardiovascular Cardiovascular exam: Present: RRR, +S1, +S2. Absent: diastolic murmur, gallop, rubs, systolic murmur - GI/Abdominal GI/Abdominal exam: Present: normal bowel sounds, soft, no peritoneal signs. Absent: distended, tenderness - Extremities Exam Extremities exam: Present: pedal edema, warm, radial pulses palpable and symetrical. Absent: calf tenderness, cyanotic - Neurological Exam Neurological exam: Present: alert, oriented X3, no focal deficits. Absent: pronater drift, facial droop, speech deficit - Psychiatric Psychiatric exam: Present: normal affect, normal mood Internal Medicine: Result - Labs CBC & Chem 7: 11/18/16 04:41 11/18/16 04:41 Labs: Short CBC 11/18/16 Range/Units 04:41 WBC 2.9 L D (4.3-11.1) K/mcL Hgb 8.6 L (11.5-15.4) g/dL Hct 26.8 L (35.3-44.9) % Plt Count 66 L (140-400) K/mcL Neutrophils # 1.0 L (1.6-8.9) K/mcL BMP 11/18/16 04:41 Sodium 134 L Potassium 3.5 Chloride 103 Carbon Dioxide 23 BUN 4 L Creatinine 0.42 L Glucose 81 Calcium 8.2 L - ABG Interpretation ABG results: ABG ABG pH 7.48 pH Units (7.32-7.45) H 11/10/16 04:51 ABG pCO2 30 mmHg (35-45) L 11/10/16 04:51 ABG pO2 99 mmHg (85-104) 11/10/16 04:51 ABG O2 Saturation 98 % (95-98) 11/10/16 04:51 PT/INR, D-dimer PT 12.3 Seconds (9.4-12.1) H 11/16/16 04:45 - Impressions Impressions Chest X-Ray 11/18/16 06:00 IMPRESSION: Interval removal of one of the left-sided chest tubes with interval increase or shifting of fluid which may be partially loculated in the lateral aspect of the left hemithorax. D/ / 11/18/2016 07:25:02 Mohinder Arteaga MD / bcarter Interpreting Provider: Mohinder Arteaga MD Consult Discharge Plan - Plan Referrals: Hilda Chappell CNP [Primary Care Provider] - <Phillip Kim - Last Filed: 11/19/16 07:35> - Assessment and plan (1) Pleural effusion Current Visit: Yes Status: Acute (2) Pulmonary embolism Current Visit: No Status: Acute Qualifiers: Pulmonary embolism type: other Chronicity: acute Acute cor pulmonale presence: without acute cor pulmonale Qualified Code(s): I26.99 - Other pulmonary embolism without acute cor pulmonale (3) Acute respiratory failure with hypoxia Current Visit: No Status: Acute (4) Metastatic adenocarcinoma Current Visit: Yes Status: Chronic (5) Anemia Current Visit: Yes Status: Acute Qualifiers: Anemia type: unspecified type Qualified Code(s): D64.9 - Anemia, unspecified - Constitutional Vitals: Temp Pulse Resp BP Pulse Ox 98.1 F 86 20 99/63 100 11/19/16 07:06 11/19/16 07:06 11/19/16 07:06 11/19/16 07:06 11/19/16 07:06 Internal Medicine: Result - Labs CBC & Chem 7: 11/19/16 04:23 11/19/16 04:23 Labs: Short CBC 11/19/16 Range/Units 04:23 WBC 9.9 D (4.3-11.1) K/mcL Hgb 8.9 L (11.5-15.4) g/dL Hct 28.2 L (35.3-44.9) % Plt Count 62 L (140-400) K/mcL Neutrophils # 6.5 (1.6-8.9) K/mcL BMP 11/19/16 04:23 Sodium 135 L Potassium 3.6 Chloride 103 Carbon Dioxide 23 BUN 3 L Creatinine 0.45 L Glucose 68 L Calcium 8.5 L - ABG Interpretation ABG results: ABG ABG pH 7.48 pH Units (7.32-7.45) H 11/10/16 04:51 ABG pCO2 30 mmHg (35-45) L 11/10/16 04:51 ABG pO2 99 mmHg (85-104) 11/10/16 04:51 ABG O2 Saturation 98 % (95-98) 11/10/16 04:51 PT/INR, D-dimer PT 12.3 Seconds (9.4-12.1) H 11/16/16 04:45 - Impressions Impressions Chest X-Ray 11/16/16 07:55 IMPRESSION: No evidence of residual left pneumothorax. Small left pleural effusion is unchanged. Left-sided chest tube in unchanged position with tip projecting over the lateral mid left lung and side port in the lateral chest wall soft tissues. The findings were sent to the Radiology Results Communication [facility] at 8:19 am on 11/16/2016to be communicated to a licensed caregiver. D/ / 11/16/2016 08:22:39 Maria Del Rosario Manley MD / ivonne Interpreting Provider: Maria Del Rosario Manley MD Chest X-Ray 11/18/16 06:00 IMPRESSION: Interval removal of one of the left-sided chest tubes with interval increase or shifting of fluid which may be partially loculated in the lateral aspect of the left hemithorax. D/ / 11/18/2016 07:25:02 Mohinder Arteaga MD / [email or web address] Interpreting Provider: Mohinder Arteaga MD Chest X-Ray 11/19/16 06:00 IMPRESSION: 1. Left pleural catheter unchanged in position without evidence of pneumothorax. 2. Bilateral pleural effusions, left greater than right. 3. Mildly enlarged cardiac silhouette. 4. Bibasilar atelectasis. D/ / Josiah Calderon MD / Josiah Calderon MD Interpreting Provider: Josiah Calderon MD - Attending Attestation I examined this patient and my medical decision-making was reviewed with the MUSEUM DIRECTOR/PA/Advanced Practice Nurse/Resident Physician. I agree with the documented findings, disposition and treatment plan as described except to the extent set forth below. D/W hem onc, ok to continue with lovenox. Supplement potassium and magnesium, continue monitoring. Follow CTS and pulmonology input.
[2016-11-18] MEDS: *HR* Enoxaparin 120 MG/0.8 ML SYRINGE SQ SCH (19:04)
[2016-11-19] MEDS: *HR* HYDROmorphone (PF) 1 MG/ML SYRINGE IVP PRN ×2 (00:11→20:44)
[2016-11-19 06:16] LABS: Eosinophils % 0.1 %; Hemoglobin 8.9 g/dL (11.5-15.4); Nucleated Red Blood Cells 0.2 /100 WBC (0)
[2016-11-19 06:18] LABS: Basophils # 0.1 K/mcL (0.0-0.2); Basophils % 0.5 %; Hematocrit 28.2 % (35.3-44.9); Immature Granulocytes % 1.3 % (0-4); Lymphocytes # 2.1 K/mcL (0.6-4.6); Lymphocytes % 20.9 %; Mean Corpuscular HGB Conc 31.6 g/dL (31.6-35.5); Mean Corpuscular Hemoglobin 27.6 pg (28.0-33.3); Mean Corpuscular Volume 87.6 fL (83.0-100.0); Mean Platelet Volume 9.3 fL (9.4-12.4); Monocytes # 1.1 K/mcL (0.0-1.3); Monocytes % 11.2 %; Neutrophils # 6.5 K/mcL (1.6-8.9); Red Blood Count 3.22 M/mcL (3.82-4.97); Red Cell Distribution Width 21.3 % (11.5-14.5)
[2016-11-19 06:24] LABS: Platelet Count 62 K/mcL (140-400)
[2016-11-19] MEDS: *HR* Enoxaparin 120 MG/0.8 ML SYRINGE SQ SCH ×2 (06:31→16:42)
[2016-11-19 06:38] LABS: BUN/Creatinine Ratio 7 (6-26); Calcium 8.5 mg/dL (8.6-10.8); Carbon Dioxide 23 mEq/L (19-29); Chloride 103 mEq/L (98-109); Glucose 68 mg/dL (70-99); Osmolality,Calculated 275 (280-300); Potassium 3.6 mEq/L (3.5-4.5); Sodium 135 mEq/L (136-145); eGFR For African Americans > 60 (> 60); eGFR For Non-African Americans > 60 (> 60)
[2016-11-19 06:40] LABS: Blood Urea Nitrogen 3 mg/dL (7-20)
[2016-11-19 06:42] LABS: Anisocytosis 2+ (Not Present); Large Platelets Present (Not Present); Platelet Estimate Decreased (Normal); Reactive Lymphocytes Present (Not Present); Toxic Granulation Present (Not Present)
--- NOTE | 2016-11-19 07:09 | Pulmonology Progress Note ---
<Roberto Carlos Nix - Last Filed: 11/19/16 08:10> Date of Encounter: 11/19/16 Time of Encounter: 07:06 Assessment and Plan (1) Pleural effusion Current Visit: Yes Status: Acute Small bore chest tube in placed to suction draining 10ml/24hr serosanguinous fluid. CXR reviewed. Report mentions small left pleural effusion is seen unchanged from prior exam, trace right pleural effusion unchanged, no evidence of pneumothroax, bibasilar atelectasis, left pleural catheter unchanged position. Review of image reveals continued fluid in the lateral aspect of left hemithorax without change. Continue to monitor vitals, labs, and output from small bore chest tube with continuous suction. Defer talc placement for chemical peleuridesis to Cardiothoracic. (2) Pneumothorax on left Current Visit: Yes Status: Resolved Resolved, no pneumothorax appreciated on repeat Chest xrays. Continue per plan in assessment above. Subjective Principal diagnosis: Bilateral Pulmonary emboli and malignant pulmonary effusion Interval history: Patient reports mild pain over her left, continuing to improve. Continues to have diarrhea with continued improvement. Denies fevers, chills, sweats, headaches, changes in vision or hearing, nausea, vomiting, shortness of breath, changes in bladder, dysuria, weakness, or loss of sensation. Objective PUL Vital signs: Last Vital Signs Temp 98.1 F 11/19/16 04:55 Pulse 95 11/19/16 04:55 Resp 20 11/19/16 04:55 BP 113/71 11/19/16 04:55 Pulse Ox 95 11/19/16 04:55 General appearance: no acute distress, alert Eyes: nonicteric ENT: oropharynx moist, other (sores noted under lateral tongue bilaterally) Neck: supple, no lymphadenopathy, no JVD Effort: normal Auscultation: bilateral: clear, diminished breath sounds Cardiovascular: regular rate and rhythm Gastrointestinal: normoactive bowel sounds, soft, non-tender, non-distended Integumentary: normal, other (small bore left chest tube in place to suction drainig serosanguinous fluid (10mL/24hrs),) Extremities: no cyanosis, pink and warm, edema (3+ piting edema on L, 2+ pitting edema on R, nno tenderness) Musculoskeletal: no deformities Gait: normal posture normal mental status, non-focal exam, pupils equal and round, CN II-XII normal, motor strength normal and symmetric mood appropriate, affect normal Results - Laboratory Findings CBC and BMP: 11/19/16 04:23 11/19/16 04:23 ABG ABG pH 7.48 pH Units (7.32-7.45) H 11/10/16 04:51 ABG pCO2 30 mmHg (35-45) L 11/10/16 04:51 ABG pO2 99 mmHg (85-104) 11/10/16 04:51 ABG O2 Saturation 98 % (95-98) 11/10/16 04:51 PT/INR, D-dimer PT 12.3 Seconds (9.4-12.1) H 11/16/16 04:45 Abnormal lab findings: Abnormal lab results RBC 3.22 M/mcL (3.82-4.97) L 11/19/16 04:23 Hgb 8.9 g/dL (11.5-15.4) L 11/19/16 04:23 Hct 28.2 % (35.3-44.9) L 11/19/16 04:23 MCH 27.6 pg (28.0-33.3) L 11/19/16 04:23 RDW 21.3 % (11.5-14.5) H 11/19/16 04:23 Plt Count 62 K/mcL (140-400) L 11/19/16 04:23 MPV 9.3 fL (9.4-12.4) L 11/19/16 04:23 Band Neutrophils % 10.0 % (0-4) H 11/18/16 04:41 Nucleated RBCs/100 WBC 0.2 /100 WBC (0) H 11/19/16 04:23 Reactive Lymphocytes Present (Not Present) A 11/19/16 04:23 Toxic Granulation Present (Not Present) A 11/19/16 04:23 Toxic Vacuolation Present (Not Present) A 11/16/16 04:45 Platelet Estimate Decreased (Normal) L 11/19/16 04:23 Large Platelets Present (Not Present) A 11/19/16 04:23 Polychromasia 1+ (Not Present) A 11/18/16 04:41 Hypochromasia Present (Not Present) A 11/18/16 04:41 Poikilocytosis 2+ (Not Present) A 11/11/16 07:45 Anisocytosis 2+ (Not Present) A 11/19/16 04:23 Microcytosis Present (Not Present) A 11/17/16 04:56 Macrocytosis Present (Not Present) A 11/18/16 04:41 PT 12.3 Seconds (9.4-12.1) H 11/16/16 04:45 ABG pH 7.48 pH Units (7.32-7.45) H 11/10/16 04:51 ABG pCO2 30 mmHg (35-45) L 11/10/16 04:51 Sodium 135 mEq/L (136-145) L 11/19/16 04:23 BUN 3 mg/dL (7-20) L 11/19/16 04:23 Creatinine 0.45 mg/dL (0.57-1.11) L 11/19/16 04:23 Glucose 68 mg/dL (70-99) L 11/19/16 04:23 Calculated Osmolality 275 (280-300) L 11/19/16 04:23 Lactic Acid 6.9 mmol/L (0.5-2.2) H* 11/09/16 19:03 Calcium 8.5 mg/dL (8.6-10.8) L 11/19/16 04:23 Ionized Calcium 1.06 mmol/L (1.15-1.35) L 11/13/16 05:45 Magnesium 1.3 mg/dL (1.6-2.6) L 11/19/16 04:23 Lactate Dehydrogenase 381 Units/L (159-327) H 11/15/16 16:31 Troponin I 0.43 ng/mL (0-0.03) H* 11/09/16 17:10 Serum Total Protein 5.5 g/dL (6.0-8.3) L 11/17/16 04:56 Albumin 1.8 g/dL (3.5-5.0) L 11/17/16 04:56 Globulin 3.7 g/dL (2.4-3.5) H 11/17/16 04:56 Albumin/Globulin Ratio 0.5 (1.1-2.2) L 11/17/16 04:56 Urine Ketones Trace mg/dL (Negative) H 11/09/16 19:48 Urine Blood Trace-intact (Negative) H 11/09/16 19:48 Ur Squamous Epith Cells Many per lpf (None-Few) H 11/09/16 19:48 - Clinical Findings Intake & Output: Intake & Output 11/18/16 11/18/16 11/19/16 15:59 23:59 07:59 Intake Total 120 / 120 240 / 240 550 / 550 Output Total 20 / 20 200 / 200 300 / 300 Balance 100 / 100 40 / 40 250 / 250 Weight 111.3 kg Consult Discharge Plan - Plan Referrals: Hilda Chappell, ED[employer] C[employer]TER [Primary Care Provider] - <Pam Pelletier - Last Filed: 11/19/16 13:54> Assessment and Plan (1) Pleural effusion Current Visit: Yes Status: Acute (2) Pneumothorax on left Current Visit: Yes Status: Resolved Objective PUL Vital signs: Last Vital Signs Temp 98.4 F 11/19/16 11:05 Pulse 94 11/19/16 11:05 Resp 16 11/19/16 11:05 BP 108/70 11/19/16 11:05 Pulse Ox 97 11/19/16 11:05 Results - Laboratory Findings CBC and BMP: 11/19/16 04:23 11/19/16 04:23 ABG ABG pH 7.48 pH Units (7.32-7.45) H 11/10/16 04:51 ABG pCO2 30 mmHg (35-45) L 11/10/16 04:51 ABG pO2 99 mmHg (85-104) 11/10/16 04:51 ABG O2 Saturation 98 % (95-98) 11/10/16 04:51 PT/INR, D-dimer PT 12.3 Seconds (9.4-12.1) H 11/16/16 04:45 Abnormal lab findings: Abnormal lab results RBC 3.22 M/mcL (3.82-4.97) L 11/19/16 04:23 Hgb 8.9 g/dL (11.5-15.4) L 11/19/16 04:23 Hct 28.2 % (35.3-44.9) L 11/19/16 04:23 MCH 27.6 pg (28.0-33.3) L 11/19/16 04:23 RDW 21.3 % (11.5-14.5) H 11/19/16 04:23 Plt Count 62 K/mcL (140-400) L 11/19/16 04:23 MPV 9.3 fL (9.4-12.4) L 11/19/16 04:23 Band Neutrophils % 10.0 % (0-4) H 11/18/16 04:41 Nucleated RBCs/100 WBC 0.2 /100 WBC (0) H 11/19/16 04:23 Reactive Lymphocytes Present (Not Present) A 11/19/16 04:23 Toxic Granulation Present (Not Present) A 11/19/16 04:23 Toxic Vacuolation Present (Not Present) A 11/16/16 04:45 Platelet Estimate Decreased (Normal) L 11/19/16 04:23 Large Platelets Present (Not Present) A 11/19/16 04:23 Polychromasia 1+ (Not Present) A 11/18/16 04:41 Hypochromasia Present (Not Present) A 11/18/16 04:41 Poikilocytosis 2+ (Not Present) A 11/11/16 07:45 Anisocytosis 2+ (Not Present) A 11/19/16 04:23 Microcytosis Present (Not Present) A 11/17/16 04:56 Macrocytosis Present (Not Present) A 11/18/16 04:41 PT 12.3 Seconds (9.4-12.1) H 11/16/16 04:45 ABG pH 7.48 pH Units (7.32-7.45) H 11/10/16 04:51 ABG pCO2 30 mmHg (35-45) L 11/10/16 04:51 Sodium 135 mEq/L (136-145) L 11/19/16 04:23 BUN 3 mg/dL (7-20) L 11/19/16 04:23 Creatinine 0.45 mg/dL (0.57-1.11) L 11/19/16 04:23 Glucose 68 mg/dL (70-99) L 11/19/16 04:23 Calculated Osmolality 275 (280-300) L 11/19/16 04:23 Lactic Acid 6.9 mmol/L (0.5-2.2) H* 11/09/16 19:03 Calcium 8.5 mg/dL (8.6-10.8) L 11/19/16 04:23 Ionized Calcium 1.06 mmol/L (1.15-1.35) L 11/13/16 05:45 Magnesium 1.3 mg/dL (1.6-2.6) L 11/19/16 04:23 Lactate Dehydrogenase 381 Units/L (159-327) H 11/15/16 16:31 Troponin I 0.43 ng/mL (0-0.03) H* 11/09/16 17:10 Serum Total Protein 5.5 g/dL (6.0-8.3) L 11/17/16 04:56 Albumin 1.8 g/dL (3.5-5.0) L 11/17/16 04:56 Globulin 3.7 g/dL (2.4-3.5) H 11/17/16 04:56 Albumin/Globulin Ratio 0.5 (1.1-2.2) L 11/17/16 04:56 Urine Ketones Trace mg/dL (Negative) H 11/09/16 19:48 Urine Blood Trace-intact (Negative) H 11/09/16 19:48 Ur Squamous Epith Cells Many per lpf (None-Few) H 11/09/16 19:48 - Clinical Findings Intake & Output: Intake & Output 11/18/16 11/19/16 11/19/16 23:59 07:59 15:59 Intake Total 240 / 240 550 / 550 584 / 584 Output Total 200 / 200 450 / 450 200 / 200 Balance 40 / 40 100 / 100 384 / 384 Weight 111.3 kg - Attending Attestation I examined this patient and my medical decision-making was reviewed with the KNITTING TEACHER/PA/Advanced Practice Nurse/Resident Physician. I agree with the documented findings, disposition and treatment plan as described except to the extent set forth below. Patient seen and examined. Labs, radiology, chart personally reviewed. Agree with resident's history and physical, assessment, plan with following comments: COOLER TENDER: Patient follows commands, Pulmonary: Acceptable oxygenation and ventilation. There is no significant output from the chest tube and cardiothoracic follow up with patient for pleurodesis. Cardiovascular: stable Will follow up PRN, please call for any questions.
[2016-11-19] MEDS: Magic Mouthwash 10 ML UD Cup PO SCH ×3 (08:01→16:24)
[2016-11-19] MEDS: Chlorhexidine Rinse 15 ML MOUTHWASH MM SCH ×2 (08:01→19:48)
[2016-11-19] MEDS: Gabapentin 300 MG CAPSULE PO SCH ×3 (08:01→19:47)
[2016-11-19] MEDS: Baclofen 10 MG TABLET PO SCH ×3 (08:02→19:47)
[2016-11-19] MEDS: *HR* OxyCODONE Immed Rel 15 MG TABLET PO PRN ×2 (08:02→16:48)
--- NOTE | 2016-11-19 08:45 | Cardiothoracic Progress Note ---
Date of Encounter: 11/19/16 Time of Encounter: 08:43 - Assessment and plan (1) Pleural effusion Current Visit: Yes Status: Acute I will sclerose the chest tube with talc today. The chest tube will be removed most likely tomorrow. - Subjective Interval history: The patient has no complaints. Vital Signs, Last 4 Hours Temp Pulse Resp BP Pulse Ox 11/19/16 07:06 98.1 F 86 20 99/63 100 11/19/16 04:55 98.1 F 95 20 113/71 95 Oxgyen Flow Rate Oxygen Flow Rate (LPM) 3 Clinical Data, last 8 Hours Output, Chest Tube Drainage 0 Amount [Left #2] Output, Urine Amount 150 Output, Urine Amount 300 Weight 11/17/16 11/18/16 11/19/16 23:59 23:59 23:59 Weight 110.9 kg 111.3 kg Lungs are clear to percussion and auscultation. The left chest tube drainage is minimal. There is no air leak. Chest x-ray reveals a tiny left pleural effusion. - Labs 11/19/16 04:23 11/19/16 04:23 Lab Results, Last 24 hours 11/19/16 11/19/16 11/19/16 04:23 04:23 04:23 WBC 9.9 D Hgb 8.9 L Hct 28.2 L Plt Count 62 L Sodium 135 L Potassium 3.6 Chloride 103 Carbon Dioxide 23 BUN 3 L Creatinine 0.45 L Glucose 68 L Calcium 8.5 L Magnesium 1.3 L Consult Discharge Plan - Plan Referrals: Hilda Chappell SCREWDOWN OPERATOR [Primary Care Provider] -
[2016-11-19] MEDS ORDERED: Talc (sterile) 5 GM, 0.9 % Sodium Chloride 50 ML IX ONE (08:46)
[2016-11-19] MEDS: Magnesium Sulfate 2 GM in D5% in Water 100 ML IVPB SCH (09:32)
--- NOTE | 2016-11-19 14:26 | Internal Med Progress Note ---
<Price Aguilar - Last Filed: 11/19/16 14:23> Date of Encounter: 11/19/16 Time of Encounter: 09:20 - Assessment and plan (1) Acute respiratory failure with hypoxia Current Visit: No Status: Acute Assessment and plan: Patient's acute respiratory failure is likely multifactorial with admitting pneumothorax, pleural effusions secondary to malignancy to the lungs. Baseline home oxygen is 3 L. Patient also has systolic heart failure with an LVEF of 25- 30%, global left ventricular systolic dysfunction with some sparing of the basal segments, mild dilated right ventricle with mild reduced systolic function. 11/18/2016: Respiratory status is stable. Patient does not complain of SOB or chest pain. Maintaining oxygen saturations >90% on 3L oxygen. 11/19/2016: Straight status is stable. No complaints of shortness of breath, chest discomfort and maintaining oxygen saturations greater than 90% on 3 L oxygen. Plan: - Patient currently stable. Treating underlying causes including chest tube to reduce pneumothorax and drain pleural effusion and pleurodesis. Patient maintaining oxygen saturations greater than 90% on 3 L which is the patient's home O2 level. (2) Pleural effusion Current Visit: Yes Status: Acute Assessment and plan: Stable status post procedure. 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 Patient currently has a left-sided chest tube in place which is falling out. CT of the chest performed on 11/12/2016 demonstrates loculated pleural effusion on the left 11/19/2016: Patient has been seen and evaluated by pulmonary and cardiothoracic' s. Tulc powder placed after sufficient drainage. Plan: -Continue to monitor chest tube output. - Further management per cardiothoracic's. (3) Pulmonary embolism Current Visit: No Status: Acute Assessment and plan: Ms. Bains 61-year-old female with known ovarian cancer metastatic disease to lungs was admitted with shortness of breath, acute respiratory failure. CTA of the chest demonstrated pulmonary emboli in both lungs predominantly involving the right main pulmonary artery as well as lobar and segmental branches of the right upper middle and lower lobes. There is also pulmonary embolus within the left upper lobe lingula. No evidence of pulmonary infarct. No evidence of acute right-sided heart failure. CTA of the lung also demonstrated moderate size left sided hydropneumothorax status post left chest tube placement and drainage of a large left pleural effusion. 11/11/2016 Mrs. Bains had a IVC filter placed. 11/18/2016 Lovenox was discontinued evening of 11/17/2016 for possible retroperitoneal biopsy. Platelets 66 and I spoke with Oncology who were okay holding off on the biopsy today and restarting Lovenox subcutaneously at theraputic dosing. Patient continued on Lovenox at therapeutic dosing. Plan: - Continue to monitor respiratory status - Status post 17-Telugu chest tube placement 11/16/2016 - Continue Lovenox, therapeutic level Qualifiers: Pulmonary embolism type: other Chronicity: acute Acute cor pulmonale presence: without acute cor pulmonale Qualified Code(s): I26.99 - Other pulmonary embolism without acute cor pulmonale (4) Thrombocytopenia Current Visit: Yes Status: Acute Assessment and plan: Patient has a platelet count in the 60s which is fallen from 323 from 2016. The patient did receive chemotherapy recently, last Tuesday. Patient has had nausea and vomiting and diarrhea overnight. Denies any bleeding or blood in her secretions. No signs of bleeding in her oral cavity on her gums or petechiae on her extremities. Oncology following. Plan: - Continue monitoring with daily CBC. - Hematology oncology following. (5) Leukopenia Current Visit: Yes Status: Acute Assessment and plan: WBC has significantly improved after receiving Nuprogen. she recently received chemotherapy on Tuesday of last week. This drop is likely secondary to chemotherapy but also may represents infection in an immunocompromised patient. Heme/oncology has been consult and are involved with the patient's care Plan: -Likely secondary to chemotherapy. Discontinue neutropenia precautions. - Continue to monitor with daily labs Qualifiers: Qualified Code(s): D72.819 - Decreased white blood cell count, unspecified (6) Anemia Current Visit: Yes Status: Acute Assessment and plan: Patient's hemoglobin trended down with a low of 6.3 during his current admission, patient is receiving chemotherapy and likely secondary to suppressed production. Hemoglobin has held stable since her transfusion. No sites of bleeding. Mrs. Bains received 2 units PRBCs thus far during her inpatient stay. Maintaining hemoglobin greater than 8 support as the patient has systolic heart failure with an EF 25-30%. Plan to continue monitoring hemoglobin and hematocrit daily. Qualifiers: Anemia type: unspecified type Qualified Code(s): D64.9 - Anemia, unspecified (7) Metastatic adenocarcinoma Current Visit: Yes Status: Chronic Assessment and plan: Patient has known metastatic adenocarcinoma, oncology is following the patient. (8) Neutropenia, drug-induced Current Visit: Yes Status: Acute Assessment and plan: Mrs. Bains neutrophil count has increased to 6.5 from 1.0 down from 8.4 on . Likely secondary to chemotherapy. She is afebrile and tachycardia is resolved. Plan: - Remove neutropenic precautions. - Patient has received Neupogen, continue to monitor neutrophil and white blood cell count (9) Hypomagnesemia Current Visit: Yes Status: Acute Assessment and plan: Patient has had recurrent low magnesium likely secondary to chest tube on suction. She has received magnesium replacement. Magnesium today: 1.3 Plan: 4 g magnesium IVPB - repeat magnesium level in am (10) Hypokalemia Current Visit: Yes Status: Acute Assessment and plan: Recurrent hypokalemia with chest tube on suction, and recent diarrhea. Potassium level: 3.6 Plan: -Potassium chloride 40 by mouth daily scheduled. - Monitor potassium levels with a.m. labs and discontinue potassium when potassium is stable. - Subjective Interval history: Mrs. Bains 61-year-old female has been seen and evaluated patient bedside this morning. She denies any nausea, vomiting, diarrhea constipation, chest pressure, shortness of breath or palpitations. She denies any current pain from her chest tube site. She is tolerating PO intake and denies any further diarrhea episodes. She has received total powder in her chest tube. She is hopeful for discharge tomorrow. She denies any further questions or concerns at this time. - Constitutional Vitals: Temp Pulse Resp BP Pulse Ox 98.4 F 94 16 108/70 97 11/19/16 11:05 11/19/16 11:05 11/19/16 11:05 11/19/16 11:05 11/19/16 11:05 General appearance: Present: cooperative, A&O X 3, pleasant, obese - Eye Eye exam: Present: PERRL, conjuntiva pink, sclera anicteric Pupils: Present: PERRL - Neck Neck exam general surgery: Present: supple, trachea midline. Absent: lymphadenopathy - Respiratory Respiratory exam: Present: CTAB. Absent: accessory muscle use, rales, rhonchi, wheezes - Cardiovascular Cardiovascular exam: Present: RRR, +S1, +S2. Absent: diastolic murmur, gallop, rubs, systolic murmur - GI/Abdominal Additional comments: Obese abdomen soft palpation nontender. Positive bowel sounds, midline hernia unchanged. - Extremities Exam Additional comments: Bilateral lower extremity edema, likely secondary to poor nutrition. - Neurological Exam Neurological exam: Present: alert, oriented X3, no focal deficits. Absent: pronater drift, facial droop, speech deficit - Psychiatric Psychiatric exam: Present: normal affect, normal mood Internal Medicine: Result - Labs CBC & Chem 7: 11/19/16 04:23 11/19/16 04:23 Labs: Short CBC 11/19/16 Range/Units 04:23 WBC 9.9 D (4.3-11.1) K/mcL Hgb 8.9 L (11.5-15.4) g/dL Hct 28.2 L (35.3-44.9) % Plt Count 62 L (140-400) K/mcL Neutrophils # 6.5 (1.6-8.9) K/mcL BMP 11/19/16 04:23 Sodium 135 L Potassium 3.6 Chloride 103 Carbon Dioxide 23 BUN 3 L Creatinine 0.45 L Glucose 68 L Calcium 8.5 L - ABG Interpretation ABG results: ABG ABG pH 7.48 pH Units (7.32-7.45) H 11/10/16 04:51 ABG pCO2 30 mmHg (35-45) L 11/10/16 04:51 ABG pO2 99 mmHg (85-104) 11/10/16 04:51 ABG O2 Saturation 98 % (95-98) 11/10/16 04:51 PT/INR, D-dimer PT 12.3 Seconds (9.4-12.1) H 11/16/16 04:45 - Impressions Impressions Chest X-Ray 11/16/16 07:55 IMPRESSION: No evidence of residual left pneumothorax. Small left pleural effusion is unchanged. Left-sided chest tube in unchanged position with tip projecting over the lateral mid left lung and side port in the lateral chest wall soft tissues. The findings were sent to the Radiology Results Communication Center at 8:19 am on 11/16/2016to be communicated to a licensed caregiver. D/ / 11/16/2016 08:22:39 Maria Del Rosario Manley MD / ivonne Interpreting Provider: Maria Del Rosario Manley MD Chest X-Ray 11/19/16 06:00 IMPRESSION: 1. Left pleural catheter unchanged in position without evidence of pneumothorax. 2. Bilateral pleural effusions, left greater than right. 3. Mildly enlarged cardiac silhouette. 4. Bibasilar atelectasis. D/ / Josiah Calderon MD / Josiah Calderon MD Interpreting Provider: Josiah Calderon MD Consult Discharge Plan - Plan Referrals: Hilda Chappell CNP [Primary Care Provider] - <Phillip Kim - Last Filed: 11/19/16 14:51> - Assessment and plan (1) Pleural effusion Current Visit: Yes Status: Acute (2) Pulmonary embolism Current Visit: No Status: Acute Qualifiers: Pulmonary embolism type: other Chronicity: acute Acute cor pulmonale presence: without acute cor pulmonale Qualified Code(s): I26.99 - Other pulmonary embolism without acute cor pulmonale (3) Acute respiratory failure with hypoxia Current Visit: No Status: Acute (4) Metastatic adenocarcinoma Current Visit: Yes Status: Chronic (5) Anemia Current Visit: Yes Status: Acute Qualifiers: Anemia type: unspecified type Qualified Code(s): D64.9 - Anemia, unspecified - Constitutional Vitals: Temp Pulse Resp BP Pulse Ox 98.4 F 94 16 108/70 97 11/19/16 11:05 11/19/16 11:05 11/19/16 11:05 11/19/16 11:05 11/19/16 11:05 Internal Medicine: Result - Labs CBC & Chem 7: 11/19/16 04:23 11/19/16 04:23 Labs: Short CBC 11/19/16 Range/Units 04:23 WBC 9.9 D (4.3-11.1) K/mcL Hgb 8.9 L (11.5-15.4) g/dL Hct 28.2 L (35.3-44.9) % Plt Count 62 L (140-400) K/mcL Neutrophils # 6.5 (1.6-8.9) K/mcL BMP 11/19/16 04:23 Sodium 135 L Potassium 3.6 Chloride 103 Carbon Dioxide 23 BUN 3 L Creatinine 0.45 L Glucose 68 L Calcium 8.5 L - ABG Interpretation ABG results: ABG ABG pH 7.48 pH Units (7.32-7.45) H 11/10/16 04:51 ABG pCO2 30 mmHg (35-45) L 11/10/16 04:51 ABG pO2 99 mmHg (85-104) 11/10/16 04:51 ABG O2 Saturation 98 % (95-98) 11/10/16 04:51 PT/INR, D-dimer PT 12.3 Seconds (9.4-12.1) H 11/16/16 04:45 - Impressions Impressions Chest X-Ray 11/16/16 07:55 IMPRESSION: No evidence of residual left pneumothorax. Small left pleural effusion is unchanged. Left-sided chest tube in unchanged position with tip projecting over the lateral mid left lung and side port in the lateral chest wall soft tissues. The findings were sent to the Radiology Results Communication Center at 8:19 am on 11/16/2016to be communicated to a licensed caregiver. D/ / 11/16/2016 08:22:39 Maria Del Rosario Manley MD / ivonne Interpreting Provider: Maria Del Rosario Manley MD Chest X-Ray 11/19/16 06:00 IMPRESSION: 1. Left pleural catheter unchanged in position without evidence of pneumothorax. 2. Bilateral pleural effusions, left greater than right. 3. Mildly enlarged cardiac silhouette. 4. Bibasilar atelectasis. D/ / Josiah Calderon MD / Josiah Calderon MD Interpreting Provider: Josiah Calderon MD - Attending Attestation Agree with Dr. Aguilar. Ms. Bains was seen and examined in rounds. She was evaluated by cardio thoracic surgery and the plan is to remove the chest tube tomorrow. She still has hypomagnesemia, will supplement magnesium accordingly. Neutropenia has resolved after the use of new bleeding. Anemia getting better as well. Thrombocytopenia is slightly trending down, she is on Lovenox. We are following recommendations by oncology regarding and decortication for pulmonary embolism. Patient will be discharged home with services after chest tube is removed. We will continue monitoring the patient closely, will reevaluate in the clinic tomorrow in a.m. No more diarrhea, no fever.
[2016-11-19] MEDS: Ondansetron 4 MG/2 ML VIAL IVP PRN (19:47)
[2016-11-20 03:40] LABS: Lymphocytes % 8.4 %; Mean Corpuscular Volume 86.9 fL (83.0-100.0)
[2016-11-20 03:42] LABS: Basophils % 0.1 %; Hematocrit 25.2 % (35.3-44.9); Immature Granulocytes % 2.5 % (0-4); Lymphocytes # 1.5 K/mcL (0.6-4.6); Mean Corpuscular HGB Conc 31.7 g/dL (31.6-35.5); Mean Corpuscular Hemoglobin 27.6 pg (28.0-33.3); Mean Platelet Volume 9.3 fL (9.4-12.4); Monocytes % 5.7 %; Neutrophils # 14.8 K/mcL (1.6-8.9); Nucleated Red Blood Cells 0.2 /100 WBC (0); Red Cell Distribution Width 21.3 % (11.5-14.5); Segmented Neutrophils % 83.3 %
[2016-11-20 03:44] LABS: Platelet Count 44 K/mcL (140-400)
[2016-11-20 03:53] LABS: BUN/Creatinine Ratio 10 (6-26); Blood Urea Nitrogen 4 mg/dL (7-20); Calcium 7.4 mg/dL (8.6-10.8); Carbon Dioxide 19 mEq/L (19-29); Chloride 106 mEq/L (98-109); Glucose 94 mg/dL (70-99); Osmolality,Calculated 275 (280-300); Potassium 3.8 mEq/L (3.5-4.5); Sodium 134 mEq/L (136-145); eGFR For African Americans > 60 (> 60); eGFR For Non-African Americans > 60 (> 60)
[2016-11-20 04:29] LABS: Anisocytosis 1+ (Not Present); Dohle Bodies Present (Not Present); Hypochromasia Present (Not Present); Platelet Estimate Decreased (Normal); Toxic Granulation Present (Not Present)
[2016-11-20] MEDS: *HR* OxyCODONE Immed Rel 15 MG TABLET PO PRN ×2 (05:34→17:09)
[2016-11-20] MEDS: *HR* Enoxaparin 120 MG/0.8 ML SYRINGE SQ SCH ×2 (05:34→16:55)
[2016-11-20] MEDS: Magnesium Sulfate 2 GM in D5% in Water 100 ML IVPB SCH (05:51)
[2016-11-20] MEDS: Magic Mouthwash 10 ML UD Cup PO SCH ×3 (07:59→16:53)
[2016-11-20] MEDS: Baclofen 10 MG TABLET PO SCH ×3 (08:02→21:51)
[2016-11-20] MEDS: Gabapentin 300 MG CAPSULE PO SCH ×3 (08:02→21:52)
[2016-11-20] MEDS: *HR* HYDROmorphone (PF) 1 MG/ML SYRINGE IVP PRN ×2 (08:02→21:51)
[2016-11-20] MEDS: Chlorhexidine Rinse 15 ML MOUTHWASH MM SCH ×2 (08:02→21:52)
--- NOTE | 2016-11-20 08:36 | Internal Med Progress Note ---
<Chuck Carr - Last Filed: 11/20/16 18:26> Date of Encounter: 11/20/16 Time of Encounter: 08:36 - Assessment and plan (1) Pleural effusion Current Visit: Yes Status: Acute Assessment and plan: S/p talc pleurodesis, chest tube removed by cardiothoracic today, follow-up chest x-ray showed slight interval worsening of loculated left effusion likely 2 /2 inflammatory reaction to talc, spoke to pulmonology resident, pulm will see her tomorrow, pt denies SOB, satting fine with NC. (2) Bilateral pulmonary embolism Current Visit: Yes Status: Acute Assessment and plan: Currently on lovenox 110 mg SQ BID, with low platelet and hgb, concerning for such a high dose anticoagulation, risk vs benefit, con't to trend CBC, hem/onc called this AM, they will see pt today. (3) Cardiomyopathy Current Visit: Yes Status: Acute Assessment and plan: Echo from 11/10/2016 showed LVEF 25 to 30%, no known hx of CHF, newly diagnosed, ischemic vs non-ischemic, currently not fluid overloaded, with on going pancytopenia, b/l PE and malignant pleural effusion, unlikely cardio will do any invasive ischemic workup during this hospital stay, pt will f/u with cardio as outpt, she will need repeat echo in few months, when her BP (has been hypotensive these days) can tolerates, will start her on BB and ACEI, currently lasix is not required. Qualifiers: Qualified Code(s): I42.9 - Cardiomyopathy, unspecified (4) Pancytopenia Current Visit: Yes Status: Acute Assessment and plan: Likely 2/2 recent chemotherapy, WBC improved from neupogen, platelet and hgb con 't to drop, unstable to discharge at this time, will keep her today, hem/onc called this AM to revisit this case. Check CBC in AM. (5) Metastatic adenocarcinoma Current Visit: Yes Status: Acute Assessment and plan: Ovarian cancer mets to lungs, recently received chemo, hem/onc consulted, f/u as outpt. (6) Hypomagnesemia Current Visit: Yes Status: Acute Assessment and plan: Replaced, recheck in AM. (7) DVT prophylaxis Current Visit: Yes Status: Acute Assessment and plan: Therapeutic lovenox. - Subjective Interval history: Pt seen and examined, denies SOB or chest pain, no complaints this AM. - Constitutional Vitals: Temp Pulse Resp BP Pulse Ox 98.6 F 94 17 102/68 96 11/20/16 06:24 11/20/16 06:24 11/20/16 06:24 11/20/16 06:24 11/20/16 06:24 General appearance: Present: cooperative, A&O X 3, pleasant, obese - Head Head exam: Present: atraumatic, normocephalic - Eye Eye exam: Present: PERRL, conjuntiva pink, sclera anicteric Pupils: Present: PERRL - Neck Neck exam general surgery: Present: supple, trachea midline. Absent: lymphadenopathy - Respiratory Respiratory exam: Present: CTAB, rales (at base b/l). Absent: accessory muscle use, rhonchi, wheezes - Cardiovascular Cardiovascular exam: Present: RRR, +S1, +S2. Absent: diastolic murmur, gallop, rubs, systolic murmur - GI/Abdominal GI/Abdominal exam: Present: normal bowel sounds, soft, no peritoneal signs. Absent: distended, tenderness - Extremities Exam Extremities exam: Present: pedal edema (mild non-pitting b/l), warm, radial pulses palpable and symetrical. Absent: calf tenderness, cyanotic - Neurological Exam Neurological exam: Present: CN II-XII intact, oriented X3, no focal deficits. Absent: pronater drift, facial droop, speech deficit - Skin Skin exam: Present: dry, intact Internal Medicine: Result - Labs CBC & Chem 7: 11/20/16 03:30 11/20/16 03:30 Labs: Short CBC 11/20/16 Range/Units 03:30 WBC 17.8 H D (4.3-11.1) K/mcL Hgb 8.0 L (11.5-15.4) g/dL Hct 25.2 L (35.3-44.9) % Plt Count 44 L (140-400) K/mcL Neutrophils # 14.8 H (1.6-8.9) K/mcL BMP 11/20/16 03:30 Sodium 134 L Potassium 3.8 Chloride 106 Carbon Dioxide 19 BUN 4 L Creatinine 0.42 L Glucose 94 Calcium 7.4 L - ABG Interpretation ABG results: ABG ABG pH 7.48 pH Units (7.32-7.45) H 11/10/16 04:51 ABG pCO2 30 mmHg (35-45) L 11/10/16 04:51 ABG pO2 99 mmHg (85-104) 11/10/16 04:51 ABG O2 Saturation 98 % (95-98) 11/10/16 04:51 PT/INR, D-dimer PT 12.3 Seconds (9.4-12.1) H 11/16/16 04:45 Consult Discharge Plan - Plan Referrals: Hilda Chappell, POLITICAL ADVISOR [Primary Care Provider] - <Phillip Kim - Last Filed: 11/21/16 07:29> - Assessment and plan (1) Pleural effusion Current Visit: Yes Status: Acute (2) Pulmonary embolism Current Visit: No Status: Acute Qualifiers: Pulmonary embolism type: other Chronicity: acute Acute cor pulmonale presence: without acute cor pulmonale Qualified Code(s): I26.99 - Other pulmonary embolism without acute cor pulmonale (3) Acute respiratory failure with hypoxia Current Visit: No Status: Acute (4) Metastatic adenocarcinoma Current Visit: Yes Status: Chronic (5) Anemia Current Visit: Yes Status: Acute Qualifiers: Anemia type: unspecified type Qualified Code(s): D64.9 - Anemia, unspecified - Constitutional Vitals: Temp Pulse Resp BP Pulse Ox 98.7 F 90 17 97/61 100 11/21/16 06:34 11/21/16 06:34 11/21/16 06:34 11/21/16 06:34 11/21/16 06:34 Internal Medicine: Result - Labs CBC & Chem 7: 11/21/16 03:44 11/20/16 03:30 Labs: Short CBC 11/21/16 Range/Units 03:44 WBC 20.7 H (4.3-11.1) K/mcL Hgb 8.5 L (11.5-15.4) g/dL Hct 27.1 L (35.3-44.9) % Plt Count 35 L (140-400) K/mcL Neutrophils # 17.1 H (1.6-8.9) K/mcL - ABG Interpretation ABG results: ABG ABG pH 7.48 pH Units (7.32-7.45) H 11/10/16 04:51 ABG pCO2 30 mmHg (35-45) L 11/10/16 04:51 ABG pO2 99 mmHg (85-104) 11/10/16 04:51 ABG O2 Saturation 98 % (95-98) 11/10/16 04:51 PT/INR, D-dimer PT 12.3 Seconds (9.4-12.1) H 11/16/16 04:45 - Impressions Impressions Chest X-Ray 11/20/16 09:20 IMPRESSION: 1. Interval removal of a left pleural pigtail catheter. No pneumothorax. 2. Slight interval worsening of a loculated left effusion. Stable left base opacity and right base atelectasis. 3. Cardiomegaly. D/ / 11/20/2016 10:08:08 Shirley Chilel MD / [facility] Interpreting Provider: Shirley Chilel MD Chest X-Ray 11/21/16 05:56 IMPRESSION: Left lung atelectasis and/or pneumonia with at least partially loculated left pleural effusion. D/ / Wilbur Up MD / Wilbur Up MD Interpreting Provider: Wilbur Up MD - Attending Attestation I examined this patient and my medical decision-making was reviewed with the RUBBER PRESS TENDER/PA/Advanced Practice Nurse/Resident Physician. I agree with the documented findings, disposition and treatment plan as described except to the extent set forth below. D/W hem onc, ok to continue with lovenox.
--- NOTE | 2016-11-20 09:20 | Cardiothoracic Progress Note ---
Date of Encounter: 11/20/16 Time of Encounter: 09:18 - Assessment and plan (1) Pleural effusion Current Visit: Yes Status: Acute The chest tube was removed. The patient is okay for discharge from my standpoint when okay with the primary service. I will sign off. Please call if needed. - Subjective Interval history: The patient has no complaints. She tolerated the talc pleurodesis yesterday very well. Vital Signs, Last 4 Hours Temp Pulse Resp BP Pulse Ox 11/20/16 06:24 98.6 F 94 17 102/68 96 Oxgyen Flow Rate Oxygen Flow Rate (LPM) 3 Clinical Data, last 8 Hours Output, Chest Tube Drainage 0 Amount [Left #2] Output, Chest Tube Drainage 0 Amount [Left #2] Output, Urine Amount 0 Output, Urine Amount 0 Output, Urine Amount 200 Weight 11/18/16 11/19/16 11/20/16 23:59 23:59 23:59 Weight 111.3 kg Lungs are clear to percussion and auscultation. Chest tube drainage is minimal and there is no air leak. - Labs 11/20/16 03:30 11/20/16 03:30 Lab Results, Last 24 hours 11/20/16 11/20/16 11/20/16 03:30 03:30 03:30 WBC 17.8 H D Hgb 8.0 L Hct 25.2 L Plt Count 44 L Sodium 134 L Potassium 3.8 Chloride 106 Carbon Dioxide 19 BUN 4 L Creatinine 0.42 L Glucose 94 Calcium 7.4 L Magnesium 1.3 L Consult Discharge Plan - Plan Referrals: Hilda Chappell, COFFEE SUPERVISOR [Primary Care Provider] -
[2016-11-20] MEDS: Magnesium Oxide 400 MG TABLET PO SCH ×2 (09:57→21:52)
--- NOTE | 2016-11-20 20:20 | Oncology Inp Progress Note ---
Date of Encounter: 11/20/16 Time of Encounter: 20:20 Oncology: Subj Interval history: Patient seen and examined at bedside with present. Chart reviewed for interval details and appreciate ongoing care by hospital team. She had talc pleurodesis and removal of pleurx cath by Dr. Morgan yesterday and is doing well today. Previously reported pancytopenia appears to be steadily improving and she now has leukocytosis which is likely due to ongoing Neupogen. Thrombocytopenia is concerned with ongoing anticoagulation for extensive bilateral PE. Otherwise, patient is doing fairly well. No new issues. She does report some considerable anxiety was expected. Dr. Carr with Hospital team was consulted to discuss patient's case with me. They have requested recommendation from oncology regarding advisability of anticoagulation with patient's thrombocytopenia. Platelet count today is 44,000. No other new issues. Review of systems: 12 point review of systems as noted above.All other systems are negative: Physical exam: 11/20/16 15:09 Temperature 98.6 F Temperature Source Oral Pulse Rate 78 Respiratory Rate 17 Blood Pressure 109/79 Blood Pressure Position HOB Elevated O2 Sat by Pulse Oximetry 97 GENERAL: Alert and oriented, lethargic appearing. Mental Status: Affect appropriate for circumstances Skin: No rashes or petechiae. No evidence of skin malignancy Extremities: No edema. No calf swelling or tenderness. No joint deformity. Neurologic: Global weakness but no focal sensorimotor abnormalities. Results: 11/20/16 11/20/16 11/20/16 03:30 03:30 03:30 WBC 17.8 H D Hgb 8.0 L Plt Count 44 L Neutrophils # 14.8 H Sodium 134 L Potassium 3.8 Creatinine 0.42 L Calculated Osmolality 275 L Calcium 7.4 L Magnesium 1.3 L Radiographic studies: I personally reviewed and interpreted most recent imaging studies dated 11/20/16 and discussed the findings with the patient today. Impression/recommendations: Metastatic ovarian adenocarcinoma: Received cycle 1 of carboplatin plus Taxotere regimen on 11/09/16. Has expected cytopenia from chemotherapy and I anticipate incremental improvement in her counts since she is likely a topical myelosuppression from recent chemotherapy. No intervention needed at this time and we will simply monitor CBC. Will also check hematologic panel to be evaluated for additional hematinic deficiencies that may impact bone marrow recovery including: B12, folate, TSH, T4. Symptomatic,left sided pleural effusion: Significantly improved following top pleurodesis. Progress catheter was removed at the same time. Pleurodesis by Dr. Morgan. Will monitor. Recent bilateral pulmonary embolism: Required thrombolysis and still has an IVC filter in place in addition to ongoing anticoagulation. Thrombocytopenia is a concern for anticoagulation although given extensive pulmonary embolism, afebrile continuing anticoagulation unless her platelet count drops below 30,000 in which case bleeding risk becomes a concern. Presence of an IVC filter is unlikely to impact risk for propagation of her pulmonary which may cause worsening symptoms. Leukocytosis: Likely Neupogen effect. Will stop Neupogen from today. Thrombocytopenia: Likely due to myelosuppression from recent chemotherapy. Anticipate improvement abscesses likely and pawel counts. Recommended to continue anticoagulation at this time. If she is medically optimal for discharge, iron for close CBCand anticoagulation monitoring as an outpatient. We'll follow the patient along side you during this hospitalization but please do not hesitate to call regarding interval hematologic questions as they arise. Thank you for your excellent ongoing care for allowing us to see her while in- house. This report was created using voice recognition software and may contain errors. It was signed but not edited to expedite communication. - Constitutional Vitals: Vital Signs Temp Pulse Resp BP Pulse Ox 11/20/16 15:09 98.6 F 78 17 109/79 97 11/20/16 10:17 97.9 F 94 16 112/75 94 L 11/20/16 06:24 98.6 F 94 17 102/68 96 11/20/16 04:46 98.6 F 97 18 107/73 96 11/20/16 01:32 98.4 F 99 18 105/70 97 11/19/16 21:40 98.3 F 98 16 95/61 98 Intake and Output 11/20/16 11/20/16 11/21/16 08:59 16:59 00:59 Intake Total 240 / 240 0 / 0 240 / 240 Output Total 200 / 200 Balance 40 / 40 0 / 0 240 / 240 Intake: Oral 240 / 240 0 / 0 240 / 240 Output: Urine 200 / 200 Wound Drainage 0 / 0 Left Chest 0 / 0 Chest Tube Drainage 0 / 0 Left #2 0 / 0 Other: Meal Lunch Dinner Percent of Meal Consumed 0% 0% Stool Size Smear Smear Moderate Stool Consistency loose soft Stool Color Brown Brown Brown # Voids 1 # Bowel Movements 1 1 Oncology: Obj Data - Labs CBC & Chem 7: 11/21/16 03:44 11/20/16 03:30 Labs: Laboratory Results - last 24 hr 11/20/16 11/20/16 11/20/16 03:30 03:30 03:30 WBC 17.8 H D RBC 2.90 L Hgb 8.0 L Hct 25.2 L MCV 86.9 MCH 27.6 L MCHC 31.7 RDW 21.3 H Plt Count 44 L MPV 9.3 L Immature Gran % 2.5 Seg Neutrophils % 83.3 Lymphocytes % 8.4 Monocytes % 5.7 Eosinophils % 0.0 Basophils % 0.1 Neutrophils # 14.8 H Lymphocytes # 1.5 Monocytes # 1.0 Eosinophils # 0.0 Basophils # 0.0 Nucleated RBCs/100 WBC 0.2 H Toxic Granulation Present A Dohle Bodies Present A Platelet Estimate Decreased L Immature Plt Fraction 4.0 Hypochromasia Present A Anisocytosis 1+ A Sodium 134 L Potassium 3.8 Chloride 106 Carbon Dioxide 19 BUN 4 L Creatinine 0.42 L Est GFR ( Amer) > 60 Est GFR (Non-Af Amer) > 60 BUN/Creatinine Ratio 10 Glucose 94 Calculated Osmolality 275 L Calcium 7.4 L Magnesium 1.3 L - Impressions Impressions Chest X-Ray 11/20/16 09:20 IMPRESSION: 1. Interval removal of a left pleural pigtail catheter. No pneumothorax. 2. Slight interval worsening of a loculated left effusion. Stable left base opacity and right base atelectasis. 3. Cardiomegaly. D/ / 11/20/2016 10:08:08 Shirley Chilel MD / [facility] Interpreting Provider: Shirley Chilel MD - ABG Interpretation ABG results: ABG ABG pH 7.48 pH Units (7.32-7.45) H 11/10/16 04:51 ABG pCO2 30 mmHg (35-45) L 11/10/16 04:51 ABG pO2 99 mmHg (85-104) 11/10/16 04:51 ABG O2 Saturation 98 % (95-98) 11/10/16 04:51 PT/INR, D-dimer PT 12.3 Seconds (9.4-12.1) H 11/16/16 04:45 Consult Discharge Plan - Plan Referrals: Hilda Chappell, TAMMIE [Primary Care Provider] -
[2016-11-21 04:35] LABS: Basophils % 0.2 %; Hemoglobin 8.5 g/dL (11.5-15.4); Red Cell Distribution Width 21.4 % (11.5-14.5)
[2016-11-21 04:37] LABS: Hematocrit 27.1 % (35.3-44.9); Immature Granulocytes % 3.3 % (0-4); Immature Platelets 5.4 % (1.1-6.1); Lymphocytes # 1.9 K/mcL (0.6-4.6); Mean Corpuscular HGB Conc 31.4 g/dL (31.6-35.5); Mean Corpuscular Hemoglobin 27.7 pg (28.0-33.3); Mean Corpuscular Volume 88.3 fL (83.0-100.0); Mean Platelet Volume 10.5 fL (9.4-12.4); Monocytes # 1.1 K/mcL (0.0-1.3); Monocytes % 5.1 %; Neutrophils # 17.1 K/mcL (1.6-8.9); Red Blood Count 3.07 M/mcL (3.82-4.97); Segmented Neutrophils % 82.4 %
[2016-11-21] MEDS: *HR* OxyCODONE Immed Rel 15 MG TABLET PO PRN ×2 (04:47→15:22)
[2016-11-21 05:00] LABS: Platelet Count 35 K/mcL (140-400)
[2016-11-21 05:03] LABS: Anisocytosis 1+ (Not Present); Dohle Bodies Present (Not Present); Hypochromasia Present (Not Present); Platelet Estimate Decreased (Normal); Toxic Granulation Present (Not Present)
[2016-11-21] MEDS: *HR* Enoxaparin 120 MG/0.8 ML SYRINGE SQ SCH ×2 (06:26→17:50)
[2016-11-21] MEDS: Magic Mouthwash 10 ML UD Cup PO SCH ×3 (07:51→16:24)
[2016-11-21 07:57] LABS: Thyroid Stimulating Hormone 2.177 mcIU/mL (0.350-4.840)
--- NOTE | 2016-11-21 08:34 | Internal Med Progress Note ---
<Chuck Carr - Last Filed: 11/21/16 17:11> Date of Encounter: 11/21/16 Time of Encounter: 08:34 - Assessment and plan (1) Pleural effusion Current Visit: Yes Status: Acute Assessment and plan: S/p talc pleurodesis, chest tube removed by cardiothoracic, follow-up chest x- ray showed slight interval worsening of loculated left effusion likely 2/2 inflammatory reaction to talc, spoke to pulmonology, recommended incentive spirometery for atelectasis, pulm standpoint, pt is okay to be discharged regarding her pleural effusion. (2) Watery diarrhea Current Visit: Yes Status: Acute Assessment and plan: Started yesterday, strong smell is suspicious for c.diff, will start flagyl, check c.diff stool test after 7 days from previous test (lab will not allow us to recheck if it is w/in 7 days, therefore need to send sample after tomorrow). (3) Bilateral pulmonary embolism Current Visit: Yes Status: Acute Assessment and plan: Currently on lovenox 110 mg SQ BID, with low platelet and hgb, concerning for such a high dose anticoagulation, risk vs benefit, hem/onc revisited the case yesterday again, con't to monitor CBC but con't with lovenox. (4) Cardiomyopathy Current Visit: Yes Status: Acute Assessment and plan: Echo from 11/10/2016 showed LVEF 25 to 30%, no known hx of CHF, newly diagnosed, ischemic vs non-ischemic, currently not fluid overloaded, with on going pancytopenia, b/l PE and malignant pleural effusion, unlikely cardio will do any invasive ischemic workup during this hospital stay, pt will f/u with cardio as outpt, she will need repeat echo in few months, when her BP (has been hypotensive these days) can tolerates, will start her on BB and ACEI, currently lasix is not required. Qualifiers: Qualified Code(s): I42.9 - Cardiomyopathy, unspecified (5) Pancytopenia Current Visit: Yes Status: Acute Assessment and plan: Likely 2/2 recent chemotherapy, WBC improved from neupogen so it was stopped, platelet and hgb con't to drop, unstable to discharge at this time, hem/onc revisited the case today. Check CBC in AM. (6) Metastatic adenocarcinoma Current Visit: Yes Status: Acute Assessment and plan: Ovarian cancer mets to lungs, recently received chemo, hem/onc consulted, f/u as outpt. (7) Hypomagnesemia Current Visit: Yes Status: Acute Assessment and plan: Replaced, recheck in AM. (8) DVT prophylaxis Current Visit: Yes Status: Acute Assessment and plan: Therapeutic lovenox. - Subjective Interval history: Pt seen and examined, denies SOB or chest pain, watery strong smell diarrhea started yesterday. - Constitutional Vitals: Temp Pulse Resp BP Pulse Ox 98.7 F 90 17 97/61 100 11/21/16 06:34 11/21/16 06:34 11/21/16 06:34 11/21/16 06:34 11/21/16 06:34 General appearance: Present: cooperative, A&O X 3, pleasant, obese - Head Head exam: Present: atraumatic, normocephalic - Eye Eye exam: Present: PERRL, conjuntiva pink, sclera anicteric Pupils: Present: PERRL - Neck Neck exam general surgery: Present: supple, trachea midline. Absent: lymphadenopathy - Respiratory Respiratory exam: Present: rales (at base b/l). Absent: accessory muscle use, rhonchi, wheezes - Cardiovascular Cardiovascular exam: Present: RRR, +S1, +S2. Absent: diastolic murmur, gallop, rubs, systolic murmur - GI/Abdominal GI/Abdominal exam: Present: normal bowel sounds, soft, no peritoneal signs. Absent: distended, tenderness - Extremities Exam Extremities exam: Present: warm, radial pulses palpable and symetrical. Absent : calf tenderness, cyanotic, pedal edema - Neurological Exam Neurological exam: Present: CN II-XII intact, oriented X3, no focal deficits. Absent: pronater drift, facial droop, speech deficit - Skin Skin exam: Present: dry, intact Internal Medicine: Result - Labs CBC & Chem 7: 11/21/16 03:44 11/20/16 03:30 Labs: Short CBC 11/21/16 Range/Units 03:44 WBC 20.7 H (4.3-11.1) K/mcL Hgb 8.5 L (11.5-15.4) g/dL Hct 27.1 L (35.3-44.9) % Plt Count 35 L (140-400) K/mcL Neutrophils # 17.1 H (1.6-8.9) K/mcL - ABG Interpretation ABG results: ABG ABG pH 7.48 pH Units (7.32-7.45) H 11/10/16 04:51 ABG pCO2 30 mmHg (35-45) L 11/10/16 04:51 ABG pO2 99 mmHg (85-104) 11/10/16 04:51 ABG O2 Saturation 98 % (95-98) 11/10/16 04:51 PT/INR, D-dimer PT 12.3 Seconds (9.4-12.1) H 11/16/16 04:45 - Impressions Impressions Chest X-Ray 11/20/16 09:20 IMPRESSION: 1. Interval removal of a left pleural pigtail catheter. No pneumothorax. 2. Slight interval worsening of a loculated left effusion. Stable left base opacity and right base atelectasis. 3. Cardiomegaly. D/ / 11/20/2016 10:08:08 Shirley Chilel MD / [facility] Interpreting Provider: Shirley Chilel MD Chest X-Ray 11/21/16 05:56 IMPRESSION: Left lung atelectasis and/or pneumonia with at least partially loculated left pleural effusion. D/ / Wilbur Up MD / Wilbur Up MD Interpreting Provider: Wilbur Up MD Consult Discharge Plan - Plan Referrals: Hilda Chappell CNP [Primary Care Provider] - <Phillip Kim - Last Filed: 11/21/16 17:34> - Assessment and plan (1) Pleural effusion Current Visit: Yes Status: Acute (2) Pulmonary embolism Current Visit: No Status: Acute Qualifiers: Pulmonary embolism type: other Chronicity: acute Acute cor pulmonale presence: without acute cor pulmonale Qualified Code(s): I26.99 - Other pulmonary embolism without acute cor pulmonale (3) Acute respiratory failure with hypoxia Current Visit: No Status: Acute (4) Metastatic adenocarcinoma Current Visit: Yes Status: Chronic (5) Anemia Current Visit: Yes Status: Acute Qualifiers: Anemia type: unspecified type Qualified Code(s): D64.9 - Anemia, unspecified - Constitutional Vitals: Temp Pulse Resp BP Pulse Ox 98.1 F 96 16 111/75 99 11/21/16 14:29 11/21/16 14:29 11/21/16 14:29 11/21/16 14:29 11/21/16 14:29 Internal Medicine: Result - Labs CBC & Chem 7: 11/21/16 03:44 11/20/16 03:30 Labs: Short CBC 11/21/16 Range/Units 03:44 WBC 20.7 H (4.3-11.1) K/mcL Hgb 8.5 L (11.5-15.4) g/dL Hct 27.1 L (35.3-44.9) % Plt Count 35 L (140-400) K/mcL Neutrophils # 17.1 H (1.6-8.9) K/mcL - ABG Interpretation ABG results: ABG ABG pH 7.48 pH Units (7.32-7.45) H 11/10/16 04:51 ABG pCO2 30 mmHg (35-45) L 11/10/16 04:51 ABG pO2 99 mmHg (85-104) 11/10/16 04:51 ABG O2 Saturation 98 % (95-98) 11/10/16 04:51 PT/INR, D-dimer PT 12.3 Seconds (9.4-12.1) H 11/16/16 04:45 - Impressions Impressions Chest X-Ray 11/21/16 05:56 IMPRESSION: Left lung atelectasis and/or pneumonia with at least partially loculated left pleural effusion. D/ / Wilbur Up MD / Wilbur Up MD Interpreting Provider: Wilbur Up MD - Attending Attestation I examined this patient and my medical decision-making was reviewed with the WIRE WINDER/PA/Advanced Practice Nurse/Resident Physician. I agree with the documented findings, disposition and treatment plan as described except to the extent set forth below. Ovarian cancer with multiple metastases and malignant pleural effusion status post chemotherapy and radiation therapy. Patient had chest tubes placed due to recurrent effusion. She underwent talc pleurodesis on Tuesday and the chest tube was removed yesterday. The patient has a pulmonary embolism for which she is on Lovenox. However, her platelet count is dropping consistently, today was 35,000. Last evaluation by oncology was yesterday, with appearing, 42,000 and recommended to continue with Lovenox. However, need to reconsult oncology for further recommendations in regards to different options for long-term anticoagulation (NOAC?) in a patient with anemia and significant thrombocytopenia with high risk of bleeding. Pulmonary signed off, cardio-thoracic surgery signed off. Today she had diarrhea, testing for C. difficile was requested and the patient was started on Flagyl empirically
[2016-11-21] MEDS ORDERED: Magnesium Sulfate 2 GM in D5% in Water 100 ML IVPB ONE (08:35)
[2016-11-21] MEDS: Gabapentin 300 MG CAPSULE PO SCH ×3 (08:52→22:12)
[2016-11-21] MEDS: Chlorhexidine Rinse 15 ML MOUTHWASH MM SCH ×2 (08:52→22:12)
[2016-11-21] MEDS: Magnesium Oxide 400 MG TABLET PO SCH ×2 (08:53→22:12)
[2016-11-21] MEDS: Baclofen 10 MG TABLET PO SCH ×3 (08:53→22:12)
--- NOTE | 2016-11-21 09:48 | Pulmonology Progress Note ---
Date of Encounter: 11/21/16 Time of Encounter: 08:30 Assessment and Plan (1) Pleural effusion Current Visit: Yes Status: Acute Reviewed chest x-ray with some evidence of I suspect mainly atelectasis and encouraged her to do incentive spirometry was also fluid with some accumulation which I suspect consequences of pleurodesis and inflammation. Discussed with the primary team and from pulmonary standpoint patient can be discharged home. (2) Pneumothorax on left Current Visit: Yes Status: Resolved Subjective Principal diagnosis: Bilateral Pulmonary emboli and malignant pulmonary effusion Interval history: Patient has some shortness of breath but not too bad according to her and some soreness in the left side from the chest tube site. Objective PUL Vital signs: Last Vital Signs Temp 98.7 F 11/21/16 06:34 Pulse 90 11/21/16 06:34 Resp 17 11/21/16 06:34 BP 97/61 11/21/16 06:34 Pulse Ox 100 11/21/16 06:34 General appearance: no acute distress Eyes: nonicteric ENT: oropharynx moist Neck: supple Effort: normal Auscultation: left: diminished breath sounds (Anteriorly clear diminished in the bases), right: clear Cardiovascular: regular rate and rhythm Gastrointestinal: normoactive bowel sounds Extremities: edema normal mental status, non-focal exam mood appropriate Results - Laboratory Findings CBC and BMP: 11/21/16 03:44 11/20/16 03:30 ABG ABG pH 7.48 pH Units (7.32-7.45) H 11/10/16 04:51 ABG pCO2 30 mmHg (35-45) L 11/10/16 04:51 ABG pO2 99 mmHg (85-104) 11/10/16 04:51 ABG O2 Saturation 98 % (95-98) 11/10/16 04:51 PT/INR, D-dimer PT 12.3 Seconds (9.4-12.1) H 11/16/16 04:45 Abnormal lab findings: Abnormal lab results WBC 20.7 K/mcL (4.3-11.1) H 11/21/16 03:44 RBC 3.07 M/mcL (3.82-4.97) L 11/21/16 03:44 Hgb 8.5 g/dL (11.5-15.4) L 11/21/16 03:44 Hct 27.1 % (35.3-44.9) L 11/21/16 03:44 MCH 27.7 pg (28.0-33.3) L 11/21/16 03:44 MCHC 31.4 g/dL (31.6-35.5) L 11/21/16 03:44 RDW 21.4 % (11.5-14.5) H 11/21/16 03:44 Plt Count 35 K/mcL (140-400) L 11/21/16 03:44 Band Neutrophils % 10.0 % (0-4) H 11/18/16 04:41 Neutrophils # 17.1 K/mcL (1.6-8.9) H 11/21/16 03:44 Nucleated RBCs/100 WBC 0.2 /100 WBC (0) H 11/20/16 03:30 Reactive Lymphocytes Present (Not Present) A 11/19/16 04:23 Toxic Granulation Present (Not Present) A 11/21/16 03:44 Toxic Vacuolation Present (Not Present) A 11/16/16 04:45 Dohle Bodies Present (Not Present) A 11/21/16 03:44 Platelet Estimate Decreased (Normal) L 11/21/16 03:44 Large Platelets Present (Not Present) A 11/19/16 04:23 Polychromasia 1+ (Not Present) A 11/18/16 04:41 Hypochromasia Present (Not Present) A 11/21/16 03:44 Poikilocytosis 2+ (Not Present) A 11/11/16 07:45 Anisocytosis 1+ (Not Present) A 11/21/16 03:44 Microcytosis Present (Not Present) A 11/17/16 04:56 Macrocytosis Present (Not Present) A 11/18/16 04:41 PT 12.3 Seconds (9.4-12.1) H 11/16/16 04:45 ABG pH 7.48 pH Units (7.32-7.45) H 11/10/16 04:51 ABG pCO2 30 mmHg (35-45) L 11/10/16 04:51 Sodium 134 mEq/L (136-145) L 11/20/16 03:30 BUN 4 mg/dL (7-20) L 11/20/16 03:30 Creatinine 0.42 mg/dL (0.57-1.11) L 11/20/16 03:30 Calculated Osmolality 275 (280-300) L 11/20/16 03:30 Lactic Acid 6.9 mmol/L (0.5-2.2) H* 11/09/16 19:03 Calcium 7.4 mg/dL (8.6-10.8) L 11/20/16 03:30 Ionized Calcium 1.06 mmol/L (1.15-1.35) L 11/13/16 05:45 Magnesium 1.2 mg/dL (1.6-2.6) L 11/21/16 03:44 Lactate Dehydrogenase 381 Units/L (159-327) H 11/15/16 16:31 Troponin I 0.43 ng/mL (0-0.03) H* 11/09/16 17:10 Serum Total Protein 5.5 g/dL (6.0-8.3) L 11/17/16 04:56 Albumin 1.8 g/dL (3.5-5.0) L 11/17/16 04:56 Globulin 3.7 g/dL (2.4-3.5) H 11/17/16 04:56 Albumin/Globulin Ratio 0.5 (1.1-2.2) L 11/17/16 04:56 Urine Ketones Trace mg/dL (Negative) H 11/09/16 19:48 Urine Blood Trace-intact (Negative) H 11/09/16 19:48 Ur Squamous Epith Cells Many per lpf (None-Few) H 11/09/16 19:48 - Diagnostic Findings Chest x-ray: report reviewed, image reviewed - Clinical Findings Intake & Output: Intake & Output 11/20/16 11/21/16 11/21/16 23:59 07:59 15:59 Intake Total 360 / 360 240 / 240 240 / 240 Output Total 0 / 0 300 / 300 Balance 360 / 360 -60 / -60 240 / 240 Consult Discharge Plan - Plan Referrals: Hilda Chappell, [employer] [Primary Care Provider] -
[2016-11-21] MEDS: Ondansetron 4 MG/2 ML VIAL IVP PRN (11:42)
[2016-11-21] MEDS: MetroNIDAZOLE 500 MG/100 ML 500 MG/100 ML BAG IVPB SCH ×2 (15:15→16:24)
[2016-11-21] MEDS: *HR* HYDROmorphone (PF) 1 MG/ML SYRINGE IVP PRN (22:25)
[2016-11-22] MEDS: MetroNIDAZOLE 500 MG/100 ML 500 MG/100 ML BAG IVPB SCH ×2 (00:37→08:40)
[2016-11-22 04:50] LABS: BUN/Creatinine Ratio 12 (6-26); Basophils % 0.3 %; Carbon Dioxide 19 mEq/L (19-29); Chloride 105 mEq/L (98-109); Eosinophils % 0.1 %; Glucose 81 mg/dL (70-99); Hematocrit 25.3 % (35.3-44.9); Hemoglobin 7.7 g/dL (11.5-15.4); Immature Granulocytes % 1.9 % (0-4); Immature Platelets 2.6 % (1.1-6.1); Lymphocytes # 1.5 K/mcL (0.6-4.6); Lymphocytes % 20.8 %; Magnesium 1.2 mg/dL (1.6-2.6); Mean Corpuscular HGB Conc 30.4 g/dL (31.6-35.5); Mean Platelet Volume 10.9 fL (9.4-12.4); Monocytes # 0.6 K/mcL (0.0-1.3); Monocytes % 8.1 %; Neutrophils # 4.8 K/mcL (1.6-8.9); Nucleated Red Blood Cells 0.4 /100 WBC (0); Osmolality,Calculated 270 (280-300); Potassium 4.1 mEq/L (3.5-4.5); Red Blood Count 2.75 M/mcL (3.82-4.97); Red Cell Distribution Width 21.7 % (11.5-14.5); Segmented Neutrophils % 68.8 %; Sodium 132 mEq/L (136-145); eGFR For African Americans > 60 (> 60); eGFR For Non-African Americans > 60 (> 60)
[2016-11-22 04:51] LABS: Blood Urea Nitrogen 5 mg/dL (7-20)
[2016-11-22] MEDS: *HR* HYDROmorphone (PF) 1 MG/ML SYRINGE IVP PRN ×2 (04:54→13:06)
[2016-11-22] MEDS: *HR* Enoxaparin 120 MG/0.8 ML SYRINGE SQ SCH ×2 (04:55→17:11)
[2016-11-22 05:21] LABS: Platelet Count 43 K/mcL (140-400)
[2016-11-22 05:56] LABS: Anisocytosis 2+ (Not Present); Burr Cells 1+ (Not Present); Target Cells 1+ (Not Present)
[2016-11-22] MEDS: Magic Mouthwash 10 ML UD Cup PO SCH ×3 (08:23→17:21)
[2016-11-22] MEDS ORDERED: Magnesium Sulfate 2 GM in D5% in Water 100 ML IVPB ONE (08:27)
[2016-11-22] MEDS: Baclofen 10 MG TABLET PO SCH ×2 (08:52→15:01)
[2016-11-22] MEDS: Chlorhexidine Rinse 15 ML MOUTHWASH MM SCH (08:52)
[2016-11-22] MEDS: Magnesium Oxide 400 MG TABLET PO SCH (08:53)
[2016-11-22] MEDS: Gabapentin 300 MG CAPSULE PO SCH ×2 (08:53→15:01)
[2016-11-22] MEDS: *HR* OxyCODONE Immed Rel 15 MG TABLET PO PRN (09:13)
--- NOTE | 2016-11-22 11:00 | Event Note ---
Date of Encounter: 11/22/16 Time of Encounter: 10:00 Ms. Bains's use of pain mediation has been stable over the past 5 days. Continue with current dose. Goals of care have been established, and she will return home with home health. The palliative care team will sign off. Please re-consult as needed.
[2016-11-22 11:09] VITALS: BP 98/61
--- NOTE | 2016-11-22 11:32 | Internal Med Progress Note ---
Date of Encounter: 11/22/16 Time of Encounter: 11:31 - Constitutional Vitals: Temp Pulse Resp BP Pulse Ox 98.3 F 83 18 98/61 99 11/22/16 11:08 11/22/16 11:08 11/22/16 11:08 11/22/16 11:08 11/22/16 11:08 General appearance: Present: cooperative, A&O X 3, pleasant, no acute distress, obese - Head Head exam: Present: atraumatic, normocephalic - Eye Eye exam: Present: normal appearance, conjuntiva pink, sclera anicteric - Respiratory Respiratory exam: Present: CTAB. Absent: respiratory distress, wheezes - Cardiovascular Cardiovascular exam: Present: RRR, +S1, +S2 - GI/Abdominal GI/Abdominal exam: Present: normal bowel sounds, soft. Absent: distended, tenderness - Extremities Exam Extremities exam: Present: pedal edema (bilateral lower extremity edema), warm, radial pulses palpable and symetrical. Absent: calf tenderness, tenderness - Neurological Exam Neurological exam: Present: alert, oriented X3 - Psychiatric Psychiatric exam: Present: normal affect, normal mood Internal Medicine: Result - Labs CBC & Chem 7: 11/22/16 03:42 11/22/16 03:42 Labs: Short CBC 11/22/16 Range/Units 03:42 WBC 7.0 D (4.3-11.1) K/mcL Hgb 7.7 L (11.5-15.4) g/dL Hct 25.3 L (35.3-44.9) % Plt Count 43 L (140-400) K/mcL Neutrophils # 4.8 (1.6-8.9) K/mcL BMP 11/22/16 03:42 Sodium 132 L Potassium 4.1 Chloride 105 Carbon Dioxide 19 BUN 5 L Creatinine 0.42 L Glucose 81 Calcium 8.0 L - ABG Interpretation ABG results: ABG ABG pH 7.48 pH Units (7.32-7.45) H 11/10/16 04:51 ABG pCO2 30 mmHg (35-45) L 11/10/16 04:51 ABG pO2 99 mmHg (85-104) 11/10/16 04:51 ABG O2 Saturation 98 % (95-98) 11/10/16 04:51 PT/INR, D-dimer PT 12.3 Seconds (9.4-12.1) H 11/16/16 04:45 Consult Discharge Plan - Plan Referrals: Hilda Chappell, [facility] [Primary Care Provider] -
--- NOTE | 2016-11-22 14:34 | Discharge Summary ---
Date of Encounter: 11/22/16 Time of Encounter: 11:30 - Discharge Diagnosis (1) Bilateral pulmonary embolism Priority: Primary Status: Acute (2) Cardiomyopathy Priority: Secondary Status: Chronic Qualifiers: Qualified Code(s): I42.9 - Cardiomyopathy, unspecified (3) Hypomagnesemia Priority: Secondary Status: Acute (4) Pancytopenia Priority: Secondary Status: Chronic (5) Pleural effusion Priority: Primary Status: Resolved (6) Watery diarrhea Priority: Secondary Status: Resolved (7) Metastatic adenocarcinoma Priority: Secondary Status: Chronic - Discharge Medications Prescriptions: Enoxaparin [Lovenox] 110 mg SQ Q12HR #20 syringe Magnesium Oxide [Mag-Ox] 400 mg PO BID #20 tablet Home Medications: Baclofen 10 mg PO TID 09/29/16 [History] Duloxetine HCl [Cymbalta] 60 mg PO DAILY 09/29/16 [History] Gabapentin [Neurontin] 600 mg PO TID 09/29/16 [History] Melatonin/Pyridoxine HCl (B6) [Melatonin 3 mg Tablet] 1 each PO HS 09/29/16 [ History] Ropinirole HCl [Requip] 2 mg PO BID 09/29/16 [History] Magic Mouthwash [Magic Mouthwash BLM] 10 ml PO QID PRN #240 ml 10/15/16 [Rx] Amlodipine [Norvasc] 5 mg PO DAILY #30 tablet 10/18/16 [Rx] Docusate Sodium [Colace] 100 mg PO BID #60 capsule 10/18/16 [Rx] Ondansetron HCl [Zofran] 4 mg PO Q6H PRN #30 tablet 11/01/16 [Rx] Prochlorperazine Maleate [Compazine] 10 mg PO Q6HR PRN #30 tablet 11/01/16 [Rx] Megestrol Acetate [Megace] 10 ml PO DAILY #300 mls 11/04/16 [Rx] OxyCODONE Immed Rel [Roxicodone 5 MG] 10 mg PO Q4H PRN #60 tab 11/08/16 [Rx] Aspirin 81 mg PO DAILY 11/09/16 [History] Dexamethasone [Decadron] 2 tab PO BID #30 tablet 11/09/16 [Rx] Enoxaparin [Lovenox] 110 mg SQ Q12HR #20 syringe 11/22/16 [Rx] Magnesium Oxide [Mag-Ox] 400 mg PO BID #20 tablet 11/22/16 [Rx] Allergies/Adverse Reactions: Allergies No Known Allergies Allergy (Verified 11/09/16 15:44) Date of admission: 11/09/16 18:30 Primary care physician: Hilda Chappell CNP Consults: 11/09/16 20:34 Consult to Nutrition [CONS] Routine Comment: Consulting Provider: NUTRITION Reason for Dietary Consult: Other TF Start and Manage Other:: verbal order from Dr. Moseley 11/10/16 13:08 Consult to Oncology Hematology [CONS] Stat Consulting Provider: Yannick Brewster Reason for Consult: Continuation of therapy for Ovarian cancer pt states due for tx today at 2. Bilateral PE's and recurrent pleural effusion Time Notified: 13:11 Call Completed: Yes 11/11/16 07:08 Consult to Palliative Care [CONS] Routine Comment: Consulting Provider: Palliative Care Stephanie 11/11/16 13:41 Consult to Interventional Radiology [CONS] Routine Consulting Provider: Radiology Interventional Cols Reason for Consult: IVC filter. HX advanced ovarian CA - bilateral PE's. Time Notified: 13:42 Call Completed: Yes 11/12/16 07:35 Consult to Interventional Radiology [CONS] Routine Consulting Provider: Radiology Interventional Cols Reason for Consult: PleurX Catheter Placement. Pt with recurrent pleural effusions secondary to malignancy. Bilateral PE's. Time Notified: 07:38 Call Completed: Yes 11/12/16 18:16 Consult to Occupational Therapy [CONS] Routine Comment: Evaluate, develop and implement POC Consult to Physical Therapy [CONS] Routine Comment: Evaluate, develop and implement POC 11/15/16 09:52 Consult to Cardiothoracic Surgery [CONS] Routine Consulting Provider: Cardiothoracic Surgery Stephanie Reason for Consult: Malignant pleural effusion Time Notified: 09:00 Call Completed: Yes 11/15/16 13:00 Consult to Interventional Radiology [CONS] Routine Consulting Provider: Radiology Interventional Cols Reason for Consult: retracted chest tube, needs to be fixed Call Completed: Yes 11/15/16 15:11 Consult to Invasive Line Access Team [CONS] Routine Reason for Consult: difficult stick Line Type: EPIV 11/16/16 09:50 Consult to Interventional Radiology [CONS] Routine Consulting Provider: Radiology Interventional Cols Reason for Consult: Left chest tube placement for subsequent talc pleurodesis. Call Completed: No 11/17/16 11:46 consult to finance clerk [Consult to Nutrition] [CONS] Stat Comment: Consulting Provider: NUTRITION Reason for Dietary Consult: Supplemental Nutrition 11/22/16 09:23 Consult to Physical Therapy [CONS] Routine Comment: Evaluate, develop and implement POC 11/22/16 09:24 Consult to Occupational Therapy [CONS] Routine Comment: Evaluate, develop and implement POC Discharging clinician: Mary Adhikari Anticipated date of discharge: 11/22/16 - Patient Status Disposition: Home Health Service Condition: Fair Functional capacity at discharge: uses cane/walker Overall status at discharge: patient is back to baseline - Discharge Instructions Follow Up With: Hilda Chapplel CNP [Primary Care Provider] - Additional Instructions: Please follow with oncology within 5 days after discharge from the hospital. Please get the prescribed lab work done, one day prior to your appointment with the oncologist. Please follow up with her primary care physician within one week after discharge from the hospital. Please follow-up with your massage operator within 1 week after discharge from the hospital. Due to your persistent low magnesium levels, magnesium supplement have been added to her home medications. Please continue all your home medications as prescribed by her primary care physician and primary oncologist. - Diet and Activity Activity: resume usual activities as tolerated, wear oxygen at all times Diet: advance to your usual diet Hospital course: Ms. 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 Patient was initially intubated and admitted to the ICU. Patient received immediate chest tube placement and tPA for the PE. She was started on therapeutic lovenox thereafter. Patient was stabilized and extubated and transferred to the floor and due to recurrent pleural effusions, she underwent talc pleurodesis and removal of pleurx cath by Dr. Morgan. She tolerated the procedure well. She was initially noted to have a drop in H&H requiring PRBC transfusions. Oncology/Hematology input was appreciated with continuation of anticoagulation with thrombocytopenia. It was recommended that patient is safe to continue anticoagulation as long as the PLT >30,000, given there is not active bleed. Today the patient is resting in bed, she had reported of having loose bowel movements, however reports of complete resolution of her diarrhea. States she has not had a loose BM and is tolerating PO intake well. She does not want home PT/OT as she states her son is a therapist and he will help her with physical therapy at home. She was noted to have a slight drop in her Hgb this morning to 7.7 but she is asymptomatic and reports of feeling better compared to the previous day. She has an appointment with her oncologist on and as per her rn lactation consultant oncologist (Dr. Mcgrath), patient is safe to discharge given she is asymptomatic and they will follow up with her in the clinic. Patient is to get her lab work done on Tuesday prior to her oncologist appointment. She was also noted to have hypmagenesemia, for which she will be discharged with oral mag supplements. Patient reports of using home oxygen 09/05. - Time Spent with Patient Total time spent providing and/or coordinating discharge services: Greater than 30 minutes - Constitutional Vitals: Temp Pulse Resp BP Pulse Ox 98.3 F 83 18 98/61 99 11/22/16 11:08 11/22/16 11:08 11/22/16 11:08 11/22/16 11:08 11/22/16 11:08 General appearance: Present: cooperative, A&O X 3, pleasant, no acute distress, obese - Head Head exam: Present: atraumatic, normocephalic - Eye Eye exam: Present: conjuntiva pink, sclera anicteric - Respiratory Respiratory exam: Present: CTAB. Absent: respiratory distress, wheezes - Cardiovascular Cardiovascular exam: Present: RRR, +S1, +S2 (right chest wall chemoport) - GI/Abdominal GI/Abdominal exam: Present: normal bowel sounds, soft. Absent: distended, tenderness - Extremities Exam Extremities exam: Present: pedal edema (bilateral lower extremity edema ), warm , radial pulses palpable and symetrical. Absent: calf tenderness, tenderness - Neurological Exam Neurological exam: Present: alert, oriented X3 - Psychiatric Psychiatric exam: Present: normal affect, normal mood
--- NOTE | 2016-11-22 15:08 | Physician Discharge Referral ---
Home Health/Hosp Referral Info Transfer to: Home Health Provider in Charge Post Discharge: PCP - Diagnosis (1) Bilateral pulmonary embolism Priority: Primary Status: Acute (2) Cardiomyopathy Priority: Secondary Status: Chronic (3) Hypomagnesemia Priority: Secondary Status: Acute (4) Pancytopenia Priority: Secondary Status: Chronic (5) Pleural effusion Priority: Primary Status: Resolved (6) Watery diarrhea Priority: Secondary Status: Resolved (7) Metastatic adenocarcinoma Priority: Secondary Status: Chronic - Respiratory Orders Smoking Cessation: Smoking cessation has been advised. For more information, call the [place] Tobacco Quit Line at 8-493-COHWNOW. - Services Needed Following services are medically necessary services: Nursing (lab work (CBC, Mg ) one day before oncologist appointment), Home Health Aide, Med Social Work - Transfer Medications Prescriptions: Enoxaparin [Lovenox] 110 mg SQ Q12HR #20 syringe Magnesium Oxide [Mag-Ox] 400 mg PO BID #20 tablet Home Medications: Baclofen 10 mg PO TID 09/29/16 [History] Duloxetine HCl [Cymbalta] 60 mg PO DAILY 09/29/16 [History] Gabapentin [Neurontin] 600 mg PO TID 09/29/16 [History] Melatonin/Pyridoxine HCl (B6) [Melatonin 3 mg Tablet] 1 each PO HS 09/29/16 [ History] Ropinirole HCl [Requip] 2 mg PO BID 09/29/16 [History] Magic Mouthwash [Magic Mouthwash BLM] 10 ml PO QID PRN #240 ml 10/15/16 [Rx] Amlodipine [Norvasc] 5 mg PO DAILY #30 tablet 10/18/16 [Rx] Docusate Sodium [Colace] 100 mg PO BID #60 capsule 10/18/16 [Rx] Ondansetron HCl [Zofran] 4 mg PO Q6H PRN #30 tablet 11/01/16 [Rx] Prochlorperazine Maleate [Compazine] 10 mg PO Q6HR PRN #30 tablet 11/01/16 [Rx] Megestrol Acetate [Megace] 10 ml PO DAILY #300 mls 11/04/16 [Rx] OxyCODONE Immed Rel [Roxicodone 5 MG] 10 mg PO Q4H PRN #60 tab 11/08/16 [Rx] Aspirin 81 mg PO DAILY 11/09/16 [History] Dexamethasone [Decadron] 2 tab PO BID #30 tablet 11/09/16 [Rx] Enoxaparin [Lovenox] 110 mg SQ Q12HR #20 syringe 11/22/16 [Rx] Magnesium Oxide [Mag-Ox] 400 mg PO BID #20 tablet 11/22/16 [Rx] Allergies/Adverse Reactions: Allergies No Known Allergies Allergy (Verified 11/09/16 15:44) Certification: Further, I certify that my clinical findings support that this patient is homebound (i.e. absences from home require considerable and taxing effort and are for medical reasons or sikhism services or infrequently or short duration when for other reasons) because: Homebound Reason: Patient requires assistance of a person or device to safely leave home, Leaving home requires considerable and taxing effort due to condition Attestation: My signature below is to certify that this patient is under my care and that I, or nurse practitioner, or a physician's medical office assistant working with me, has a face-to -face encounter with this patient.
--- NOTE | 2016-11-22 17:57 | Oncology Inp Progress Note ---
Date of Encounter: 11/22/16 Time of Encounter: 16:00 (1) Pulmonary embolism Current Visit: No Status: Acute Assessment and plan: s/p thrombolysis and IVC filter placement, continuing lovenox BID. Recommend holding AC for plt count<30K. Qualifiers: Pulmonary embolism type: other Chronicity: acute Acute cor pulmonale presence: without acute cor pulmonale Qualified Code(s): I26.99 - Other pulmonary embolism without acute cor pulmonale (2) Metastatic adenocarcinoma of ovary Current Visit: Yes Status: Acute Assessment and plan: REcieved one cycle of carboplatin and Taxotere on 11/09/16. Cytopenia is improving. She will discuss about further treatment at her visit with her oncologist. She reports nervousness about restarting chemotherapy. Qualifiers: Laterality: unspecified laterality Qualified Code(s): C79.60 - Secondary malignant neoplasm of unspecified ovary (3) Pleural effusion Current Visit: Yes Status: Resolved Assessment and plan: s/p talc pleurodesis, now improved. Breathing has improved. Oncology: Subj Interval history: The patient reports doing better, is going home today. Breathing is better. Diarrhea has improved but not completely. - Constitutional Vitals: Vital Signs Temp Pulse Resp BP Pulse Ox 11/22/16 11:08 98.3 F 83 18 98/61 99 11/22/16 10:13 97.7 F 81 18 110/69 100 11/22/16 09:00 100 11/22/16 07:22 98.4 F 84 15 117/71 100 11/22/16 04:25 98.2 F 87 16 102/68 99 11/21/16 23:44 98.8 F 98 17 100/55 96 11/21/16 19:25 98.4 F 100 16 98/54 97 Intake and Output 11/22/16 11/22/16 11/23/16 08:59 16:59 00:59 Intake Total 100 / 100 190 / 190 Output Total 650 / 650 125 / 125 Balance -550 / -550 65 / 65 Intake: IV Fluids 100 / 100 Flagyl 500 MG/100 ML 500 100 / 100 mg In 100 ml @ 100 mls/hr IVPB Q8HR JUAN MIGUEL Rx#: [id number] Oral 190 / 190 Output: Urine 650 / 650 125 / 125 Other: Meal Lunch Percent of Meal Consumed 20% Stool Size Small Stool Consistency soft Stool Color Brown # Voids 1 General appearance: average body habitus, cooperative, no acute distress - Head Head exam: Present: atraumatic, normocephalic - Eye Eye exam: Present: EOMI, PERRL, sclera anicteric - ENT ENT exam: Present: mucous membranes moist, normal oropharynx - Neck Neck exam: Present: full ROM, normal inspection - Respiratory Respiratory exam: Present: decreased breath sounds - Cardiovascular Cardiovascular exam: Present: RRR, +S1, +S2 - GI/Abdominal GI/Abdominal exam: Present: normal bowel sounds, soft - Extremities Exam Extremities exam: Present: pedal edema Oncology: Obj Data - Labs CBC & Chem 7: 11/22/16 03:42 11/22/16 03:42 Labs: Laboratory Results - last 24 hr 11/22/16 11/22/16 03:42 03:42 WBC 7.0 D RBC 2.75 L Hgb 7.7 L Hct 25.3 L MCV 92.0 MCH 28.0 MCHC 30.4 L RDW 21.7 H Plt Count 43 L MPV 10.9 Immature Gran % 1.9 Seg Neutrophils % 68.8 Lymphocytes % 20.8 Monocytes % 8.1 Eosinophils % 0.1 Basophils % 0.3 Neutrophils # 4.8 Lymphocytes # 1.5 Monocytes # 0.6 Eosinophils # 0.0 Basophils # 0.0 Nucleated RBCs/100 WBC 0.4 H Immature Plt Fraction 2.6 Anisocytosis 2+ A Target Cells 1+ A Jose L Cells 1+ A Sodium 132 L Potassium 4.1 Chloride 105 Carbon Dioxide 19 BUN 5 L Creatinine 0.42 L Est GFR ( Amer) > 60 Est GFR (Non-Af Amer) > 60 BUN/Creatinine Ratio 12 Glucose 81 Calculated Osmolality 270 L Calcium 8.0 L Magnesium 1.2 L - ABG Interpretation ABG results: ABG ABG pH 7.48 pH Units (7.32-7.45) H 11/10/16 04:51 ABG pCO2 30 mmHg (35-45) L 11/10/16 04:51 ABG pO2 99 mmHg (85-104) 11/10/16 04:51 ABG O2 Saturation 98 % (95-98) 11/10/16 04:51 PT/INR, D-dimer PT 12.3 Seconds (9.4-12.1) H 11/16/16 04:45 Consult Discharge Plan - Plan Additional Instructions: Please follow with oncology within 5 days after discharge from the hospital. Please get the prescribed lab work done, one day prior to your appointment with the oncologist. Please follow up with her primary care physician within one week after discharge from the hospital. Please follow-up with your data warehousing engineer within 1 week after discharge from the hospital. Due to your persistent low magnesium levels, magnesium supplement have been added to her home medications. Please continue all your home medications as prescribed by her primary care physician and primary oncologist. Referrals: Yannick Brewster MD [Partnered Physician] - 11/25/16 2:10 pm Prescriptions: Enoxaparin [Lovenox] 110 mg SQ Q12HR #20 syringe Magnesium Oxide [Mag-Ox] 400 mg PO BID #20 tablet
== END 2016-11-22 20:00 | disposition home health service (06) | DRG 166 ==
LOC: EMEROO 15:42 → ICNU 18:30 → SUATTDRO 18:30 → ICNU 19:45 → 3ANU 11-12 10:31
PROVIDERS: ADMIT Specialist; ATTEND Internal Medicine

== ENCOUNTER 2019-06-10 14:55 | Observation (INO) ==
[2019-06-10] MEDS ORDERED: 0.9 % Sodium Chloride 1,000 ML IVC ONE (15:19)
[2019-06-10] MEDS ORDERED: Ondansetron 4 MG/2 ML VIAL IVP ONE (15:19)
[2019-06-10 15:54] LABS: Basophils % 0.5 %; Eosinophils # 0.1 K/mcL (0.0-0.6); Eosinophils % 1.9 %; Hematocrit 27.1 % (35.3-44.9); Hemoglobin 8.8 g/dL (11.5-15.4); Immature Granulocytes % 0.2 % (0-4); Lymphocytes # 0.9 K/mcL (0.6-4.6); Lymphocytes % 15.7 %; Mean Corpuscular HGB Conc 32.5 g/dL (31.6-35.5); Mean Corpuscular Hemoglobin 26.8 pg (28.0-33.3); Mean Corpuscular Volume 82.6 fL (83.0-100.0); Monocytes # 0.4 K/mcL (0.0-1.3); Neutrophils # 4.2 K/mcL (1.6-8.9); Platelet Count 239 K/mcL (140-400); Red Blood Count 3.28 M/mcL (3.82-4.97); Red Cell Distribution Width 17.1 % (11.5-14.5); Segmented Neutrophils % 74.7 %; White Blood Count 5.7 K/mcL (4.3-11.1)
[2019-06-10 16:15] LABS: BUN/Creatinine Ratio 15 (6-26); Blood Urea Nitrogen 12 mg/dL (8-23); Calcium 9.1 mg/dL (8.6-10.3); Carbon Dioxide 20 mEq/L (23-29); Chloride 106 mEq/L (98-107); Glucose 99 mg/dL (70-105); Osmolality,Calculated 286 (280-300); Potassium 3.6 mEq/L (3.5-5.1); Sodium 138 mEq/L (136-145); eGFR For African Americans > 60 (> 60); eGFR For Non-African Americans > 60 (> 60)
[2019-06-10 16:16] LABS: Troponin I < 0.03 ng/mL (< 0.04)
[2019-06-10] MEDS ORDERED: *HR* FentaNYL (PF) 100 MCG/2 ML VIAL IVP ONE (17:59)
[2019-06-10] MEDS ORDERED: *HR* HYDROmorphone (PF) 1 MG/ML SYRINGE IVP ONE (21:32)
[2019-06-10] MEDS: *HR* HYDROcodone/Acet 10/325 mg TABLET PO PRN (22:40)
[2019-06-11] MEDS ORDERED: Naloxone 0.4 MG/ML INJ IVP PRN (03:28)
[2019-06-11] MEDS ORDERED: 0.9 % Sodium Chloride 1,000 ML IVC SCH (03:30)
[2019-06-11] MEDS: *HR* HYDROmorphone (PF) 1 MG/ML SYRINGE IVP PRN ×4 (03:34→12:21)
[2019-06-11 04:58] LABS: Hematocrit 25.6 % (35.3-44.9); Hemoglobin 8.1 g/dL (11.5-15.4); Mean Corpuscular HGB Conc 31.6 g/dL (31.6-35.5); Mean Corpuscular Hemoglobin 25.8 pg (28.0-33.3); Mean Corpuscular Volume 81.5 fL (83.0-100.0); Mean Platelet Volume 10.3 fL (9.4-12.4); Platelet Count 250 K/mcL (140-400); Red Blood Count 3.14 M/mcL (3.82-4.97); Red Cell Distribution Width 17.2 % (11.5-14.5); White Blood Count 6.3 K/mcL (4.3-11.1)
[2019-06-11] MEDS: *HR* HYDROcodone/Acet 10/325 mg TABLET PO PRN (05:07)
[2019-06-11 05:14] LABS: BUN/Creatinine Ratio 13 (6-26); Blood Urea Nitrogen 9 mg/dL (8-23); Calcium 8.7 mg/dL (8.6-10.3); Carbon Dioxide 19 mEq/L (23-29); Chloride 108 mEq/L (98-107); Glucose 95 mg/dL (70-105); Osmolality,Calculated 290 (280-300); Potassium 3.4 mEq/L (3.5-5.1); Sodium 141 mEq/L (136-145); eGFR For African Americans > 60 (> 60); eGFR For Non-African Americans > 60 (> 60)
[2019-06-11] MEDS ORDERED: Gabapentin 300 MG CAPSULE PO SCH (09:00)
[2019-06-11] MEDS ORDERED: Apixaban 5 MG TABLET PO SCH (09:00)
[2019-06-11 11:56] VITALS: BP 143/75
== END 2019-06-11 15:07 | disposition home or self-care (01) ==
LOC: EMEROOARM 14:55 → 3BNU 14:55
PROVIDERS: ADMIT Internal Medicine Nephrology; ATTEND Internal Medicine Nephrology

== ENCOUNTER 2019-08-16 12:17 | Inpatient (IN) ==
[2019-08-16] MEDS ORDERED: *HR* HYDROmorphone (PF) 1 MG/ML SYRINGE IVP ONE ×2 (12:26→14:00)
[2019-08-16] MEDS ORDERED: 0.9 % Sodium Chloride 1,000 ML IVC ONE ×2 (12:26→16:21)
[2019-08-16] MEDS ORDERED: Isovue-370 500 ML BOTTLE IVP ONE (12:27)
[2019-08-16] MEDS ORDERED: *HR* Promethazine 25 MG/ML VIAL IVP ONE ×2 (12:29→15:09)
[2019-08-16 13:25] LABS: Basophils % 0.2 %; Eosinophils % 0.8 %; Hematocrit 32.4 % (35.3-44.9); Immature Granulocytes % 0.2 % (0-4); Lymphocytes # 0.8 K/mcL (0.6-4.6); Lymphocytes % 15.5 %; Mean Corpuscular Hemoglobin 26.9 pg (28.0-33.3); Mean Corpuscular Volume 79.2 fL (83.0-100.0); Mean Platelet Volume 10.4 fL (9.4-12.4); Monocytes # 0.4 K/mcL (0.0-1.3); Monocytes % 7.6 %; Platelet Count 260 K/mcL (140-400); Red Blood Count 4.09 M/mcL (3.82-4.97); Segmented Neutrophils % 75.7 %; White Blood Count 5.2 K/mcL (4.3-11.1)
[2019-08-16 13:29] LABS: Neutrophils # 3.9 K/mcL (1.6-8.9)
[2019-08-16 13:44] LABS: Alanine Aminotransferase 4 Units/L (7-52); Albumin 3.1 g/dL (3.5-5.7); Albumin/Globulin Ratio 1.1 (1.1-2.2); Alkaline Phosphatase 84 Units/L (34-104); Aspartate Amino Transferase 11 Units/L (13-39); BUN/Creatinine Ratio 26 (6-26); Bilirubin,Total 0.5 mg/dL (0.3-1.0); Blood Urea Nitrogen 11 mg/dL (8-23); Calcium 8.3 mg/dL (8.6-10.3); Carbon Dioxide 17 mEq/L (23-29); Chloride 107 mEq/L (98-107); Globulin 2.9 g/dL (2.4-3.5); Glucose 96 mg/dL (70-105); Lipase 3 Units/L (11-82); Osmolality,Calculated 279 (280-300); Sodium 135 mEq/L (136-145); eGFR For African Americans > 60 (> 60); eGFR For Non-African Americans > 60 (> 60)
[2019-08-16 14:35] LABS: Anisocytosis 3+ (Not Present); Platelet Estimate Normal (Normal); Poikilocytosis 1+ (Not Present)
[2019-08-16] MEDS ORDERED: Ondansetron 4 MG/2 ML VIAL ONE (14:45)
[2019-08-16] MEDS ORDERED: Ondansetron 4 MG/2 ML VIAL IVP ONE (14:57)
[2019-08-16] MEDS ORDERED: Potassium Chloride 40 MEQ, Lidocaine 1% 2 ML in 0.9 % Sodium Chloride 500 ML IVPB ONE (15:08)
[2019-08-16 15:27] LABS: Magnesium 1.6 mg/dL (1.6-2.6)
[2019-08-16 15:33] LABS: Bilirubin,Urine Moderate (Negative); Blood,Urine Negative (Negative); Clarity,Urine Clear (Clear); Color,Urine Dark Yellow (Yellow); Glucose,Urine (UA) Normal (Normal); Ketones,Urine 80 mg/dL (Negative); Leukocyte Esterase,Urine Trace (Negative); Nitrite,Urine Negative (Negative); PH,Urine 5.5 pH Units (5.0-8.0); Protein,Urine 30 mg/dL (Neg-Trace); Specific Gravity,Urine > 1.030 (1.010-1.025); Urobilinogen,Urine Normal (Normal)
[2019-08-16 15:35] LABS: Bacteria,Urine None Seen per hpf (None-Few); Hyaline Casts,Urine Moderate per lpf (None-Few); RBC,Urine 0-3 per hpf (0-3); Squamous Epithelial Cell,Urine Many per lpf (None-Few); WBC,Urine 0-3 per hpf (0-3)
[2019-08-16] MEDS: Morphine Sulfate ER (12 HR) 15 MG TABLET.ER PO SCH (17:48)
[2019-08-16] MEDS: *HR* HYDROmorphone (PF) 1 MG/ML SYRINGE IVP PRN (18:38)
[2019-08-16] MEDS ORDERED: Acetaminophen IV 1,000 MG/100 ML INFUS..BTL IVPB ONE (20:11)
[2019-08-16] MEDS: Megestrol Acetate 400 MG/10 ML UDC PO SCH (20:17)
[2019-08-16] MEDS: Gabapentin 300 MG CAPSULE PO SCH (20:18)
[2019-08-16] MEDS: *HR* LORazepam 1 MG TABLET PO PRN (20:18)
[2019-08-16] MEDS: *HR* Promethazine 25 MG/ML VIAL IVP PRN (20:19)
[2019-08-17] MEDS: *HR* HYDROmorphone (PF) 1 MG/ML SYRINGE IVP PRN ×2 (04:13→09:35)
[2019-08-17] MEDS: Morphine Sulfate ER (12 HR) 15 MG TABLET.ER PO SCH ×2 (06:10→17:16)
[2019-08-17 06:26] LABS: Basophils % 0.4 %; Eosinophils # 0.1 K/mcL (0.0-0.6); Eosinophils % 2.3 %; Hematocrit 30.6 % (35.3-44.9); Hemoglobin 9.9 g/dL (11.5-15.4); Immature Granulocytes % 0.4 % (0-4); Lymphocytes % 17.7 %; Mean Corpuscular HGB Conc 32.4 g/dL (31.6-35.5); Mean Corpuscular Hemoglobin 26.7 pg (28.0-33.3); Mean Corpuscular Volume 82.5 fL (83.0-100.0); Mean Platelet Volume 10.2 fL (9.4-12.4); Monocytes # 0.5 K/mcL (0.0-1.3); Monocytes % 10.1 %; Neutrophils # 3.3 K/mcL (1.6-8.9); Platelet Count 231 K/mcL (140-400); Red Blood Count 3.71 M/mcL (3.82-4.97); Red Cell Distribution Width 24.8 % (11.5-14.5); Segmented Neutrophils % 69.1 %; White Blood Count 4.8 K/mcL (4.3-11.1)
[2019-08-17 06:44] LABS: BUN/Creatinine Ratio 18 (6-26); Blood Urea Nitrogen 8 mg/dL (8-23); Calcium 8.2 mg/dL (8.6-10.3); Carbon Dioxide 21 mEq/L (23-29); Chloride 105 mEq/L (98-107); Glucose 90 mg/dL (70-105); Osmolality,Calculated 280 (280-300); Potassium 3.1 mEq/L (3.5-5.1); Sodium 136 mEq/L (136-145); eGFR For African Americans > 60 (> 60); eGFR For Non-African Americans > 60 (> 60)
[2019-08-17 06:50] LABS: Lymphocytes # 0.9 K/mcL (0.6-4.6)
[2019-08-17 07:06] LABS: Anisocytosis 1+ (Not Present); Platelet Estimate Normal (Normal)
[2019-08-17] MEDS: Gabapentin 300 MG CAPSULE PO SCH ×3 (09:34→20:14)
[2019-08-17] MEDS: Megestrol Acetate 400 MG/10 ML UDC PO SCH (09:34)
[2019-08-17] MEDS: *HR* Promethazine 25 MG/ML VIAL IVP PRN (09:35)
[2019-08-17] MEDS ORDERED: *HR* HYDROmorphone (PF) 1 MG/ML SYRINGE IVP ONE ×2 (10:20→14:14)
[2019-08-17] MEDS ORDERED: *HR* HYDROmorphone 20 MG/20 ML PCA IVC PRN ×2 (10:54→13:37)
[2019-08-17] MEDS ORDERED: Naloxone 0.4 MG/ML INJ IVP PRN (10:59)
[2019-08-17] MEDS: 0.9 % Sodium Chloride 1,000 ML IVC SCH (13:54)
[2019-08-17] MEDS ORDERED: Haloperidol Lactate 5 MG/ML VIAL IVP PRN (14:15)
[2019-08-17] MEDS ORDERED: *HR* Promethazine 25 MG/ML VIAL IVP PRN (14:19)
[2019-08-17] MEDS ORDERED: Metoclopramide 10 MG/2 ML VIAL IVP ONE (15:15)
[2019-08-17] MEDS: rOPINIRole 1 MG TABLET PO SCH (20:13)
[2019-08-17] MEDS: Sennosides 8.6 MG TABLET PO SCH (20:14)
[2019-08-17] MEDS: Haloperidol Lactate 5 MG/ML VIAL IVP PRN (20:23)
[2019-08-17] MEDS: *HR* LORazepam 1 MG TABLET PO PRN (20:24)
[2019-08-18] MEDS: Megestrol Acetate 400 MG/10 ML UDC PO SCH ×3 (01:23→20:59)
[2019-08-18] MEDS: Morphine Sulfate ER (12 HR) 15 MG TABLET.ER PO SCH ×2 (01:35→09:14)
[2019-08-18] MEDS: rOPINIRole 1 MG TABLET PO SCH ×2 (09:13→20:59)
[2019-08-18] MEDS: Gabapentin 300 MG CAPSULE PO SCH ×3 (09:13→20:59)
[2019-08-18] MEDS: Sennosides 8.6 MG TABLET PO SCH ×2 (09:14→20:59)
[2019-08-18] MEDS: Fluticasone Propionate Nasal 50 MCG/SPRAY BOTTLE NS SCH (09:17)
[2019-08-18] MEDS: Saliva Stimulant 100ml BOTTLE PO PRN (09:17)
[2019-08-18] MEDS: 0.9 % Sodium Chloride 1,000 ML IVC SCH (13:25)
[2019-08-18] MEDS: *HR* HYDROmorphone 20 MG/20 ML PCA IVC PRN (13:37)
[2019-08-18] MEDS ORDERED: Bisacodyl 10 MG RECTAL SUPPOSITORY RC PRN (14:16)
[2019-08-18] MEDS: Morphine Sulfate ER (12 HR) 60 MG TABLET.ER PO SCH ×2 (16:32→23:55)
[2019-08-18] MEDS: *HR* LORazepam 1 MG TABLET PO PRN (23:59)
[2019-08-19] MEDS: Morphine Sulfate ER (12 HR) 60 MG TABLET.ER PO SCH (07:55)
[2019-08-19] MEDS: rOPINIRole 1 MG TABLET PO SCH ×2 (07:58→21:25)
[2019-08-19] MEDS: Sennosides 8.6 MG TABLET PO SCH ×2 (07:58→21:25)
[2019-08-19] MEDS: Megestrol Acetate 400 MG/10 ML UDC PO SCH ×2 (07:59→21:25)
[2019-08-19] MEDS: Gabapentin 300 MG CAPSULE PO SCH ×3 (07:59→21:25)
[2019-08-19] MEDS: Saliva Stimulant 100ml BOTTLE PO PRN ×2 (08:00→15:00)
[2019-08-19] MEDS: Fluticasone Propionate Nasal 50 MCG/SPRAY BOTTLE NS SCH (08:00)
[2019-08-19] MEDS ORDERED: *HR* FentaNYL PATCH 100 MCG PATCH TD SCH (13:00)
[2019-08-19] MEDS: 0.9 % Sodium Chloride 1,000 ML IVC SCH (15:57)
[2019-08-19] MEDS: *HR* HYDROmorphone 20 MG/20 ML PCA IVC PRN (18:24)
[2019-08-19] MEDS: *HR* LORazepam 1 MG TABLET PO PRN (21:33)
[2019-08-20] MEDS: Gabapentin 300 MG CAPSULE PO SCH ×3 (08:55→20:16)
[2019-08-20] MEDS: Megestrol Acetate 400 MG/10 ML UDC PO SCH ×2 (08:55→20:17)
[2019-08-20] MEDS: rOPINIRole 1 MG TABLET PO SCH ×2 (08:55→20:17)
[2019-08-20] MEDS: Sennosides 8.6 MG TABLET PO SCH ×2 (08:55→20:16)
[2019-08-20] MEDS: Fluticasone Propionate Nasal 50 MCG/SPRAY BOTTLE NS SCH (08:56)
[2019-08-20] MEDS: Morphine Sulfate Oral CONC 10 MG/0.5 ML ORAL.SYG SL PRN ×2 (08:57→12:10)
[2019-08-20] MEDS: Haloperidol Lactate 5 MG/ML VIAL IVP PRN (09:05)
[2019-08-20] MEDS ORDERED: *HR* HYDROmorphone 2 MG TABLET PO ONE (14:00)
[2019-08-20] MEDS: *HR* HYDROmorphone (PF) 1 MG/ML SYRINGE IVP PRN ×2 (16:03→21:14)
[2019-08-20] MEDS: *HR* HYDROmorphone 4 MG TABLET PO PRN (19:57)
[2019-08-20] MEDS: *HR* LORazepam 1 MG TABLET PO PRN (21:14)
[2019-08-21] MEDS: *HR* HYDROmorphone 4 MG TABLET PO PRN ×3 (02:32→10:29)
[2019-08-21] MEDS: rOPINIRole 1 MG TABLET PO SCH (08:58)
[2019-08-21] MEDS: Megestrol Acetate 400 MG/10 ML UDC PO SCH (08:59)
[2019-08-21] MEDS: Gabapentin 300 MG CAPSULE PO SCH ×2 (08:59→15:00)
[2019-08-21] MEDS: Sennosides 8.6 MG TABLET PO SCH (08:59)
[2019-08-21] MEDS: *HR* HYDROmorphone (PF) 1 MG/ML SYRINGE IVP PRN (08:59)
[2019-08-21] MEDS: *HR* LORazepam 1 MG TABLET PO PRN (08:59)
[2019-08-21] MEDS: Fluticasone Propionate Nasal 50 MCG/SPRAY BOTTLE NS SCH (09:01)
[2019-08-21] MEDS ORDERED: Simethicone 80 MG TAB.CHEW PO PRN (10:32)
[2019-08-21] MEDS ORDERED: *HR* HYDROmorphone 4 MG TABLET PO PRN (10:33)
[2019-08-21 11:44] VITALS: BP 131/84
[2019-08-21] MEDS ORDERED: Loratadine 10 MG TABLET PO SCH (12:00)
== END 2019-08-21 17:29 | disposition home health service (06) | DRG 948 ==
LOC: EMEROOARM 12:17 → 3ANU 12:17 → SUATTDRO 18:10
PROVIDERS: ADMIT Internal Medicine; ATTEND Internal Medicine

== ENCOUNTER 2019-09-05 16:01 | Inpatient (IN) ==
[2019-09-05] MEDS ORDERED: *HR* LORazepam 0.5 MG TABLET PO PRN (18:51)
[2019-09-05] MEDS ORDERED: *HR* FentaNYL PATCH 75 MCG PATCH TD SCH (19:00)
[2019-09-05] MEDS: Morphine Sulfate Oral CONC 10 MG/0.5 ML ORAL.SYG SL PRN ×2 (19:01→22:30)
[2019-09-05] MEDS: *HR* HYDROmorphone 2 MG/ML SYRINGE IVP PRN (21:15)
[2019-09-05] MEDS: Haloperidol Lactate 5 MG/ML VIAL IVP PRN (21:29)
[2019-09-06] MEDS: *HR* HYDROmorphone 2 MG/ML SYRINGE IVP PRN ×3 (01:16→10:11)
[2019-09-06] MEDS: Haloperidol Lactate 5 MG/ML VIAL IVP PRN ×2 (03:11→10:16)
[2019-09-06] MEDS: Morphine Sulfate Oral CONC 10 MG/0.5 ML ORAL.SYG SL PRN ×3 (03:12→12:29)
[2019-09-06 12:21] VITALS: BP 153/85
[2019-09-06] MEDS ORDERED: Gabapentin 300 MG CAPSULE PO SCH (15:00)
[2019-09-06] MEDS ORDERED: Sennosides/Docusate Sodium TABLET PO SCH (21:00)
== END 2019-09-06 12:32 | disposition other institution (70) | DRG 951 ==
LOC: 2ANU 18:14
PROVIDERS: ADMIT Internal Medicine Hospice and Palliative Medicine; ATTEND Internal Medicine Hospice and Palliative Medicine